=== PATIENT | female | born 1940 | race Caucasian/White ===

== ENCOUNTER 2019-12-07 15:39 | Outpatient (REF) | payer MEDICARE, SELFPAY ==
--- NOTE | 2019-12-07 15:52 | XR_ITS ---
EXAMINATION: XR SHOULDER, RIGHT CLINICAL INFORMATION: 79-year-old female patient complains of pain in the right shoulder. COMPARISON: X-rays of the right humerus and 09/09/2017. TECHNIQUE: Three views of the right shoulder. FINDINGS: The bones and soft tissues are normal. No fracture. Glenohumeral and acromioclavicular alignment is anatomic. No abnormal soft tissue calcifications. IMPRESSION: Normal right shoulder.
== END 2019-12-07 15:40 | disposition home or self-care (01) ==
LOC: HO.HMGCX 15:39
PROVIDERS: PCP Nurse Practitioner Family; Visit Provider Nurse Practitioner Family
DX: M25.511 Pain in right shoulder (principal)
CPT/HCPCS: 73030

== ENCOUNTER 2020-01-05 19:45 | Emergency (ER) | payer MEDICARE, SELFPAY ==
[2020-01-05 19:50] VITALS: BP 152/48; PULSE 60; RESP 16; TEMP 36.5; O2SAT 99; BMI 21.6
[2020-01-05 20:32] VITALS: PULSE 65
--- NOTE | 2020-01-05 20:39 | XR_ITS ---
EXAMINATION: XR CHEST CLINICAL INFORMATION: Chest pain COMPARISON: 12/24/2016 TECHNIQUE: Frontal view of the chest was obtained. FINDINGS: Lungs are well expanded and clear. No evidence of consolidation or pleural effusion. Cardiomediastinal silhouette has normal size and contour. The visualized bones, and upper abdomen, are unremarkable. XR/XR chest 1V IMPRESSION: No acute pulmonary disease.
--- NOTE | 2020-01-05 20:39 | ECG_ITS ---
Test Reason : CHEST PAIN Blood Pressure : / mmHG Vent. Rate : 058 BPM Atrial Rate : 058 BPM P-R Int : 120 ms QRS Dur : 072 ms QT Int : 420 ms P-R-T Axes : 068 046 249 degrees QTc Int : [address] & T wave abnormality, consider inferolateral ischemia Abnormal ECG When compared with ECG of 30-JUL-2004 15:43, ST now depressed in Lateral leads T wave inversion now evident in Inferior leads Inverted T waves have replaced nonspecific T wave abnormality in Lateral leads Referred By: Amparo Kearney Electronically Signed By:LILA ST MD
--- NOTE | 2020-01-05 20:41 | ED_ITS ---
HPI - Chest Pain General Chief Complaint: Chest Pain Stated Complaint: Chest Pain Time Seen by Provider: 01/05/20 20:38 Source: patient Mode of arrival: ambulatory Limitations: no limitations History of Present Illness HPI narrative: 79-year-old female with history of coronary artery disease and 3 stents more than 10 years ago, patient presented with intermittent chest pain that started 5 months ago, patient describes the pain as localized to the left chest area, with radiation down to the left upper abdominal area, pain usually aggravated by exertion, but relieved with rest, pain is associated with shortness of breath. Last time patient had pain was 03:30 am. No recent travel, no recent prolonged immobilization, no lower extremity swelling or pain. Related Data Previous Rx's Medication Instructions Recorded diclofenac sodium 50 mg 50 mg PO BID 30 Days #60 tab 12/07/19 tablet,delayed release lidocaine 5 % topical patch 1 patch TOPICAL DAILY #30 ea 12/07/19 metformin 500 mg tablet 500 mg PO DAILY #30 tab 12/07/19 Allergies Allergy/AdvReac Type Severity Reaction Status Date / Time statins AdvReac Unknown muscle Uncoded 10/12/19 00:00 cramps Review of Systems Review of Systems: All other systems are reviewed and are negative Constitutional: Reports as per HPI and Reports no additional constitutional complaints Eyes: Reports as per HPI and Reports no additional eye complaints Reports system reviewed and no additional complaints, except as documented Cardiovascular: Reports as per HPI and Reports no additional cardiovascular complaints Respiratory: Reports as per HPI and Reports no additional respiratory complaints Gastrointestinal: Reports as per HPI and Reports no additional gastrointestinal complaints Genitourinary: Reports no additional female genitourinary complaints Musculoskeletal: Reports no additional musculoskeletal complaints Skin/Breast: Reports system reviewed and no additional complaints, except as docu Psychiatric: Reports no additional psychiatric complaints Endocrine: Reports no additional endocrine complaints Hematologic/Lymphatic: Reports no additional hematologic/lymphatic complaints Allergic/Immunologic: Reports no additional allergic/immunologic complaints Reports system reviewed and no additional complaints, except as documented and Reports Abnormal speech present [facility] Past Medical History Surgical History H/O heart artery stent Social History Social History Alcohol intake: never Smoking Status: Never smoker Use of substances other than those prescribed or required for medical reasons: No Advance Directives: No Advance Directives Information Provided: Yes Physical Exam Vital Signs: Vital Signs: Last Vital Signs Temp 97.7 F 01/05/20 19:50 Pulse 56 01/05/20 22:01 Resp 12 01/05/20 21:46 BP 159/66 H 01/05/20 22:01 Pulse Ox 100 01/05/20 21:46 Body Mass Index 23.2 Vital signs have been reviewed as normal and appeared to be correct. Blood pressure is in the high range. Heart rate normal. Respiration rate normal. Temperature normal. Oxygen saturation normal. Appearance: Alert. Oriented X3. No acute distress. Anxious. Head: Normal external exam. Normocephalic. Atraumatic. No Saha signs noted. No raccoon eyes noted Eyes: PERRLA. EOMI. Conjunctiva and sclera normal. Eyelids normal. ENT: EAC normal. TM's Normal. Pharynx normal. Uvula midline. Moist mucous membranes. No trismus noted. No drooling noted. No muffled voice noted. Neck: Normal inspection. Neck supple. FROM. No adenopathy. Thyroid Normal. No meningeal signs. No neck mass noted. CVS: Normal heart rate and rhythm. Heart sound normal. No murmurs noted. Pulses normal throughout. Respiratory: No respiratory distress. Painless inspiration. Breath sounds normal. No wheezes/rales/rhonchi noted. Chest nontender. No accessory muscle usage noted or decreased air movement noted. Abdomen: Soft and nontender. Bowel sounds normal in all 4 quadrants. No distention noted. No organomegaly noted. No visible injury noted. Back: No CVA tenderness. Full range of motion noted. Skin: Skin warm and dry. Normal skin color. Normal skin turgor. No rash es/lesions/lacerations noted. Extremities: No lower extremity edema. Extremities exhibit normal range of motion. Extremities nontender. Neuro: Oriented X 3. No motor deficit. No sensory deficit. Reflexes normal. MDM - Chest Pain MDM Narrative Medical decision making narrative: Assessment and plan. 79 years old female came in for chest pain for the past few months, but she had severe chest pain at 03:30 in the morning,, patient had had involving chest pain since then, patient had elevated high sensitive troponin above 4000 with T-wave inversion on the EKG which is new, the case discussed with our promotions representative Dr. Palmer who recommended to transfer to [facility], patient was discussed with [facility] promotions representative attending Dr. mary dia who accepted the patient to be transferred to [facility]. Will start the patient on aspirin/heparin/nitro and arrange for transportation. Lab Data Attestation: I reviewed the patient's lab results. Result diagrams: 01/05/20 20:47 01/05/20 20:47 Labs: Lab Results 01/05/20 01/05/20 01/05/20 Range/Units 20:47 20:47 20:47 WBC 6.6 (4.8-10.8) X10*3/uL RBC 3.94 L (4.20-5.50) X10*6/uL Hgb 12.0 (12.0-16.0) g/dl Hct 36.0 L (37-47) % MCV 91.4 (80-98) fL MCH 30.5 (27.0-33.0) pg MCHC 33.3 (31.0-35.0) g/dl RDW 12.1 (11.0-16.0) % Plt Count 222 (160-400) X10*3/uL MPV 9.5 (9.4-12.3) fL Immature Gran % (Auto) 0.2 (0.0-0.4) % Neut % (Auto) 48.4 (45-73) % Lymph % (Auto) 40.6 H (20-40) % Candler % (Auto) 7.9 (2-11) % Eos % (Auto) 2.6 (0-4) % Baso % (Auto) 0.3 (0-2) % Lymph # (Auto) 2.7 (1.2-4.9) X10*3/uL Candler # (Auto) 0.5 (0.1-1.2) X10*3/uL Eos # (Auto) 0.2 (0.0-0.4) X10*3/uL Baso # (Auto) 0.0 (0.0-0.2) X10*3/uL Abs Immat Gran (auto) 0.01 (0.00-0.03) X10*3/uL Absolute Neuts (auto) 3.2 (2.0-8.3) X10*3/uL Absolute Nucleated RBC 0.000 (0.0-0.012) X10*3/uL Nucleated RBC % (auto) 0.0 (0.0-0.2) /100WBC D-Dimer NG/ML Sodium 139 (135-145) mmol/L Potassium 4.6 (3.3-5.1) mmol/l Chloride 104 (96-108) mmol/L Carbon Dioxide 24 (22-29) mmol/L Anion Gap 16 (12-20) BUN 27 H (9-16) mg/dL Creatinine 0.97 (0.5-1.4) mg/dL Estim Creat Clear Calc 42.2 Estimated GFR 55 Random Glucose 169 H (60-115) mg/dL Calcium 8.7 (8.4-10.2) mg/dL Troponin I High Sens 4507.6 H (<3.5-17.0) ng/L B-Natriuretic Peptide 478 H (<100) pg/mL Lipase 31 (8-78) U/L 01/05/20 Range/Units 20:47 WBC (4.8-10.8) X10*3/uL RBC (4.20-5.50) X10*6/uL Hgb (12.0-16.0) g/dl Hct (37-47) % MCV (80-98) fL MCH (27.0-33.0) pg MCHC (31.0-35.0) g/dl RDW (11.0-16.0) % Plt Count (160-400) X10*3/uL MPV (9.4-12.3) fL Immature Gran % (Auto) (0.0-0.4) % Neut % (Auto) (45-73) % Lymph % (Auto) (20-40) % Candler % (Auto) (2-11) % Eos % (Auto) (0-4) % Baso % (Auto) (0-2) % Lymph # (Auto) (1.2-4.9) X10*3/uL Candler # (Auto) (0.1-1.2) X10*3/uL Eos # (Auto) (0.0-0.4) X10*3/uL Baso # (Auto) (0.0-0.2) X10*3/uL Abs Immat Gran (auto) (0.00-0.03) X10*3/uL Absolute Neuts (auto) (2.0-8.3) X10*3/uL Absolute Nucleated RBC (0.0-0.012) X10*3/uL Nucleated RBC % (auto) (0.0-0.2) /100WBC D-Dimer < 200 NG/ML Sodium (135-145) mmol/L Potassium (3.3-5.1) mmol/l Chloride (96-108) mmol/L Carbon Dioxide (22-29) mmol/L Anion Gap (12-20) BUN (9-16) mg/dL Creatinine (0.5-1.4) mg/dL Estim Creat Clear Calc Estimated GFR Random Glucose (60-115) mg/dL Calcium (8.4-10.2) mg/dL Troponin I High Sens (<3.5-17.0) ng/L B-Natriuretic Peptide (<100) pg/mL Lipase (8-78) U/L Imaging Data Chest x-ray: Radiologist's impression: No acute pathology. ECG Data ECG #1: Interpretation: Sinus bradycardia at 58 beats per minute, normal axis deviation, normal intervals, diffuse T-wave inversion in lead III,aVF, V4, V5, V6. Critical Care Time Critical Care Time Critical Care Time: Yes Total Critical Care Time: 5 Attestation: I spent 45 minutes at bedside providing critical care level of care including reviewing EKG, labs, talking to consultants, arranging for transfer to another facility, answering patient's questions. Discharge Plan Discharge Clinical Impression: Chest pain Patient Disposition: Xfer [facility] Prescriptions: No Action metformin 500 mg tablet 500 mg PO DAILY Qty: 30 RF: 4 diclofenac sodium 50 mg tablet,delayed release (DR/EC) 50 mg PO BID 30 Days Qty: 60 RF: 1 lidocaine 5 % adhesive patch,medicated 1 patch topical DAILY Qty: 30 RF: 0
[2020-01-05 20:58] LABS: MANUAL DIFF FLAG NO
[2020-01-05 20:59] LABS: Basophils Percent Auto 0.3 % (0-2); Eosinophils Absolute Auto 0.2 X10*3/uL (0.0-0.4); Eosinophils Percent Auto 2.6 % (0-4); Imm Gran Abs Auto 0.01 X10*3/uL (0.00-0.03); Imm Gran Pct Auto 0.2 % (0.0-0.4); Lymphocytes Absolute Auto 2.7 X10*3/uL (1.2-4.9); Lymphocytes Percent Auto 40.6 % (20-40); Mean Corpuscular HGB Conc 33.3 g/dl (31.0-35.0); Mean Corpuscular Hemoglobin 30.5 pg (27.0-33.0); Mean Corpuscular Volume 91.4 fL (80-98); Mean Platelet Volume 9.5 fL (9.4-12.3); Monocytes Absolute Auto 0.5 X10*3/uL (0.1-1.2); Monocytes Percent Auto 7.9 % (2-11); Neutrophils Absolute Auto 3.2 X10*3/uL (2.0-8.3); Neutrophils Percent Auto 48.4 % (45-73); Platelet Count 222 X10*3/uL (160-400); Red Blood Count 3.94 X10*6/uL (4.20-5.50); Red Cell Distribution Width 12.1 % (11.0-16.0); White Blood Count 6.6 X10*3/uL (4.8-10.8)
--- NOTE | 2020-01-05 21:00 | PC.NURSE ---
Patient line and lab'd. sinus rhythm on monitor. MD evaluation completed
[2020-01-05 21:09] LABS: D Dimer < 200 NG/ML
[2020-01-05 21:21] LABS: Anion Gap 16 (12-20); Blood Urea Nitrogen 27 mg/dL (9-16); Calcium 8.7 mg/dL (8.4-10.2); Carbon Dioxide 24 mmol/L (22-29); Chloride 104 mmol/L (96-108); Creatinine Clr Calc Pharmacy 42.2; Estimated Glomerular Filt Rate 55; Glucose Random 169 mg/dL (60-115); Lipase 31 U/L (8-78); Potassium 4.6 mmol/l (3.3-5.1); Sodium 139 mmol/L (135-145)
[2020-01-05 21:30] LABS: B Type Natriuretic Peptide 478 pg/mL (<100)
[2020-01-05 21:46] VITALS: BP 154/60; PULSE 57; RESP 12; O2SAT 100
[2020-01-05 21:57] VITALS: BMI 23.2
[2020-01-05 22:00] VITALS: BP 149/56; PULSE 57; RESP 14; O2SAT 100
[2020-01-05 22:01] VITALS: BP 159/66; PULSE 56
[2020-01-05] MEDS: Aspirin Enteric Coated 81 MG TABLET.DR PO (22:01)
[2020-01-05] MEDS: Nitroglycerin 2 % Oint 1 GM Packet 0.5 INCH TRANSDERMA (22:01)
[2020-01-05] MEDS: Heparin Sodium,Porcine 5,000 UNIT/ML VIAL 2358.68 UNIT IVPUSH (22:08)
[2020-01-05 22:25] LABS: Prothrombin Time 11.3 SEC (10.8-13.0)
[2020-01-05] MEDS: Heparin Sodium,Porcine/1/2NS 25,000 UNIT/250 ML IV.SOLN 7.08 UNIT IVCONT (22:29)
[2020-01-05 22:59] LABS: COVID-19 Test Negative (Negative)
== END 2020-01-06 00:24 | disposition short-term general hospital (02) ==
PROVIDERS: Emergency Provider Emergency Medicine; PCP Nurse Practitioner Family
DX: R07.9 Chest pain, unspecified (principal); I25.10 Atherosclerotic heart disease of native coronary artery without angina pectoris; Z79.899 Other long term (current) drug therapy; Z20.828 Contact with and (suspected) exposure to other viral communicable diseases
CPT/HCPCS: 36415; 71045; 80048; 83690; 83880; 84484; 85025; 85379; 85610; 87635; 93005; 96365; 96366; 96375; 99285

== ENCOUNTER → 2020-03-13 13:02 | Outpatient (BNVA) | payer MEDICARE, SELFPAY | PROVIDERS: PCP Nurse Practitioner Family; Visit Provider Internal Medicine | DX: I25.10 Atherosclerotic heart disease of native coronary artery without angina pectoris (principal); I65.23 Occlusion and stenosis of bilateral carotid arteries; I10 Essential (primary) hypertension; E11.9 Type 2 diabetes mellitus without complications; E78.5 Hyperlipidemia, unspecified; Z95.1 Presence of aortocoronary bypass graft | CPT/HCPCS: 99202 ==

== ENCOUNTER → 2020-04-12 14:37 | Outpatient (REF) | payer MEDICARE, SELFPAY ==
--- NOTE | 2020-04-12 14:49 | CA_ITS ---
Transthoracic Echocardiogram Patient (Last, First, Middle): Ashley Kent Lou Gender: Female Date of : 1940 Age: 80 Procedure Date: 04/12/2020 Procedure Type: Transthoracic Echocardiogram Location: OP Height: 165.1 cm Weight: 57.15 kg BSA: 1.63 m2 Heart Rate: bpm BP: 120 / 80 mmHg Carpet Or Rug Layer Helper: ARAM Salas MD: Ramses Palmer MD Senior Software Developer: Manoj Jang MD Symptoms: Z95.1 - Presence of aortocoronary bypass graft Study Quality: Good ECG Rhythm: Sinus Conclusions: - 1. Normal LV systolic function with impaired relaxation filling pattern 2. Fibrocalcific aortic valve changes noted with may be early aortic stenosis 3. Moderate mitral annular calcification with mild mitral regurgitation 4. Normal RV systolic pressure 5. No gross pericardial effusion Findings Left Ventricle Normal left ventricular size, thickness, and systolic function. The visually estimated ejection fraction is between 60-65%. There is paradoxical septal motion consistent with post-operative status. Spectral Doppler is indicative of an impaired relaxation filling pattern. E/E prime ratio is between 8 and 15 consistent with indeterminate filling pressures. Wall Motion Rest Echo Findings The basal inferolateral segment is hypokinetic. The basal inferior segment is akinetic. All other scored wall segments showed normal motion. Right Ventricle Normal right ventricular cavity size and systolic function. Atria The left atrium is likely dilated. There is lipomatous hypertrophy of the interatrial septum. There is no evidence of interatrial shunt. The right atrium is normal in size. Aortic Valve There is mild calcification of the aortic valve. There is mild thickening of the aortic valve. There is no aortic valve stenosis. There is trace (trivial) aortic valve regurgitation. Mitral Valve There is mild anterior and posterior mitral leaflet thickening. There is moderate mitral annular calcification. There is mild mitral valve regurgitation. There is no mitral valve stenosis. Pulmonic Valve The pulmonic valve was not well visualized. Tricuspid Valve Likely normal tricuspid valve structure and function. There is mild tricuspid valve regurgitation. The right ventricular systolic pressure is normal. The right ventricular systolic pressure is 25 mmHg. Normal right atrial pressure. There is no evidence of pulmonary hypertension. Great Vessels All visible segments of the aorta are normal in size. The pulmonary artery was not well visualized. Venous The inferior vena cava is normal in size and collapses greater than 50% with inspiration. Pericardium/Pleural There is no evidence of pericardial effusion. Prior Study Comparison No significant change compared to prior study dated: 02/24/2019. Measurements 2D Linear Measurements IVSd: 1.02 0.6-0.9/0.6-1.0 cm LVIDd: 4.33 3.9-5.3/4.2-5.9 cm LVIDd Index: 2.66 2.4-3.2/2.2-3.1 cm/m2 LVIDs: 2.89 2.0-3.6 cm LVPWd: 1.02 0.7-1.1 cm Ao Root: 3.20 2.1-3.5 cm LA Diam: 3.70 2.7-3.8/3.0-4.0 cm LAIDs Index: 2.27 1.5-2.3 cm/m2 LV Mass: 184.38 67-162/88-224 g LV Mass Index: 113.12 43-95/49-115 g/m2 LVOT Diam: 2.00 3.0+(-)1.3 cm 2D Systolic Function EF 4C: 62.30 >55% EF 2C: 61.90 >55% EF BiP: 60.90 >55% Mitral Valve MV Pk E: 0.80 MV PK A: 0.94 MV Decel Time: 373.00 E/A: 0.90 E'Lateral: 8.70 E'Medial: 4.90 E/E' Med: 16.20 E/E' Lat: 9.10 PHT: 109.00 MVA PHT: 2.02 Decel Dupage: 2.14 Aortic Valve AoV Pk Jason: 1.39 AoV Mn Jason: 0.95 AoV VTI: 0.32 AoV Pk Grad: 8.00 Aov Mn Grad: 4.00 JAKE Cont.VTI: 1.90 LVOT LVOT Pk Jason: 0.83 LVOT Mn Jason: 0.53 LVOT VTI: 0.19 LVOT Pk Grad: 3.00 LVOT Mn Grad: 1.00 LVOT Diam: 2.00 LVOT Area: 3.14 Diastolic Function MV Pk E: 0.80 MV Pk A: 0.94 E/A: 0.90 E'Medial: 4.90 E/E' Med: 16.20 E' Laterial: 8.70 E/E' Lat: 9.10 Tricuspid Valve TR Pk Jason: 2.33 TR Pk Grad: 22.00 RA Press: 3.00 RVSP: 25.00 Great Vessels Aorta Ao Root-2D: 3.20 2.0-3.7 cm Ao Asc: 3.40 2.1-3.4 cm Ao Arch: 2.90 Updated in Other Vendor System with Status of Final Manoj Jang MD electronically signed on 04/14/2020 10:37:34 AM with status of Final
== END ==
LOC: HO.CARD 14:37
PROVIDERS: Visit Provider Internal Medicine
DX: Z95.1 Presence of aortocoronary bypass graft (principal)
CPT/HCPCS: 93306

== ENCOUNTER 2020-06-01 14:50 | Outpatient (REF) | payer MEDICARE, SELFPAY ==
--- NOTE | ~2020-06-01 | MM_ITS ---
EXAMINATION: BONE DENSITOMETRY CLINICAL INDICATION: Asymptomatic menopausal state. COMPARISON: Previous BD dated 07/02/2017 and baseline BD dated 03/01/2015. TECHNIQUE: Using a [employer] DXA System (software version: 13.1) manufactured by [employer], dual-energy x-ray absorptiometry was performed of the lumbar spine and left hip. The images are of good technical quality. Summary results are attached. FINDINGS: AP SPINE L1-L4: Current: BMD 1.118 g/cm2, Z-score 1.6, T-score -0.5, normal, 5.8% decrease from previous, 4.3% decrease from baseline (<5% change is not significant). Prior: BMD 1.187 g/cm2. Baseline: BMD 1.168 g/cm2. LEFT FEMUR, NECK: Current: BMD 0.785 g/cm2, Z-score 0.5, T-score -1.8, osteopenia. Prior: BMD 0.965 g/cm2. Baseline: BMD 0.798 g/cm2. LEFT FEMUR, TOTAL: Current: BMD 0.717 g/cm2, Z-score -0.1, T-score -2.3, osteopenia, 23.6% decrease from previous, 18.5% decrease from baseline (<5% change is not significant). Prior: BMD 0.939 g/cm2. Baseline: BMD 0.880 g/cm2. IDENTIFIED RISK FACTORS: Height loss, low calcium intake, anticonvulsant. Early menopause, secondary osteoporosis hysterectomy, bilateral oophorectomy,. HISTORY OF FRACTURE: None listed. MEDICATIONS: None listed. MM/XR DEXA axial skeleton IMPRESSION: 1. DIAGNOSIS: Osteopenia based on the lowest T-score value of -2.3 in the total femur applying World Health Organization criteria. 2. 10-YEAR FRACTURE RISK PREDICTION, FRAX: Major osteoporotic fracture (clinical spine, forearm, hip or shoulder) 13.7%. Hip fracture 3.9%. 3. Treatment Recommendations: NOF guidelines recommend consideration for treatment in postmenopausal women and men age 50 and older presenting with the following: -A hip or vertebral (clinical or morphometric) fracture. -T-score less than or equal to -2.5 at the femoral neck or spine after appropriate evaluation to exclude secondary causes. -Low bone mass at the hip or spine and a 10-year fracture probability by FRAX of greater than or equal to 3% for hip fracture or greater than or equal to 20% for major osteoporotic fracture based on the [place] adapted WHO algorithm. 4. Other Recommendations: All treatment decisions require clinical judgment and consideration of individual patient factors, including patient preferences, comorbidities, previous drug use, risk factors not captured in the FRAX model (e.g. frailty, falls, vitamin D deficiency, increased bone turnover, interval significant decline in bone density) and possible under or overestimation of fracture risk by FRAX. Additional medical evaluation for secondary cause of low bone mineral density may be appropriate. FUTURE SCAN RECOMMENDATION: People with diagnosed cases of osteoporosis or at high risk for fracture should have regular bone mineral density tests. For patients eligible for Medicare, routine testing is allowed once every 2 years. The testing frequency can be increased to one year for patients who have rapidly progressing disease, those who are receiving or discontinuing medical therapy to restore bone mass, or have additional risk factors.
== END 2020-06-01 14:51 | disposition home or self-care (01) ==
LOC: HO.MAMMO 14:50
PROVIDERS: Visit Provider Nurse Practitioner Family
DX: M81.8 Other osteoporosis without current pathological fracture (principal); E58 Dietary calcium deficiency; Z78.0 Asymptomatic menopausal state; Z79.899 Other long term (current) drug therapy; Z90.710 Acquired absence of both cervix and uterus; Z90.722 Acquired absence of ovaries, bilateral
CPT/HCPCS: 77080

== ENCOUNTER 2020-06-06 14:09 | Outpatient (REF) | payer MEDICARE, SELFPAY ==
--- NOTE | ~2020-06-06 | XR_ITS ---
EXAMINATION: XR HAND, RIGHT CLINICAL INFORMATION: Contusion with pain COMPARISON: None TECHNIQUE: Three-view right hand FINDINGS: There is osteopenia visualized bones. No acute fracture or dislocation is evident. Degenerative joint disease is seen with some joint space narrowing and marginal spurring involving the distal interphalangeal joints as well as sequela of previous trauma involving the fourth proximal interphalangeal joint. There is some degenerative change seen about the first metacarpal phalangeal joint. There is a small calcific density seen adjacent to the head of the second proximal phalanx which may be sequela of previous injury. No definite erosive arthritides identified. There is some soft tissue swelling seen overlying the dorsum of the second metacarpal phalangeal joint. XR/XR hand RT min 3V IMPRESSION: Degenerative change of the right hand without evidence of acute fracture or dislocation.
--- NOTE | ~2020-06-06 | US_ITS ---
EXAMINATION: US EXTREMITY NONVASCULAR CLINICAL INFORMATION: Localized swelling, mass and lump, right upper limb COMPARISON: Radiograph dated 06/06/2020 TECHNIQUE: Huntley-scale and color Doppler images were obtained through the dorsal aspect of the right hand in the area of palpable abnormality. FINDINGS: 2 small hypoechoic, rounded foci are present in the subcutaneous fat just dorsal to the index finger MCP joint. These measure 1 x 0.7 x 1.2 cm and 0.8 x 0.3 x 0.7 cm. No abnormal blood flow seen within these on color Doppler. Surrounding soft tissues are unremarkable on these images. US/US extremity nonvascular IMPRESSION: Two small hypoechoic foci in the subcutaneous fat at the dorsal aspect of the index finger MCP joint which may correspond to small hematomas. Other possibilities include a complicated ganglion cyst or tophus. No surrounding blood flow on color Doppler to indicate significant hyperemia.
== END 2020-06-06 14:10 | disposition home or self-care (01) ==
LOC: HO.HMGCX 14:09
PROVIDERS: PCP Nurse Practitioner Family; Visit Provider Nurse Practitioner Family
DX: S60.00XA Contusion of unspecified finger without damage to nail, initial encounter (principal)
CPT/HCPCS: 73130; 76882

== ENCOUNTER 2020-06-12 13:56 | Outpatient (REF) | payer MEDICARE, SELFPAY ==
[2020-06-12 15:21] LABS: MANUAL DIFF FLAG NO
[2020-06-12 15:28] LABS: Basophils Percent Auto 0.3 % (0-2); Eosinophils Absolute Auto 0.2 X10*3/uL (0.0-0.4); Eosinophils Percent Auto 2.4 % (0-4); Hematocrit 35.3 % (37-47); Hemoglobin 11.2 g/dl (12.0-16.0); Imm Gran Abs Auto 0.02 X10*3/uL (0.00-0.03); Imm Gran Pct Auto 0.3 % (0.0-0.4); Lymphocytes Absolute Auto 2.3 X10*3/uL (1.2-4.9); Lymphocytes Percent Auto 30.1 % (20-40); Mean Corpuscular HGB Conc 31.7 g/dl (31.0-35.0); Mean Corpuscular Hemoglobin 28.5 pg (27.0-33.0); Mean Corpuscular Volume 89.8 fL (80-98); Mean Platelet Volume 9.3 fL (9.4-12.3); Monocytes Absolute Auto 0.5 X10*3/uL (0.1-1.2); Monocytes Percent Auto 6.5 % (2-11); Neutrophils Absolute Auto 4.6 X10*3/uL (2.0-8.3); Neutrophils Percent Auto 60.4 % (45-73); Platelet Count 233 X10*3/uL (160-400); Red Blood Count 3.93 X10*6/uL (4.20-5.50); Red Cell Distribution Width 13.5 % (11.0-16.0); White Blood Count 7.5 X10*3/uL (4.8-10.8)
[2020-06-12 15:44] LABS: Estimated Average Glucose 151 mg/dL; Hemoglobin A1c % 6.9 %
[2020-06-12 16:16] LABS: Alanine Aminotransferase 18 U/L (0-31); Albumin Level 4.7 g/dL (3.5-5.0); Alkaline Phosphatase 65 U/L (39-117); Anion Gap 13 (12-20); Aspartate Amino Transferase 18 U/L (5-31); Bilirubin Total 0.6 mg/dL (0.0-1.0); Blood Urea Nitrogen 20 mg/dL (9-16); Calcium 9.9 mg/dL (8.4-10.2); Carbon Dioxide 30 mmol/L (22-29); Chloride 103 mmol/L (96-108); Cholesterol 163 mg/dL; Estimated Glomerular Filt Rate > 60; Glucose Fasting 122 mg/dL (60-99); HDL Cholesterol 45 mg/dL; Iron 82 mcg/dL (30-160); LDL Cholesterol Calculated 88 mg/dl; Percent Iron Saturation 23 % (15-50); Potassium 4.4 mmol/L (3.3-5.1); Sodium 142 mmol/L (135-145); Total Iron Binding Capacity 362 mcg/dL (228-428); Total Protein 7.2 g/dL (6.5-8.0); Triglycerides 151 mg/dL; Unsaturated Iron Binding 280 ug/dL
[2020-06-12 16:37] LABS: Ferritin 59 ng/mL (10-250); TSH reflex Free T4 0.54 uIU/mL (0.32-4.0)
[2020-06-12 16:55] LABS: Creatinine Urine 190.01 mg/dL; Microalbum/Creatinine Ratio Ur 10.5 ug/mg cr
== END 2020-06-12 13:57 | disposition home or self-care (01) ==
LOC: HO.LAB 13:56
PROVIDERS: PCP Nurse Practitioner Family; Visit Provider Internal Medicine
DX: D64.9 Anemia, unspecified (principal); I21.4 Non-ST elevation (NSTEMI) myocardial infarction; I25.10 Atherosclerotic heart disease of native coronary artery without angina pectoris; I65.23 Occlusion and stenosis of bilateral carotid arteries; I10 Essential (primary) hypertension; E78.5 Hyperlipidemia, unspecified; E11.9 Type 2 diabetes mellitus without complications; Z95.1 Presence of aortocoronary bypass graft; Z79.899 Other long term (current) drug therapy
CPT/HCPCS: 36415; 80053; 80061; 82043; 82728; 83036; 83540; 84443; 85025; 99212

== ENCOUNTER → 2020-12-11 14:38 | Outpatient (BNVA) | payer MEDICARE, SELFPAY | PROVIDERS: PCP Internal Medicine; Referring Provider Internal Medicine; Visit Provider Internal Medicine | DX: I25.10 Atherosclerotic heart disease of native coronary artery without angina pectoris (principal); I21.4 Non-ST elevation (NSTEMI) myocardial infarction; I65.23 Occlusion and stenosis of bilateral carotid arteries; E11.9 Type 2 diabetes mellitus without complications; I10 Essential (primary) hypertension; E78.5 Hyperlipidemia, unspecified; Z95.1 Presence of aortocoronary bypass graft; Z95.5 Presence of coronary angioplasty implant and graft; Z98.890 Other specified postprocedural states; Z88.8 Allergy status to other drugs, medicaments and biological substances; Z79.84 Long term (current) use of oral hypoglycemic drugs; Z79.899 Other long term (current) drug therapy | CPT/HCPCS: 99212 ==

== ENCOUNTER 2020-12-26 18:49 | Emergency (ER) | payer MEDICARE, SELFPAY ==
--- NOTE | ~2020-12-26 | XR_ITS ---
EXAMINATION: XR FOOT, LEFT CLINICAL INFORMATION: Pain to 3rd toe, small black fluctuant area r/o osteomyelitis COMPARISON: None TECHNIQUE: AP, lateral, and oblique views of the left foot. FINDINGS: There are degenerative changes present at the first metatarsophalangeal joint narrowing and sclerosis. No fractures are seen. No bony destructive abnormalities seen to suggest osteomyelitis. No other significant abnormality is present. XR/XR foot LT 2V IMPRESSION: No acute fracture. No evidence of osteomyelitis.
--- NOTE | ~2020-12-26 | XR_ITS ---
EXAMINATION: XR CHEST CLINICAL INFORMATION: Bilateral leg swelling. COMPARISON: Chest done on 01/05/2020. TECHNIQUE: Frontal view of the chest was obtained. FINDINGS: Postop changes of sternotomy is present, new since prior study. Cardiac mediastinal silhouette is within normal limits. Both lung cornejo are symmetrically expanded and are clear. No evidence of any pleural effusion or pneumothorax. XR/XR chest 1V IMPRESSION: No radiographic evidence of acute cardiopulmonary disease. Postop changes of sternotomy, new since 01/05/2020.
--- NOTE | ~2020-12-26 | US_ITS ---
EXAMINATION: NONINVASIVE ASSESSMENT OF THE ARTERIES OF LEFT LOWER EXTREMITY Gen Hagen MD CLINICAL INFORMATION: History of cardiac bypass now with left lower extremity pain and swelling TECHNIQUE: Left lower extremity duplex ultrasound was performed with velocity measurements and waveform analysis in the common femoral arteries, profunda femoris arteries, proximal mid and distal superficial femoral arteries, popliteal arteries and tibial vessels. This study was performed only at rest. COMPARISON: None FINDINGS: Velocities in cm/sec and phasicity as well as the presence of plaque are reported below. LEFT LEG: Common Femoral: 237 -triphasic flow with mild plaque Profunda Femoris: 121 -triphasic flow with mild plaque Proximal SFA: 93 -biphasic flow Mid SFA: 72 -mild plaque with monophasic flow. Distal SFA: 40 -mild plaque with monophasic flow Popliteal: 36 with monophasic flow and areas of no flow seen, possibly acute. Posterior tibial: 14 -monophasic flow Peroneal: 31 -monophasic flow Incidental note made of a 1.1 cm left groin lymph node. US/US arterial duplex LE IMPRESSION: There is evidence of significant peripheral vascular disease distal SFA and popliteal disease with popliteal occlusion possibly secondary to acute clot with reconstituted monophasic tibial flow below this level.
--- NOTE | ~2020-12-26 | US_ITS ---
EXAMINATION: US VENOUS ULTRASOUND WITH DOPPLER LOWER EXTREMITY, LEFT CLINICAL INFORMATION: Left lower extremity pain and swelling COMPARISON: None TECHNIQUE: Ultrasound of the deep veins is performed from the hip to the calf with compression sonography and color and pulse Doppler assessment. Spectral analysis with color-flow imaging is performed. FINDINGS: There is normal venous compression and respiratory variation and augmented flow. The visualized common femoral vein, superficial femoral vein, profunda femoral vein, popliteal vein, and the trifurcation region shows no evidence of deep venous thrombosis. There is no significant popliteal fossa cyst. The contralateral right common femoral vein appears normal. If the patient's symptoms persist, followup ultrasound in 5 days 7 days might be of value to exclude proximal propagation from a non-visualized calf vein. US/US venous duplex LE IMPRESSION: No DVT demonstrated in the left lower extremity.
[2020-12-26 19:49] VITALS: BP 156/64; PULSE 71; RESP 18; TEMP 36.8; O2SAT 98; BMI 21.6
--- NOTE | 2020-12-26 20:12 | ED_ITS ---
HPI - Extremity Problem General Chief complaint: Extremity Problem <VICENTE Paulino - Last Filed: 12/27/20 02:23> Stated complaint: foot pain <VICENTE Paulino - Last Filed: 12/27/20 02:23> Time Seen by Provider: 12/26/20 19:29 <VICENTE Paulino Last Filed: 12/27/20 02:23> Source: patient <VICENTE Paulino - Last Filed: 12/27/20 02:23> Mode of arrival: ambulatory <VICENTE Paulino Last Filed: 12/27/20 02:23> Limitations: no limitations <VICENTE Paulino Last Filed: 12/27/20 02:23> History of Present Illness HPI Narrative: 80-year-old female past medical history significant for hypertension, diabetes, bilateral carotid artery stenosis, CAD status post CABG x4, history of NSTEMI presents to the emergency department with complaints of left foot swelling and pain described as pins and needles X1 year progressively worsening over the past week. Patient states that her pain has been a 10/10 over the past year, but over the past week her pain has been intolerable. Patient states she takes gabapentin, which helps a little bit, but does not get rid of the pain. Patient was seen at Urgent Care today, where they diagnosed her with cellulitis, and advised her to come to the emergency department for further evaluation. Patient takes baby aspirin daily. Patient denies chest pain, shortness of breath, fevers, chills, nausea, vomiting, abdominal pain, weakness. Denies recent travel and immobilization. Patient is not a smoker. Patient states she has never had imaging on her lower extremities. <VICENTE Paulino - Last Filed: 12/27/20 02:23> MD Complaint: extremity pain and extremity swelling <VICENTE Paulino Last Filed: 12/27/20 02:23> Onset (ago): year(s) (1) <VICENTE Paulino Last Filed: 12/27/20 02:23> Pain Consistency: constant <VICENTE Paulino Last Filed: 12/27/20 02:23> Location: left, right and lower extremity <VICENTE Paulino - Last Filed: 12/27/20 02:23> Severity scale (1-10): >10 <VICENTE Paulino - Last Filed: 12/27/20 02:23> Quality: burning and stabbing <VICENTE Paulino - Last Filed: 12/27/20 02:23> Radiation: none <VICENTE Paulino - Last Filed: 12/27/20 02:23> Relieving factors: nothing <VICENTE Paulino - Last Filed: 12/27/20 02:23> Exacerbating factors: nothing <VICENTE Paulino - Last Filed: 12/27/20 02:23> Associated symptoms: denies other symptoms <VICENTE Paulino - Last Filed: 12/27/20 02:23> Related Data Home medications: Previous Rx's Medication Instructions Recorded acetaminophen 500 mg tablet 500 mg PO BID PRN 30 Days #60 tab 02/24/20 (Tylenol Extra Strength) lidocaine 5 % topical patch 1 patch TOPICAL DAILY 30 Days #30 02/24/20 ea walker #1 ea 07/11/20 miscellaneous medical supply #1 ea 08/01/20 metformin 500 mg tablet 500 mg PO DAILY 30 Days #30 tab 09/13/20 Motorized Scooter #1 ea 10/18/20 hydrocortisone valerate 0.2 % 1 appl TOPICAL BID PRN 30 Days #60 10/29/20 topical cream g sitagliptin 50 mg tablet (Januvia) 50 mg PO DAILY #30 tab 10/29/20 atorvastatin 80 mg tablet 80 mg PO BEDTIME #90 tab 11/18/20 aspirin 81 mg tablet,delayed 81 mg PO DAILY #90 tab 12/04/20 release metoprolol tartrate 25 mg tablet 25 mg PO BID #180 tab 12/04/20 gabapentin 300 mg capsule 600 mg PO BEDTIME 30 Days #60 cap 12/08/20 alcon.stocking,thigh,reg,med #2 ea 12/11/20 <VICENTE Paulino Last Filed: 12/27/20 02:23> Allergies/Adverse reactions: Allergies Allergy/AdvReac Type Severity Reaction Status Date / Time [id number] Reductase Allergy Unknown muscle Verified 12/26/20 16:08 Inhibitor cramps [Tzawxxb-Rrd-Coa Reductase Inhibitor] <VICENTE Paulino - Last Filed: 12/27/20 02:23> Review of Systems Review of Systems: Constitutional : No Weight loss, No Fever, No Chills, No Fatigue, No Malaise ENT/Mouth : No sore throat, No Rhinorrhea Eyes: No Eye Pain, No Swelling, No Redness Cardiovascular : No Chest Pain, No SOB, No Dyspnea on Exertion, No Orthopnea, No Edema, No Palpitations Respiratory : No Cough, No Sputum, No Wheezing Gastrointestinal : No Nausea, No Vomiting, No Diarrhea, No Constipation, No abdominal Pain, No Hematochezia, No Melena Genitourinary : No Dysuria, No Urinary Frequency, No Hematuria, Musculoskeletal : + joint pain, No Myalgias, + Joint Swelling Skin : No Skin Lesions, No rash, + Redness overlying left foot. Neuro : No Weakness, No Numbness, No Dizziness, No Headache All other systems reviewed and are negative <VICENTE Paulino - Last Filed: 12/27/20 02:23> [facility] Past Medical History Attestation statement: The following information was validated with the patient. <VICENTE Paulino - Last Filed: 12/27/20 02:23> Source: old records reviewed and nursing notes reviewed <VICENTE Paulino - Last Filed: 12/27/20 02:23> Medical History: Medical History Atherosclerotic cardiovascular disease Bilateral carotid artery stenosis Coronary artery disease COVID-19 vaccination refused Dyslipidemia Essential hypertension Non-ST elevation OR (NSTEMI) NSTEMI (non-ST elevated myocardial infarction) Other and unspecified hyperlipidemia Refused influenza vaccine Type 2 diabetes mellitus without complication, without long-term current use of insulin <VICENTE Paulino - Last Filed: 12/27/20 02:23> Surgical History: Surgical History H/O heart artery stent History of cardiac catheterization (~01/06/20) S/P CABG x 4 (~01/11/20) <VICENTE Paulino - Last Filed: 12/27/20 02:23> Family History Family History: Family History Father Cancer Mother No problems noted. Brother No problems noted. Brother No problems noted. Brother No problems noted. Sister No problems noted. Sister No problems noted. Sister No problems noted. Sister No problems noted. Sister No problems noted. Son No problems noted. Son No problems noted. Son No problems noted. Son No problems noted. Daughter No problems noted. Other Substance use disorder <VICENTE Paulino - Last Filed: 12/27/20 02:23> Social History Social History: Social History Housing: House Alcohol intake: never Patient Tobacco Use Status: Never used Tobacco Second Hand Smoke Exposure: Yes Advance Directives: No Advance Directives Information Provided: No Current occupational status: retired <VICENTE Paulino - Last Filed: 12/27/20 02:23> Physical Exam Vital Signs: Vital Signs: Last Vital Signs Temp 98.2 F 12/26/20 19:49 Pulse 71 12/26/20 19:49 Resp 18 12/27/20 02:09 BP 156/64 H 12/26/20 19:49 Pulse Ox 98 12/26/20 19:49 Body Mass Index 21.6 Vital signs are stable, patient is slightly hypertensive. <VICENTE Paulino - Last Filed: 12/27/20 02:23> Vital Signs: Last Vital Signs Temp 98.2 F 12/26/20 19:49 Pulse 71 12/26/20 19:49 Resp 18 12/27/20 02:09 BP 156/64 H 12/26/20 19:49 Pulse Ox 98 12/26/20 19:49 Body Mass Index 21.6 <VICENTE Lew - Last Filed: 12/26/20 22:18> Appearance: Alert.? Oriented X3.? No acute distress.? Eyes: Pupils equal, round and reactive to light.? ENT: Pharynx normal.? Neck: Normal inspection.? Neck supple.? CVS: Normal heart rate and rhythm.? Pulses normal.? Respiratory: No respiratory distress.? Breath sounds normal.? Abdomen: Soft and nontender.? Skin: Skin warm and dry.? Normal skin color.? Normal skin turgor.? Extremities: 3+ non-pitting edema noted to bilateral lower extremities .? No calf ttp. Negative anabella sign bilaterally. LLE with erythema and calor from toes to mid arrington. 1+ pulses to bilater lower extremities DP, PT. 2+ bilateral popliteal pulses noted. Small blister noted to left third toe, overlying ang kening of skin Neuro: Oriented X 3.? No motor deficit.? No sensory deficit. <VICENTE Paulino - Last Filed: 12/27/20 02:23> Course Course Course Narrative: I agree with Carlie Aden PA-C history/review of systems/physical exam/order/diagnostic/evaluation treatment plan <VICENTE Lew - Last Filed: 12/26/20 22:18> Reevaluation(s) Reevaluation #1: Discussed this case with Dr. Damon who thinks this is like PVD given patie nts history and physical exam. He doesn't think a bilateral LE venous and arterial scan is needed. 1+ DP,PT pulses to bilateral lower extremities 2+ to bilateral popliteal. - Anabella sign b/l. <VICENTE Paulino Last Filed: 12/27/20 02:23> Time: 21:06 <VICENTE Paulino - Last Filed: 12/27/20 02:23> Reevaluation #2: Labs show no leukocytosis, normocytic baseline anemia is noted, unchanged. Carbon dioxide is noted to be high at 30, however it appears as though patient usually has a high carbon dioxide. Lactic acid is elevated at 2.7, likely secondary to metformin use. BNP 259, unlikley CHF. CXR negative. Duplex scan of the artery of left lower extremity shows significant peripheral vascular disease and distal SFA and popliteal disease with popliteal occlusion possibly secondary to acute clot with reconstituted monophasic tibial flow below this level. Left venous duplex shows no DVT in the left lower extremity. Will reach out to Dr. Cordero <VICENTE Paulino Last Filed: 12/27/20 02:23> Time: 22:17 <VICENTE Paulino - Last Filed: 12/27/20 02:23> Reevaluation #3: Spoke to who thinks this is likely chronic in nature. He is advised for her to take aspirin 81 mg daily. She she should follow up with him outpatient. Will speak to patient about this conversation. Patient's D-dimer was negative. <VICENTE Paulino - Last Filed: 12/27/20 02:23> Time: 22:50 <VICENTE Paulino - Last Filed: 12/27/20 02:23> Additional Reevaluation(s): 2344 Patient in petersen bed crying stating she is in 10/10 pain, she states she now can barely move her left foot/toes, pain worse over left 3rd toe.. Patient is noted to have a small 1 cm in diameter flocculent are to distal third toe. some overlying darkening of the skin willl order an xray to r/o osteomyelitis,although unlikely 2400 No osteomyelitis or fracture noted on x-ray of foot [address] Cordero, reported patient is reporting pain out of proportion to exam, pain with movement of left foot and toes worsening when compared to previous which is concerning for a complete occlusion. Patient feels little relief with pain medicine. At this time [facility] Will be contacted for an admit. [address] Soares from [facility] who states that she cannot admit patient to her service, this sounds like a chronic issue. She states this is not something that would warrant revascularization immediately. She does not suspect this is an acute vascular event. However, this is something that should be further evaluated, and looked at by vascular. Therefore patient will be transferred to [facility] Emergency Department excepting physician Dr. Rodriguez. 0157 Patient still complaining of severe pain. Will be given Dilaudid for the pain and Ativan for anxiety. Patient stable for transfer to [facility] <VICENTE Paulino - Last Filed: 12/27/20 02:23> MDM - Extremity (Nontraumatic) MDM Narrative Medical decision making narrative: 2019 80-year-old female past medical history significant for hypertension, diabetes, bilateral carotid artery stenosis, CAD status post CABG x4, history of NSTEMI presents to the emergency department with complaints of left foot swelling and pain described as pins and needles X1 year progressively worsening over the past week. Patient on 81mg of asa daily. Not a smoker, never a smoker. Upon physical examination patient is lying on the stretcher, appears uncomfortable, but in no acute distress. Patient is able to ambulate with a steady gait, however she reports increased pain with ambulation. Lungs are clear to auscultation bilaterally. S1-S2 appreciated free murmurs. Abdomen is soft nontender nondistended. Bilateral lower extremities is 3+ nonpitting edema. Left lower extremity exhibits erythema, and calor from the left toes to the mid anterior arrington. Negative Homans sign bilaterally. 1+ pulses to bilateral lower extremities DP,PT. 2+ equal and bilateral posterior tibial puls es noted. This time is to obtain basic labs, BNP, chest x-ray, lactate, cultures, PTT, PT INR. An ultrasound of lower extremities bilateral will be done and venous, and arterial. To rule out DVT, and arterial occlusion. Low concern for pulmonary embolism, patient is not having shortness of breath, or tachycardia. Low concern for ACS, patient is not having any chest pain, nausea, vomiting. At this time infection is suspected , fluids and Zosyn will be ordered. <VICNETE Romero - Last Filed: 12/27/20 02:23> Lab Data Result diagrams: : 12/26/20 20:53 12/26/20 20:53 <VICENTE Paulino - Last Filed: 12/27/20 02:23> Labs: Lab Results 12/26/20 12/26/20 12/26/20 Range/Units 20:53 20:53 20:53 WBC 8.2 (4.8-10.8) X10*3/uL RBC 3.88 L (4.20-5.50) X10*6/uL Hgb 11.8 L (12.0-16.0) g/dl Hct 35.4 L (37.0-47.0) % MCV 91.2 (80.0-98.0) fL MCH 30.4 (27.0-33.0) pg MCHC 33.3 (31.0-35.0) g/dl RDW 12.6 (11.0-16.0) % Plt Count 212 (160-400) X10*3/uL MPV 9.6 (9.4-12.3) fL Immature Gran % (Auto) 0.2 (0.0-0.4) % Neut % (Auto) 66.3 (45-73) % Lymph % (Auto) 24.1 (20-40) % [place] % (Auto) 7.4 (2-11) % Eos % (Auto) 1.9 (0-4) % Baso % (Auto) 0.1 (0-2) % Lymph # (Auto) 2.0 (1.2-4.9) X10*3/uL [place] # (Auto) 0.6 (0.1-1.2) X10*3/uL Eos # (Auto) 0.2 (0.0-0.4) X10*3/uL Baso # (Auto) 0.0 (0.0-0.2) X10*3/uL Abs Immat Gran (auto) 0.02 (0.00-0.03) X10*3/uL Absolute Neuts (auto) 5.5 (2.0-8.3) x10*3/uL Absolute Nucleated RBC 0.000 (0.0-0.012) X10*3/uL Nucleated RBC % (auto) 0.0 (0.0-0.2) /100WBC PT (9.9-13.0) SEC INR (0.9-1.1) APTT (24.1-38.0) SEC D-Dimer NG/ML Sodium 143 (135-145) mmol/L Potassium 4.0 (3.3-5.1) mmol/L Chloride 102 (96-108) mmol/L Carbon Dioxide 30 H (22-29) mmol/L Anion Gap 15 (12-20) BUN 18 H (9-16) mg/dL Creatinine 1.00 (0.5-1.4) mg/dL Estim Creat Clear Calc 40.4 Estimated GFR 53 Random Glucose 131 H (60-115) mg/dL Lactic Acid 2.7 H* (0.5-2.0) mmol/L Lactic Acid Fup @ 2Hr (0.5-2.0) mmol/L Calcium 9.4 (8.4-10.2) mg/dL Magnesium 1.6 (1.6-2.6) mg/dL Total Bilirubin 0.3 (0.0-1.0) mg/dL AST 19 (5-31) U/L ALT 14 (0-31) U/L Alkaline Phosphatase 66 (39-117) U/L B-Natriuretic Peptide (<100) pg/mL Total Protein 7.0 (6.5-8.0) g/dL Albumin 4.4 (3.5-5.0) g/dL 12/26/20 12/26/20 12/26/20 Range/Units 20:53 20:53 23:52 WBC (4.8-10.8) X10*3/uL RBC (4.20-5.50) X10*6/uL Hgb (12.0-16.0) g/dl Hct (37.0-47.0) % MCV (80.0-98.0) fL MCH (27.0-33.0) pg MCHC (31.0-35.0) g/dl RDW (11.0-16.0) % Plt Count (160-400) X10*3/uL MPV (9.4-12.3) fL Immature Gran % (Auto) (0.0-0.4) % Neut % (Auto) (45-73) % Lymph % (Auto) (20-40) % [place] % (Auto) (2-11) % Eos % (Auto) (0-4) % Baso % (Auto) (0-2) % Lymph # (Auto) (1.2-4.9) X10*3/uL [place] # (Auto) (0.1-1.2) X10*3/uL Eos # (Auto) (0.0-0.4) X10*3/uL Baso # (Auto) (0.0-0.2) X10*3/uL Abs Immat Gran (auto) (0.00-0.03) X10*3/uL Absolute Neuts (auto) (2.0-8.3) x10*3/uL Absolute Nucleated RBC (0.0-0.012) X10*3/uL Nucleated RBC % (auto) (0.0-0.2) /100WBC PT 10.5 (9.9-13.0) SEC INR 0.9 (0.9-1.1) APTT 26.6 (24.1-38.0) SEC D-Dimer < 200 NG/ML Sodium (135-145) mmol/L Potassium (3.3-5.1) mmol/L Chloride (96-108) mmol/L Carbon Dioxide (22-29) mmol/L Anion Gap (12-20) BUN (9-16) mg/dL Creatinine (0.5-1.4) mg/dL Estim Creat Clear Calc Estimated GFR Random Glucose (60-115) mg/dL Lactic Acid (0.5-2.0) mmol/L Lactic Acid Fup @ 2Hr 1.6 (0.5-2.0) mmol/L Calcium (8.4-10.2) mg/dL Magnesium (1.6-2.6) mg/dL Total Bilirubin (0.0-1.0) mg/dL AST (5-31) U/L ALT (0-31) U/L Alkaline Phosphatase (39-117) U/L B-Natriuretic Peptide 259 H (<100) pg/mL Total Protein (6.5-8.0) g/dL Albumin (3.5-5.0) g/dL <VICENTE Paulino - Last Filed: 12/27/20 02:23> Lab Results 12/26/20 12/26/20 12/26/20 Range/Units 20:53 20:53 20:53 WBC 8.2 (4.8-10.8) X10*3/uL RBC 3.88 L (4.20-5.50) X10*6/uL Hgb 11.8 L (12.0-16.0) g/dl Hct 35.4 L (37.0-47.0) % MCV 91.2 (80.0-98.0) fL MCH 30.4 (27.0-33.0) pg MCHC 33.3 (31.0-35.0) g/dl RDW 12.6 (11.0-16.0) % Plt Count 212 (160-400) X10*3/uL MPV 9.6 (9.4-12.3) fL Immature Gran % (Auto) 0.2 (0.0-0.4) % Neut % (Auto) 66.3 (45-73) % Lymph % (Auto) 24.1 (20-40) % [place] % (Auto) 7.4 (2-11) % Eos % (Auto) 1.9 (0-4) % Baso % (Auto) 0.1 (0-2) % Lymph # (Auto) 2.0 (1.2-4.9) X10*3/uL [place] # (Auto) 0.6 (0.1-1.2) X10*3/uL Eos # (Auto) 0.2 (0.0-0.4) X10*3/uL Baso # (Auto) 0.0 (0.0-0.2) X10*3/uL Abs Immat Gran (auto) 0.02 (0.00-0.03) X10*3/uL Absolute Neuts (auto) 5.5 (2.0-8.3) x10*3/uL Absolute Nucleated RBC 0.000 (0.0-0.012) X10*3/uL Nucleated RBC % (auto) 0.0 (0.0-0.2) /100WBC PT (9.9-13.0) SEC INR (0.9-1.1) APTT (24.1-38.0) SEC D-Dimer NG/ML Sodium 143 (135-145) mmol/L Potassium 4.0 (3.3-5.1) mmol/L Chloride 102 (96-108) mmol/L Carbon Dioxide 30 H (22-29) mmol/L Anion Gap 15 (12-20) BUN 18 H (9-16) mg/dL Creatinine 1.00 (0.5-1.4) mg/dL Estim Creat Clear Calc 40.4 Estimated GFR 53 Random Glucose 131 H (60-115) mg/dL Lactic Acid 2.7 H* (0.5-2.0) mmol/L Lactic Acid Fup @ 2Hr (0.5-2.0) mmol/L Calcium 9.4 (8.4-10.2) mg/dL Magnesium 1.6 (1.6-2.6) mg/dL Total Bilirubin 0.3 (0.0-1.0) mg/dL AST 19 (5-31) U/L ALT 14 (0-31) U/L Alkaline Phosphatase 66 (39-117) U/L B-Natriuretic Peptide (<100) pg/mL Total Protein 7.0 (6.5-8.0) g/dL Albumin 4.4 (3.5-5.0) g/dL 12/26/20 12/26/20 12/26/20 Range/Units 20:53 20:53 23:52 WBC (4.8-10.8) X10*3/uL RBC (4.20-5.50) X10*6/uL Hgb (12.0-16.0) g/dl Hct (37.0-47.0) % MCV (80.0-98.0) fL MCH (27.0-33.0) pg MCHC (31.0-35.0) g/dl RDW (11.0-16.0) % Plt Count (160-400) X10*3/uL MPV (9.4-12.3) fL Immature Gran % (Auto) (0.0-0.4) % Neut % (Auto) (45-73) % Lymph % (Auto) (20-40) % [place] % (Auto) (2-11) % Eos % (Auto) (0-4) % Baso % (Auto) (0-2) % Lymph # (Auto) (1.2-4.9) X10*3/uL [place] # (Auto) (0.1-1.2) X10*3/uL Eos # (Auto) (0.0-0.4) X10*3/uL Baso # (Auto) (0.0-0.2) X10*3/uL Abs Immat Gran (auto) (0.00-0.03) X10*3/uL Absolute Neuts (auto) (2.0-8.3) x10*3/uL Absolute Nucleated RBC (0.0-0.012) X10*3/uL Nucleated RBC % (auto) (0.0-0.2) /100WBC PT 10.5 (9.9-13.0) SEC INR 0.9 (0.9-1.1) APTT 26.6 (24.1-38.0) SEC D-Dimer < 200 NG/ML Sodium (135-145) mmol/L Potassium (3.3-5.1) mmol/L Chloride (96-108) mmol/L Carbon Dioxide (22-29) mmol/L Anion Gap (12-20) BUN (9-16) mg/dL Creatinine (0.5-1.4) mg/dL Estim Creat Clear Calc Estimated GFR Random Glucose (60-115) mg/dL Lactic Acid (0.5-2.0) mmol/L Lactic Acid Fup @ 2Hr 1.6 (0.5-2.0) mmol/L Calcium (8.4-10.2) mg/dL Magnesium (1.6-2.6) mg/dL Total Bilirubin (0.0-1.0) mg/dL AST (5-31) U/L ALT (0-31) U/L Alkaline Phosphatase (39-117) U/L B-Natriuretic Peptide 259 H (<100) pg/mL Total Protein (6.5-8.0) g/dL Albumin (3.5-5.0) g/dL <VICENTE Lew - Last Filed: 12/26/20 22:18> Imaging Data Left foot Xray: Attestation: I personally reviewed and interpreted this imaging study as follows: <VICENTE Paulino Last Filed: 12/27/20 02:23> Radiologist's impression: XR/XR foot LT 2V IMPRESSION: No acute fracture. No evidence of osteomyelitis <VICENTE Paulino Last Filed: 12/27/20 02:23> Critical Care Time Critical Care Time Critical Care Time: Yes <VICENTE Paulino Last Filed: 12/27/20 02:23> Total Critical Care Time: 60 <VICENTE Paulino Last Filed: 12/27/20 02:23> Attestation: I attest to this time spent taking care of the patient <VICENTE Paulino Last Filed: 12/27/20 02:23> Discharge Plan Discharge Clinical Impression: Arterial occlusion, Intractable pain <VICENTE Paulino - Last Filed: 12/27/20 02:23> Patient Disposition: [facility] <VICENTE Paulino - Last Filed: 12/27/20 02:23> Transfer Details: Transfer to [facility] ED Accepting . <VICENTE Paulino - Last Filed: 12/27/20 02:23> Transfer to [facility] ED Accepting . <VICENTE Lew - Last Filed: 12/26/20 22:18> Prescriptions: No Action acetaminophen [Tylenol Extra Strength] 500 mg tablet 500 mg PO BID PRN (Reason: pain) 30 Days Qty: 60 RF: 0 lidocaine 5 % adhesive patch,medicated 1 patch topical DAILY 30 Days Qty: 30 RF: 5 (DME) walker Misc See Rx Instructions .ROUTE .MEDSUPPLY Qty: 1 RF: 0 (DME) miscellaneous medical supply Misc See Rx Instructions .ROUTE .MEDSUPPLY Qty: 1 RF: 0 metformin 500 mg tablet 500 mg PO DAILY 30 Days Qty: 30 RF: 4 (DME) Motorized Scooter See Rx Instructions .Route .MEDSUPPLY Qty: 1 RF: 0 Januvia 50 mg tablet 50 mg PO DAILY Qty: 30 RF: 2 hydrocortisone valerate 0.2 % cream 1 appl topical BID PRN (Reason: skin irritation) 30 Days Qty: 60 RF: 2 atorvastatin 80 mg tablet 80 mg PO BEDTIME Qty: 90 RF: 1 aspirin 81 mg tablet,delayed release (DR/EC) 81 mg PO DAILY Qty: 90 RF: 1 metoprolol tartrate 25 mg tablet 25 mg PO BID Qty: 180 RF: 1 gabapentin 300 mg capsule 600 mg PO BEDTIME 30 Days Qty: 60 RF: 1 (DME) alcon.stocking,thigh,reg,med Misc See Rx Instructions .Route Qty: 2 RF: 1 <VICENTE Paulino - Last Filed: 12/27/20 02:23>
[2020-12-26] MEDS: Piperacillin Sodium/Tazobactam 3.375 GM in 0.9 % Sodium Chloride 50 ML IV (21:11)
[2020-12-26] MEDS: 0.9 % Sodium Chloride 1,000 ML 999 ML IV (21:12)
[2020-12-26] MEDS: Gabapentin 600 MG TABLET PO (21:12)
--- NOTE | 2020-12-26 21:17 | PC.NURSE ---
AT BEDSIDE WITH PT. PT ANXIOUS ABOUT NEEDLES. PT C/O PAIN TO LEFT FOOT. IV PLACED TO RAC, LABS DRAWN TO LAB. BC OBTAINED X 2, NS UP AND RUNNING W/O SITE INTACT. PT MEDICATED WITH GABAPENTIN AND ZOSYN. PT NORMALLY TAKES GABAPENTIN AT NIGHT. PT REQUESTING TYLENOL PO. PT DOES NOT WANT TO BE ADMITTED AT THIS TIME. WILL CONTINUE TO MONITOR PT.
[2020-12-26 21:18] LABS: MANUAL DIFF FLAG NO
[2020-12-26 21:20] LABS: Basophils Percent Auto 0.1 % (0-2); Eosinophils Absolute Auto 0.2 X10*3/uL (0.0-0.4); Eosinophils Percent Auto 1.9 % (0-4); Hematocrit 35.4 % (37.0-47.0); Hemoglobin 11.8 g/dl (12.0-16.0); Imm Gran Abs Auto 0.02 X10*3/uL (0.00-0.03); Imm Gran Pct Auto 0.2 % (0.0-0.4); Lymphocytes Percent Auto 24.1 % (20-40); Mean Corpuscular HGB Conc 33.3 g/dl (31.0-35.0); Mean Corpuscular Hemoglobin 30.4 pg (27.0-33.0); Mean Corpuscular Volume 91.2 fL (80.0-98.0); Mean Platelet Volume 9.6 fL (9.4-12.3); Monocytes Absolute Auto 0.6 X10*3/uL (0.1-1.2); Monocytes Percent Auto 7.4 % (2-11); Neutrophils Absolute Auto 5.5 x10*3/uL (2.0-8.3); Neutrophils Percent Auto 66.3 % (45-73); Platelet Count 212 X10*3/uL (160-400); Red Blood Count 3.88 X10*6/uL (4.20-5.50); Red Cell Distribution Width 12.6 % (11.0-16.0); White Blood Count 8.2 X10*3/uL (4.8-10.8)
[2020-12-26 21:25] LABS: INTERNATIONAL NORM RATIO 0.9 (0.9-1.1); Prothrombin Time 10.5 SEC (9.9-13.0)
[2020-12-26 21:27] LABS: Partial Thromboplastin Time 26.6 SEC (24.1-38.0)
[2020-12-26 21:35] LABS: Alanine Aminotransferase 14 U/L (0-31); Albumin Level 4.4 g/dL (3.5-5.0); Alkaline Phosphatase 66 U/L (39-117); Anion Gap 15 (12-20); Aspartate Amino Transferase 19 U/L (5-31); Bilirubin Total 0.3 mg/dL (0.0-1.0); Blood Urea Nitrogen 18 mg/dL (9-16); Calcium 9.4 mg/dL (8.4-10.2); Carbon Dioxide 30 mmol/L (22-29); Chloride 102 mmol/L (96-108); Creatinine Clr Calc Pharmacy 40.4; Estimated Glomerular Filt Rate 53; Glucose Random 131 mg/dL (60-115); Lactic Acid 2.7 mmol/L (0.5-2.0); Magnesium 1.6 mg/dL (1.6-2.6); Sodium 143 mmol/L (135-145)
[2020-12-26 21:38] LABS: B Type Natriuretic Peptide 259 pg/mL (<100)
--- NOTE | 2020-12-26 21:56 | PC.NURSE ---
PT MEDICATED PER EMAR. NS UP AND RUNNING W/O, SITE INTACT. ZOSYN INFUSED W/O DIFFICULTY. AWAITING FURTHER ORDERS.
--- NOTE | 2020-12-26 22:19 | PC.NURSE ---
PT C/O LEFT FOOT PAIN. PA AWARE.
[2020-12-26 22:36] LABS: D Dimer < 200 NG/ML
[2020-12-26 23:16] LABS: Reflex Lactate? Lactic Acid Added
[2020-12-26] MEDS: traMADoL HCL 50 MG TABLET PO (23:21)
--- NOTE | 2020-12-26 23:25 | PC.NURSE ---
PT C/O LEFT LEG PAIN AND MEDICATED PER EMAR FOR PAIN.
[2020-12-27] VITALS: BP 138/62; PULSE 74; RESP 18; O2SAT 97
[2020-12-27 00:16] LABS: ~Lactic Acid-LAB USE ONLY 1.6 mmol/L (0.5-2.0)
--- NOTE | 2020-12-27 00:53 | PC.NURSE ---
PT RESTING IN STRETCHER AND DENIES COMPLAINTS AT THIS TIME. PT STATES MY PAIN IS BETTER . PT AWAITING FOR ROOM ASSIGNMENT. WILL CONTINUE TO MONITOR PT.
[2020-12-27 02:00] VITALS: BP 141/64; PULSE 81; RESP 18
[2020-12-27 02:09] VITALS: RESP 18
[2020-12-27] MEDS: LORazepam 2 MG/ML VIAL 0.5 MG IVPUSH (02:09)
[2020-12-27] MEDS: HYDROmorphone HCl 0.5 MG/0.5 ML SYRINGE 0.25 MG IVPUSH (02:09)
[2020-12-27] MEDS: Heparin Sodium,Porcine 5,000 UNIT/ML VIAL 4700 UNIT IVPUSH (02:46)
[2020-12-27] MEDS: Heparin Sodium,Porcine/1/2NS 25,000 UNIT/250 ML IV.SOLN 8.26 UNIT IVCONT (02:47)
--- NOTE | 2020-12-27 02:52 | PC.NURSE ---
heparin up and running on pump. pt wts 62.4 kg. bed scale was zero'd. bolus of heparin given ivp. EMS here for transport to [facility].
[2020-12-27 03:04] VITALS: BP 136/66; PULSE 80; RESP 16
--- NOTE | 2020-12-27 03:24 | PC.NURSE ---
REPORT GIVEN TO [facility] HERE FOR TRANSFER TO [facility]. PT LEFT ED IN NAD.
== END 2020-12-27 03:25 | disposition short-term general hospital (02) ==
PROVIDERS: Physician Assistant; Emergency Provider Internal Medicine; PCP Internal Medicine
DX: I77.9 Disorder of arteries and arterioles, unspecified (principal); I70.202 Unspecified atherosclerosis of native arteries of extremities, left leg; I65.23 Occlusion and stenosis of bilateral carotid arteries; I10 Essential (primary) hypertension; I25.10 Atherosclerotic heart disease of native coronary artery without angina pectoris; E11.9 Type 2 diabetes mellitus without complications; D64.9 Anemia, unspecified; I25.2 Old myocardial infarction; Z95.1 Presence of aortocoronary bypass graft
CPT/HCPCS: 36415; 71045; 73620; 80053; 83605; 83735; 83880; 85025; 85379; 85610; 85730; 87040; 93926; 93971; 96361; 96365; 96367; 96375; 99285; 99291; J1170; J2060; J2543

== ENCOUNTER 2021-02-05 10:44 | Outpatient (REF) | payer MEDICARE, SELFPAY ==
[2021-02-05 14:00] LABS: MANUAL DIFF FLAG NO
[2021-02-05 14:11] LABS: Basophils Percent Auto 0.2 % (0-2); Eosinophils Absolute Auto 0.1 X10*3/uL (0.0-0.4); Eosinophils Percent Auto 1.3 % (0-4); Hematocrit 33.7 % (37.0-47.0); Hemoglobin 10.6 g/dl (12.0-16.0); Imm Gran Abs Auto 0.01 X10*3/uL (0.00-0.03); Imm Gran Pct Auto 0.2 % (0.0-0.4); Lymphocytes Absolute Auto 1.2 X10*3/uL (1.2-4.9); Lymphocytes Percent Auto 21.8 % (20-40); Mean Corpuscular HGB Conc 31.5 g/dl (31.0-35.0); Mean Corpuscular Hemoglobin 29.6 pg (27.0-33.0); Mean Corpuscular Volume 94.1 fL (80.0-98.0); Mean Platelet Volume 10.4 fL (9.4-12.3); Monocytes Absolute Auto 0.4 X10*3/uL (0.1-1.2); Monocytes Percent Auto 6.8 % (2-11); Neutrophils Absolute Auto 3.7 x10*3/uL (2.0-8.3); Neutrophils Percent Auto 69.7 % (45-73); Platelet Count 183 X10*3/uL (160-400); Red Blood Count 3.58 X10*6/uL (4.20-5.50); Red Cell Distribution Width 13.1 % (11.0-16.0); White Blood Count 5.3 X10*3/uL (4.8-10.8)
[2021-02-05 14:23] LABS: Alanine Aminotransferase 12 U/L (0-31); Albumin Level 4.1 g/dL (3.5-5.0); Alkaline Phosphatase 59 U/L (39-117); Anion Gap 13 (12-20); Aspartate Amino Transferase 15 U/L (5-31); Bilirubin Total 0.6 mg/dL (0.0-1.0); Blood Urea Nitrogen 20 mg/dL (9-16); Calcium 9.5 mg/dL (8.4-10.2); Carbon Dioxide 27 mmol/L (22-29); Chloride 106 mmol/L (96-108); Estimated Glomerular Filt Rate > 60; Glucose Fasting 151 mg/dL (60-99); Potassium 4.3 mmol/L (3.3-5.1); Sodium 142 mmol/L (135-145); Total Protein 6.9 g/dL (6.5-8.0)
[2021-02-05 14:45] LABS: Vitamin D 25-OH Total 15.5 ng/mL (>30)
[2021-02-05 14:54] LABS: Microalbum/Creatinine Ratio Ur 10.7 ug/mg cr
== END 2021-02-05 10:45 | disposition home or self-care (01) ==
LOC: HO.HMGCLDS 10:44
PROVIDERS: PCP Internal Medicine; Visit Provider Internal Medicine
DX: E11.51 Type 2 diabetes mellitus with diabetic peripheral angiopathy without gangrene (principal); E78.5 Hyperlipidemia, unspecified; I10 Essential (primary) hypertension; I25.10 Atherosclerotic heart disease of native coronary artery without angina pectoris; M85.80 Other specified disorders of bone density and structure, unspecified site; Z78.0 Asymptomatic menopausal state; Z95.1 Presence of aortocoronary bypass graft
CPT/HCPCS: 36415; 80053; 82043; 82306; 85025

== ENCOUNTER 2021-06-25 14:29 | Outpatient (REF) | payer MEDICARE, SELFPAY ==
--- NOTE | ~2021-06-25 | XR_ITS ---
EXAMINATION: XR CHEST CLINICAL INFORMATION: Cough COMPARISON: Previous chest x-ray most recent December 2020 TECHNIQUE: 2 views of the chest FINDINGS: The heart does not appear enlarged. There are median sternotomy wires and mediastinal clips probably previous CABG procedure. The ascending thoracic aorta appears prominent on the lateral view. Hilar and spinal contours are otherwise unremarkable. There is subsegmental atelectasis or small infiltrate at the left lung base probably in the left lower lobe. The lungs are otherwise clear. There is no pleural effusion or pneumothorax. There are degenerative changes of the spine. XR/XR chest 2V IMPRESSION: Atelectasis or small infiltrate in the left lower lobe. Prominent ascending thoracic aorta lateral view. Follow-up echocardiogram or cross-sectional imaging to rule out ascending thoracic aortic aneurysm should be considered. Findings will be communicated by the [place] work flow lever operator.
== END 2021-06-25 14:30 | disposition home or self-care (01) ==
LOC: HO.HMGCX 14:29
PROVIDERS: PCP Internal Medicine; Visit Provider Internal Medicine
DX: Z13.89 Encounter for screening for other disorder (principal)
CPT/HCPCS: 71046

== ENCOUNTER 2021-06-26 12:59 | Outpatient (REF) | payer MEDICARE, SELFPAY ==
[2021-06-26 13:49] LABS: Binax Now Covid-19 Ag Negative (Negative); Binax Performed by: HO.BONILM
[2021-06-26 13:50] LABS: Binax Internal Control QC Valid
== END 2021-06-26 13:00 | disposition home or self-care (01) ==
LOC: HO.HMGCLDS 12:59
PROVIDERS: PCP Internal Medicine; Visit Provider Internal Medicine
DX: Z13.89 Encounter for screening for other disorder (principal)

== ENCOUNTER 2021-06-27 17:28 | Inpatient (IN) | payer MEDICARE, SELFPAY ==
--- NOTE | ~2021-06-27 | XR_ITS ---
EXAMINATION: XR CHEST CLINICAL INFORMATION: Cough COMPARISON: 06/25/2021 TECHNIQUE: Frontal view of the chest was obtained. FINDINGS: No acute finding. No evidence for infiltrate. Cardiac silhouette is within normal limits. There has been a median sternotomy. There is no failure. No effusion is seen. The hilar regions do not appear pathologically enlarged. XR/XR chest 1V IMPRESSION: No acute finding
--- NOTE | ~2021-06-27 | CT_ITS ---
EXAMINATION: CT CHEST WITHOUT CONTRAST CLINICAL INFORMATION: Persistent cough. Fever. COMPARISON: 06/25/2021 TECHNIQUE: Multidetector volumetric CT imaging of the chest was done. Axial MIP volume rendering provided. Sagittal and coronal reformatted images were obtained. This CT examination was performed using dose optimization techniques as appropriate, variously including the following: *Automated exposure control *Adjustment of mA and/or kV according to patient size (this includes techniques or standardized protocols for targeted exams where dose is matched to indication/reason for exam; i.e. extremities or head) *Use of iterative reconstruction technique DLP: 213 mGy-cm FINDINGS: CHIEF NUCLEAR MEDICINE TECHNOLOGIST: Status post median sternotomy. LUNGS: The central airways are patent. Minimal groundglass nodular opacification in the left lower lobe. No dense consolidation. Scattered bronchial filling defects are noted. No pneumothorax. Right lower lobe 0.3 cm nodule on series 5 image 334. MEDIASTINUM: Normal heart size. Coronary artery calcifications are present. No mediastinal lymphadenopathy. No pericardial effusion. PLEURA: There is no pleural effusion. No pleural mass or thickening. AXILLA: No lymphadenopathy. UPPER ABDOMEN: Unremarkable. OSSEOUS STRUCTURES: No acute or suspicious osseous abnormality. Mild degenerative changes of the spine. CT/CT chest wo con IMPRESSION: Groundglass nodular opacities in the left lower lobe could be infectious or inflammatory. No dense consolidation. 0.3 cm right lower lobe pulmonary nodule. According to the UPDATED 2017 Fleischner Society recommendations, the advised follow-up imaging for solid nodules < 6 mm is: LOW RISK PATIENT: No routine follow-up. HIGH RISK PATIENT: Optional CT at 12 months. Fleischner guidelines were followed.
[2021-06-27 19:00] VITALS: BP 135/57; PULSE 94; RESP 19; TEMP 37.8; O2SAT 96; BMI 20.5
[2021-06-27 19:18] LABS: COVID-19 Test Negative (Negative); IDNOW Serial# 55D5AD1C; Influenza A Negative (Negative); Influenza B2 Negative (Negative)
--- NOTE | 2021-06-27 22:22 | ED_ITS ---
HPI - General Adult General Chief complaint: General Medical Stated complaint: Sob Time Seen by Provider: 06/27/21 22:20 Source: patient Mode of arrival: ambulatory History of Present Illness HPI narrative: 81-year-old female with history of diabetes and remote history asthma as well as having had a left lower extremity vascular/bypass surgery presents with persistent productive cough with fevers and chills despite being on azithromycin and patient now states that over the past couple of days she has had increasing difficulty with swallowing but has been able to continue taking her azithromycin which she states are ?very small pills?. Otherwise, patient denies any GI or symptoms. Related Data Previous Rx's Medication Instructions Recorded acetaminophen 500 mg tablet 500 mg PO BID PRN 30 Days #60 tab 02/24/20 (Tylenol Extra Strength) walker #1 ea 07/11/20 miscellaneous medical supply #1 ea 08/01/20 Motorized Scooter #1 ea 10/18/20 atorvastatin 80 mg tablet 80 mg PO BEDTIME #90 tab 11/18/20 aspirin 81 mg tablet,delayed 81 mg PO DAILY #90 tab 12/04/20 release alcon.stocking,thigh,reg,med #2 ea 12/11/20 clopidogrel 75 mg tablet 75 mg PO DAILY #30 tab 02/02/21 blood sugar diagnostic (FreeStyle #100 ea 02/14/21 Lite Strips) blood-glucose meter (FreeStyle #1 ea 02/14/21 Lite Meter) lancets 28 gauge (FreeStyle #100 ea 02/14/21 Lancets) cholecalciferol (vitamin D3) 1,250 1,250 mcg PO QWEEK 90 Days #13 cap 05/01/21 mcg (50,000 unit) capsule metoprolol tartrate 50 mg tablet 50 mg PO Q12H #180 tab 06/11/21 gabapentin 300 mg capsule 600 mg PO BEDTIME 30 Days #60 cap 06/24/21 metformin 500 mg tablet 500 mg PO DAILY #90 tab 06/24/21 sitagliptin 50 mg tablet (Januvia) 50 mg PO DAILY #90 tab 06/24/21 azithromycin 250 mg tablet See Rx Instructions PO .COMPLEX #6 06/25/21 tab Allergies Allergy/AdvReac Type Severity Reaction Status Date / Time Dtlfprj-QLP-UeP Reductase Allergy Unknown muscle Verified 06/25/21 14:54 Inhibitor cramps [Ijscwjt-Utp-Zsj Reductase Inhibitor] Review of Systems Review of Systems: Pertinent positives and negatives as stated in HPI 10 point review of systems is otherwise negative. [facility] Past Medical History Source: nursing notes reviewed Medical History Anemia Atherosclerotic cardiovascular disease Bilateral carotid artery stenosis Coronary artery disease COVID-19 vaccination refused Diabetes mellitus with peripheral angiopathy Dyslipidemia Essential hypertension History of amputation of toe Non-ST elevation NM (NSTEMI) NSTEMI (non-ST elevated myocardial infarction) Other and unspecified hyperlipidemia Popliteal vein thrombosis Productive cough Refused influenza vaccine Type 2 diabetes mellitus without complication, without long-term current use of insulin Vitamin D deficiency Surgical History H/O heart artery stent History of amputation of lesser toe History of cardiac catheterization (~01/06/20) S/P CABG x 4 (~01/11/20) Family History Family History Father Cancer Mother No problems noted. Brother No problems noted. Brother No problems noted. Brother No problems noted. Sister No problems noted. Sister No problems noted. Sister No problems noted. Sister No problems noted. Sister No problems noted. Son No problems noted. Son No problems noted. Son No problems noted. Son No problems noted. Daughter No problems noted. Other Substance use disorder Social History Social History Housing: House Alcohol intake: unknown Patient Tobacco Use Status: Never used Tobacco Second Hand Smoke Exposure: Yes Use of substances other than those prescribed or required for medical reasons: Unknown Advance Directives: No Current occupational status: retired Cognitive needs: No Hearing needs: No Vision needs: No Physical Exam ED Vital Signs: Vital Signs - 24 hr 06/27/21 19:00 06/27/21 23:25 Temperature 100.1 F 100.1 F Pulse Rate 94 94 Respiratory Rate 19 19 Blood Pressure 135/57 L 135/57 L Pulse Oximetry 96 96 BMI result Body Mass Index 20.5 VITAL SIGNS: Reviewed. GENERAL: Well developed, well nourished, in no acute distress. HEAD: Normocephalic/atraumatic EYES: PERRLA, EOMI EARS: Ext canals without abnormality, TMs non-bulging and non-erythematous NOSE: Nares patent bilateral OROPHARYNX: no oral lesions noted, posterior pharynx clear and non-erythematous without noted tonsillar enlargement/erythema/exudates NECK: Supple, no adenopathy LUNGS: Decreased breath sounds bibasilar, with coarse rhonchi throughout, productive cough noted on examination, no tachypnea. SpO2<96> CARDIOVASCULAR: Regular rate and rhythm without noted murmurs, no JVD or lower extremity edema. ABDOMEN: Soft, non-tender, non-distended with bowel sounds. MUSCULOSKELETAL: No tenderness, deformities, or effusions noted on gross inspection. EXTREMITIES: No cyanosis, clubbing or edema. SKIN: Inspection of the skin reveals no rashes NEUROLOGIC: Alert and oriented x 4. Strength and sensation to light touch were grossly intact x 4. Course Course Course Narrative: 81-year-old female with history and clinical presentation suggestive of pneumonia which is not improving on current oral regimen and, however the dysphagia that she is experiencing does not appear to be associated unless related to underlying ascending aortic aneurysm. 0030: I suspect infection. Review of all investigations consistent with left lower lobe pneumonia with elevated CRP, cough, febrile. Given patient's age and already being on antibiotics she will be admitted to the hospitalist service and they accept admission. Medical Decision Making Lab Data Result diagrams: 06/27/21 23:14 06/28/21 00:48 Labs: Lab Results 06/27/21 06/27/21 06/27/21 Range/Units 18:57 18:57 23:14 WBC 5.9 (4.8-10.8) X10*3/uL RBC 3.75 L (4.20-5.50) X10*6/uL Hgb 11.1 L (12.0-16.0) g/dl Hct 34.0 L (37.0-47.0) % MCV 90.7 (80.0-98.0) fL MCH 29.6 (27.0-33.0) pg MCHC 32.6 (31.0-35.0) g/dl RDW 12.7 (11.0-16.0) % Plt Count 159 L (160-400) X10*3/uL MPV 9.7 (9.4-12.3) fL Immature Gran % (Auto) 0.3 (0.0-0.4) % Neut % (Auto) 68.0 (45-73) % Lymph % (Auto) 17.9 L (20-40) % [place] % (Auto) 10.6 (2-11) % Eos % (Auto) 3.0 (0-4) % Baso % (Auto) 0.2 (0-2) % Lymph # (Auto) 1.1 L (1.2-4.9) X10*3/uL [place] # (Auto) 0.6 (0.1-1.2) X10*3/uL Eos # (Auto) 0.2 (0.0-0.4) X10*3/uL Baso # (Auto) 0.0 (0.0-0.2) X10*3/uL Abs Immat Gran (auto) 0.02 (0.00-0.03) X10*3/uL Absolute Neuts (auto) 4.0 (2.0-8.3) x10*3/uL Absolute Nucleated RBC 0.000 (0.0-0.012) X10*3/uL Nucleated RBC % (auto) 0.0 (0.0-0.2) /100WBC PT (9.9-13.0) SEC INR (0.9-1.1) Sodium (135-145) mmol/L Potassium (3.3-5.1) mmol/L Chloride (96-108) mmol/L Carbon Dioxide (22-29) mmol/L Anion Gap (12-20) BUN (9-16) mg/dL Creatinine (0.5-1.4) mg/dL Estim Creat Clear Calc Estimated GFR Random Glucose (60-115) mg/dL Lactic Acid (0.5-2.0) mmol/L Calcium (8.4-10.2) mg/dL Total Bilirubin (0.0-1.0) mg/dL AST (5-31) U/L ALT (0-31) U/L Alkaline Phosphatase (39-117) U/L C-Reactive Protein (< or = 0.50) mg/dL B-Natriuretic Peptide (<100) pg/mL Total Protein (6.5-8.0) g/dL Albumin (3.5-5.0) g/dL COVID-19 ([facility]) Negative (Negative) COVID-19 Clin Com See Note Influenza Type A (THI) Negative (Negative) Influenza Type B (THI) Negative (Negative) Influenza A & B Note See Note 06/27/21 06/27/21 06/27/21 Range/Units 23:14 23:14 23:14 WBC (4.8-10.8) X10*3/uL RBC (4.20-5.50) X10*6/uL Hgb (12.0-16.0) g/dl Hct (37.0-47.0) % MCV (80.0-98.0) fL MCH (27.0-33.0) pg MCHC (31.0-35.0) g/dl RDW (11.0-16.0) % Plt Count (160-400) X10*3/uL MPV (9.4-12.3) fL Immature Gran % (Auto) (0.0-0.4) % Neut % (Auto) (45-73) % Lymph % (Auto) (20-40) % [place] % (Auto) (2-11) % Eos % (Auto) (0-4) % Baso % (Auto) (0-2) % Lymph # (Auto) (1.2-4.9) X10*3/uL [place] # (Auto) (0.1-1.2) X10*3/uL Eos # (Auto) (0.0-0.4) X10*3/uL Baso # (Auto) (0.0-0.2) X10*3/uL Abs Immat Gran (auto) (0.00-0.03) X10*3/uL Absolute Neuts (auto) (2.0-8.3) x10*3/uL Absolute Nucleated RBC (0.0-0.012) X10*3/uL Nucleated RBC % (auto) (0.0-0.2) /100WBC PT 12.3 (9.9-13.0) SEC INR 1.1 (0.9-1.1) Sodium (135-145) mmol/L Potassium (3.3-5.1) mmol/L Chloride (96-108) mmol/L Carbon Dioxide (22-29) mmol/L Anion Gap (12-20) BUN (9-16) mg/dL Creatinine (0.5-1.4) mg/dL Estim Creat Clear Calc Estimated GFR Random Glucose (60-115) mg/dL Lactic Acid 2.1 H* (0.5-2.0) mmol/L Calcium (8.4-10.2) mg/dL Total Bilirubin (0.0-1.0) mg/dL AST (5-31) U/L ALT (0-31) U/L Alkaline Phosphatase (39-117) U/L C-Reactive Protein (< or = 0.50) mg/dL B-Natriuretic Peptide 80 (<100) pg/mL Total Protein (6.5-8.0) g/dL Albumin (3.5-5.0) g/dL COVID-19 ([facility]) (Negative) COVID-19 Clin Com Influenza Type A (THI) (Negative) Influenza Type B (THI) (Negative) Influenza A & B Note 06/28/21 Range/Units 00:48 WBC (4.8-10.8) X10*3/uL RBC (4.20-5.50) X10*6/uL Hgb (12.0-16.0) g/dl Hct (37.0-47.0) % MCV (80.0-98.0) fL MCH (27.0-33.0) pg MCHC (31.0-35.0) g/dl RDW (11.0-16.0) % Plt Count (160-400) X10*3/uL MPV (9.4-12.3) fL Immature Gran % (Auto) (0.0-0.4) % Neut % (Auto) (45-73) % Lymph % (Auto) (20-40) % [place] % (Auto) (2-11) % Eos % (Auto) (0-4) % Baso % (Auto) (0-2) % Lymph # (Auto) (1.2-4.9) X10*3/uL [place] # (Auto) (0.1-1.2) X10*3/uL Eos # (Auto) (0.0-0.4) X10*3/uL Baso # (Auto) (0.0-0.2) X10*3/uL Abs Immat Gran (auto) (0.00-0.03) X10*3/uL Absolute Neuts (auto) (2.0-8.3) x10*3/uL Absolute Nucleated RBC (0.0-0.012) X10*3/uL Nucleated RBC % (auto) (0.0-0.2) /100WBC PT (9.9-13.0) SEC INR (0.9-1.1) Sodium 139 (135-145) mmol/L Potassium 4.2 (3.3-5.1) mmol/L Chloride 101 (96-108) mmol/L Carbon Dioxide 25 (22-29) mmol/L Anion Gap 17 (12-20) BUN 17 H (9-16) mg/dL Creatinine 0.85 (0.5-1.4) mg/dL Estim Creat Clear Calc 44.5 Estimated GFR > 60 Random Glucose 163 H (60-115) mg/dL Lactic Acid (0.5-2.0) mmol/L Calcium 9.3 (8.4-10.2) mg/dL Total Bilirubin 0.5 (0.0-1.0) mg/dL AST 15 (5-31) U/L ALT 9 (0-31) U/L Alkaline Phosphatase 54 (39-117) U/L C-Reactive Protein 8.82 H (< or = 0.50) mg/dL B-Natriuretic Peptide (<100) pg/mL Total Protein 7.2 (6.5-8.0) g/dL Albumin 4.3 (3.5-5.0) g/dL COVID-19 ([place]) (Negative) COVID-19 Clin Com Influenza Type A (THI) (Negative) Influenza Type B (THI) (Negative) Influenza A & B Note Discharge Plan Discharge Clinical Impression: Pneumonia, Diabetes mellitus with peripheral angiopathy Patient Disposition: Admitted As Inpatient Prescriptions: No Action acetaminophen [Tylenol Extra Strength] 500 mg tablet 500 mg PO BID PRN (Reason: pain) 30 Days Qty: 60 0RF (DME) walker Misc See Rx Instructions .ROUTE .MEDSUPPLY Qty: 1 0RF Rx Instructions: walker with seat and breaks (DME) miscellaneous medical supply Misc See Rx Instructions .ROUTE .MEDSUPPLY Qty: 1 0RF Rx Instructions: Compression stocking for L leg (DME) Motorized Scooter See Rx Instructions .Route .MEDSUPPLY Qty: 1 0RF Rx Instructions: For mobility atorvastatin 80 mg tablet 80 mg PO BEDTIME Qty: 90 1RF aspirin 81 mg tablet,delayed release (DR/EC) 81 mg PO DAILY Qty: 90 1RF (DME) alcon.stocking,thigh,reg,med Misc See Rx Instructions .Route Qty: 2 1RF Rx Instructions: As directed clopidogrel 75 mg tablet 75 mg PO DAILY Qty: 30 2RF (DME) blood-glucose meter [FreeStyle Lite Meter] Kit See Rx Instructions .Route Qty: 1 0RF Rx Instructions: As directed for testing blood sugar (DME) FreeStyle Lite Strips Strip See Rx Instructions .Route Qty: 100 3RF Rx Instructions: Test blood sugar once daily (DME) lancets [FreeStyle Lancets] 28 gauge misc See Rx Instructions .Route Qty: 100 3RF Rx Instructions: Test blood sugar once a day cholecalciferol (vitamin D3) 1,250 mcg (50,000 unit) capsule 1,250 mcg PO QWEEK 90 Days Qty: 13 0RF metoprolol tartrate 50 mg tablet 50 mg PO Q12H Qty: 180 3RF Januvia 50 mg tablet 50 mg PO DAILY Qty: 90 3RF metformin 500 mg tablet 500 mg PO DAILY Qty: 90 3RF gabapentin 300 mg capsule 600 mg PO BEDTIME 30 Days Qty: 60 1RF azithromycin 250 mg tablet See Rx Instructions PO .COMPLEX Qty: 6 0RF Rx Instructions: For 250 mg dose pack: take 500 mg today (day 1), then 250 mg for 4 days (days 2-5) PO
--- NOTE | 2021-06-27 22:24 | ECG_ITS ---
Test Reason : SHORTNESS OF BREATH Blood Pressure : / mmHG Vent. Rate : 098 BPM Atrial Rate : 098 BPM P-R Int : 118 ms QRS Dur : 084 ms QT Int : 328 ms P-R-T Axes : 044 046 171 degrees QTc Int : 418 ms Normal sinus rhythm ST & T wave abnormality, consider anterolateral ischemia Abnormal ECG When compared with ECG of 05-JAN-2020 19:59, Vent. rate has increased BY 40 BPM T wave inversion no longer evident in Inferior leads T wave inversion more evident in Anterior leads Referred By: Deanna Darden Electronically Signed By:JANI KHALIL MD
--- NOTE | 2021-06-27 23:19 | PC.NURSE ---
Patient refused acetaminophen 650 mg because she does tolerate.
[2021-06-27 23:22] LABS: MANUAL DIFF FLAG NO
[2021-06-27 23:23] LABS: Basophils Percent Auto 0.2 % (0-2); Eosinophils Absolute Auto 0.2 X10*3/uL (0.0-0.4); Hemoglobin 11.1 g/dl (12.0-16.0); Imm Gran Abs Auto 0.02 X10*3/uL (0.00-0.03); Imm Gran Pct Auto 0.3 % (0.0-0.4); Lymphocytes Absolute Auto 1.1 X10*3/uL (1.2-4.9); Lymphocytes Percent Auto 17.9 % (20-40); Mean Corpuscular HGB Conc 32.6 g/dl (31.0-35.0); Mean Corpuscular Hemoglobin 29.6 pg (27.0-33.0); Mean Corpuscular Volume 90.7 fL (80.0-98.0); Mean Platelet Volume 9.7 fL (9.4-12.3); Monocytes Absolute Auto 0.6 X10*3/uL (0.1-1.2); Monocytes Percent Auto 10.6 % (2-11); Platelet Count 159 X10*3/uL (160-400); Red Blood Count 3.75 X10*6/uL (4.20-5.50); Red Cell Distribution Width 12.7 % (11.0-16.0); White Blood Count 5.9 X10*3/uL (4.8-10.8)
[2021-06-27 23:25] VITALS: BP 135/57; PULSE 94; RESP 19; TEMP 37.8; O2SAT 96
[2021-06-27 23:33] LABS: INTERNATIONAL NORM RATIO 1.1 (0.9-1.1); Prothrombin Time 12.3 SEC (9.9-13.0)
[2021-06-27 23:46] LABS: B Type Natriuretic Peptide 80 pg/mL (<100); Lactic Acid 2.1 mmol/L (0.5-2.0)
--- NOTE | 2021-06-27 23:56 | PC.NURSE ---
Covid and FLu negative.
[2021-06-28] VITALS (8 sets, daily range): BP systolic 102–143; BP diastolic 37–73; PULSE 82–105; RESP 14–19; TEMP 37–37.9; O2SAT 93–97
[2021-06-28 01:12] LABS: Alanine Aminotransferase 9 U/L (0-31); Albumin Level 4.3 g/dL (3.5-5.0); Alkaline Phosphatase 54 U/L (39-117); Anion Gap 17 (12-20); Aspartate Amino Transferase 15 U/L (5-31); Bilirubin Total 0.5 mg/dL (0.0-1.0); Blood Urea Nitrogen 17 mg/dL (9-16); C Reactive Protein 8.82 mg/dL (< or = 0.50); Calcium 9.3 mg/dL (8.4-10.2); Carbon Dioxide 25 mmol/L (22-29); Chloride 101 mmol/L (96-108); Creatinine Clr Calc Pharmacy 44.5; Estimated Glomerular Filt Rate > 60; Glucose Random 163 mg/dL (60-115); Potassium 4.2 mmol/L (3.3-5.1); Sodium 139 mmol/L (135-145); Total Protein 7.2 g/dL (6.5-8.0)
[2021-06-28 01:18] LABS: Reflex Lactate? Lactic Acid Added
[2021-06-28] MEDS: Piperacillin Sodium/Tazobactam 3.375 GM in 0.9 % Sodium Chloride 50 ML IV ×2 (02:01→08:31)
[2021-06-28] MEDS: 0.9 % Sodium Chloride 1,000 ML 999 ML IV (02:02)
[2021-06-28 04:24] LABS: Appearance Urine HAZY; Color Urine YELLOW; Glucose Urine UA NEG (NEG); Leukocyte Esterase Urine NEG (NEG); Nitrite Urine NEG (NEG); UACC Culture Trigger NO; Urine Blood TRACE (NEG); Urine Ketones NEG (NEG); Urine Protein TRACE MG/DL (NEG-TRACE)
[2021-06-28 04:29] LABS: Mucus Urine TRACE /LPF; RBC Urine 0 /HPF (0); Squamous Epithelial Cell Urine TRACE /LPF; WBC Urine 0-2 /HPF (0-4)
[2021-06-28 04:30] LABS: Calcium Oxalate Crystals Urine 2+ /LPF
[2021-06-28 05:33] LABS: ~Lactic Acid-LAB USE ONLY 0.8 mmol/L (0.5-2.0)
--- NOTE | 2021-06-28 06:36 | PM.IMHP ---
History of Present Illness Date of Service: 06/28/21 Chief Complaint: sob 81-year-old female with a past medical history of hypertension, hyperlipidemia, CAD status post quadruple bypass, peripheral vascular disease status post stent placement; diabetes, diabetic neuropathy; presented to the hospital today with a chief complaint of cough and shortness of breath. Patient reports that over the past 1 week she has been having cough and shortness of breath associated with productive sputum-green in color; complains of subjective fevers. Mentioned that he spoke to her PCP and has tried outpatient azithromycin with no significant improvement; over the past few days he has been having worsening cough with greenish sputum production. Hence decided to come to the ER for further evaluation. Patient also reports she has posttussive chest discomfort. Denies any recent travel or sick contacts. Denies any numbness tingling or focal weakness. Denies any nausea vomiting or diarrhea. Denies any urinary symptoms. Review of all other systems is negative except mentioned above ER course: Per ER team patient noted to have bilateral ground-glass opacities on the CT scan; given IV Zosyn; admitted to the hospital for further management. [facility] Medical History Anemia Atherosclerotic cardiovascular disease Bilateral carotid artery stenosis Coronary artery disease COVID-19 vaccination refused Diabetes mellitus with peripheral angiopathy Dyslipidemia Essential hypertension History of amputation of toe Non-ST elevation SC (NSTEMI) NSTEMI (non-ST elevated myocardial infarction) Other and unspecified hyperlipidemia Popliteal vein thrombosis Productive cough Refused influenza vaccine Type 2 diabetes mellitus without complication, without long-term current use of insulin Vitamin D deficiency Family History Father Cancer Mother No problems noted. Brother No problems noted. Brother No problems noted. Brother No problems noted. Sister No problems noted. Sister No problems noted. Sister No problems noted. Sister No problems noted. Sister No problems noted. Son No problems noted. Son No problems noted. Son No problems noted. Son No problems noted. Daughter No problems noted. Other Substance use disorder Surgical History H/O heart artery stent History of amputation of lesser toe History of cardiac catheterization (~01/06/20) S/P CABG x 4 (~01/11/20) Social History Housing: House Alcohol intake: unknown Patient Tobacco Use Status: Never used Tobacco Second Hand Smoke Exposure: Yes Use of substances other than those prescribed or required for medical reasons: Unknown Advance Directives: No Current occupational status: retired Cognitive needs: No Hearing needs: No Vision needs: No Meds Allergies Allergy/AdvReac Type Severity Reaction Status Date / Time Tmderrv-RKC-MpV Reductase Allergy Unknown muscle Verified 06/25/21 14:54 Inhibitor cramps [Uyvsgsz-Cuj-Mcs Reductase Inhibitor] Active Medications: Current Medications Acetaminophen (Acetaminophen 325 Mg Tablet) 650 mg PO Q6H PRN PRN Reason: Pain, Mild (Pain Scale 1-3) Albuterol/Ipratropium (Albuterol/Iprat 2.5/0.5mg 3 Ml Ampul.Neb) 3 ml INHALE RQ4H PRN PRN Reason: Shortness of Breath/Wheezing Benzonatate (Benzonatate 100 Mg Capsule) 100 mg PO TID PRN PRN Reason: Cough Dextrose (Dextrose 50 % 25 Gm/50 Ml Syringe) 25 gm IVPUSH Q15M PRN; Protocol PRN Reason: per Hypoglycemia Standing Ord. Enoxaparin Sodium (Enoxaparin Sodium 40 Mg/0.4 Ml Syringe) 40 mg SUBCUT Q24H PINA Glucose (Glucose Gel 15 Gm Gel..Gram.) 15 gm PO Q15M PRN; Protocol PRN Reason: per Hypoglycemia Standing Ord. Hydromorphone HCl (Hydromorphone Hcl 1 Mg/Ml Syringe) 0.5 mg IVPUSH Q4H PRN; Protocol PRN Reason: Pain, Severe (Pain Scale 7-10) Sodium Chloride (Ns) 1,000 mls @ 50 mls/hr IVCONT .Q20H PINA Vancomycin HCl 1,000 mg/ (Sodium Chloride) 270 mls @ 270 mls/hr IV Q12H PINA Piperacillin Sod/Tazobactam (Sod 3.375 gm/ Sodium Chloride) 50 mls @ 100 mls/hr IV Q6H PINA Insulin Human Lispro (Insulin Lispro 100 Unit/Ml 3 Ml Vial) 0 unit SUBCUT QIDACHS PINA; Protocol Melatonin (Melatonin 3 Mg Tablet) 6 mg PO BEDTIME PRN PRN Reason: Insomnia Pharmacy Consult (Consult Rx Vancomycin Dosing) 1 each MISCELLANE DAILY PRN PRN Reason: Consult order Senna (Sennosides 8.6 Mg Tablet) 17.2 mg PO BEDTIME PRN PRN Reason: Constipation Sodium Chloride (0.9 % Sodium Chloride Flush 3 Ml Syringe) 3 ml IVFLUSH QSHIFT [facility] Home Medications Medication Instructions Recorded Confirmed Last Taken Type meloxicam 15 mg tablet 1 tab PO DAILY 06/28/21 06/28/21 Unknown History sitagliptin 50 mg tablet (Januvia) 1 tab PO DAILY 06/28/21 06/28/21 Unknown History Physical Exam Vital Signs and Narrative: Vital Signs: Last Vital Signs Temp 98.6 F 06/28/21 06:00 Pulse 90 06/28/21 06:00 Resp 16 06/28/21 06:00 BP 126/37 L 06/28/21 06:00 Pulse Ox 95 06/28/21 06:00 BMI result Body Mass Index 20.5 Gen: Appears be in no acute distress; patient has congested cough; breathing comfortably. Speaks in full sentences. HEENT: NCAT, Moist mucosa. Pulmonary: Coarse breath sounds; rhonchi present. CVS: Normal S1-S2 Abdomen: BS+, Soft, Nontender Extremities: Warm well perfused Neuro: Alert and awake. Grossly nonfocal Results Labs CBC and Chem 7: 06/27/21 23:14 06/28/21 00:48 Labs: Laboratory Results - last 24 hr 06/27/21 06/27/21 06/27/21 18:57 18:57 23:14 MCV 90.7 MCH 29.6 MCHC 32.6 RDW 12.7 Plt Count 159 L MPV 9.7 Immature Gran % (Auto) 0.3 Neut % (Auto) 68.0 Lymph % (Auto) 17.9 L [place] % (Auto) 10.6 Eos % (Auto) 3.0 Baso % (Auto) 0.2 Lymph # (Auto) 1.1 L [place] # (Auto) 0.6 Eos # (Auto) 0.2 Baso # (Auto) 0.0 Abs Immat Gran (auto) 0.02 Absolute Neuts (auto) 4.0 Absolute Nucleated RBC 0.000 Nucleated RBC % (auto) 0.0 PT INR Anion Gap Estim Creat Clear Calc Estimated GFR Random Glucose Lactic Acid Lactic Acid F/U @ 2Hr Calcium Total Bilirubin AST ALT Alkaline Phosphatase C-Reactive Protein B-Natriuretic Peptide Total Protein Albumin Urine Color Urine Appearance Urine pH Ur Specific [place] Urine Protein Urine Glucose (UA) Urine Ketones Urine Blood Urine Nitrite Ur Leukocyte Esterase Urine RBC Urine WBC Ur Squamous Epith Cells Calcium Oxalate Crystal Urine Bacteria Urine Mucus COVID-19 (GATITO) Negative COVID-19 Clin Com See Note Influenza Type A (THI) Negative Influenza Type B (THI) Negative Influenza A & B Note See Note 06/27/21 06/27/21 06/27/21 23:14 23:14 23:14 MCV MCH MCHC RDW Plt Count MPV Immature Gran % (Auto) Neut % (Auto) Lymph % (Auto) [place] % (Auto) Eos % (Auto) Baso % (Auto) Lymph # (Auto) [place] # (Auto) Eos # (Auto) Baso # (Auto) Abs Immat Gran (auto) Absolute Neuts (auto) Absolute Nucleated RBC Nucleated RBC % (auto) PT 12.3 INR 1.1 Anion Gap Estim Creat Clear Calc Estimated GFR Random Glucose Lactic Acid 2.1 H* Lactic Acid F/U @ 2Hr Calcium Total Bilirubin AST ALT Alkaline Phosphatase C-Reactive Protein B-Natriuretic Peptide 80 Total Protein Albumin Urine Color Urine Appearance Urine pH Ur Specific [place] Urine Protein Urine Glucose (UA) Urine Ketones Urine Blood Urine Nitrite Ur Leukocyte Esterase Urine RBC Urine WBC Ur Squamous Epith Cells Calcium Oxalate Crystal Urine Bacteria Urine Mucus COVID-19 (GATITO) COVID-19 Clin Com Influenza Type A (THI) Influenza Type B (THI) Influenza A & B Note 06/28/21 06/28/21 06/28/21 00:48 04:15 05:16 MCV MCH MCHC RDW Plt Count MPV Immature Gran % (Auto) Neut % (Auto) Lymph % (Auto) [place] % (Auto) Eos % (Auto) Baso % (Auto) Lymph # (Auto) [place] # (Auto) Eos # (Auto) Baso # (Auto) Abs Immat Gran (auto) Absolute Neuts (auto) Absolute Nucleated RBC Nucleated RBC % (auto) PT INR Anion Gap 17 Estim Creat Clear Calc 44.5 Estimated GFR > 60 Random Glucose 163 H Lactic Acid Lactic Acid F/U @ 2Hr 0.8 Calcium 9.3 Total Bilirubin 0.5 AST 15 ALT 9 Alkaline Phosphatase 54 C-Reactive Protein 8.82 H B-Natriuretic Peptide Total Protein 7.2 Albumin 4.3 Urine Color YELLOW Urine Appearance HAZY Urine pH 6.0 Ur Specific [place] 1.020 Urine Protein TRACE Urine Glucose (UA) NEG Urine Ketones NEG Urine Blood TRACE Urine Nitrite NEG Ur Leukocyte Esterase NEG Urine RBC 0 Urine WBC 0-2 Ur Squamous Epith Cells TRACE Calcium Oxalate Crystal 2+ Urine Bacteria NONE Urine Mucus TRACE COVID-19 (GATITO) COVID-19 Clin Com Influenza Type A (THI) Influenza Type B (THI) Influenza A & B Note Imaging Radiologist's Impressions: Impressions Chest CT 06/27/21 22:55 IMPRESSION: Groundglass nodular opacities in the left lower lobe could be infectious or inflammatory. No dense consolidation. 0.3 cm right lower lobe pulmonary nodule. According to the UPDATED 2017 Fleischner Society recommendations, the advised follow-up imaging for solid nodules < 6 mm is: LOW RISK PATIENT: No routine follow-up. HIGH RISK PATIENT: Optional CT at 12 months. Fleischner guidelines were followed. Assessment and Plan (1) Pneumonia: Status: Acute Plan 81-year-old female with a past medical history of hypertension, hyperlipidemia, CAD status post quadruple bypass, peripheral vascular disease status post stent placement; diabetes, diabetic neuropathy; presented to the hospital today with a chief complaint of cough and shortness of breath. Pneumonia: Continue IV vancomycin and Zosyn Cough suppressants Acapella Follow sputum cultures, urine Legionella, strep pneumo, blood cultures DuoNebs p.r.n. Rapid COVID and influenza negative History of diabetes: Insulin sliding scale. Hold metformin. History of hypertension/hyperlipidemia: Continue home metoprolol/statin History of CAD status post CABG: Patient reports he had CABG in 2020. c/w home plavix. DVT prophylaxis: Lovenox Code status: Full code Quality Stroke Does the patient have a stroke diagnosis?: No VTE Prior VTE?: No VTE Risk Level:: Medical - moderate - high VTE Device Contraindication: Treatment Not Indicated VTE Drug Contraindication: N/A - Med Ordered
[2021-06-28 07:43] LABS: Glucose, Whole Blood 138 mg/dL (60-115)
--- NOTE | 2021-06-28 08:03 | PC.NURSE ---
Pharmacy called to verify meds due at 0983
--- NOTE | 2021-06-28 08:04 | PC.NURSE ---
Spoke to daughter Shy and updated
--- NOTE | 2021-06-28 08:26 | PHA.PROG ---
Admission Date/Time: June 28, 2021 06:33 Indication: Other Respiratory? Weight in k.431 kg Adjusted body weight in K.592 kg [place] body weight in K.7 kg Obesity Dosing Indication % IBW: Serum Creatinine - Last 168 Hours 06/28/21 00:48 Creatinine 0.85 Estimated CrCl and GFR - Last 168 Hours 06/28/21 00:48 Estim Creat Clear Calc 44.5 Estimated GFR > 60 Vancomycin Loading Dose: 1250 mg (22 mg/kg) Current Vancomycin Dosing Regimen: 750mg q24h Vancomycin Monitoring using AUC goal of 400 - 600 range with trough as surrogate marker: auc 414, trough 12.7 Date and Time for next Vancomycin Level to be drawn: 06/30@0700 Pharmacist Comments on Vancomycin Plan: Vancomycin dosing will take advantage of [employer] as a clinical decision support tool that uses Bayesian modeling to calculate individual patient's pharmacokinetic parameters and forecast the patient's drug concentration time course with the target goal AUC 24 range of 400 - 600 mg/L/hr.
[2021-06-28] MEDS: Benzonatate 100 MG CAPSULE PO (08:28)
[2021-06-28] MEDS: Enoxaparin Sodium 40 MG/0.4 ML SYRINGE SUBCUT (08:32)
[2021-06-28] MEDS: HYDROmorphone HCl 1 MG/ML SYRINGE 0.5 MG IVPUSH (08:32)
[2021-06-28] MEDS: 0.9 % Sodium Chloride 1,000 ML 50 ML IVCONT (08:33)
[2021-06-28] MEDS: 0.9 % Sodium Chloride Flush 3 ML SYRINGE IVFLUSH ×3 (08:33→22:47)
--- NOTE | 2021-06-28 09:00 | PHA.MEDREC ---
Pharmacy Consult ? Medication Reconciliation Pharmacy has completed the medication reconciliation. Spoke with patient in the ED. Patient has not taken any medications since last thursday.
[2021-06-28] MEDS: Clopidogrel Bisulfate 75 MG TABLET PO (10:09)
[2021-06-28] MEDS: vancomycin HCL 1,250 MG in 0.9 % Sodium Chloride 250 ML 166.67 MG IV (10:11)
--- NOTE | 2021-06-28 11:39 | MHC.CM.PN ---
Met with patient in regards to discharge planning. Patient lives alone, ambulates with a cane and started working with [facility] to arrange some housekeeping help. PCP verified. HCP completed, signed and witnessed. Original given to patient. Copy placed in the chart. IMM explained and signed. Patient has not received any Covid vaccines. Patient's may need a Lyft at d/c if her family is unable to assist with transport. Continue to monitor for d/c needs.
[2021-06-28 13:04] LABS: Glucose, Whole Blood 121 mg/dL (60-115)
--- NOTE | 2021-06-28 15:25 | P.PNIM_ITS ---
Subjective Subjective Date of Service: 06/28/21 Interval History: seen and examined this morning follow up for pneumonia patient reports coming to the hospital for cough, dyspnea, fever, chills and rib pain reports improvement in breathing and rib pain but still with cough Review of Systems Pertinent positives and negatives as stated in HPI 10 point review of systems is otherwise negative. Review of Systems: Yes all other systems are reviewed and are negative Constitutional Constitutional: Reports chills and Reports fever(s) Cardiovascular Cardiovascular: Denies chest pain, Denies palpitations and Reports dyspnea Respiratory Respiratory: Reports cough and Reports dyspnea Gastrointestinal Gastrointestinal: Denies abdominal pain Endocrine Endocrine: Denies palpitations Physical Exam Vital Signs: Vital Signs: Last Vital Signs Temp 100.3 F 06/28/21 14:29 Pulse 101 H 06/28/21 14:29 Resp 17 06/28/21 14:29 BP 117/42 L 06/28/21 14:29 Pulse Ox 96 06/28/21 14:29 BMI result Body Mass Index 20.5 Const: General: cooperative, no acute distress, alert and awake Nutritional Appearance: thin Orientation/consciousness: patient oriented x3 Eyes: Pupils: Equal, round and reactive pupils present EOM: EOMs intact bilaterally Resp: Effort & Inspection: normal respiratory effort and able to speak in complete sentences Auscultation: rhonchi Cardio: Rate: regular rate Heart sounds: S1 normal heart sound present and S2 normal heart sound present GI: Inspection: No distended Palpation (GI): Soft to palpation and nontender Neuro: General: patient oriented x3 Cranial nerves: Yes Equal, round and reactive pupils present Extrem: General: Yes no pedal edema Objective Data Active Medications Acetaminophen (Acetaminophen 325 Mg Tablet) 650 mg PO Q6H PRN PRN Reason: Pain, Mild (Pain Scale 1-3) Albuterol/Ipratropium (Albuterol/Iprat 2.5/0.5mg 3 Ml Ampul.Neb) 3 ml INHALE RQ4H PRN PRN Reason: Shortness of Breath/Wheezing Aspirin (Aspirin Enteric Coated 81 Mg Tablet.) 81 mg PO DAILY PINA Atorvastatin Calcium (Atorvastatin Calcium 80 Mg Tablet) 80 mg PO BEDTIME PINA Benzonatate (Benzonatate 100 Mg Capsule) 100 mg PO TID PRN PRN Reason: Cough Last Admin: 06/28/21 08:28 Dose: 100 mg Documented by: CHRISTINA Clopidogrel Bisulfate (Clopidogrel Bisulfate 75 Mg Tablet) 75 mg PO DAILY [facility] Last Admin: 06/28/21 10:09 Dose: 75 mg Documented by: CHRISTINA Dextrose (Dextrose 50 % 25 Gm/50 Ml Syringe) 25 gm IVPUSH Q15M PRN; Protocol PRN Reason: per Hypoglycemia Standing Ord. Enoxaparin Sodium (Enoxaparin Sodium 40 Mg/0.4 Ml Syringe) 40 mg SUBCUT Q24H [facility] Last Admin: 06/28/21 08:32 Dose: 40 mg Documented by: CHRISTINA Gabapentin (Gabapentin 300 Mg Capsule) 600 mg PO BEDTIME [facility] Glucose (Glucose Gel 15 Gm Gel..Gram.) 15 gm PO Q15M PRN; Protocol PRN Reason: per Hypoglycemia Standing Ord. Hydromorphone HCl (Hydromorphone Hcl 1 Mg/Ml Syringe) 0.5 mg IVPUSH Q4H PRN; Protocol PRN Reason: Pain, Severe (Pain Scale 7-10) Last Admin: 06/28/21 08:32 Dose: 0.5 mg Documented by: CHRISTINA Sodium Chloride (Ns) 1,000 mls @ 50 mls/hr IVCONT .Q20H [facility] Last Admin: 06/28/21 08:33 Dose: 50 mls/hr Documented by: CHRISTINA Vancomycin HCl 750 mg/ Sodium (Chloride) 265 mls @ 265 mls/hr IV Q24H [facility] Piperacillin Sod/Tazobactam (Sod 3.375 gm/ Sodium Chloride) 50 mls @ 100 mls/hr IV Q6H [facility] Insulin Human Lispro (Insulin Lispro 100 Unit/Ml 3 Ml Vial) 0 unit SUBCUT QIDACHS [facility]; Protocol Last Admin: 06/28/21 13:36 Dose: Not Given Documented by: CHRISTINA Non-Admin Reason: No Insulin Coverage Melatonin (Melatonin 3 Mg Tablet) 6 mg PO BEDTIME PRN PRN Reason: Insomnia Metoprolol Tartrate (Metoprolol Tartrate 50 Mg Tablet) 50 mg PO BID [facility]; Protocol Last Admin: 06/28/21 10:10 Dose: Not Given Documented by: CHRISTINA Non-Admin Reason: Decreased Blood Pressure Pharmacy Consult (Consult Rx Vancomycin Dosing) 1 each MISCELLANE DAILY PRN PRN Reason: Consult order Senna (Sennosides 8.6 Mg Tablet) 17.2 mg PO BEDTIME PRN PRN Reason: Constipation Sodium Chloride (0.9 % Sodium Chloride Flush 3 Ml Syringe) 3 ml IVFLUSH QSHIFT [facility] Last Admin: 06/28/21 08:33 Dose: 3 ml Documented by: CHRISTINA Labs CBC & Chem 7: 06/27/21 23:14 06/28/21 00:48 Labs: Laboratory Results - last 24 hr 06/27/21 06/27/21 06/27/21 18:57 18:57 23:14 MCV 90.7 MCH 29.6 MCHC 32.6 RDW 12.7 Plt Count 159 L MPV 9.7 Immature Gran % (Auto) 0.3 Neut % (Auto) 68.0 Lymph % (Auto) 17.9 L [place] % (Auto) 10.6 Eos % (Auto) 3.0 Baso % (Auto) 0.2 Lymph # (Auto) 1.1 L [place] # (Auto) 0.6 Eos # (Auto) 0.2 Baso # (Auto) 0.0 Abs Immat Gran (auto) 0.02 Absolute Neuts (auto) 4.0 Absolute Nucleated RBC 0.000 Nucleated RBC % (auto) 0.0 PT INR Anion Gap Estim Creat Clear Calc Estimated GFR POC Glucose Random Glucose Lactic Acid Lactic Acid F/U @ 2Hr Calcium Total Bilirubin AST ALT Alkaline Phosphatase C-Reactive Protein B-Natriuretic Peptide Total Protein Albumin Urine Color Urine Appearance Urine pH Ur Specific [place] Urine Protein Urine Glucose (UA) Urine Ketones Urine Blood Urine Nitrite Ur Leukocyte Esterase Urine RBC Urine WBC Ur Squamous Epith Cells Calcium Oxalate Crystal Urine Bacteria Urine Mucus COVID-19 ([facility]O) Negative COVID-19 Clin Com See Note Influenza Type A (THI) Negative Influenza Type B (THI) Negative Influenza A & B Note See Note 06/27/21 06/27/21 06/27/21 23:14 23:14 23:14 MCV MCH MCHC RDW Plt Count MPV Immature Gran % (Auto) Neut % (Auto) Lymph % (Auto) [place] % (Auto) Eos % (Auto) Baso % (Auto) Lymph # (Auto) [place] # (Auto) Eos # (Auto) Baso # (Auto) Abs Immat Gran (auto) Absolute Neuts (auto) Absolute Nucleated RBC Nucleated RBC % (auto) PT 12.3 INR 1.1 Anion Gap Estim Creat Clear Calc Estimated GFR POC Glucose Random Glucose Lactic Acid 2.1 H* Lactic Acid F/U @ 2Hr Calcium Total Bilirubin AST ALT Alkaline Phosphatase C-Reactive Protein B-Natriuretic Peptide 80 Total Protein Albumin Urine Color Urine Appearance Urine pH Ur Specific [place] Urine Protein Urine Glucose (UA) Urine Ketones Urine Blood Urine Nitrite Ur Leukocyte Esterase Urine RBC Urine WBC Ur Squamous Epith Cells Calcium Oxalate Crystal Urine Bacteria Urine Mucus COVID-19 ([facility]O) COVID-19 Clin Com Influenza Type A (THI) Influenza Type B (THI) Influenza A & B Note 06/28/21 06/28/21 06/28/21 00:48 04:15 05:16 MCV MCH MCHC RDW Plt Count MPV Immature Gran % (Auto) Neut % (Auto) Lymph % (Auto) [place] % (Auto) Eos % (Auto) Baso % (Auto) Lymph # (Auto) [place] # (Auto) Eos # (Auto) Baso # (Auto) Abs Immat Gran (auto) Absolute Neuts (auto) Absolute Nucleated RBC Nucleated RBC % (auto) PT INR Anion Gap 17 Estim Creat Clear Calc 44.5 Estimated GFR > 60 POC Glucose Random Glucose 163 H Lactic Acid Lactic Acid F/U @ 2Hr 0.8 Calcium 9.3 Total Bilirubin 0.5 AST 15 ALT 9 Alkaline Phosphatase 54 C-Reactive Protein 8.82 H B-Natriuretic Peptide Total Protein 7.2 Albumin 4.3 Urine Color YELLOW Urine Appearance HAZY Urine pH 6.0 Ur Specific [place] 1.020 Urine Protein TRACE Urine Glucose (UA) NEG Urine Ketones NEG Urine Blood TRACE Urine Nitrite NEG Ur Leukocyte Esterase NEG Urine RBC 0 Urine WBC 0-2 Ur Squamous Epith Cells TRACE Calcium Oxalate Crystal 2+ Urine Bacteria NONE Urine Mucus TRACE COVID-19 ([facility]O) COVID-19 Clin Com Influenza Type A (THI) Influenza Type B (THI) Influenza A & B Note 06/28/21 06/28/21 07:40 12:52 MCV MCH MCHC RDW Plt Count MPV Immature Gran % (Auto) Neut % (Auto) Lymph % (Auto) [place] % (Auto) Eos % (Auto) Baso % (Auto) Lymph # (Auto) [place] # (Auto) Eos # (Auto) Baso # (Auto) Abs Immat Gran (auto) Absolute Neuts (auto) Absolute Nucleated RBC Nucleated RBC % (auto) PT INR Anion Gap Estim Creat Clear Calc Estimated GFR POC Glucose 138 H 121 H Random Glucose Lactic Acid Lactic Acid F/U @ 2Hr Calcium Total Bilirubin AST ALT Alkaline Phosphatase C-Reactive Protein B-Natriuretic Peptide Total Protein Albumin Urine Color Urine Appearance Urine pH Ur Specific [place] Urine Protein Urine Glucose (UA) Urine Ketones Urine Blood Urine Nitrite Ur Leukocyte Esterase Urine RBC Urine WBC Ur Squamous Epith Cells Calcium Oxalate Crystal Urine Bacteria Urine Mucus COVID-19 ([facility]O) COVID-19 Clin Com Influenza Type A (THI) Influenza Type B (THI) Influenza A & B Note Assessment and Plan (1) Pneumonia: Status: Acute Plan 81-year-old female with a past medical history of hypertension, hyperlipidemia, CAD status post quadruple bypass, peripheral vascular disease status post stent placement; diabetes, diabetic neuropathy; presented to the hospital today with a chief complaint of cough and shortness of breath. CAP no sepsis treated with azithromycin outpatient, but only took 2 days worth before coming t o hospital Initially treated with IV vancomycin and Zosyn, will de-escalate to ceftriaxone, doxycycline Cough suppressants Follow sputum cultures, urine Legionella, strep pneumo, blood cultures DuoNebs p.r.n. Rapid COVID and influenza negative, RPP pending Pulmonary nodules recommend outpatient follow up elevated lactic likely from metformin not sepsis History of diabetes: Hold metformin. SSI, POCs HTN Continue metoprolol HLD continue statin CAD status post CABG: CABG in 2020 continue DAPT, metoprolol, statin h/o PVD continue DAPT DVT prophylaxis: Lovenox Code status: Full code Attending: dr. renee patient requires ongoing hospitalization for treatment for pneumonia given history of diabetes and age and risk for progression to sepsis Quality Stroke Does the patient have a stroke diagnosis?: No VTE Prior VTE?: No VTE Risk Level:: Medical - moderate - high VTE Device Contraindication: Treatment Not Indicated VTE Drug Contraindication: N/A - Med Ordered
[2021-06-28] MEDS: cefTRIAXone sodium 1 GM in 0.9 % Sodium Chloride 50 ML IV (16:06)
[2021-06-28] MEDS: Albuterol/Iprat 2.5/0.5MG 3 ML AMPUL.NEB INHALE (17:19)
[2021-06-28] MEDS: Insulin Lispro 100 UNIT/ML 3 ML VIAL SUBCUT ×2 (18:12→20:32)
[2021-06-28] MEDS: Doxycycline Hyclate 100 MG in 0.9 % Sodium Chloride 250 ML 166.67 MG IV (18:13)
[2021-06-28 18:23] LABS: Glucose, Whole Blood 175 mg/dL (60-115)
[2021-06-28 19:58] LABS: Glucose, Whole Blood 176 mg/dL (60-115)
[2021-06-28] MEDS: Metoprolol Tartrate 50 MG TABLET PO (20:33)
[2021-06-28] MEDS: Atorvastatin Calcium 80 MG TABLET PO (20:33)
[2021-06-28] MEDS: Gabapentin 300 MG CAPSULE 600 MG PO (20:33)
[2021-06-29] VITALS (8 sets, daily range): BP systolic 90–150; BP diastolic 36–59; PULSE 63–88; RESP 12–16; TEMP 36.4–36.6; O2SAT 92–99
[2021-06-29] MEDS: Doxycycline Hyclate 100 MG in 0.9 % Sodium Chloride 250 ML 166.67 MG IV ×2 (03:48→16:08)
[2021-06-29] MEDS: Enoxaparin Sodium 40 MG/0.4 ML SYRINGE SUBCUT (06:14)
[2021-06-29 06:56] LABS: MANUAL DIFF FLAG NO
[2021-06-29 07:06] LABS: Basophils Percent Auto 0.3 % (0-2); Eosinophils Absolute Auto 0.2 X10*3/uL (0.0-0.4); Eosinophils Percent Auto 4.6 % (0-4); Hematocrit 30.6 % (37.0-47.0); Imm Gran Abs Auto 0.01 X10*3/uL (0.00-0.03); Imm Gran Pct Auto 0.3 % (0.0-0.4); Lymphocytes Absolute Auto 1.3 X10*3/uL (1.2-4.9); Lymphocytes Percent Auto 39.9 % (20-40); Mean Corpuscular HGB Conc 32.7 g/dl (31.0-35.0); Mean Corpuscular Hemoglobin 29.5 pg (27.0-33.0); Mean Corpuscular Volume 90.3 fL (80.0-98.0); Mean Platelet Volume 9.7 fL (9.4-12.3); Monocytes Absolute Auto 0.4 X10*3/uL (0.1-1.2); Monocytes Percent Auto 10.7 % (2-11); Neutrophils Absolute Auto 1.4 x10*3/uL (2.0-8.3); Neutrophils Percent Auto 44.2 % (45-73); Platelet Count 145 X10*3/uL (160-400); Red Blood Count 3.39 X10*6/uL (4.20-5.50); Red Cell Distribution Width 12.5 % (11.0-16.0); White Blood Count 3.3 X10*3/uL (4.8-10.8)
[2021-06-29 07:36] LABS: Glucose, Whole Blood 146 mg/dL (60-115)
[2021-06-29 07:41] LABS: Anion Gap 13 (12-20); Blood Urea Nitrogen 10 mg/dL (9-16); Calcium 8.4 mg/dL (8.4-10.2); Carbon Dioxide 25 mmol/L (22-29); Chloride 108 mmol/L (96-108); Creatinine Clr Calc Pharmacy 55.7; Estimated Glomerular Filt Rate > 60; Glucose Random 129 mg/dL (60-115); Potassium 3.7 mmol/L (3.3-5.1); Sodium 142 mmol/L (135-145)
[2021-06-29] MEDS: Aspirin Enteric Coated 81 MG TABLET.DR PO (08:55)
[2021-06-29] MEDS: Metoprolol Tartrate 50 MG TABLET PO ×2 (08:55→23:01)
[2021-06-29] MEDS: Clopidogrel Bisulfate 75 MG TABLET PO (08:55)
[2021-06-29] MEDS: 0.9 % Sodium Chloride Flush 3 ML SYRINGE IVFLUSH ×2 (08:56→15:30)
--- NOTE | 2021-06-29 09:11 | HO.PM.IMPN ---
Subjective Subjective Date of Service: 06/29/21 <Svetlana Kaur NP - Last Filed: 06/29/21 09:26> 08/25/21 <Herberth Lord MD - Last Filed: 08/25/21 13:50> Review of Systems Follow up CAP Still with cough and yellow sputum sitting up in bed denied chest pain, nausea, vomiting <Svetlana Kaur NP - Last Filed: 06/29/21 09:26> Physical Exam Vital Signs: Vital Signs: Last Vital Signs Temp 97.8 F 06/29/21 07:32 Pulse 78 06/29/21 07:32 Resp 12 06/29/21 07:32 BP 123/39 L 06/29/21 07:32 Pulse Ox 94 06/29/21 07:32 BMI result Body Mass Index 20.5 <Svetlana Kaur NP - Last Filed: 06/29/21 09:26> Appearing in no acute distress lung sounds rhonchi heart regular rate rhythm, clear S1, S2 positive bowel sounds, abdomen is soft, nontender neuro patient is alert x3, no focal deficits <Svetlana Kaur NP - Last Filed: 06/29/21 09:26> Objective Data Active Medications Acetaminophen (Acetaminophen 325 Mg Tablet) 650 mg PO Q6H PRN PRN Reason: Pain, Mild (Pain Scale 1-3) Albuterol/Ipratropium (Albuterol/Iprat 2.5/0.5mg 3 Ml Ampul.Neb) 3 ml INHALE RQ4H PRN PRN Reason: Shortness of Breath/Wheezing Last Admin: 06/28/21 17:19 Dose: 3 ml Documented by: BAMBI Aspirin (Aspirin Enteric Coated 81 Mg Tablet.) 81 mg PO DAILY [facility] Last Admin: 06/29/21 08:55 Dose: 81 mg Documented by: [place] Atorvastatin Calcium (Atorvastatin Calcium 80 Mg Tablet) 80 mg PO BEDTIME [facility] Last Admin: 06/28/21 20:33 Dose: 80 mg Documented by: DAVID Benzonatate (Benzonatate 100 Mg Capsule) 100 mg PO TID PRN PRN Reason: Cough Last Admin: 06/28/21 08:28 Dose: 100 mg Documented by: CHRISTINA Clopidogrel Bisulfate (Clopidogrel Bisulfate 75 Mg Tablet) 75 mg PO DAILY [facility] Last Admin: 06/29/21 08:55 Dose: 75 mg Documented by: OH Dextrose (Dextrose 50 % 25 Gm/50 Ml Syringe) 25 gm IVPUSH Q15M PRN; Protocol PRN Reason: per Hypoglycemia Standing Ord. Enoxaparin Sodium (Enoxaparin Sodium 40 Mg/0.4 Ml Syringe) 40 mg SUBCUT Q24H [facility] Last Admin: 06/29/21 06:14 Dose: 40 mg Documented by: DAVID Gabapentin (Gabapentin 300 Mg Capsule) 600 mg PO BEDTIME [facility] Last Admin: 06/28/21 20:33 Dose: 600 mg Documented by: DAVID Glucose (Glucose Gel 15 Gm Gel..Gram.) 15 gm PO Q15M PRN; Protocol PRN Reason: per Hypoglycemia Standing Ord. Ceftriaxone Sodium 1 gm/ (Sodium Chloride) 50 mls @ 100 mls/hr IV Q24H [facility] Last Infusion: 06/28/21 17:34 Dose: 0 mls/hr Documented by: DANIELLE Doxycycline Hyclate 100 mg/ (Sodium Chloride) 250 mls @ 166.67 mls/hr IV Q12H [facility] Last Infusion: 06/29/21 05:32 Dose: 0 mls/hr Documented by: DAVID Insulin Human Lispro (Insulin Lispro 100 Unit/Ml 3 Ml Vial) 0 unit SUBCUT QIDACHS [facility]; Protocol Last Admin: 06/29/21 07:35 Dose: Not Given Documented by: OH Non-Admin Reason: No Insulin Coverage Melatonin (Melatonin 3 Mg Tablet) 6 mg PO BEDTIME PRN PRN Reason: Insomnia Metoprolol Tartrate (Metoprolol Tartrate 50 Mg Tablet) 50 mg PO BID [facility]; Protocol Last Admin: 06/29/21 08:55 Dose: 50 mg Documented by: OH Pharmacy Consult (Consult Rx Vancomycin Dosing) 1 each MISCELLANE DAILY PRN PRN Reason: Consult order Senna (Sennosides 8.6 Mg Tablet) 17.2 mg PO BEDTIME PRN PRN Reason: Constipation Sodium Chloride (0.9 % Sodium Chloride Flush 3 Ml Syringe) 3 ml IVFLUSH QSHIFT [facility] Last Admin: 06/29/21 08:56 Dose: 3 ml Documented by: OH <Svetlana Kaur NP - Last Filed: 06/29/21 09:26> Labs CBC & Chem 7: : 06/29/21 05:35 06/29/21 05:35 <Svetlana Kaur NP - Last Filed: 06/29/21 09:26> Labs: Laboratory Results - last 24 hr 06/28/21 06/28/21 06/28/21 12:52 18:01 19:55 MCV MCH MCHC RDW Plt Count MPV Immature Gran % (Auto) Neut % (Auto) Lymph % (Auto) [place] % (Auto) Eos % (Auto) Baso % (Auto) Lymph # (Auto) [place] # (Auto) Eos # (Auto) Baso # (Auto) Abs Immat Gran (auto) Absolute Neuts (auto) Absolute Nucleated RBC Nucleated RBC % (auto) Anion Gap Estim Creat Clear Calc Estimated GFR POC Glucose 121 H 175 H 176 H Random Glucose Calcium 06/29/21 06/29/21 06/29/21 05:35 05:35 07:31 MCV 90.3 MCH 29.5 MCHC 32.7 RDW 12.5 Plt Count 145 L MPV 9.7 Immature Gran % (Auto) 0.3 Neut % (Auto) 44.2 L Lymph % (Auto) 39.9 [place] % (Auto) 10.7 Eos % (Auto) 4.6 H Baso % (Auto) 0.3 Lymph # (Auto) 1.3 [place] # (Auto) 0.4 Eos # (Auto) 0.2 Baso # (Auto) 0.0 Abs Immat Gran (auto) 0.01 Absolute Neuts (auto) 1.4 L Absolute Nucleated RBC 0.000 Nucleated RBC % (auto) 0.0 Anion Gap 13 Estim Creat Clear Calc 55.7 Estimated GFR > 60 POC Glucose 146 H Random Glucose 129 H Calcium 8.4 D <Svetlana Kaur NP - Last Filed: 06/29/21 09:26> Microbiology Microbiology Results: Microbiology 06/27/21 23:42 Blood Culture - Preliminary Blood - Venous No growth after 24 hours. 06/27/21 23:42 Blood Culture - Preliminary Blood - Venous No growth after 24 hours. <Svetlana Kaur NP - Last Filed: 06/29/21 09:26> Assessment and Plan (1) Pneumonia: Status: Resolved <Svetlana Kaur NP - Last Filed: 06/29/21 09:26> Assessment and Plan: 81-year-old female with a past medical history of hypertension, hyperlipidemia, CAD status post quadruple bypass, peripheral vascular disease status post stent placement; diabetes, diabetic neuropathy; presented to the hospital today with a chief complaint of cough and shortness of breath. CAP no sepsis treated with azithromycin outpatient, but only took 2 days worth before coming to hospital Initially treated with IV vancomycin and Zosyn, will de-escalate to ceftriaxone, doxycycline Cough suppressants Follow sputum cultures, urine Legionella, strep pneumo, blood cultures DuoNebs p.r.n. Rapid COVID and influenza negative, RPP pending Pulmonary nodules recommend outpatient follow up elevated lactic likely from metformin not sepsis History of diabetes: Hold metformin. SSI, POCs HTN Continue metoprolol HLD continue statin CAD status post CABG: CABG in 2020 continue DAPT, metoprolol, statin h/o PVD continue DAPT DVT prophylaxis: Lovenox Code status: Full code Attending: Dr. Lord patient requires ongoing hospitalization for treatment for pneumonia given history of diabetes and age and risk for progression to sepsis <Svetlana Kaur NP - Last Filed: 06/29/21 09:26> Quality Stroke Does the patient have a stroke diagnosis?: No <Svetlana Kaur NP - Last Filed: 06/29/21 09:26> VTE Prior VTE?: No <Svetlana Kaur NP - Last Filed: 06/29/21 09:26> VTE Risk Level:: Medical - moderate - high <Svetlana Kaur NP - Last Filed: 06/29/21:26> VTE Device Contraindication: Treatment Not Indicated <Svetlana Kaur NP - Last Filed: 06/29/21:26> VTE Drug Contraindication: N/A - Med Ordered <Svetlana Kaur NP - Last Filed: 06/29/21 09:26>
[2021-06-29 12:54] LABS: Glucose, Whole Blood 159 mg/dL (60-115)
[2021-06-29] MEDS: cefTRIAXone sodium 1 GM in 0.9 % Sodium Chloride 50 ML IV (15:29)
[2021-06-29 17:55] LABS: Glucose, Whole Blood 113 mg/dL (60-115)
--- NOTE | 2021-06-29 19:28 | PC.NURSE ---
Took report from [place] to assume care of Pt, Pt talking on phone, call light in reach.
[2021-06-29] MEDS: Albuterol/Iprat 2.5/0.5MG 3 ML AMPUL.NEB INHALE (19:40)
[2021-06-29 22:46] LABS: Glucose, Whole Blood 183 mg/dL (60-115)
[2021-06-29] MEDS: Gabapentin 300 MG CAPSULE 600 MG PO (23:01)
[2021-06-29] MEDS: Atorvastatin Calcium 80 MG TABLET PO (23:01)
[2021-06-29] MEDS: Insulin Lispro 100 UNIT/ML 3 ML VIAL SUBCUT (23:01)
[2021-06-30 01:10] VITALS: BP 141/43; PULSE 57; RESP 14; O2SAT 97
[2021-06-30] MEDS: Doxycycline Hyclate 100 MG in 0.9 % Sodium Chloride 250 ML 166.67 MG IV ×2 (04:09→16:48)
[2021-06-30] MEDS: Enoxaparin Sodium 40 MG/0.4 ML SYRINGE SUBCUT ×2 (06:16→06:17)
[2021-06-30 07:43] LABS: Glucose, Whole Blood 158 mg/dL (60-115)
[2021-06-30 08:05] LABS: Vancomycin Trough < 3.0 mcg/mL (10.0-20.0)
[2021-06-30 08:34] VITALS: BP 138/33; PULSE 64; RESP 20; TEMP 35.4
[2021-06-30] MEDS: Aspirin Enteric Coated 81 MG TABLET.DR PO (08:34)
[2021-06-30] MEDS: Metoprolol Tartrate 50 MG TABLET PO ×2 (08:34→22:09)
[2021-06-30] MEDS: Clopidogrel Bisulfate 75 MG TABLET PO (08:35)
[2021-06-30] MEDS: Insulin Lispro 100 UNIT/ML 3 ML VIAL SUBCUT ×3 (08:35→22:07)
[2021-06-30] MEDS: 0.9 % Sodium Chloride Flush 3 ML SYRINGE IVFLUSH ×2 (08:40→23:54)
--- NOTE | 2021-06-30 10:23 | HO.PM.IMPN ---
Subjective Subjective Date of Service: 06/30/21 Review of Systems Follow up CAP Still with cough and yellow sputum sitting up in bed denied chest pain, nausea, vomiting Physical Exam Vital Signs: Vital Signs: Last Vital Signs Temp 95.8 F L 06/30/21 08:34 Pulse 64 06/30/21 08:34 Resp 20 06/30/21 08:34 BP 138/33 L 06/30/21 08:34 Pulse Ox 97 06/30/21 01:10 BMI result Body Mass Index 20.5 Appearing in no acute distress lung sounds are clear to auscultation heart regular rate rhythm, clear S1, S2 positive bowel sounds, abdomen is soft, nontender neuro patient is alert x3, no focal deficits Objective Data Active Medications Acetaminophen (Acetaminophen 325 Mg Tablet) 650 mg PO Q6H PRN PRN Reason: Pain, Mild (Pain Scale 1-3) Albuterol/Ipratropium (Albuterol/Iprat 2.5/0.5mg 3 Ml Ampul.Neb) 3 ml INHALE RQ4H PRN PRN Reason: Shortness of Breath/Wheezing Last Admin: 06/29/21 19:40 Dose: 3 ml Documented by: ZBIGNIEW Aspirin (Aspirin Enteric Coated 81 Mg Tablet.) 81 mg PO DAILY [facility] Last Admin: 06/30/21 08:34 Dose: 81 mg Documented by: VINCENT Atorvastatin Calcium (Atorvastatin Calcium 80 Mg Tablet) 80 mg PO BEDTIME [facility] Last Admin: 06/29/21 23:01 Dose: 80 mg Documented by: DOMINGO Benzonatate (Benzonatate 100 Mg Capsule) 100 mg PO TID PRN PRN Reason: Cough Last Admin: 06/28/21 08:28 Dose: 100 mg Documented by: CHRISTINA Clopidogrel Bisulfate (Clopidogrel Bisulfate 75 Mg Tablet) 75 mg PO DAILY [facility] Last Admin: 06/30/21 08:35 Dose: 75 mg Documented by: VINCENT Dextrose (Dextrose 50 % 25 Gm/50 Ml Syringe) 25 gm IVPUSH Q15M PRN; Protocol PRN Reason: per Hypoglycemia Standing Ord. Enoxaparin Sodium (Enoxaparin Sodium 40 Mg/0.4 Ml Syringe) 40 mg SUBCUT Q24H [facility] Last Admin: 06/30/21 06:17 Dose: 40 mg Documented by: DOMINGO Gabapentin (Gabapentin 300 Mg Capsule) 600 mg PO BEDTIME [facility] Last Admin: 06/29/21 23:01 Dose: 600 mg Documented by: DOMINGO Glucose (Glucose Gel 15 Gm Gel..Gram.) 15 gm PO Q15M PRN; Protocol PRN Reason: per Hypoglycemia Standing Ord. Ceftriaxone Sodium 1 gm/ (Sodium Chloride) 50 mls @ 100 mls/hr IV Q24H [facility] Last Infusion: 06/29/21 16:01 Dose: 0 mls/hr Documented by: OH Doxycycline Hyclate 100 mg/ (Sodium Chloride) 250 mls @ 166.67 mls/hr IV Q12H [facility] Last Infusion: 06/30/21 06:23 Dose: 166.67 mls/hr Documented by: DOMINGO Insulin Human Lispro (Insulin Lispro 100 Unit/Ml 3 Ml Vial) 0 unit SUBCUT QIDACHS [facility]; Protocol Last Admin: 06/30/21 08:35 Dose: 2 unit Documented by: VINCENT Melatonin (Melatonin 3 Mg Tablet) 6 mg PO BEDTIME PRN PRN Reason: Insomnia Metoprolol Tartrate (Metoprolol Tartrate 50 Mg Tablet) 50 mg PO BID [facility]; Protocol Last Admin: 06/30/21 08:34 Dose: 50 mg Documented by: VINCENT Pharmacy Consult (Consult Rx Vancomycin Dosing) 1 each MISCELLANE DAILY PRN PRN Reason: Consult order Senna (Sennosides 8.6 Mg Tablet) 17.2 mg PO BEDTIME PRN PRN Reason: Constipation Sodium Chloride (0.9 % Sodium Chloride Flush 3 Ml Syringe) 3 ml IVFLUSH QSHIFT [facility] Last Admin: 06/30/21 08:40 Dose: 3 ml Documented by: VINCENT Labs CBC & Chem 7: 06/29/21 05:35 06/29/21 05:35 Labs: Laboratory Results - last 24 hr 06/29/21 06/29/21 06/29/21 12:48 17:51 22:42 POC Glucose 159 H 113 183 H Vancomycin Trough 06/30/21 06/30/21 07:33 07:34 POC Glucose 158 H Vancomycin Trough < 3.0 L Microbiology Microbiology Results: Microbiology 06/27/21 23:42 Blood Culture - Preliminary Blood - Venous No growth after 48 hours. 06/27/21 23:42 Blood Culture - Preliminary Blood - Venous No growth after 48 hours. Assessment and Plan (1) Pneumonia: Status: Acute Plan 81-year-old female with a past medical history of hypertension, hyperlipidemia, CAD status post quadruple bypass, peripheral vascular disease status post stent placement; diabetes, diabetic neuropathy; presented to the hospital today with a chief complaint of cough and shortness of breath. CAP Initially treated with IV vancomycin and Zosyn, now on ceftriaxone, doxycycline Cough suppressants Follow sputum cultures, urine Legionella, strep pneumo, blood cultures DuoNebs p.r.n. Rapid COVID and influenza negative, RPP pending will add prednisone, mild wheezing Pulmonary nodules recommend outpatient follow up elevated lactic likely from metformin not sepsis History of diabetes: Hold metformin. SSI, POCs HTN Continue metoprolol HLD continue statin CAD status post CABG: CABG in 2020 continue DAPT, metoprolol, statin h/o PVD continue DAPT DVT prophylaxis: Lovenox Code status: Full code Attending: Dr. Lord patient requires ongoing hospitalization for treatment for pneumonia given history of diabetes and age and risk for progression to sepsis Quality Stroke Does the patient have a stroke diagnosis?: No VTE Prior VTE?: No VTE Risk Level:: Medical - moderate - high VTE Device Contraindication: Treatment Not Indicated VTE Drug Contraindication: N/A - Med Ordered
[2021-06-30] MEDS: predniSONE 20 MG TABLET 40 MG PO (11:11)
[2021-06-30 11:39] LABS: Glucose, Whole Blood 146 mg/dL (60-115)
[2021-06-30 12:24] VITALS: BP 124/31; PULSE 63; RESP 18; TEMP 36.6; O2SAT 97
[2021-06-30] MEDS: Acetaminophen 325 MG TABLET 650 MG PO (15:49)
[2021-06-30] MEDS: cefTRIAXone sodium 1 GM in 0.9 % Sodium Chloride 50 ML IV (15:57)
[2021-06-30 17:26] VITALS: BP 119/54; PULSE 81; RESP 16; TEMP 36.4; O2SAT 97
[2021-06-30 18:15] LABS: Glucose, Whole Blood 324 mg/dL (60-115)
[2021-06-30 21:00] LABS: Glucose, Whole Blood 264 mg/dL (60-115)
[2021-06-30 22:04] VITALS: BP 114/51; PULSE 64; RESP 15; O2SAT 95
[2021-06-30] MEDS: Atorvastatin Calcium 80 MG TABLET PO (22:09)
[2021-06-30] MEDS: Gabapentin 300 MG CAPSULE 600 MG PO (22:10)
[2021-06-30 23:50] VITALS: BP 125/58; PULSE 69; RESP 12; O2SAT 97
[2021-06-30] MEDS: Benzonatate 100 MG CAPSULE PO (23:55)
[2021-07-01] VITALS (8 sets, daily range): BP systolic 108–147; BP diastolic 38–64; PULSE 54–90; RESP 12–18; TEMP 36.2–36.8; O2SAT 95–100; BMI 22.5
[2021-07-01] MEDS: Doxycycline Hyclate 100 MG in 0.9 % Sodium Chloride 250 ML 166.67 MG IV ×2 (04:34→16:45)
[2021-07-01] MEDS: Enoxaparin Sodium 40 MG/0.4 ML SYRINGE SUBCUT (06:19)
[2021-07-01] MEDS: Acetaminophen 325 MG TABLET 650 MG PO (06:19)
[2021-07-01] MEDS: Albuterol/Iprat 2.5/0.5MG 3 ML AMPUL.NEB INHALE (06:21)
[2021-07-01 08:09] LABS: Glucose, Whole Blood 130 mg/dL (60-115)
--- NOTE | 2021-07-01 09:35 | P.PNIM_ITS ---
Subjective Subjective Date of Service: 07/01/21 Review of Systems Follow up CAP Still with mostly dry cough no pain Physical Exam Vital Signs: Vital Signs: Last Vital Signs Temp 97.2 F 07/01/21 07:16 Pulse 66 07/01/21 07:16 Resp 18 07/01/21 07:16 BP 143/64 H 07/01/21 07:16 Pulse Ox 99 07/01/21 08:52 BMI result Body Mass Index 22.5 Appearing in no acute distress lung sounds, some rhonchi heart regular rate rhythm, clear S1, S2 positive bowel sounds, abdomen is soft, nontender neuro patient is alert x3, no focal deficits Objective Data Active Medications Acetaminophen (Acetaminophen 325 Mg Tablet) 650 mg PO Q6H PRN PRN Reason: Pain, Mild (Pain Scale 1-3) Last Admin: 07/01/21 06:19 Dose: 650 mg Documented by: ZAC Albuterol/Ipratropium (Albuterol/Iprat 2.5/0.5mg 3 Ml Ampul.Neb) 3 ml INHALE RQ4H PRN PRN Reason: Shortness of Breath/Wheezing Last Admin: 07/01/21 06:21 Dose: 3 ml Documented by: MIREYA Aspirin (Aspirin Enteric Coated 81 Mg Tablet.) 81 mg PO DAILY [facility] Last Admin: 06/30/21 08:34 Dose: 81 mg Documented by: VINCENT Atorvastatin Calcium (Atorvastatin Calcium 80 Mg Tablet) 80 mg PO BEDTIME [facility] Last Admin: 06/30/21 22:09 Dose: 80 mg Documented by: GARETH Benzonatate (Benzonatate 100 Mg Capsule) 100 mg PO TID PRN PRN Reason: Cough Last Admin: 06/30/21 23:55 Dose: 100 mg Documented by: GARETH Clopidogrel Bisulfate (Clopidogrel Bisulfate 75 Mg Tablet) 75 mg PO DAILY [facility] Last Admin: 06/30/21 08:35 Dose: 75 mg Documented by: VINCENT Dextrose (Dextrose 50 % 25 Gm/50 Ml Syringe) 25 gm IVPUSH Q15M PRN; Protocol PRN Reason: per Hypoglycemia Standing Ord. Enoxaparin Sodium (Enoxaparin Sodium 40 Mg/0.4 Ml Syringe) 40 mg SUBCUT Q24H [facility] Last Admin: 07/01/21 06:19 Dose: 40 mg Documented by: ZAC Gabapentin (Gabapentin 300 Mg Capsule) 600 mg PO BEDTIME [facility] Last Admin: 06/30/21 22:10 Dose: 600 mg Documented by: GARETH Glucose (Glucose Gel 15 Gm Gel..Gram.) 15 gm PO Q15M PRN; Protocol PRN Reason: per Hypoglycemia Standing Ord. Ceftriaxone Sodium 1 gm/ (Sodium Chloride) 50 mls @ 100 mls/hr IV Q24H [facility] Last Infusion: 06/30/21 16:33 Dose: 0 mls/hr Documented by: VINCENT Doxycycline Hyclate 100 mg/ (Sodium Chloride) 250 mls @ 166.67 mls/hr IV Q12H [facility] Last Infusion: 07/01/21 07:24 Dose: 0 mls/hr Documented by: ZAC Insulin Human Lispro (Insulin Lispro 100 Unit/Ml 3 Ml Vial) 0 unit SUBCUT QIDACHS [facility]; Protocol Last Admin: 06/30/21 22:07 Dose: 6 unit Documented by: GARETH Melatonin (Melatonin 3 Mg Tablet) 6 mg PO BEDTIME PRN PRN Reason: Insomnia Metoprolol Tartrate (Metoprolol Tartrate 50 Mg Tablet) 50 mg PO BID [facility]; Protocol Last Admin: 06/30/21 22:09 Dose: 50 mg Documented by: GARETH Pharmacy Consult (Consult Rx Vancomycin Dosing) 1 each MISCELLANE DAILY PRN PRN Reason: Consult order Prednisone (Prednisone 20 Mg Tablet) 40 mg PO DAILY [facility] Last Admin: 06/30/21 11:11 Dose: 40 mg Documented by: VINCENT Senna (Sennosides 8.6 Mg Tablet) 17.2 mg PO BEDTIME PRN PRN Reason: Constipation Sodium Chloride (0.9 % Sodium Chloride Flush 3 Ml Syringe) 3 ml IVFLUSH QSHIFT [facility] Last Admin: 06/30/21 23:54 Dose: 3 ml Documented by: GARETH Labs CBC & Chem 7: 06/29/21 05:35 06/29/21 05:35 Labs: Laboratory Results - last 24 hr 06/30/21 06/30/21 06/30/21 11:36 17:55 20:50 POC Glucose 146 H 324 H 264 H 07/01/21 08:04 POC Glucose 130 H Assessment and Plan (1) Pneumonia: Status: Acute Plan 81-year-old female with a past medical history of hypertension, hyperlipidemia, CAD status post quadruple bypass, peripheral vascular disease status post stent placement; diabetes, diabetic neuropathy; presented to the hospital today with a chief complaint of cough and shortness of breath.? CAP ceftriaxone, doxycycline? Cough suppressants Follow sputum cultures, urine Legionella, strep pneumo, blood cultures DuoNebs p.r.n. Rapid COVID and influenza negative, RPP pending will add prednisone, mild wheezing add mucinex Pulmonary nodules recommend outpatient follow up elevated lactic likely from metformin not sepsis History of diabetes Hold metformin.? SSI, POCs HTN Continue metoprolol HLD continue statin CAD status post CABG CABG in 2020 continue DAPT, metoprolol, statin h/o PVD continue DAPT DVT prophylaxis:? Lovenox Code status:? Full code Attending: Dr. Samson Patient requires ongoing hospitalization for treatment for pneumonia given history of diabetes and age and risk for progression to sepsis, still with aggressive dry cough assess sedating regular oxygen checks Quality Stroke Does the patient have a stroke diagnosis?: No VTE Prior VTE?: No VTE Risk Level:: Medical - moderate - high VTE Device Contraindication: Treatment Not Indicated VTE Drug Contraindication: N/A - Med Ordered
[2021-07-01] MEDS: 0.9 % Sodium Chloride Flush 3 ML SYRINGE IVFLUSH ×3 (09:59→20:54)
[2021-07-01] MEDS: predniSONE 20 MG TABLET 40 MG PO (10:00)
[2021-07-01] MEDS: Clopidogrel Bisulfate 75 MG TABLET PO (10:00)
[2021-07-01] MEDS: Metoprolol Tartrate 50 MG TABLET PO ×2 (10:00→20:38)
[2021-07-01] MEDS: guaiFENesin LA 600 MG TAB.ER.12H PO ×2 (10:00→20:38)
[2021-07-01] MEDS: Aspirin Enteric Coated 81 MG TABLET.DR PO (10:01)
[2021-07-01 11:46] LABS: Glucose, Whole Blood 198 mg/dL (60-115)
[2021-07-01] MEDS: Insulin Lispro 100 UNIT/ML 3 ML VIAL SUBCUT ×3 (12:06→20:51)
--- NOTE | 2021-07-01 14:06 | MHC.CM.PN ---
NURSE [employer] CONSULTANT NOTE ELECTRONIC MEDICAL RECORD REVIEWED PING WITH CASE DISCSSUED WITH STAFF NURSE AND HOSPITLAIST. PER DOCUMENTATION PATIENT WITH PNA STILL WITH AGRESSIVE [place] COUGH O2 SAT MONITORING CONTINUE IV ABX X2, DUONEBS PRN COUGH SUPPRESANTS ADDED MUCINEX AND STEROIDS , MONITOR LABS , CX. DISCHARGE PLAN HOME NO SERVICES AT THIS TIME TRANSP[ORTATION FAMILY OR MAY NEED CASE MANGEMENT ASSISTANCE PCP DR JIMY MONTENEGRO FOLLOW UP PER DISCHARGE INSTRUCTIONS MEDICARE IMMM 06/28/21
[2021-07-01] MEDS: cefTRIAXone sodium 1 GM in 0.9 % Sodium Chloride 50 ML IV (16:20)
[2021-07-01 16:32] LABS: Glucose, Whole Blood 276 mg/dL (60-115)
[2021-07-01 20:30] LABS: Glucose, Whole Blood 293 mg/dL (60-115)
[2021-07-01] MEDS: Gabapentin 300 MG CAPSULE 600 MG PO (20:37)
[2021-07-01] MEDS: Melatonin 3 MG TABLET 6 MG PO (20:38)
[2021-07-01] MEDS: Atorvastatin Calcium 80 MG TABLET PO (20:38)
[2021-07-02] VITALS (8 sets, daily range): BP systolic 114–147; BP diastolic 54–68; PULSE 53–71; RESP 18–20; TEMP 36.2–36.6; O2SAT 94–100
[2021-07-02] MEDS: Enoxaparin Sodium 40 MG/0.4 ML SYRINGE SUBCUT (05:10)
[2021-07-02] MEDS: Doxycycline Hyclate 100 MG in 0.9 % Sodium Chloride 250 ML 166.67 MG IV ×2 (05:10→18:39)
[2021-07-02 07:39] LABS: Glucose, Whole Blood 123 mg/dL (60-115)
--- NOTE | 2021-07-02 08:46 | PM.DS ---
DS: Providers Provider Date of Service: 07/02/21 Date of admission: 06/28/21 06:33 Primary care physician: Yu Alcantar MD Attending physician on discharge: David Samson Discharging clinician: Svetlana Kaur DS: Diagnosis Discharge Diagnosis (1) Pneumonia: Status: Acute DS: Summary Hospital Course Hospital Course: HP as per admitting provider 81-year-old female with a past medical history of hypertension, hyperlipidemia, CAD status post quadruple bypass, peripheral vascular disease status post stent placement; diabetes, diabetic neuropathy; presented to the hospital today with a chief complaint of cough and shortness of breath.? Patient reports that over the past 1 week she has been having cough and shortness of breath associated with productive sputum-green in color; complains of subjective fevers.? Mentioned that he spoke to her PCP and has tried outpatient azithromycin with no significant improvement; over the past few days he has been having worsening cough with greenish sputum production.? Hence decided to come to the ER for further evaluation.?Patient also reports she has posttussive chest discomfort.?Denies any recent travel or sick contacts.?Denies any numbness tingling or focal weakness.?Denies any nausea vomiting or diarrhea.?Denies any urinary symptoms.?Review of all other systems is negative except mentioned above ER course:Per ER team patient noted to have bilateral ground-glass opacities on the CT scan; given IV Zosyn; admitted to the hospital for further management . CAP. treated with ceftriaxone, doxycycline?, Cough suppressants, prednisone and DuoNebs. Negative blood cultures, COVID and influenza. No hypoxia noted. Will send home with doxycycline and Ceftin to complete antibiotic course and 3 more days of prednisone. She needs to follow-up with her primary care provider within a week. Pulmonary nodules. recommend outpatient follow up elevated lactic likely from metformin not sepsis History of diabetes Metformin held, treated with sliding scale, ADA diet Continue home medications HTN Continue metoprolol HLD continue statin CAD status post CABG CABG in 2020 continue DAPT, metoprolol, statin h/o PVD continue DAPT Time Spent with Patient Time attestation: Total time spent providing and/or coordinating discharge services: Discharge coordination time: Greater than 30 minutes Quality: Safe Use of Opioids Does Pt have an Active Cancer Diagnosis on the Problem List?: No Quality: Stroke Does the patient have a stroke diagnosis?: No Physical Exam Vital Signs: Vital Signs: Last Vital Signs Temp 97.8 F 07/02/21 06:58 Pulse 56 07/02/21 06:58 Resp 18 07/02/21 06:58 BP 121/68 07/02/21 06:58 Pulse Ox 95 07/02/21 06:58 BMI result Body Mass Index 22.5 Appearing in no acute distress head is normocephalic atraumatic eyes pupils are PERRLA sclera is anicteric mouth throat mucous membranes are intact and moist neck is supple no lymphadenopathy, no JVD noted lung sounds some rhonchi heart regular rate rhythm, clear S1, S2 positive bowel sounds, abdomen is soft, nontender neuro patient is alert x3, no focal deficits DS: Data Data Completed and Pending Labs on day of discharge: Laboratory Results - last 24 hr 07/01/21 07/01/21 07/01/21 11:06 15:24 19:56 POC Glucose 198 H 276 H 293 H 07/02/21 07:01 POC Glucose 123 H Preliminary micro results at discharge 06/27/21 23:42 Blood Culture - Preliminary Blood - Venous No growth after 48 hours. 06/27/21 23:42 Blood Culture - Preliminary Blood - Venous No growth after 48 hours. Discharge Plan Discharge Anticipated Discharge Date/Time: 07/02/21 08:38 Patient Disposition: Home, Self-Care Discharge Diagnosis: Community-acquired pneumonia Referrals: Yu Alcantar MD [Primary Care Provider] - 1 Week Discharge Medications: New prednisone 20 mg Tablet 40 mg PO DAILY Qty: 6 0RF benzonatate 100 mg Capsule 100 mg PO TID PRN (Reason: Cough) Qty: 12 0RF doxycycline hyclate 100 mg tablet 100 mg PO BID Qty: 4 0RF cefuroxime axetil 500 mg tablet 500 mg PO BID Qty: 4 0RF Continued (DME) walker Misc See Rx Instructions .ROUTE .MEDSUPPLY Qty: 1 0RF Rx Instructions: walker with seat and breaks (DME) miscellaneous medical supply Misc See Rx Instructions .ROUTE .MEDSUPPLY Qty: 1 0RF Rx Instructions: Compression stocking for L leg (DME) Motorized Scooter See Rx Instructions .Route .MEDSUPPLY Qty: 1 0RF Rx Instructions: For mobility atorvastatin 80 mg tablet 80 mg PO BEDTIME Qty: 90 1RF (DME) alcon.stocking,thigh,reg,med Misc See Rx Instructions .Route Qty: 2 1RF Rx Instructions: As directed (DME) blood-glucose meter [FreeStyle Lite Meter] Kit See Rx Instructions .Route Qty: 1 0RF Rx Instructions: As directed for testing blood sugar (DME) FreeStyle Lite Strips Strip See Rx Instructions .Route Qty: 100 3RF Rx Instructions: Test blood sugar once daily (DME) lancets [FreeStyle Lancets] 28 gauge misc See Rx Instructions .Route Qty: 100 3RF Rx Instructions: Test blood sugar once a day metformin 500 mg tablet 500 mg PO DAILY Qty: 90 3RF gabapentin 300 mg capsule 600 mg PO BEDTIME 30 Days Qty: 60 1RF Januvia 50 mg tablet 1 tab PO DAILY 0RF aspirin 81 mg Tablet,Delayed Release (Dr/Ec) 81 mg PO DAILY 0RF acetaminophen 650 mg Tablet Extended Release 650 mg PO BID 0RF metoprolol tartrate 50 mg tablet 1 tab PO BID 0RF triamcinolone acetonide 0.025 % ointment 1 appl topical BID PRN (Reason: Itching) 0RF betamethasone dipropionate 0.05 % lotion 1 appl topical BID PRN (Reason: Itching) 0RF cholecalciferol (vitamin D3) [Vitamin D3] 25 mcg (1,000 unit) Tablet 25 mcg PO DAILY 0RF clopidogrel 75 mg tablet 1 tab PO DAILY 0RF Discharge Orders: Discharge Order (Routine); Ordered 07/02/21 Ordered By: Svetlana Kaur Diet: advance to usual diet Activity on Discharge: As tolerated Stand Alone Forms: Patient Portal Discharge page Care Plan Goals: complete resolution of symptoms Health Concerns: Community-acquired pneumonia Plan of Treatment: Follow-up with primary care provider as needed Take all medications as prescribed Assessment: see discharge summary
[2021-07-02] MEDS: 0.9 % Sodium Chloride Flush 3 ML SYRINGE IVFLUSH ×3 (09:22→20:42)
[2021-07-02] MEDS: traMADoL HCL 50 MG TABLET 25 MG PO (09:22)
[2021-07-02] MEDS: Clopidogrel Bisulfate 75 MG TABLET PO (09:23)
[2021-07-02] MEDS: LORazepam 0.5 MG TABLET 0.25 MG PO (09:23)
[2021-07-02] MEDS: guaiFENesin LA 600 MG TAB.ER.12H PO ×2 (09:23→20:41)
[2021-07-02] MEDS: Aspirin Enteric Coated 81 MG TABLET.DR PO (09:23)
[2021-07-02] MEDS: Metoprolol Tartrate 50 MG TABLET PO ×2 (09:23→20:41)
[2021-07-02] MEDS: predniSONE 20 MG TABLET 40 MG PO (09:24)
[2021-07-02 11:30] LABS: Glucose, Whole Blood 191 mg/dL (60-115)
--- NOTE | 2021-07-02 11:54 | MHC.CM.PN ---
Addendum entered by Ellie Burkett 07/02/21 12:57: detailed notice of dischagre gggggiven to patient and to be sent to [facility] along with chart copied by case management secretary of police as of .58 patient is now on a little bit of oxygeb she appears very anxious Original Note: NURSE AUTHOR NOTE ELECTRONIC MEDICAL R3CORD REVIEWED, CASE DISCUSSED WITH HOSPITALIST AND STAFF NURSE , MET WITH PATIENT , SHE CALLED THE NUrSING ORDNANCE KEEPER ASKING FOR ONE MORE DAY , SHE HAS ALREADY BEEN DISCHARGED BY THE HOSPITLAIST , REVIEWED IN DETAIL THE MEDICARE RIGHTS AND APPEALS PROCESS , I HELP HER THROUGH [facility] POUNCING MACHINE OPERATOR REACH THE OUTSID LINE NUMBER AND SHE IS CALLING TO APPEAL THE DISCHARGE . MEDICARE IMM GIVEN . (SHE FEELS LIKE SHE IS NOT READY FOR DISCHARGE AND REQUESTING 1-2 MORE DAYS . INFORMED THE HOSPITALIST , STAFF NURSE AND NURSING ORDNANCE KEEPER , SHE CONFIRMED SHE CALL TO APPLEAling DISCHARGE , NOTIFIED THE CASE MANAGEMENT B AND B GANG WORKER T0 INforM HER OF THE ANTICIPted call . secretary of police confirmed she recived call from [facility] regarding the appeals completed the detailed notice of discharge
[2021-07-02] MEDS: Insulin Lispro 100 UNIT/ML 3 ML VIAL SUBCUT ×3 (12:09→20:42)
--- NOTE | 2021-07-02 15:15 | P.PNIM_ITS ---
Subjective Subjective Date of Service: 07/02/21 Review of Systems Follow up CAP Still with mostly dry cough but getting sputum up having some anxiety no pain Physical Exam Vital Signs: Vital Signs: Last Vital Signs Temp 97.9 F 07/02/21 11:06 Pulse 63 07/02/21 11:06 Resp 20 07/02/21 11:06 BP 146/67 H 07/02/21 11:06 Pulse Ox 95 07/02/21 11:06 BMI result Body Mass Index 22.5 Appearing in no acute distress lung sounds mild rhonchi heart regular rate rhythm, clear S1, S2 positive bowel sounds, abdomen is soft, nontender neuro patient is alert x3, no focal deficits Objective Data Active Medications Acetaminophen (Acetaminophen 325 Mg Tablet) 650 mg PO Q6H PRN PRN Reason: Pain, Mild (Pain Scale 1-3) Last Admin: 07/01/21 06:19 Dose: 650 mg Documented by: ZAC Albuterol/Ipratropium (Albuterol/Iprat 2.5/0.5mg 3 Ml Ampul.Neb) 3 ml INHALE RQ4H PRN PRN Reason: Shortness of Breath/Wheezing Last Admin: 07/01/21 06:21 Dose: 3 ml Documented by: MIREYA Aspirin (Aspirin Enteric Coated 81 Mg Tablet.) 81 mg PO DAILY [facility] Last Admin: 07/02/21 09:23 Dose: 81 mg Documented by: QUANG Atorvastatin Calcium (Atorvastatin Calcium 80 Mg Tablet) 80 mg PO BEDTIME [facility] Last Admin: 07/01/21 20:38 Dose: 80 mg Documented by: MIGEL Benzonatate (Benzonatate 100 Mg Capsule) 100 mg PO TID PRN PRN Reason: Cough Last Admin: 06/30/21 23:55 Dose: 100 mg Documented by: GARETH Clopidogrel Bisulfate (Clopidogrel Bisulfate 75 Mg Tablet) 75 mg PO DAILY [facility] Last Admin: 07/02/21 09:23 Dose: 75 mg Documented by: QUANG Dextrose (Dextrose 50 % 25 Gm/50 Ml Syringe) 25 gm IVPUSH Q15M PRN; Protocol PRN Reason: per Hypoglycemia Standing Ord. Enoxaparin Sodium (Enoxaparin Sodium 40 Mg/0.4 Ml Syringe) 40 mg SUBCUT Q24H [facility] Last Admin: 07/01/21 06:19 Dose: 40 mg Documented by: ZAC Gabapentin (Gabapentin 300 Mg Capsule) 600 mg PO BEDTIME [facility] Last Admin: 07/01/21 20:37 Dose: 600 mg Documented by: MIGEL Glucose (Glucose Gel 15 Gm Gel..Gram.) 15 gm PO Q15M PRN; Protocol PRN Reason: per Hypoglycemia Standing Ord. Guaifenesin (Guaifenesin La 600 Mg Tab.Er.12h) 600 mg PO BID [facility] Last Admin: 07/02/21 09:23 Dose: 600 mg Documented by: QUANG Ceftriaxone Sodium 1 gm/ (Sodium Chloride) 50 mls @ 100 mls/hr IV Q24H [facility] Last Infusion: 07/01/21 16:50 Dose: 0 mls/hr Documented by: PRAVEEN Doxycycline Hyclate 100 mg/ (Sodium Chloride) 250 mls @ 166.67 mls/hr IV Q12H [facility] Last Infusion: 07/02/21 06:43 Dose: 0 mls/hr Documented by: MIGEL Insulin Human Lispro (Insulin Lispro 100 Unit/Ml 3 Ml Vial) 0 unit SUBCUT QIDACHS [facility]; Protocol Last Admin: 07/02/21 12:09 Dose: 2 unit Documented by: QUANG Melatonin (Melatonin 3 Mg Tablet) 6 mg PO BEDTIME PRN PRN Reason: Insomnia Last Admin: 07/01/21 20:38 Dose: 6 mg Documented by: MIGEL Metoprolol Tartrate (Metoprolol Tartrate 50 Mg Tablet) 50 mg PO BID [facility]; Protocol Last Admin: 07/02/21 09:23 Dose: 50 mg Documented by: QUANG Pharmacy Consult (Consult Rx Vancomycin Dosing) 1 each MISCELLANE DAILY PRN PRN Reason: Consult order Prednisone (Prednisone 20 Mg Tablet) 40 mg PO DAILY [facility] Last Admin: 07/02/21 09:24 Dose: 40 mg Documented by: QUANG Senna (Sennosides 8.6 Mg Tablet) 17.2 mg PO BEDTIME PRN PRN Reason: Constipation Sodium Chloride (0.9 % Sodium Chloride Flush 3 Ml Syringe) 3 ml IVFLUSH QSHIFT [facility] Last Admin: 07/02/21 09:22 Dose: 3 ml Documented by: HO.CECELIA Labs CBC & Chem 7: 06/29/21 05:35 06/29/21 05:35 Labs: Laboratory Results - last 24 hr 07/01/21 07/01/21 07/02/21 15:24 19:56 07:01 POC Glucose 276 H 293 H 123 H 07/02/21 11:12 POC Glucose 191 H Assessment and Plan (1) Pneumonia: Status: Acute Plan 81-year-old female with a past medical history of hypertension, hyperlipidemia, CAD status post quadruple bypass, peripheral vascular disease status post stent placement; diabetes, diabetic neuropathy; presented to the hospital today with a chief complaint of cough and shortness of breath.? CAP ceftriaxone, doxycycline initially will change to oral abx as patient is medically ready for discharge Cough suppressants as needed Follow sputum cultures, urine Legionella, strep pneumo, blood cultures neg DuoNebs p.r.n. Rapid COVID and influenza negative will add prednisone, mild wheezing can go home with 2 more days add mucinex for dry cough, now getting some sputum up anxiety offered a dose of lorazepam Pulmonary nodules recommend outpatient follow up elevated lactic. likely from metformin not sepsis History of diabetes Hold metformin.? SSI, POCs HTN Continue metoprolol HLD continue statin CAD status post CABG CABG in 2020 continue DAPT, metoprolol, statin h/o PVD continue DAPT DVT prophylaxis:? Lovenox Code status:? Full code Attending: Dr. Chapin FIELDS plan was for dc but patient appealed the discharge Patient requires ongoing hospitalization as she has appealed her discharge Quality Stroke Does the patient have a stroke diagnosis?: No VTE Prior VTE?: No VTE Risk Level:: Medical - moderate - high VTE Device Contraindication: Treatment Not Indicated VTE Drug Contraindication: N/A - Med Ordered
[2021-07-02] MEDS: cefTRIAXone sodium 1 GM in 0.9 % Sodium Chloride 50 ML IV (15:48)
[2021-07-02 15:54] LABS: Glucose, Whole Blood 241 mg/dL (60-115)
[2021-07-02] MEDS: Albuterol/Iprat 2.5/0.5MG 3 ML AMPUL.NEB INHALE (16:13)
[2021-07-02 20:30] LABS: Glucose, Whole Blood 249 mg/dL (60-115)
[2021-07-02] MEDS: Atorvastatin Calcium 80 MG TABLET PO (20:41)
[2021-07-02] MEDS: Gabapentin 300 MG CAPSULE 600 MG PO (20:41)
[2021-07-03] VITALS (7 sets, daily range): BP systolic 129–173; BP diastolic 59–68; PULSE 51–69; RESP 18–20; TEMP 36.3–36.7; O2SAT 94–98
[2021-07-03] MEDS: Benzonatate 100 MG CAPSULE PO (03:52)
[2021-07-03] MEDS: Doxycycline Hyclate 100 MG in 0.9 % Sodium Chloride 250 ML 166.67 MG IV (03:56)
[2021-07-03] MEDS: Enoxaparin Sodium 40 MG/0.4 ML SYRINGE SUBCUT (05:28)
[2021-07-03 07:20] LABS: Glucose, Whole Blood 115 mg/dL (60-115)
[2021-07-03] MEDS: guaiFENesin LA 600 MG TAB.ER.12H PO ×2 (08:05→19:43)
[2021-07-03] MEDS: Metoprolol Tartrate 50 MG TABLET PO ×2 (08:06→19:43)
[2021-07-03] MEDS: Aspirin Enteric Coated 81 MG TABLET.DR PO (08:06)
[2021-07-03] MEDS: predniSONE 20 MG TABLET 40 MG PO (08:06)
[2021-07-03] MEDS: Clopidogrel Bisulfate 75 MG TABLET PO (08:07)
[2021-07-03] MEDS: 0.9 % Sodium Chloride Flush 3 ML SYRINGE IVFLUSH ×2 (08:07→20:01)
--- NOTE | 2021-07-03 08:48 | HO.PM.IMPN ---
Subjective Subjective Date of Service: 07/03/21 Review of Systems Follow up CAP Still with mostly dry cough but getting sputum up having some anxiety no pain Physical Exam Vital Signs: Vital Signs: Last Vital Signs Temp 97.9 F 07/03/21 06:56 Pulse 56 07/03/21 06:56 Resp 18 07/03/21 06:56 BP 134/61 07/03/21 06:56 Pulse Ox 94 07/03/21 06:56 BMI result Body Mass Index 22.5 Appearing in no acute distress lung sounds are clear to auscultation heart regular rate rhythm, clear S1, S2 positive bowel sounds, abdomen is soft, nontender neuro patient is alert x3, no focal deficits Objective Data Active Medications Acetaminophen (Acetaminophen 325 Mg Tablet) 650 mg PO Q6H PRN PRN Reason: Pain, Mild (Pain Scale 1-3) Last Admin: 07/01/21 06:19 Dose: 650 mg Documented by: ZAC Albuterol/Ipratropium (Albuterol/Iprat 2.5/0.5mg 3 Ml Ampul.Neb) 3 ml INHALE RQ4H PRN PRN Reason: Shortness of Breath/Wheezing Last Admin: 07/02/21 16:13 Dose: 3 ml Documented by: OWEN Aspirin (Aspirin Enteric Coated 81 Mg Tablet.) 81 mg PO DAILY [facility] Last Admin: 07/03/21 08:06 Dose: 81 mg Documented by: QUANG Atorvastatin Calcium (Atorvastatin Calcium 80 Mg Tablet) 80 mg PO BEDTIME [facility] Last Admin: 07/02/21 20:41 Dose: 80 mg Documented by: MIGEL Benzonatate (Benzonatate 100 Mg Capsule) 100 mg PO TID PRN PRN Reason: Cough Last Admin: 07/03/21 03:52 Dose: 100 mg Documented by: MIGEL Cefuroxime Axetil (Cefuroxime Axetil 500 Mg Tablet) 500 mg PO Q12H [facility] Last Admin: 07/03/21 08:05 Dose: 500 mg Documented by: QUANG Clopidogrel Bisulfate (Clopidogrel Bisulfate 75 Mg Tablet) 75 mg PO DAILY [facility] Last Admin: 07/03/21 08:07 Dose: 75 mg Documented by: QUANG Dextrose (Dextrose 50 % 25 Gm/50 Ml Syringe) 25 gm IVPUSH Q15M PRN; Protocol PRN Reason: per Hypoglycemia Standing Ord. Doxycycline Hyclate (Doxycycline Hyclate 100 Mg Tablet) 100 mg PO Q12H [facility] Last Admin: 07/03/21 08:06 Dose: 100 mg Documented by: QUANG Enoxaparin Sodium (Enoxaparin Sodium 40 Mg/0.4 Ml Syringe) 40 mg SUBCUT Q24H [facility] Last Admin: 07/03/21 05:28 Dose: 40 mg Documented by: MIGEL Gabapentin (Gabapentin 300 Mg Capsule) 600 mg PO BEDTIME [facility] Last Admin: 07/02/21 20:41 Dose: 600 mg Documented by: MIGEL Glucose (Glucose Gel 15 Gm Gel..Gram.) 15 gm PO Q15M PRN; Protocol PRN Reason: per Hypoglycemia Standing Ord. Guaifenesin (Guaifenesin La 600 Mg Tab.Er.12h) 600 mg PO BID [facility] Last Admin: 07/03/21 08:05 Dose: 600 mg Documented by: QUANG Insulin Human Lispro (Insulin Lispro 100 Unit/Ml 3 Ml Vial) 0 unit SUBCUT QIDACHS [facility]; Protocol Last Admin: 07/03/21 07:27 Dose: Not Given Documented by: QUANG Non-Admin Reason: No Insulin Coverage Melatonin (Melatonin 3 Mg Tablet) 6 mg PO BEDTIME PRN PRN Reason: Insomnia Last Admin: 07/01/21 20:38 Dose: 6 mg Documented by: MIGEL Metoprolol Tartrate (Metoprolol Tartrate 50 Mg Tablet) 50 mg PO BID [facility]; Protocol Last Admin: 07/03/21 08:06 Dose: 50 mg Documented by: QUANG Pharmacy Consult (Consult Rx Vancomycin Dosing) 1 each MISCELLANE DAILY PRN PRN Reason: Consult order Prednisone (Prednisone 20 Mg Tablet) 40 mg PO DAILY [facility] Last Admin: 07/03/21 08:06 Dose: 40 mg Documented by: QUANG Senna (Sennosides 8.6 Mg Tablet) 17.2 mg PO BEDTIME PRN PRN Reason: Constipation Sodium Chloride (0.9 % Sodium Chloride Flush 3 Ml Syringe) 3 ml IVFLUSH QSHIFT [facility] Last Admin: 07/03/21 08:07 Dose: 3 ml Documented by: QUANG Labs CBC & Chem 7: 06/29/21 05:35 05/14/22 05:35 Labs: Laboratory Results - last 24 hr 07/02/21 07/02/21 07/02/21 11:12 15:33 20:27 POC Glucose 191 H 241 H 249 H 07/03/21 07:03 POC Glucose 115 Microbiology Microbiology Results: Microbiology 06/27/21 23:42 Blood Culture - Final Blood - Venous No growth after 5 days. 06/27/21 23:42 Blood Culture - Final Blood - Venous No growth after 5 days. Assessment and Plan (1) Pneumonia: Status: Resolved Plan 81-year-old female with a past medical history of hypertension, hyperlipidemia, CAD status post quadruple bypass, peripheral vascular disease status post stent placement; diabetes, diabetic neuropathy; presented to the hospital today with a chief complaint of cough and shortness of breath.? CAP ceftriaxone, doxycycline initially will change to oral abx as patient is medically ready for discharge Cough suppressants as needed Follow sputum cultures, urine Legionella, strep pneumo, blood cultures neg DuoNebs p.r.n. Rapid COVID and influenza negative will add prednisone, mild wheezing can go home with 2 more days add mucinex for dry cough, now getting some sputum up anxiety offered a dose of lorazepam Pulmonary nodules recommend outpatient follow up elevated lactic. likely from metformin not sepsis History of diabetes Hold metformin.? SSI, POCs HTN Continue metoprolol HLD continue statin CAD status post CABG CABG in 2020 continue DAPT, metoprolol, statin h/o PVD continue DAPT DVT prophylaxis:? Lovenox Code status:? Full code Attending: Dr. Samson Patient requires ongoing hospitalization as she has appealed her discharge Quality Stroke Does the patient have a stroke diagnosis?: No VTE Prior VTE?: No VTE Risk Level:: Medical - moderate - high VTE Device Contraindication: Treatment Not Indicated VTE Drug Contraindication: N/A - Med Ordered
--- NOTE | 2021-07-03 09:10 | MHC.CDI.CONC ---
CDI Concurrent Query Documentation Clarification: PHYSICIAN'S DOCUMENTATION REQUEST Date of Query: 07/03/21 0911 Patient Name: Ashley Kent Admit Date: 06/28/21 Dear Doctor, A review of the medical record indicates additional documentation may be needed. Please review below and update the documentation accordingly. Clinical Indicators: Risk Factors/Clinical Indicators/Treatments PMH Diabetes mellitus Type 2 poc glucose 06/30 - 324 H 293 H 123 H Humalog Please clarify the following regarding Diabetes Mellitus (DM): Complications of DM: Uncontrolled Poorly controlled Hyperglycemia No complications of DM Other complication ? please specify Unable to determine Use of terms such as suspected, likely, concern for, or probable (associated with a specific diagnosis that is being evaluated, monitored, or treated as if it exists) are acceptable and can be coded in the inpatient setting, when documented at the time of discharge. Thank you, Anita Paniagua [facility], CDIS Extension: [phone] Please use your independent medical judgment in providing your response. THIS QUERY IS PART OF THE PERMANENT MEDICAL RECORD Other Diagnosis: no complications
[2021-07-03 11:24] LABS: Glucose, Whole Blood 203 mg/dL (60-115)
[2021-07-03] MEDS: Insulin Lispro 100 UNIT/ML 3 ML VIAL SUBCUT ×3 (11:48→19:59)
--- NOTE | 2021-07-03 12:25 | P.CONPL_ITS ---
History of Present Illness History of Present Illness Consult date: 07/03/21 Chief complaint: PNA Narrative: This is an inpatient pulmonary consultation. The patient is an 81-year-old fema le with a past medical history of hypertension, hyperlipidemia, CAD status post quadruple bypass, peripheral vascular disease status post stent placement; diabetes, diabetic neuropathy; presented to the hospital today with a chief complaint of cough and shortness of breath.? The Patient reports that over the past 1 week she has been having cough and shortness of breath associated with productive sputum-green in color; complains of subjective fevers.?Mentioned that he spoke to her PCP and has tried outpatient azithromycin with no significant improvement; over the past few days he has been having worsening cough with greenish sputum production.? Hence decided to come to the ER for further eval uation.? Patient also reports she has posttussive chest discomfort.? The patient did undergo a CT scan of the chest that was personally by me demonstrating evidence of bronchiectasis in addition to some hazy opacities and ground-glass opacities in the left lower lobe area. Appears to be some degree of mucus plugging. The patient was placed on antibiotics in addition to respiratory therapy. Her cough is significantly better but is still present. Her cough is harsh and persistent. It is not as productive but she still bringing up some mucus. On further questioning she states that she has had problems with the lungs for many years. She states that is been a close to 40-50 years. After her bypass surgery she did have lung collapse. She still has some discomfort on the right side. She does have a hard time expectorating. Will work on chest physical therapy to try to help her with her mucus clearance in view of the bronchiectasis. She would also need to have a workup for the bronchiectatic changes. Most of the workup will be done as an outpatient. In the meantime the patient does have some expiratory wheezing and rhonchi. She will benefit from steroids in addition to that she does benefit from nebulized therapy. We briefly spoke about a bronchoscopy in the future. However the patient is reluctant because of all the medical issues that she is having right now. Review of Systems Review of Systems: Constitutional : No Weight loss, No Fever, No Chills, No Fatigue, No Malaise ENT/Mouth : No sore throat, No Rhinorrhea Eyes: No Eye Pain, No Swelling, No Redness Cardiovascular : No Chest Pain, No SOB, + Dyspnea on Exertion, No Orthopnea, No Edema, No Palpitations Respiratory : + Cough, + Sputum, + Wheezing Gastrointestinal : No Nausea, No Vomiting, No Diarrhea, No Constipation, No abdominal Pain, No Hematochezia, No Melena Genitourinary : No Dysuria, No Urinary Frequency, No Hematuria, Musculoskeletal : + joint pain, No Myalgias, + Joint Swelling Skin : No Skin Lesions, No rash, + Redness overlying left foot. Neuro : No Weakness, No Numbness, No Dizziness, No Headache All other systems reviewed and are negative [facility] Past Medical History Medical History (Updated 07/03/21 @ 12:29 by Raul Kaur MD) Anemia Atherosclerotic cardiovascular disease Bilateral carotid artery stenosis Coronary artery disease COVID-19 vaccination refused Diabetes mellitus with peripheral angiopathy Dyslipidemia Essential hypertension History of amputation of toe Non-ST elevation CO (NSTEMI) NSTEMI (non-ST elevated myocardial infarction) Other and unspecified hyperlipidemia Popliteal vein thrombosis Productive cough Pulmonary nodules Refused influenza vaccine Type 2 diabetes mellitus without complication, without long-term current use of insulin Vitamin D deficiency Family History Family History Father Cancer Mother No problems noted. Brother No problems noted. Brother No problems noted. Brother No problems noted. Sister No problems noted. Sister No problems noted. Sister No problems noted. Sister No problems noted. Sister No problems noted. Son No problems noted. Son No problems noted. Son No problems noted. Son No problems noted. Daughter No problems noted. Other Substance use disorder Surgical History Surgical History H/O heart artery stent History of amputation of lesser toe History of cardiac catheterization (~01/06/20) S/P CABG x 4 (~01/11/20) Social History Social History Household Members: None Housing: Apartment Alcohol intake: unknown Patient Tobacco Use Status: Never used Tobacco Second Hand Smoke Exposure: Yes service: No Current occupational status: retired Cognitive needs: No Hearing needs: No Vision needs: No Meds Allergies Allergy/AdvReac Type Severity Reaction Status Date / Time Iveorcq-HYP-JqA Reductase Allergy Unknown muscle Verified 06/25/21 14:54 Inhibitor cramps [Jhagxeo-Yen-Xqq Reductase Inhibitor] Active Medications: Current Medications Acetaminophen (Acetaminophen 325 Mg Tablet) 650 mg PO Q6H PRN PRN Reason: Pain, Mild (Pain Scale 1-3) Last Admin: 07/01/21 06:19 Dose: 650 mg Documented by: Albuterol/Ipratropium (Albuterol/Iprat 2.5/0.5mg 3 Ml Ampul.Neb) 3 ml INHALE RQ4H PRN PRN Reason: Shortness of Breath/Wheezing Last Admin: 07/02/21 16:13 Dose: 3 ml Documented by: Aspirin (Aspirin Enteric Coated 81 Mg Tablet.) 81 mg PO DAILY [facility] Last Admin: 07/03/21 08:06 Dose: 81 mg Documented by: Atorvastatin Calcium (Atorvastatin Calcium 80 Mg Tablet) 80 mg PO BEDTIME [facility] Last Admin: 07/02/21 20:41 Dose: 80 mg Documented by: Benzonatate (Benzonatate 100 Mg Capsule) 100 mg PO TID PRN PRN Reason: Cough Last Admin: 07/03/21 03:52 Dose: 100 mg Documented by: Cefuroxime Axetil (Cefuroxime Axetil 500 Mg Tablet) 500 mg PO Q12H [facility] Last Admin: 07/03/21 08:05 Dose: 500 mg Documented by: Clopidogrel Bisulfate (Clopidogrel Bisulfate 75 Mg Tablet) 75 mg PO DAILY [facility] Last Admin: 07/03/21 08:07 Dose: 75 mg Documented by: Dextrose (Dextrose 50 % 25 Gm/50 Ml Syringe) 25 gm IVPUSH Q15M PRN; Protocol PRN Reason: per Hypoglycemia Standing Ord. Doxycycline Hyclate (Doxycycline Hyclate 100 Mg Tablet) 100 mg PO Q12H [facility] Last Admin: 07/03/21 08:06 Dose: 100 mg Documented by: Enoxaparin Sodium (Enoxaparin Sodium 40 Mg/0.4 Ml Syringe) 40 mg SUBCUT Q24H [facility] Last Admin: 07/03/21 05:28 Dose: 40 mg Documented by: Gabapentin (Gabapentin 300 Mg Capsule) 600 mg PO BEDTIME [facility] Last Admin: 07/02/21 20:41 Dose: 600 mg Documented by: Glucose (Glucose Gel 15 Gm Gel..Gram.) 15 gm PO Q15M PRN; Protocol PRN Reason: per Hypoglycemia Standing Ord. Guaifenesin (Guaifenesin La 600 Mg Tab.Er.12h) 600 mg PO BID [facility] Last Admin: 07/03/21 08:05 Dose: 600 mg Documented by: Insulin Human Lispro (Insulin Lispro 100 Unit/Ml 3 Ml Vial) 0 unit SUBCUT QIDACHS [facility]; Protocol Last Admin: 07/03/21 11:48 Dose: 2 unit Documented by: Melatonin (Melatonin 3 Mg Tablet) 6 mg PO BEDTIME PRN PRN Reason: Insomnia Last Admin: 07/01/21 20:38 Dose: 6 mg Documented by: Metoprolol Tartrate (Metoprolol Tartrate 50 Mg Tablet) 50 mg PO BID [facility]; Protocol Last Admin: 07/03/21 08:06 Dose: 50 mg Documented by: Pharmacy Consult (Consult Rx Vancomycin Dosing) 1 each MISCELLANE DAILY PRN PRN Reason: Consult order Prednisone (Prednisone 20 Mg Tablet) 40 mg PO DAILY [facility] Last Admin: 07/03/21 08:06 Dose: 40 mg Documented by: Senna (Sennosides 8.6 Mg Tablet) 17.2 mg PO BEDTIME PRN PRN Reason: Constipation Sodium Chloride (0.9 % Sodium Chloride Flush 3 Ml Syringe) 3 ml IVFLUSH QSHIFT [facility] Last Admin: 07/03/21 08:07 Dose: 3 ml Documented by: Home Medications Medication Instructions Recorded Confirmed Last Taken Type acetaminophen 650 mg 650 mg PO BID 06/28/21 06/28/21 Unknown History tablet,extended release aspirin 81 mg tablet,delayed 81 mg PO DAILY 06/28/21 06/28/21 Unknown History release betamethasone dipropionate 0.05 % 1 appl TOPICAL BID PRN 06/28/21 06/28/21 Unknown History lotion cholecalciferol (vitamin D3) 25 25 mcg PO DAILY 06/28/21 06/28/21 Unknown History mcg (1,000 unit) tablet (Vitamin D3) clopidogrel 75 mg tablet 1 tab PO DAILY 06/28/21 06/28/21 Unknown History metoprolol tartrate 50 mg tablet 1 tab PO BID 06/28/21 06/28/21 Unknown History sitagliptin 50 mg tablet (Januvia) 1 tab PO DAILY 06/28/21 06/28/21 Unknown History triamcinolone acetonide 0.025 % 1 appl TOPICAL BID PRN 06/28/21 06/28/21 Unknown History topical ointment Physical Exam Vital Signs: Vital Signs: Last Vital Signs Temp 98.0 F 07/03/21 11:07 Pulse 63 07/03/21 11:07 Resp 20 07/03/21 11:07 BP 173/60 H 07/03/21 11:07 Pulse Ox 98 07/03/21 11:07 BMI result Body Mass Index 22.5 Const: General: alert Neck: Neck: Yes normal visual inspection, Yes full ROM and Yes no lymphadenopathy Chest: Chest palpation & inspection: normal inspection of the chest Resp: Effort & Inspection: Actively coughing Auscultation: rhonchi, wheezes and diminished lung sounds Cardio: Rate: regular rate Rhythm: regular rhythm Heart sounds: S1 normal heart sound present and S2 normal heart sound present GI: Palpation (GI): Soft to palpation and nontender Auscultation: normal bowel sounds Skin: General skin exam: rashes and/or lesions noted Results Laboratory Findings CBC and BMP: 06/29/21 05:35 06/29/21 05:35 ABG, PT/INR, D-dimer: PT/INR, D-dimer PT 12.3 SEC (9.9-13.0) 06/27/21 23:14 INR 1.1 (0.9-1.1) 06/27/21 23:14 Abnormal lab findings: Abnormal Labs 06/27/21 06/27/21 06/28/21 23:14 23:14 00:48 WBC RBC 3.75 L Hgb 11.1 L Hct 34.0 L Plt Count 159 L Neut % (Auto) Lymph % (Auto) 17.9 L Eos % (Auto) Lymph # (Auto) 1.1 L Absolute Neuts (auto) BUN 17 H POC Glucose Random Glucose 163 H Lactic Acid 2.1 H* C-Reactive Protein 8.82 H Vancomycin Trough 06/28/21 06/28/21 06/28/21 07:40 12:52 18:01 WBC RBC Hgb Hct Plt Count Neut % (Auto) Lymph % (Auto) Eos % (Auto) Lymph # (Auto) Absolute Neuts (auto) BUN POC Glucose 138 H 121 H 175 H Random Glucose Lactic Acid C-Reactive Protein Vancomycin Trough 06/28/21 06/29/21 06/29/21 19:55 05:35 05:35 WBC 3.3 L RBC 3.39 L Hgb 10.0 L Hct 30.6 L Plt Count 145 L Neut % (Auto) 44.2 L Lymph % (Auto) Eos % (Auto) 4.6 H Lymph # (Auto) Absolute Neuts (auto) 1.4 L BUN POC Glucose 176 H Random Glucose 129 H Lactic Acid C-Reactive Protein Vancomycin Trough 06/29/21 06/29/21 06/29/21 07:31 12:48 22:42 WBC RBC Hgb Hct Plt Count Neut % (Auto) Lymph % (Auto) Eos % (Auto) Lymph # (Auto) Absolute Neuts (auto) BUN POC Glucose 146 H 159 H 183 H Random Glucose Lactic Acid C-Reactive Protein Vancomycin Trough 06/30/21 06/30/21 06/30/21 07:33 07:34 11:36 WBC RBC Hgb Hct Plt Count Neut % (Auto) Lymph % (Auto) Eos % (Auto) Lymph # (Auto) Absolute Neuts (auto) BUN POC Glucose 158 H 146 H Random Glucose Lactic Acid C-Reactive Protein Vancomycin Trough < 3.0 L 06/30/21 06/30/21 07/01/21 17:55 20:50 08:04 WBC RBC Hgb Hct Plt Count Neut % (Auto) Lymph % (Auto) Eos % (Auto) Lymph # (Auto) Absolute Neuts (auto) BUN POC Glucose 324 H 264 H 130 H Random Glucose Lactic Acid C-Reactive Protein Vancomycin Trough 07/01/21 07/01/21 07/01/21 11:06 15:24 19:56 WBC RBC Hgb Hct Plt Count Neut % (Auto) Lymph % (Auto) Eos % (Auto) Lymph # (Auto) Absolute Neuts (auto) BUN POC Glucose 198 H 276 H 293 H Random Glucose Lactic Acid C-Reactive Protein Vancomycin Trough 07/02/21 07/02/21 07/02/21 07:01 11:12 15:33 WBC RBC Hgb Hct Plt Count Neut % (Auto) Lymph % (Auto) Eos % (Auto) Lymph # (Auto) Absolute Neuts (auto) BUN POC Glucose 123 H 191 H 241 H Random Glucose Lactic Acid C-Reactive Protein Vancomycin Trough 07/02/21 07/03/21 20:27 11:08 WBC RBC Hgb Hct Plt Count Neut % (Auto) Lymph % (Auto) Eos % (Auto) Lymph # (Auto) Absolute Neuts (auto) BUN POC Glucose 249 H 203 H Random Glucose Lactic Acid C-Reactive Protein Vancomycin Trough Microbiology: Microbiology 06/27/21 23:42 Blood - Venous Blood Culture - Final No growth after 5 days. 06/27/21 23:42 Blood - Venous Blood Culture - Final No growth after 5 days. Assessment and Plan (1) Bronchiectasis with (acute) exacerbation: Status: Acute (2) Pneumonia: Status: Acute (3) Productive cough: Status: Acute (4) Pulmonary nodules: Status: Acute Plan Continue prednisone. Then decrease to 20 mg daily for 7 days and then 10 mg daily for another 7 days. Continue nebulized therapy twice a day Please provide the patient with an Acapella valve that she can use after the nebulized therapy for chest physical therapy The patient will benefit from hypertonic salineb nebs but will set that up as an outpatient Will request blood work at this time Start Breo 200 continue Mucinex for now Will arrange follow-up with the pulmonary office within 1-2 weeks upon discharge . She should be able to be discharged tomorrow if stable Procedures Date of Service Date of Service: 07/03/21
[2021-07-03 15:30] LABS: Glucose, Whole Blood 269 mg/dL (60-115)
[2021-07-03 17:31] LABS: Strep Pneumo Ag urine Not Detected (Not Detected)
[2021-07-03 18:20] LABS: Legionella Ag Urine Not Detected (Not Detected)
[2021-07-03] MEDS: Gabapentin 300 MG CAPSULE 600 MG PO (19:43)
[2021-07-03] MEDS: Atorvastatin Calcium 80 MG TABLET PO (19:43)
[2021-07-03 19:46] LABS: Glucose, Whole Blood 274 mg/dL (60-115)
[2021-07-03] MEDS: Albuterol/Iprat 2.5/0.5MG 3 ML AMPUL.NEB INHALE (23:27)
[2021-07-04] MEDS: Benzonatate 100 MG CAPSULE PO (00:33)
[2021-07-04 03:44] VITALS: BP 127/59; PULSE 52; RESP 18; TEMP 36.1; O2SAT 97
[2021-07-04] MEDS: Enoxaparin Sodium 40 MG/0.4 ML SYRINGE SUBCUT (06:45)
[2021-07-04 07:47] VITALS: BP 134/58; PULSE 53; RESP 17; TEMP 36.3; O2SAT 95
[2021-07-04 07:55] LABS: Glucose, Whole Blood 102 mg/dL (60-115)
[2021-07-04 08:00] VITALS: PULSE 59; RESP 18; O2SAT 98
[2021-07-04] MEDS: Fluticasone/Vilanterol 200/25 BLST.W.DEV 1 PUFF INHALE (08:00)
[2021-07-04] MEDS: Clopidogrel Bisulfate 75 MG TABLET PO (09:28)
[2021-07-04] MEDS: Aspirin Enteric Coated 81 MG TABLET.DR PO (09:28)
[2021-07-04] MEDS: predniSONE 20 MG TABLET PO (09:28)
[2021-07-04] MEDS: 0.9 % Sodium Chloride Flush 3 ML SYRINGE IVFLUSH (09:30)
[2021-07-04] MEDS: guaiFENesin LA 600 MG TAB.ER.12H PO (09:50)
--- NOTE | 2021-07-04 10:01 | PM.PNPUL ---
Subjective Subjective Date of Service: 07/04/21 Interval history: The patient was seen on exam. Still having a cough. Has yellow mucus. Did have a chest x-ray repeat x-ray demonstrating no acute disease. She does have bronchiectatic changes on the CT scan. She has been treated multiple courses of antibiotics. Currently on room air. Will switch over to prednisone and will start a course of Levaquin. The patient will follow-up with me next week. In the meantime she needs to continue her nebulized therapy in CPT with Acapella valve. Will provide her with respiratory inhalers in addition to using cough suppressants. We did talk about potential bronchoscopy. However the patient is reluctant at this time. Objective Data Labs CBC & Chem 7: 06/29/21 05:35 06/29/21 05:35 Labs: Laboratory Results - last 24 hr 06/28/21 07/03/21 07/03/21 04:15 11:08 15:27 POC Glucose 203 H 269 H Ur L.pneumophila Ag Not Detected Ur Strep pneumoniae Ag Not Detected 07/03/21 07/04/21 19:27 07:51 POC Glucose 274 H 102 Ur L.pneumophila Ag Ur Strep pneumoniae Ag Microbiology Microbiology Results: Microbiology 06/27/21 23:42 Blood - Venous Blood Culture - Final No growth after 5 days. 06/27/21 23:42 Blood - Venous Blood Culture - Final No growth after 5 days. Review of Systems Review of Systems Constitutional : No Weight loss, No Fever, No Chills, No Fatigue, No Malaise ENT/Mouth : No sore throat, No Rhinorrhea Eyes: No Eye Pain, No Swelling, No Redness Cardiovascular : No Chest Pain, No SOB, + Dyspnea on Exertion, No Orthopnea, No Edema, No Palpitations Respiratory : + Cough, + Sputum, + Wheezing Gastrointestinal : No Nausea, No Vomiting, No Diarrhea, No Constipation, No abdominal Pain, No Hematochezia, No Melena Genitourinary : No Dysuria, No Urinary Frequency, No Hematuria, Musculoskeletal : + joint pain, No Myalgias, + Joint Swelling Skin : No Skin Lesions, No rash, + Redness overlying left foot. Neuro : No Weakness, No Numbness, No Dizziness, No Headache All other systems reviewed and are negative Physical Exam Vital Signs: Vital Signs: Last Vital Signs Temp 97.3 F 07/04/21 07:47 Pulse 59 07/04/21 08:00 Resp 18 07/04/21 08:00 BP 134/58 L 07/04/21 07:47 Pulse Ox 95 07/04/21 07:47 BMI result Body Mass Index 22.5 Const: General: alert Neck: Neck: Yes normal visual inspection, Yes full ROM and Yes no lymphadenopathy Chest: Chest palpation & inspection: normal inspection of the chest Resp: Auscultation: rhonchi and diminished lung sounds Cardio: Rate: regular rate Rhythm: regular rhythm Heart sounds: S1 normal heart sound present and S2 normal heart sound present GI: Palpation (GI): Soft to palpation and nontender Auscultation: normal bowel sounds Skin: General skin exam: rashes and/or lesions noted Procedures Date of Service Date of Service: 07/04/21 Assessment and Plan Assessment and plan (1) Bronchiectasis: Status: Acute (2) Productive cough: Status: Acute (3) Asthma: Status: Acute Plan Bloodwork pending Prednisone with taper Start Levaquin x 7 days Nebulizer twice a day CPT with acapella valve Breo 200 daily Albuterol as needed Ok to discharge based on taking oral medications, and not on any oxygen, her CXR also is stable. F/U with outpt pulmonary Saturday 07/08 at 830am Time Spent With Patient Time: Total time spent is greater than 50% in coordination of care (as documented) at patient's floor/unit and/or counseling patient: Progress Note: Quality Stroke Does the patient have a stroke diagnosis?: No
[2021-07-04 11:18] VITALS: BP 140/64; PULSE 62; RESP 17; TEMP 36; O2SAT 95
[2021-07-04 11:48] LABS: Glucose, Whole Blood 210 mg/dL (60-115)
--- NOTE | 2021-07-04 11:53 | MHC.CM.PN ---
nurse bilingual patient support caseworker note electronic medical record reviewed along with case discussed with staff nurse and the hospitalist . met with erica reviewed the keppro decision [place] [facility] [place] be [place] safely. spoke with patient ay length and received phone call from her daughter. update discharge scripts reviewed woith her with follow up with patients primary doctor and pulmono[place] [facility] [place] . patient has agreed to be discharged home today no services (no vna ordered ) and her daughter is also in agreement as she understands that she will not be totally better as it will take some time but that she is medically cleared to go with new medicatiosn and [place] [facility] [place] and patients pcp transportation her daughter will be coming to the hospitlai after work qat 5pm and review discharge insteuctions with the nurse and make sure she gets patients scripts and goes for her follow up appointments. medicare imm 07/02/21
[2021-07-04] MEDS: Insulin Lispro 100 UNIT/ML 3 ML VIAL SUBCUT ×2 (11:56→16:47)
--- NOTE | 2021-07-04 15:11 | PC.NURSE ---
Patient refused diflucan PO states she doesnt want a pill and will oyster picker a cream on her way home.
[2021-07-04 16:42] LABS: Glucose, Whole Blood 223 mg/dL (60-115)
[2021-07-05 05:00] LABS: Immunoglobulin E 100 kU/L (<OR=114)
[2021-07-05 11:45] LABS: Anti Nuclear Antibody Screen NEGATIVE (NEGATIVE)
[2021-07-05 13:10] LABS: Immunoglobulin G Subclass 1 371 mg/dL (382-929); Immunoglobulin G Subclass 2 275 mg/dL (241-700); Immunoglobulin G Subclass 3 122 mg/dL (22-178); Immunoglobulin G Subclass 4 92.1 mg/dL (4-86); Immunoglobulin G Total 809 mg/dL (600-1540)
[2021-07-05 17:36] LABS: Cyclic Citrullinated Peptide <16 UNITS
== END 2021-07-04 17:45 | disposition home or self-care (01) | DRG 191 ==
LOC: HO.ED 06-28 01:28 → HO.EDOVER 06-28 06:39 → HO.S3 07-01 04:33
PROVIDERS: Hospitalist; Nurse Practitioner Acute Care; Admitting Provider Hospitalist; Emergency Provider Student in an Organized Health Care Education/Training Program; PCP Internal Medicine; Visit Provider Physician Assistant Medical
DX: J47.0 Bronchiectasis with acute lower respiratory infection (principal); E87.2 Acidosis; J18.9 Pneumonia, unspecified organism; I25.10 Atherosclerotic heart disease of native coronary artery without angina pectoris; E11.51 Type 2 diabetes mellitus with diabetic peripheral angiopathy without gangrene; E11.42 Type 2 diabetes mellitus with diabetic polyneuropathy; I25.2 Old myocardial infarction; R91.8 Other nonspecific abnormal finding of lung field; J47.1 Bronchiectasis with (acute) exacerbation; E78.5 Hyperlipidemia, unspecified; F41.9 Anxiety disorder, unspecified; Z20.822 Contact with and (suspected) exposure to COVID-19; Z95.1 Presence of aortocoronary bypass graft; Z79.51 Long term (current) use of inhaled steroids; Z79.52 Long term (current) use of systemic steroids; Z79.82 Long term (current) use of aspirin; Z79.84 Long term (current) use of oral hypoglycemic drugs; Z79.02 Long term (current) use of antithrombotics/antiplatelets; Z79.899 Other long term (current) drug therapy
CPT/HCPCS: 36415; 71045; 71046; 71250; 80048; 80053; 80202; 81001; 82784; 82785; 82947; 83605; 83880; 85025; 85610; 86038; 86039; 86140; 86200; 87040; 87449; 87502; 87635; 87899; 93005; 94640; 94664; 96365; 97162; 99285; J0696; J1170; J1650; J2543; J3370

== ENCOUNTER → 2021-07-08 10:03 | Outpatient (BNVA) | payer MEDICARE, SELFPAY | PROVIDERS: PCP Internal Medicine; Visit Provider Hospitalist | DX: J47.9 Bronchiectasis, uncomplicated (principal); J45.909 Unspecified asthma, uncomplicated; R05.8 Other specified cough; R91.8 Other nonspecific abnormal finding of lung field; D61.818 Other pancytopenia | CPT/HCPCS: 99212 ==

== ENCOUNTER → 2021-07-19 12:50 | Outpatient (REF) | payer MEDICARE, SELFPAY ==
--- NOTE | 2021-07-19 12:54 | CA_ITS ---
Transthoracic Echocardiogram Patient (Last, First, Middle): Ashley Kent Lou Gender: Female Date of : 1940 Age: 81 Procedure Date: 07/19/2021 Procedure Type: Transthoracic Echocardiogram Location: OP Height: 162.56 cm Weight: 57.15 kg BSA: 1.61 m2 Heart Rate: bpm BP: 125 / 80 mmHg Asbestos Cloth Inspector: VH/TO Referring MD: Yu Alcantar MD Bunch Maker: Manoj Jang MD Symptoms: I77.89 - Other specified disorders of arteries and arteri... Study Quality: Fair ECG Rhythm: Sinus Conclusions: - 1. Normal LV systolic function with impaired relaxation filling pattern 2. Fibrocalcific aortic valve changes noted with mild aortic regurgitation and mild mitral regurgitation noted 3. Normal RV systolic pressure 4. No gross pericardial effusion Findings Left Ventricle Normal left ventricular size, thickness, and systolic function. The visually estimated ejection fraction is between 55-60%. Spectral Doppler is indicative of an impaired relaxation filling pattern. E/E prime ratio is between 8 and 15 consistent with indeterminate filling pressures. Wall Motion Rest Echo Findings The basal inferior and basal inferoseptal segments are hypokinetic. All other scored wall segments showed normal motion. Right Ventricle Normal right ventricular cavity size and systolic function. Atria Both atria are normal in size. There is lipomatous hypertrophy of the interatrial septum. There is no evidence of interatrial shunt. Aortic Valve There is mild calcification of the aortic valve. There is moderate thickening of the aortic valve. There is no aortic valve stenosis. There is mild aortic valve regurgitation. Mitral Valve There is mild anterior and posterior mitral leaflet thickening. There is mild mitral annular calcification. There is mild mitral valve regurgitation. There is no mitral valve stenosis. Pulmonic Valve The pulmonic valve was not well visualized. Tricuspid Valve Likely normal tricuspid valve structure and function. There is mild tricuspid valve regurgitation. The right ventricular systolic pressure is normal. The right ventricular systolic pressure is 26 mmHg. Normal right atrial pressure. There is no evidence of pulmonary hypertension. Great Vessels All visible segments of the aorta are normal in size. The pulmonary artery was not well visualized. Venous The inferior vena cava is normal in size and collapses greater than 50% with inspiration. Pericardium/Pleural There is no evidence of pericardial effusion. Prior Study Comparison Changes noted compared to prior study dated: 04/12/2020. mild aortic regurgitation is noted Measurements 2D Linear Measurements IVSd: 1.14 0.6-0.9/0.6-1.0 cm LVIDd: 4.08 3.9-5.3/4.2-5.9 cm LVIDd Index: 2.53 2.4-3.2/2.2-3.1 cm/m2 LVIDs: 2.56 2.0-3.6 cm LVPWd: 0.92 0.7-1.1 cm LA Diam: 3.60 2.7-3.8/3.0-4.0 cm LAIDs Index: 2.24 1.5-2.3 cm/m2 LV Mass: 169.63 67-162/88-224 g LV Mass Index: 105.36 43-95/49-115 g/m2 LVOT Diam: 2.00 3.0+(-)1.3 cm 2D Systolic Function EF 4C: 66.10 >55% EF 2C: 58.50 >55% Mitral Valve MV Pk E: 0.64 MV PK A: 0.80 MV Decel Time: 211.00 E/A: 0.80 E'Lateral: 6.20 E'Medial: 5.22 E/E' Med: 12.20 E/E' Lat: 10.30 PHT: 62.00 MVA PHT: 3.55 Decel [place]: 3.02 Aortic Valve AoV Pk Jason: 1.46 AoV Mn Jason: 0.89 AoV VTI: 0.29 AoV Pk Grad: 9.00 Aov Mn Grad: 4.00 JAKE Cont.VTI: 1.93 LVOT LVOT Pk Jason: 0.91 LVOT Mn Jason: 0.58 LVOT VTI: 0.18 LVOT Pk Grad: 3.00 LVOT Mn Grad: 2.00 LVOT Diam: 2.00 LVOT Area: 3.14 Diastolic Function MV Pk E: 0.64 MV Pk A: 0.80 E/A: 0.80 E'Medial: 5.22 E/E' Med: 12.20 E' Laterial: 6.20 E/E' Lat: 10.30 Right Ventricle TAPSE (mm): 22.00 TVS' Jason: 8.00 Tricuspid Valve TR Pk Jason: 2.42 TR Pk Grad: 23.00 RA Press: 3.00 RVSP: 26.00 Great Vessels Aorta Ao Asc: 3.30 2.1-3.4 cm Updated in Other Vendor System with Status of Final Manoj Jang MD electronically signed on 07/20/2021 12:32:04 PM with status of Final
== END ==
LOC: HO.CARD 12:50
PROVIDERS: PCP Internal Medicine; Visit Provider Internal Medicine
DX: I77.89 Other specified disorders of arteries and arterioles (principal)
CPT/HCPCS: 93306

== ENCOUNTER → 2021-10-17 14:13 | Outpatient (BNVA) | payer MEDICARE, SELFPAY | PROVIDERS: PCP Internal Medicine; Visit Provider Hospitalist | DX: J47.9 Bronchiectasis, uncomplicated (principal); R05.8 Other specified cough; J45.909 Unspecified asthma, uncomplicated; R91.8 Other nonspecific abnormal finding of lung field | CPT/HCPCS: 99212 ==

== ENCOUNTER 2022-01-28 17:59 | Outpatient (REF) | payer MEDICARE, SELFPAY ==
[2022-01-28 19:08] LABS: Influenza A PCR NEGATIVE (Negative); Influenza B PCR NEGATIVE (Negative); Resp Syncy Virus RNA Qual PCR NEGATIVE (Negative); SARS COV2 PCR INHOUSE POSITIVE (Negative)
== END 2022-01-28 18:00 | disposition home or self-care (01) ==
LOC: HO.LNP 17:59
PROVIDERS: Visit Provider Physician Assistant
DX: Z20.822 Contact with and (suspected) exposure to COVID-19 (principal); N39.0 Urinary tract infection, site not specified; R50.9 Fever, unspecified
CPT/HCPCS: 0241U

== ENCOUNTER 2022-03-11 12:03 | Outpatient (AMB) | payer MEDICARE, SELFPAY ==
--- NOTE | 2022-03-11 12:36 | AM.OFFVISMDC ---
Intake Vital Signs 03/11/22 12:49 Height 5 ft 2 in Weight 131 lb BMI 23.9 BP 110/70 Blood Pressure Location Lt brachial Pulse 77 Pulse Source Pulse Oximeter Pulse Oximetry (%) 97 Oxygen Delivery Method Room Air Intake Visit Reasons: AWV G0438 02/16/2010 Discuss/Bill ACP Intake Note: Pt is here today for her AWV Allergies Qlyyine-SCE-HpH Reductase Inhibitor [Osccozh-Tak-Muo Reductase Inhibitor] Allergy (Unknown, Verified 04/14/23 13:54) muscle cramps Medication List - Last Reconciled 03/11/22 by Yu Alcantar MD acetaminophen ER (Arthritis Pain Reliever) 650 mg PO BID aspirin 81 mg PO DAILY 90 days atorvastatin 80 mg PO BEDTIME benzonatate 100 mg PO BID PRN betamethasone dipropionate 0.05% 1 appl topical BID PRN blood sugar diagnostic (FreeStyle Lite Strips) Test blood sugar once daily blood-glucose meter (FreeStyle Lite Meter kit) As directed for testing blood sugar cholecalciferol (vitamin D3) (Vitamin D3) 25 mcg PO DAILY cyanocobalamin (vitamin B-12) (Vitamin B-12) 500 mcg PO DAILY gabapentin 300 mg PO Q12H lancets (FreeStyle Lancets) Test blood sugar once a day metformin 500 mg PO DAILY metoprolol tartrate 12.5 mg PO BID miscellaneous medical supply Compression stocking for L leg [Motorized Scooter For mobility] nebulizer and compressor As directed nystatin 1 appl topical BID 10 days sitagliptin phosphate (Januvia) 50 mg PO DAILY tobramycin-dexamethasone 0.3-0.1 % (TobraDex) 0.5 inches ophthalmic (eye) ONCE walker walker with seat and breaks HPI AWV G0438 02/16/2010 Discuss/Bill ACP HPI Details AWV ?81-year-old lady, presents today for her ? Annual Wellness Visit, initial visit.? She has type 2 diabetes mellitus, stable controlled on present treatment with latest hemoglobin A1c at 6.2% done February 05, 2021. She has coronary artery diseases/p CABG x4, has hypertension, dyslipidemia. Latest fasting lipids done May of 2020 showed results within normal limits. She has osteoarthritis, osteopenia , peripheral arterial disease s/p left proximal SFA to plantar artery bypass in December 2020 and History of amputation of lesser toe in 2021, currently being followed by Dr. Dillon Helton in [place]. She does not want to get mammograms or colon cancer screenings, and has refused getting any vaccines including the COVID vaccine.. Her last bone density scan was done 06/01/2020 which showed presence of normal bone density in lumbar spine but osteopenia in left femoral neck and left femur ? Medical / Social History Reviewed? Past Medical History ?Yes . ? [place] of Care / Care Team list updated ?Yes . ? Surgical/Hospitalization History ?Yes . ? Current Medications (including OTC and supplements) ?Yes . ? Family History ?Yes . ? Tobacco Control form ?Yes . ? AUDIT-C (Alcohol use) form ?Yes . ? Illicit drug use in Social History ?Yes . ? Current diagnosis of depression? ?No ? Appropriate PHQ2/PHQ9 completed ?Yes . ? Data entered by ?Process Manager and reviewed by provider ? Fall Risk ? Fall History? Have you had any falls with injury in the past year? ?No . ? Have you had two or more falls in the past year? ?No . ? Fall Risk Assessment: ?No falls in the past year . ? HRA filled out by the patient, reviewed by Provider and scanned. ? AWV ? Balance? [place]berg ?Yes . ? Tandem walk ?unable . ? Walk and Turn ?Yes . ? Rise from sit to stand ?Yes . ?Vision? Corrective lens ?none ? Vision screen ? Up-to-date,Dr Arriola ?Hearing? Whisper test ?pass . ?Written Plan?Completed. See Patient Documents.? [facility]LY [facility] Medical History (Updated 04/14/23 @ 14:10 by Yu Alcantar MD) Osteoporosis PAD (peripheral artery disease) Hematuria Candidal intertrigo Pancytopenia Pulmonary nodules Asthma Pulmonary nodules Bronchiectasis with (acute) exacerbation Productive cough Popliteal vein thrombosis Vitamin D deficiency Diabetes mellitus with peripheral angiopathy Refused influenza vaccine COVID-19 vaccination refused Other and unspecified hyperlipidemia Atherosclerotic cardiovascular disease Coronary artery disease Dyslipidemia Essential hypertension Type 2 diabetes mellitus without complication, without long-term current use of insulin Non-ST elevation [place] (NSTEMI) Bilateral carotid artery stenosis NSTEMI (non-ST elevated myocardial infarction) Surgical History (Updated 04/14/23 @ 14:17 by Yu Alcantar MD) History of amputation of lesser toe History of cardiac catheterization (~01/06/20) S/P CABG x 4 (~01/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 Brother No problems noted. Brother No problems noted. Brother No problems noted. Sister No problems noted. Sister No problems noted. Sister No problems noted. Sister No problems noted. Sister No problems noted. Son No problems noted. Son No problems noted. Son No problems noted. Son No problems noted. Daughter Cancer Other Breast cancer Substance use disorder Social History Household Members: None Housing: Assisted Living Facility Are you a primary pet caretaker to a significant other at home: No Alcohol intake: unknown Patient Tobacco Use Status: Never used Tobacco e-Cigarette/Vaping Use: Never Used Second Hand Smoke Exposure: Yes service: No Current occupational status: retired Cognitive needs: No Hearing needs: No Vision needs: Yes Questionnaire Medicare Wellness Checkup What is your age?: 80 or older What gender do you identify with?: female During the past 4 weeks, how much have you been bothered by emotional problems such as feeling anxious, depressed, irritable, sad or downhearted, and blue?: slightly During the past 4 weeks, has your physical & emotional health limited your social activities with family, friends, neighbors, or groups?: not at all During the past 4 weeks, how much bodily pain have you generally had?: moderate pain During the past 4 weeks, was someone available to help you if you needed & wanted help?: yes, quite a bit During the past 4 weeks, what was the hardest physical activity you could do for at least 2 minutes?: heavy Can you get to places out of walking distance without help? (For eg., can you travel alone on buses, taxis or drive your car?): Yes Can you go shopping for groceries or clothes without someone's help?: Yes Can you prepare your own meals?: Yes Can you do your housework without help?: Yes Because of any health problems, do you need the help of another person with your personal care needs such as eating, bathing, dressing or getting around the house?: No Can you handle your own money without help?: Yes During the past 4 weeks, how would you rate your health in general?: very good During the past 4 weeks how have things been going for you?: pretty well Are you having difficulties driving your car?: no Do you always fasten your seat belt when you are in a car?: yes, usually During past 4 weeks, have you been bothered by the following: never: Falling or dizzy when standing up, Sexual problems? and Problems using the telephone? and seldom: Trouble eating well?, Teeth or denture problems? and Tiredness or fatigue? Have you fallen 2 or more times in the past year?: No Are you afraid of falling?: No Are you a smoker?: no During the past 4 weeks, how many drinks of wine, beer, or other alcoholic beverages did you have?: no alcohol at all Do you exercise for about 20 minutes 3 or more times a week?: yes, some of the time Have you been given information to help with the following?: yes: Hazards in your house that might hurt you? and yes: Keeping track of your medications? How often do you have trouble taking medicines the way you have been told to take them?: I always take medicine as prescribed How confident are you that you can control & manage most of your health problems?: very confident What is your race?: White Mini Mental State Exam (MMSE) Orientation What is the (year) (season) (date) (day) (month)?: year (2022), season (winter), date (03/11/22), day and month (february) Score Score: 5 PHQ-9 Over the last 2 weeks, how often have you been bothered by any of the following problems? 1. Little interest or pleasure in doing things: not at all 2. Feeling down, depressed, or hopeless: not at all 3. Trouble falling or staying asleep, or sleeping too much: not at all 4. Feeling tired or having little energy: not at all 5. Poor appetite or overeating: not at all 6. Feeling bad about yourself - or that you are a failure or have let yourself or your family down: not at all 7. Trouble concentrating on things, such as reading the newspaper or watching television: not at all 8. Moving or speaking so slowly that other people could have noticed. Or the opposite - being so fidgety or restless that you have been moving around a lot more than usual: not at all 9. Thoughts that you would be better off or of hurting yourself in some way: not at all Total score: 0 Source: Developed by Drs. Tera Uribe, Merlyn Romero, Damian Hanna and colleagues, with an educational kalpesh from [employer]. Physical Exam Vital Signs: Last Vital Signs Pulse 77 03/11/22 12:49 BP 110/70 03/11/22 12:49 Pulse Ox 97 03/11/22 12:49 Oxygen Delivery Method Room Air 03/11/22 12:49 BMI result Body Mass Index 23.9 Assessment & Plan Assessment & Plan (1) Type 2 diabetes mellitus without complication, without long-term current use of insulin: Code(s): E11.9 - Type 2 diabetes mellitus without complications (2) Bronchiectasis: Code(s): J47.9 - Bronchiectasis, uncomplicated (3) COVID-19 vaccination refused: Code(s): Z28.21 - Immunization not carried out because of patient refusal (4) Osteoarthritis: Code(s): M19.90 - Unspecified osteoarthritis, unspecified site (5) Osteopenia: Code(s): M85.80 - Other specified disorders of bone density and structure, unspecified site (6) Coronary artery disease: Code(s): I25.10 - Atherosclerotic heart disease of [place] coronary artery without angina pectoris (7) Dyslipidemia: Code(s): E78.5 - Hyperlipidemia, unspecified (8) Essential hypertension: Code(s): I10 - Essential (primary) hypertension (9) Encounter for subsequent annual wellness visit (AWV) in Medicare patient: Code(s): Z00.00 - Encounter for general adult medical examination without abnormal findings (10) Advanced directives, counseling/discussion: Code(s): Z71.89 - Other specified counseling Quality Reporting (2019) Depression/Bipolar (159/160/161/177) PHQ-9: Total score: 0 Coding Level of Care Code Medicare First (G0438) Diagnoses Type 2 diabetes mellitus without complication, without long-term current use of insulin E11.9 Bronchiectasis J47.9 COVID-19 vaccination refused Z. Osteoarthritis M19.90 Osteopenia M85.80 Coronary artery disease I25.10 Dyslipidemia E78.5 Essential hypertension I10 Encounter for subsequent annual wellness visit (AWV) in Medicare patient Z00.00 Advanced directives, counseling/discussion Z71.89 CPT Codes Advance Care Planning - Time spent: 16-45 minutes ([id number]) Advance Care Planning Advance Care Planning discussion: Completed/Scanned Date of discussion: 03/11/22 Who was present: Patient Forms completed: MOLST Time spent: 16-45 minutes Actual minutes spent: 16
[2022-03-11 12:49] VITALS: BP 110/70; PULSE 77; O2SAT 97; BMI 23.9
== END 2022-03-11 13:47 | disposition home or self-care (01) ==
LOC: HO.HMGC 12:03
PROVIDERS: PCP Internal Medicine; Visit Provider Internal Medicine
DX: E11.9 Type 2 diabetes mellitus without complications (principal); J47.9 Bronchiectasis, uncomplicated; Z28.21 Immunization not carried out because of patient refusal; M19.90 Unspecified osteoarthritis, unspecified site; M85.80 Other specified disorders of bone density and structure, unspecified site; I25.10 Atherosclerotic heart disease of native coronary artery without angina pectoris; E78.5 Hyperlipidemia, unspecified; I10 Essential (primary) hypertension; Z00.00 Encounter for general adult medical examination without abnormal findings; Z71.89 Other specified counseling
CPT/HCPCS: 99499

== ENCOUNTER → 2022-03-18 13:04 | Outpatient (BNVA) | payer MEDICARE, SELFPAY | PROVIDERS: PCP Internal Medicine; Visit Provider Internal Medicine | DX: I25.10 Atherosclerotic heart disease of native coronary artery without angina pectoris (principal); I65.23 Occlusion and stenosis of bilateral carotid arteries; I10 Essential (primary) hypertension; E78.5 Hyperlipidemia, unspecified; E11.9 Type 2 diabetes mellitus without complications; Z95.1 Presence of aortocoronary bypass graft | CPT/HCPCS: 93005; 99212 ==

== ENCOUNTER 2022-04-03 13:30 | Outpatient (REF) | payer MEDICARE, SELFPAY ==
--- NOTE | ~2022-04-03 | US_ITS ---
EXAMINATION: US EXTRACRANIAL CAROTID DUPLEX, BILATERAL CLINICAL INFORMATION: Carotid stenosis. Hyperlipidemia. COMPARISON: Carotid ultrasound 01/17/2026. TECHNIQUE: Real-time ultrasound and Doppler techniques (integrating B-mode 2-D vascular images, Doppler spectral analysis and color-flow Doppler imaging) were utilized to interrogate the extracranial carotid arteries, the vertebral arteries and proximal subclavian arteries bilaterally. The degree of stenosis is determined by criteria similar to NASCET. FINDINGS: Right Side: 1. There is mild atherosclerotic plaque seen in the bifurcation/proximal ICA region. 2. The common carotid artery PSV proximally is 150 cm/s and distally 82 cm/s. 3. The proximal internal carotid artery velocities are 137 cm/s systolic and 36 cm/s diastolic. 4. The proximal external carotid artery PSV is 158 cm/s. 5. The vertebral artery shows antegrade flow. 6. The subclavian artery velocity is elevated measuring 240 cm/s. Left Side: 1. There is mild atherosclerotic plaque seen in the bifurcation/proximal ICA region. 2. The common carotid artery PSV proximally is 117 cm/s and distally 141 cm/s. 3. The proximal internal carotid artery velocities are 97 cm/s systolic and 22 cm/s diastolic. 4. The proximal external carotid artery PSV is 129 cm/s. 5. The vertebral artery shows antegrade flow. 6. The subclavian artery velocity is not elevated. US/US carotid duplex BI IMPRESSION: 1. RIGHT: Moderate, hemodynamically significant stenosis of the proximal right internal carotid artery corresponding to a 50-79% stenosis by velocity criteria. Disease category has worsened from mild 0-49% since the prior study. 2. LEFT: Minimal, non-hemodynamically significant stenosis of the proximal left internal carotid artery corresponding to a 0-49% stenosis by velocity criteria. Disease category has improved from moderate 50-79% since the prior study. 3. There are elevated velocities in the left mid and distal cervical internal carotid artery which may indicate the presence of underlying fibromuscular dysplasia. Consider further evaluation with CTA of the neck.
== END 2022-04-03 13:31 | disposition home or self-care (01) ==
LOC: HO.US 13:30
PROVIDERS: PCP Internal Medicine; Visit Provider Internal Medicine
DX: I65.23 Occlusion and stenosis of bilateral carotid arteries (principal)
CPT/HCPCS: 93880

== ENCOUNTER 2022-05-07 10:38 | Outpatient (REF) | payer MEDICARE, SELFPAY ==
[2022-05-07 12:48] LABS: Estimated Average Glucose 154 mg/dL
[2022-05-07 14:41] LABS: Alanine Aminotransferase 12 U/L (0-31); Anion Gap 14 (12-20); Aspartate Amino Transferase 16 U/L (5-31); Blood Urea Nitrogen 26 mg/dL (9-16); Calcium 9.4 mg/dL (8.4-10.2); Carbon Dioxide 26 mmol/L (22-29); Chloride 106 mmol/L (96-108); Cholesterol 179 mg/dL; Estimated Glomerular Filt Rate 51; Glucose Fasting 148 mg/dL (60-99); HDL Cholesterol 43 mg/dL; LDL Cholesterol Calculated 105 mg/dl; Magnesium 1.5 mg/dL (1.6-2.6); Potassium 4.5 mmol/L (3.3-5.1); Sodium 141 mmol/L (135-145); Triglycerides 158 mg/dL
[2022-05-07 15:21] LABS: Folate 7.9 ng/mL (> or = 4.0); Vitamin D 25-OH Total 34.4 ng/mL (>30)
[2022-05-08 06:46] LABS: Vitamin B12 470 pg/mL (200-900)
== END 2022-05-07 10:39 | disposition home or self-care (01) ==
LOC: HO.HMGCLDS 10:38
PROVIDERS: PCP Internal Medicine; Visit Provider Internal Medicine
DX: E11.9 Type 2 diabetes mellitus without complications (principal); E55.9 Vitamin D deficiency, unspecified; E78.5 Hyperlipidemia, unspecified; I10 Essential (primary) hypertension; I25.10 Atherosclerotic heart disease of native coronary artery without angina pectoris; I65.23 Occlusion and stenosis of bilateral carotid arteries; Z95.1 Presence of aortocoronary bypass graft
CPT/HCPCS: 36415; 80048; 80061; 82043; 82306; 82607; 82746; 83036; 83735; 84450; 84460

== ENCOUNTER 2022-07-03 08:48 | Outpatient (REF) | payer MEDICARE, SELFPAY ==
--- NOTE | ~2022-07-03 | CT_ITS ---
EXAMINATION: CT CHEST WITHOUT CONTRAST CLINICAL INFORMATION: Abnormal lung findings COMPARISON: None available. TECHNIQUE: Multidetector volumetric CT imaging of the chest was done. Axial MIP volume rendering provided. Sagittal and coronal reformatted images were obtained. This CT examination was performed using dose optimization techniques as appropriate, variously including the following: *Automated exposure control *Adjustment of mA and/or kV according to patient size (this includes techniques or standardized protocols for targeted exams where dose is matched to indication/reason for exam; i.e. extremities or head) *Use of iterative reconstruction technique DLP: 145 mGy-cm FINDINGS: TRAWL NET MAKER: Well-expanded lungs a single LUNGS: The lungs are well-expanded with platelike atelectasis in superior segments of both lower lobes. There is bilateral apical parenchymal scarring with pleural thickening. There is a 3 mm nodule left upper lobe axial image 194/5, 2 new nodule right upper lobe axial image 162/5, intrabronchial or debris or nodule right middle lobe axial image 261/5, 2 new nodule left lower lobe axial image 476/5. A groundglass attenuation seen previously in left lower lobe has improved. No acute consolidation. No new nodules seen. MEDIASTINUM: Thyroid lobes are symmetric and normal. The central trachea and the bronchi widely patent. Heart size and the great vessels are normal caliber. There is no pericardial effusion. Solitary precarinal 9 mm lymph node seen in transverse axis there are surgical vania from previous CABG CORONARY ARTERY CALCIFICATION: Moderate to significant coronary artery calcifications are seen. PLEURA: There is no pleural effusion. No pleural mass or thickening. AXILLA: No lymphadenopathy. UPPER ABDOMEN: Visualized liver, spleen, pancreas and bilateral adrenal glands are unremarkable. OSSEOUS STRUCTURES: No aggressive lytic or sclerotic process seen. There is mild ventral spondylosis. There are median sternotomy sutures from previous intervention. CT/CT chest wo IV con IMPRESSION: 1. Multiple small pulmonary nodules, nodules are visualized previously. The groundglass attenuation seen previously in left lower lobe has improved. 2. No abnormal mediastinal or axillary lymphadenopathy seen. 3. There is a single precarinal 9 mm lymph node. Fleischner guidelines were followed.
== END 2022-07-03 08:49 | disposition home or self-care (01) ==
LOC: HO.CT 08:48
PROVIDERS: PCP Internal Medicine; Visit Provider Hospitalist
DX: R91.8 Other nonspecific abnormal finding of lung field (principal)
CPT/HCPCS: 71250

== ENCOUNTER 2022-07-07 09:46 | Outpatient (REF) | payer MEDICARE, SELFPAY ==
[2022-07-07 11:56] LABS: Estimated Average Glucose 143 mg/dL; Hemoglobin A1c % 6.6 %
[2022-07-07 12:20] LABS: Alanine Aminotransferase 15 U/L (0-31); Anion Gap 14 (12-20); Aspartate Amino Transferase 18 U/L (5-31); Blood Urea Nitrogen 14 mg/dL (9-16); Calcium 9.2 mg/dL (8.4-10.2); Carbon Dioxide 26 mmol/L (22-29); Chloride 106 mmol/L (96-108); Cholesterol 160 mg/dL; Estimated Glomerular Filt Rate > 60; Glucose Fasting 128 mg/dL (60-99); HDL Cholesterol 46 mg/dL; LDL Cholesterol Calculated 83 mg/dl; Potassium 4.2 mmol/L (3.3-5.1); Sodium 142 mmol/L (135-145); Triglycerides 159 mg/dL
[2022-07-07 12:23] LABS: Vitamin D 25-OH Total 34.8 ng/mL (>30)
== END 2022-07-07 09:47 | disposition home or self-care (01) ==
LOC: HO.HMGCLDS 09:46
PROVIDERS: PCP Internal Medicine; Visit Provider Internal Medicine
DX: E11.9 Type 2 diabetes mellitus without complications (principal); E55.9 Vitamin D deficiency, unspecified; E78.5 Hyperlipidemia, unspecified; I10 Essential (primary) hypertension; I25.10 Atherosclerotic heart disease of native coronary artery without angina pectoris; I65.23 Occlusion and stenosis of bilateral carotid arteries; M85.80 Other specified disorders of bone density and structure, unspecified site; Z78.0 Asymptomatic menopausal state; Z95.1 Presence of aortocoronary bypass graft
CPT/HCPCS: 36415; 80048; 80061; 82043; 82306; 83036; 84450; 84460

== ENCOUNTER 2022-07-10 11:21 | Outpatient (REF) | payer MEDICARE, SELFPAY ==
--- NOTE | ~2022-07-10 | XR_ITS ---
EXAMINATION: XR SACRUM AND COCCYX CLINICAL INFORMATION: Pain. COMPARISON: None available. TECHNIQUE: 2 views of the sacrum and 2 views of the coccyx were obtained. FINDINGS: Mild bilateral sacroiliac degenerative joint changes are seen. There is normal sacrococcygeal curvature. No acute fracture is seen. Mild right hip and severe left hip degenerative joint changes are seen. The bony pelvis appears intact. XR/XR sacrum coccyx min 2V IMPRESSION: 1. Mild bilateral sacroiliac degenerative joint changes. No acute fracture. 2. Mild right hip and severe left hip degenerative joint changes.
== END 2022-07-10 11:22 | disposition home or self-care (01) ==
LOC: HO.HMGCX 11:21
PROVIDERS: PCP Internal Medicine; Visit Provider Internal Medicine
DX: M53.3 Sacrococcygeal disorders, not elsewhere classified (principal)
CPT/HCPCS: 72220

== ENCOUNTER 2022-07-29 14:05 | Outpatient (REF) | payer MEDICARE, SELFPAY ==
[2022-07-29 14:52] LABS: MANUAL DIFF FLAG NO
[2022-07-29 15:33] LABS: Basophils Percent Auto 0.5 % (0-2); Eosinophils Absolute Auto 0.2 X10*3/uL (0.0-0.4); Eosinophils Percent Auto 2.6 % (0-4); Hemoglobin 12.4 g/dl (12.0-16.0); Imm Gran Abs Auto 0.02 X10*3/uL (0.00-0.03); Imm Gran Pct Auto 0.3 % (0.0-0.4); Lymphocytes Absolute Auto 1.7 X10*3/uL (1.2-4.9); Mean Corpuscular HGB Conc 33.5 g/dl (31.0-35.0); Mean Corpuscular Hemoglobin 30.9 pg (27.0-33.0); Mean Corpuscular Volume 92.3 fL (80.0-98.0); Mean Platelet Volume 9.6 fL (9.4-12.3); Monocytes Absolute Auto 0.5 X10*3/uL (0.1-1.2); Monocytes Percent Auto 7.6 % (2-11); Neutrophils Absolute Auto 4.1 x10*3/uL (2.0-8.3); Platelet Count 207 X10*3/uL (160-400); Red Blood Count 4.01 X10*6/uL (4.20-5.50); Red Cell Distribution Width 12.2 % (11.0-16.0); White Blood Count 6.6 X10*3/uL (4.8-10.8)
[2022-07-29 16:09] LABS: Anion Gap 15 (12-20); Blood Urea Nitrogen 16 mg/dL (9-16); Carbon Dioxide 28 mmol/L (22-29); Chloride 103 mmol/L (96-108); Estimated Glomerular Filt Rate 60; Glucose Random 111 mg/dL (60-115); Potassium 4.3 mmol/L (3.3-5.1); Sodium 142 mmol/L (135-145)
[2022-07-29 16:21] LABS: Erythrocyte Sedimentation Rate 11 MM/HR (0-20)
[2022-07-29 18:30] LABS: Urine Blood Large (3+) (Negative)
[2022-07-29 18:31] LABS: Appearance Urine Clear; Color Urine Red; Glucose Urine UA Negative (Negative); Leukocyte Esterase Urine Trace (Negative); Urine Ketones Negative (Negative); Urine Protein 100 (2+) mg/dL (Neg-Trace)
[2022-07-29 18:32] LABS: Nitrite Urine Negative (Negative); UMIC TRIGGER UACC YES
[2022-07-29 18:49] LABS: Bacteria Urine 2+ (None Seen); Hyaline Casts Urine 0-2 /LPF (0-2); RBC Urine >20 /HPF (0-2); Squamous Epithelial Cell Urine 0-2 /HPF (0-2); UACC Culture Trigger YES
== END 2022-07-29 14:06 | disposition home or self-care (01) ==
LOC: HO.LAB 14:05
PROVIDERS: PCP Internal Medicine; Visit Provider Hospitalist
DX: R31.9 Hematuria, unspecified (principal); J47.9 Bronchiectasis, uncomplicated; R05.8 Other specified cough; J45.909 Unspecified asthma, uncomplicated; R91.8 Other nonspecific abnormal finding of lung field
CPT/HCPCS: 36415; 80048; 81001; 85025; 85652; 87086; 99212

== ENCOUNTER 2022-10-06 15:17 | Outpatient (AMB) | payer MEDICARE, SELFPAY ==
--- NOTE | 2022-10-06 15:51 | AM.OFFWIN_ITS ---
Intake Vital Signs 10/06/22 16:05 Height 5 ft 2 in Weight 130 lb BMI 23.8 BP 120/80 Blood Pressure Location Lt brachial Position Sitting Pulse 94 Pulse Source Pulse Oximeter Temp 97.7 F Temp Source Temporal Artery Scan Pulse Oximetry (%) 98 Oxygen Delivery Method Room Air Intake Visit Reasons: EP ?UTI Intake Note: patient here for possible UTI, frequent urination, burning when urinating, lower back pain. Patient Tobacco Use Status: Never used Tobacco Allergies Noboscn-ZQT-BvS Reductase Inhibitor [Yrlipcx-Vcd-Ttg Reductase Inhibitor] Allergy (Unknown, Verified 10/06/22 16:05) muscle cramps Do you need a note to return to daycare/school/sports/work: No HPI EP ?UTI HPI Details Patient presents for a sick visit. Reports symptoms of increased frequency of urination, burning on urination and discomfort in the suprapubic area. Symptoms started in the past few days. No fevers or chills. No nausea or vomiting. FOR[facility]LY [facility] Medical History (Updated 10/06/22 @ 16:19 by Reynaldo Figueroa MD) Asthma Atherosclerotic cardiovascular disease Bilateral carotid artery stenosis Bronchiectasis with (acute) exacerbation Candidal intertrigo Coronary artery disease COVID-19 vaccination refused Diabetes mellitus with peripheral angiopathy Dyslipidemia Essential hypertension Hematuria History of amputation of toe Non-ST elevation [place] (NSTEMI) NSTEMI (non-ST elevated myocardial infarction) Other and unspecified hyperlipidemia Pancytopenia Popliteal vein thrombosis Productive cough Pulmonary nodules Pulmonary nodules Refused influenza vaccine Type 2 diabetes mellitus without complication, without long-term current use of insulin Vitamin D deficiency Surgical History H/O heart artery stent History of amputation of lesser toe History of cardiac catheterization (~01/06/20) S/P CABG x 4 (~01/11/20) Family History Father Cancer Mother No problems noted. Brother No problems noted. Brother No problems noted. Brother No problems noted. Sister No problems noted. Sister No problems noted. Sister No problems noted. Sister No problems noted. Sister No problems noted. Son No problems noted. Son No problems noted. Son No problems noted. Son No problems noted. Daughter Cancer Other Breast cancer Substance use disorder Social History Household Members: None Housing: Assisted Living Facility Are you a primary acute care nurse practitioner to a significant other at home: No Alcohol intake: unknown Patient Tobacco Use Status: Never used Tobacco e-Cigarette/Vaping Use: Never Used Second Hand Smoke Exposure: Yes service: No Current occupational status: retired Cognitive needs: No Hearing needs: No Vision needs: Yes Physical Exam Vital Signs: Last Vital Signs Temp 97.7 F 10/06/22 16:05 Pulse 94 10/06/22 16:05 BP 120/80 10/06/22 16:05 Pulse Ox 98 10/06/22 16:05 Oxygen Delivery Method Room Air 10/06/22 16:05 BMI result Body Mass Index 23.8 General: Yes no CVA tenderness Back/Spine/Pelvis Other: No suprapubic tenderness Back: no CVA tenderness Assessment & Plan Assessment & Plan (1) Urinary tract infection: Code(s): N39.0 - Urinary tract infection, site not specified Plan: Take antibiotics and Pyridium as directed. Increase fluid intake. If symptoms of burning persist, new onset of fever or lower back pain, to follow-up at the clinic. Coding Level of Care Code Est Pt Level 3 (51071) Diagnoses Urinary tract infection N39.0
[2022-10-06 16:05] VITALS: BP 120/80; PULSE 94; TEMP 36.5; O2SAT 98; BMI 23.8
== END 2022-10-06 16:34 | disposition home or self-care (01) ==
PROVIDERS: PCP Internal Medicine; Visit Provider Internal Medicine
DX: N39.0 Urinary tract infection, site not specified (principal)
CPT/HCPCS: 81003; 99213

== ENCOUNTER 2022-12-11 13:04 | Outpatient (REF) | payer MEDICARE, SELFPAY ==
[2022-12-11 16:18] LABS: Estimated Average Glucose 146 mg/dL; Hemoglobin A1c % 6.7 % (<6.0)
[2022-12-11 16:29] LABS: Alanine Aminotransferase 12 U/L (0-31); Anion Gap 15 (12-20); Aspartate Amino Transferase 19 U/L (5-31); Blood Urea Nitrogen 19 mg/dL (9-16); Calcium 9.7 mg/dL (8.4-10.2); Carbon Dioxide 25 mmol/L (22-29); Chloride 105 mmol/L (96-108); Cholesterol 217 mg/dL (<200); Estimated Glomerular Filt Rate > 60; Glucose Fasting 125 mg/dL (60-99); HDL Cholesterol 41 mg/dL (>40); LDL Cholesterol Calculated 133 mg/dL (<100); Potassium 4.1 mmol/L (3.3-5.1); Sodium 141 mmol/L (135-145); Triglycerides 219 mg/dL (<150)
[2022-12-11 16:43] LABS: Creatinine Urine 127.43 mg/dL; Microalbum/Creatinine Ratio Ur 11.7 ug/mg cr (<30)
[2022-12-11 16:46] LABS: Vitamin D 25-OH Total 44.5 ng/mL (>30)
== END 2022-12-11 13:05 | disposition home or self-care (01) ==
LOC: HO.HMGCLDS 13:04
PROVIDERS: PCP Internal Medicine; Visit Provider Internal Medicine
DX: E11.9 Type 2 diabetes mellitus without complications (principal); E55.9 Vitamin D deficiency, unspecified; I10 Essential (primary) hypertension; E78.5 Hyperlipidemia, unspecified; Z78.0 Asymptomatic menopausal state; Z95.1 Presence of aortocoronary bypass graft
CPT/HCPCS: 36415; 80048; 80061; 82043; 82306; 82570; 83036; 84450; 84460

== ENCOUNTER 2022-12-16 09:31 | Outpatient (AMB) | payer MEDICARE, SELFPAY ==
[2022-12-16 09:55] VITALS: BP 118/72; PULSE 71; O2SAT 98; BMI 24.8
--- NOTE | 2022-12-16 09:55 | A.OFFPC_ITS ---
Vital Signs 12/16/22 09:55 Height 5 ft 2 in Weight 135 lb 8 oz BMI 24.8 BP 118/72 Blood Pressure Location Lt brachial Position Sitting Pulse 71 Pulse Source Pulse Oximeter Pulse Oximetry (%) 98 Oxygen Delivery Method Room Air Intake Visit Reasons: 4 mo. f/u Intake Note: pt is here to follow for her lab results Allergies Cxzeqas-SAO-RgF Reductase Inhibitor [Wmfcluo-Dfr-Orf Reductase Inhibitor] Allergy (Unknown, Verified 04/14/23 13:54) muscle cramps Medication List - Last Reconciled 12/16/22 by Yu Alcantar MD acetaminophen ER (Arthritis Pain Reliever) 650 mg PO BID aspirin 81 mg PO DAILY 90 days atorvastatin 80 mg PO BEDTIME betamethasone dipropionate 0.05% 1 appl topical BID PRN blood sugar diagnostic (FreeStyle Lite Strips) Test blood sugar once daily blood-glucose meter (FreeStyle Lite Meter kit) As directed for testing blood sugar cholecalciferol (vitamin D3) (Vitamin D3) 25 mcg PO DAILY cyanocobalamin (vitamin B-12) (Vitamin B-12) 500 mcg PO DAILY gabapentin 600 mg (2 x 300 mg) PO BEDTIME lancets (FreeStyle Lancets) Test blood sugar once a day metformin 500 mg PO BIDWMEAL 3 months metoprolol tartrate 12.5 mg (1/4 x 50 mg) PO BID nebulizer and compressor As directed rivaroxaban (Xarelto) mg PO sitagliptin phosphate (Januvia) 50 mg PO DAILY tobramycin-dexamethasone 0.3-0.1 % (TobraDex) 0.5 inches ophthalmic (eye) ONCE Tobacco use date assessed: 12/16/22 Fall risk assessment: No Falls in past year Last assessed Fall Risk: 12/16/22 Dental Screening Dental Screen Date: 12/16/22 Did you have a dental visit in the last 12 months?: Yes Did you have a dental problem in the last 6 months where you did not have access to dental care?: No Was dental information given to patient?: Patient has dentist HPI 4 mo. f/u HPI Details 83-year-old lady here today for follow-u p on her diabetes mellitus and hyperlipidemia. Currently taking metformin 500 mg 1 tablet twice a day with meals and Januvia 50 mg daily in addition to atorvastatin 80 mg daily. Has been compliant with taking her medications, no new complaints at present time. [facility] Medical History (Updated 05/20/23 @ 23:00 by Yu Alcantar MD) Recurrent urinary tract infection Osteoporosis PAD (peripheral artery disease) Hematuria Candidal intertrigo Pancytopenia Pulmonary nodules Asthma Pulmonary nodules Bronchiectasis with (acute) exacerbation Productive cough Popliteal vein thrombosis Vitamin D deficiency Diabetes mellitus with peripheral angiopathy Refused influenza vaccine COVID-19 vaccination refused Other and unspecified hyperlipidemia Atherosclerotic cardiovascular disease Coronary artery disease Dyslipidemia Essential hypertension Type 2 diabetes mellitus without complication, without long-term current use of insulin Non-ST elevation NV (NSTEMI) Bilateral carotid artery stenosis NSTEMI (non-ST elevated myocardial infarction) Surgical History (Updated 04/14/23 @ 14:17 by Yu Alcantar MD) History of amputation of lesser toe History of cardiac catheterization (~01/06/20) S/P CABG x 4 (~01/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 Brother No problems noted. Brother No problems noted. Brother No problems noted. Sister No problems noted. Sister No problems noted. Sister No problems noted. Sister No problems noted. Sister No problems noted. Son No problems noted. Son No problems noted. Son No problems noted. Son No problems noted. Daughter Cancer Other Breast cancer Substance use disorder Social History Household Members: None Housing: Assisted Living Facility Are you a primary care asst to a significant other at home: No Alcohol intake: unknown Patient Tobacco Use Status: Never used Tobacco e-Cigarette/Vaping Use: Never Used Second Hand Smoke Exposure: Yes service: No Current occupational status: retired Cognitive needs: No Hearing needs: No Vision needs: Yes Questionnaire Thrive Questionnaire Date Thrive assessed: 05/30/21 MARY JO-7 AMB Questionnaire MARY JO-7 Date MARY JO - 7 assessed: 05/30/21 Source: Developed by Drs. Tera Uribe, Merlyn Romero, Damian Hanna and colleagues, with an educational kalpesh from [employer]. Review of Systems Const Reports no additional complaints Eyes Denies no additional complaints ENT Denies no additional complaints Card Denies chest pain, Denies leg edema, Denies lightheadedness and Denies dyspnea Resp Denies dyspnea Musc Reports no additional complaints Endo Reports no additional complaints Physical exam (Primary Care) Vital Signs: Last Vital Signs Pulse 71 12/16/22 09:55 BP 118/72 12/16/22 09:55 Pulse Ox 98 12/16/22 09:55 Oxygen Delivery Method Room Air 12/16/22 09:55 BMI result Body Mass Index 24.8 Tobacco/Smoking Status: Tobacco use Status Tobacco use date assessed 12/16/22 12/16/22 10:03 Patient Tobacco Use Status Never used Tobacco 12/16/22 09:55 e-Cigarette/Vaping Use Never Used 12/16/22 09:55 Thrive Assessment: Date of Thrive Assessment Date Thrive assessed 05/30/21 12/16/22 09:55 Const General: comfortable, no acute distress, alert and other (Walks with a cane) Orientation/consciousness: patient oriented x3 HENMT Face and sinus: Yes face symmetric Mouth: Normal oral and palatal mucosa present Eyes General: appearance normal, both eyes and all related structures Neck Neck: Yes full ROM, Yes no lymphadenopathy and Yes supple Resp Auscultation: clear to auscultation bilaterally Cardio Other: S1-S2 present regular rate and rhythm GI Palpation (GI): Soft to palpation, nontender, no guarding and no masses Auscultation: normal bowel sounds Neuro General: patient oriented x3 Extrem General: Yes full ROM, Yes no joint enlargement, Yes no pedal edema and Yes no calf tenderness Results Reviewed Results Reviewed: RUN: 12/16/22 1018 PAGE 1 [facility] [address] [place] [id number] Cleaner And Polisher: Maksim Ma M.D. Specimen Inquiry Name: Ashley Kent Age/Sex: 82/F : 1940 Unit#: [id number] Attend Dr: Yu Alcantar MD Re12/11/22 Status: DEP REF Location: [facility] Disch: SPEC : [id number] ELOY: 12/11/22 STATUS: COMP REQ : [id number] RECD: 12/11/[address]: Yu Alcantar MD COMP: 12/11/22 ENTERED: 12/11/[address] [facility] [address]: ORDERED: Met Prof Fast, AST, ALT, Lipid Panel, Vitamin D 25-OH Test Result Flag Reference Site Sodium 141 135-145 mmol/L Potassium 4.1 3.3-5.1 mmol/L CL 105 96-108 mmol/L CO2 25 22-29 mmol/L Gap 15 12-20 BUN 19 H 9-16 mg/dL Creat 0.81 0.5-1.4 mg/dL EGFR > 60 NOTE: For -[place] individuals, multiply the result by 1.210. Chronic Kidney Disease: Estimated GFR < 60 mL/min/1.73m2 Severe Kidney Disease: Estimated GFR < 15 mL/min/1.73m2 FBS 125 H 60-99 mg/dL A fasting glucose from 100-125 mg/dl is considered impaired (pre-diabetes). CA 9.7 8.4-10.2 mg/dL AST (GOT) 19 5-31 U/L ALT (GPT) 12 0-31 U/L Triglyceride 219 H <150 mg/dL Desirable Triglyceride: less than 150 mg/dL Borderline High Triglyceride 150-199 mg/dL High Triglyceride: 200-499 mg/dL Very High Triglyceride: greater than or equal to 5OO mg/dL Cholesterol 217 H <200 mg/dL Desirable Cholesterol: less than 200 mg/dL Borderline High Cholesterol: 200-239 mg/dL High Cholesterol: greater than 239 mg/dL LDL Calculated 133 H <100 mg/dL Desirable LDL: less than 100 mg/dL Near Optimal/Above Optimal LDL: 110-129 mg/dL Borderline High LDL: 130-159 mg/dL High LDL: 160-189 mg/dL Very High LDL: greater than or equal to 190 mg/dL HDL 41 >40 mg/dL Desirable HDL: greater than 40 mg/dL Note: This HDL assay may give artificially low results in patients with liver disease. Vit D 25-OH Tot 44.5 >30 ng/mL Health Based Reference Values* < 20 ng/mL Deficient 20-30 ng/mL Insufficient > 30 ng/mL Sufficient *Daniel STEINBERG. N Engl J Med. 2007;[id number]:266-280 Care must be taken in interpreting Vitamin D results from different laboratories and methodologies. Published data demonstrated that results from patients undergoing hemodialysis may show a negative bias when tested with various automated 25-OH vitamin D assays when compared to LC-MS/MS. When testing samples from patients whose predominant form of Vitamin D is Vitamin D2, such as patients receiving Vitamin D2 supplementation, results that are subtherapeutic should be confirmed with another method such as LC-MS/MS. RUN: 12/16/22 1020 PAGE 1 [facility] [address] [place] [id number] Cleaner And Polisher: Maksim Ma M.D. Specimen Inquiry Name: Ashley Kent Age/Sex: 82/F : 1940 Unit#: [id number] Attend Dr: Yu Alcantar MD Re12/11/22 Status: DEP REF Location: [facility] Disch: SPEC : [id number] ELOY: 12/11/22 STATUS: COMP REQ : [id number] RECD: 12/11/[address] [facility] [address]: Yu Alcantar MD COMP: 12/11/22 ENTERED: 12/11/[address] [facility] [address]: ORDERED: Hgb A1c Test Result Flag Reference Site A1c % 6.7 H <6.0 % Hemoglobin A1C Reference Range Adults: 4.8 - 6.0 % Non diabetic: < 6.0 % Goal: < 7.0 % Additional Action Suggested: > 8.0 % Note: Hemoglobin A1c results are invalid for patients with abnormal amounts of HbF. Blood transfusions may impact the HbA1c concentration in the patient sample. Est. Avg. Gluc 146 mg/dL eAG = Estimated average glucose which is %A1C expressed as average glucose, using the formula of the F1Z-Tpblwns Average Glucose study (ADAG), Diabetes Care, Vol.31,#8, 2007 Laboratory Tests 12/11/22 13:29 Urine Creatinine 127.43 Urine Microalbumin 15.0 Microalb/Creat Ratio 11.7 Assessment and Plan Assessment & Plan (1) Type 2 diabetes mellitus without complication, without long-term current use of insulin: Code(s): E11.9 - Type 2 diabetes mellitus without complications Plan: Recent lab results reviewed with patient, with sugar and hemoglobin A1c stable and at goal. Continue with metformin and Januvia at the same dose . . Reinforced diabetic diet and regular exercise with patient. Counseled regarding importance of yearly diabetes retinopathy screening. Patient advised to inspect feet daily, for any signs of injury, callus or infection. Compliance with diet and regular exercise again stressed. Blood pressure goal is less than 130/80, goal LDL is less than 100 and goal hemoglobin A1c is less than 7% follow-up appointment made in--4-months, after fasting labs done. (2) Essential hypertension: Code(s): I10 - Essential (primary) hypertension Plan: Blood pressure at goal of less than 130/80. Continue with current medication. Reinforced importance of following a low sodium diet, getting regular exercise, and lowering stress levels. (3) Dyslipidemia: Code(s): E78.5 - Hyperlipidemia, unspecified Plan: LDL cholesterol not at goal of less than 100 mg/dL. Stressed importance following a low-cholesterol diet, in addition to taking atorvastatin 80 mg daily. Repeat another fasting lipid panel in 4 months (4) Refused influenza vaccine: Code(s): Z28.21 - Immunization not carried out because of patient refusal Orders: Orders Alanine Aminotransferase 03/16/23 I73.9 - Peripheral vascular disease, unspecified, E11.9 - Type 2 diabetes mellitus without complications, E55.9 - Vitamin D deficiency, unspecified, Z78.0 - Asymptomatic menopausal state, I10 - Essential (primary) hypertension, E78.5 - Hyperlipidemia, unspecified, I25.10 - Atherosclerotic heart disease of marsh[place] coronary artery without angina pectoris, Z95.1 - Presence of aortocoronary bypass graft, M85.80 - Other specified disorders of bone density and structure, unspecified site, Z28.21 - Immunization not carried out because of patient refusal Aspartate Amino Transferase 03/16/23 I73.9 - Peripheral vascular disease, unspecified, E11.9 - Type 2 diabetes mellitus without complications, E55.9 - Vitamin D deficiency, unspecified, Z78.0 - Asymptomatic menopausal state, I10 - Essential (primary) hypertension, E78.5 - Hyperlipidemia, unspecified, I25.10 - Atherosclerotic heart disease of [place] coronary artery without angina pectoris, Z95.1 - Presence of aortocoronary bypass graft, M85.80 - Other specified disorders of bone density and structure, unspecified site, Z28.21 - Immunization not carried out because of patient refusal Lipid Panel 03/16/23 I73.9 - Peripheral vascular disease, unspecified, E11.9 - Type 2 diabetes mellitus without complications, E55.9 - Vitamin D deficiency, unspecified, Z78.0 - Asymptomatic menopausal state, I10 - Essential (primary) hypertension, E78.5 - Hyperlipidemia, unspecified, I25.10 - Atherosclerotic heart disease of [place] coronary artery without angina pectoris, Z95.1 - Presence of aortocoronary bypass graft, M85.80 - Other specified disorders of bone density and structure, unspecified site, Z28.21 - Immunization not carried out because of patient refusal Basic Metabolic Panel Fasting 03/16/23 I73.9 - Peripheral vascular disease, unspecified, E11.9 - Type 2 diabetes mellitus without complications, E55.9 - Vitamin D deficiency, unspecified, Z78.0 - Asymptomatic menopausal state, I10 - Essential (primary) hypertension, E78.5 - Hyperlipidemia, unspecified, I25.10 - Atherosclerotic heart disease of [place] coronary artery without angina pectoris, Z95.1 - Presence of aortocoronary bypass graft, M85.80 - Other specified disorders of bone density and structure, unspecified site, Z28.21 - Immunization not carried out because of patient refusal Hemoglobin A1c 03/16/23 I73.9 - Peripheral vascular disease, unspecified, E11.9 - Type 2 diabetes mellitus without complications, E55.9 - Vitamin D deficiency, unspecified, Z78.0 - Asymptomatic menopausal state, I10 - Essential (primary) hypertension, E78.5 - Hyperlipidemia, unspecified, I25.10 - Atherosclerotic heart disease of [place] coronary artery without angina pectoris, Z95.1 - Presence of aortocoronary bypass graft, M85.80 - Other specified disorders of bone density and structure, unspecified site, Z28.21 - Immunization not carried out because of patient refusal Microalbumin, Random (w Creat) 03/16/23 I73.9 - Peripheral vascular disease, unspecified, E11.9 - Type 2 diabetes mellitus without complications, E55.9 - Vitamin D deficiency, unspecified, Z78.0 - Asymptomatic menopausal state, I10 - Essential (primary) hypertension, E78.5 - Hyperlipidemia, unspecified, I25.10 - Atherosclerotic heart disease of [place] coronary artery without angina pectoris, Z95.1 - Presence of aortocoronary bypass graft, M85.80 - Other specified disorders of bone density and structure, unspecified site, Z28.21 - Immunization not carried out because of patient refusal Vitamin D 25-OH Total 03/16/23 I73.9 - Peripheral vascular disease, unspecified, E11.9 - Type 2 diabetes mellitus without complications, E55.9 - Vitamin D deficiency, unspecified, Z78.0 - Asymptomatic menopausal state, I10 - Essential (primary) hypertension, E78.5 - Hyperlipidemia, unspecified, I25.10 - Atherosclerotic heart disease of [place] coronary artery without angina pectoris, Z95.1 - Presence of aortocoronary bypass graft, M85.80 - Other specified disorders of bone density and structure, unspecified site, Z28.21 - Immunization not carried out because of patient refusal Vitamin B12 and Folate 03/16/23 I73.9 - Peripheral vascular disease, unspecified, E11.9 - Type 2 diabetes mellitus without complications, E55.9 - Vitamin D deficiency, unspecified, Z78.0 - Asymptomatic menopausal state, I10 - Essential (primary) hypertension, E78.5 - Hyperlipidemia, unspecified, I25.10 - Atherosclerotic heart disease of [place] coronary artery without angina pectoris, Z95.1 - Presence of aortocoronary bypass graft, M85.80 - Other specified disorders of bone density and structure, unspecified site, Z28.21 - Immunization not carried out because of patient refusal Complete Blood Count Auto Diff 03/16/23 I73.9 - Peripheral vascular disease, unspecified, E11.9 - Type 2 diabetes mellitus without complications, E55.9 - Vitamin D deficiency, unspecified, Z78.0 - Asymptomatic menopausal state, I10 - Essential (primary) hypertension, E78.5 - Hyperlipidemia, unspecified, I25.10 - Atherosclerotic heart disease of [place] coronary artery without angina pectoris, Z95.1 - Presence of aortocoronary bypass graft, M85.80 - Other specified disorders of bone density and structure, unspecified site, Z28.21 - Immunization not carried out because of patient refusal Medications: Changed From metoprolol tartrate 12.5 mg (1/4 x 50 mg) PO BID 60 tabs 4RF To metoprolol tartrate 12.5 mg (1/2 x 25 mg) PO BID 90 tabs 4RF 90 days Refilled cyanocobalamin (vitamin B-12) (Vitamin B-12) 500 mcg PO DAILY 90 tabs 3RF Coding Level of Care Code Est Pt Level 4 (58357) Diagnoses Type 2 diabetes mellitus without complication, without long-term current use of insulin E11.9 Essential hypertension I10 Dyslipidemia E78.5 Refused influenza vaccine Z28.21
== END 2022-12-16 15:31 | disposition home or self-care (01) ==
PROVIDERS: PCP Internal Medicine; Visit Provider Internal Medicine
DX: E11.69 Type 2 diabetes mellitus with other specified complication (principal); I10 Essential (primary) hypertension; E78.5 Hyperlipidemia, unspecified; Z28.21 Immunization not carried out because of patient refusal
CPT/HCPCS: 99214

== ENCOUNTER 2023-01-13 09:29 | Outpatient (REF) | payer MEDICARE, SELFPAY ==
--- NOTE | ~2023-01-13 | MM_ITS ---
EXAMINATION: BONE DENSITOMETRY CLINICAL INDICATION: Asymptomatic menopausal state. COMPARISON: Previous BD dated 06/01/2020 and baseline BD dated 03/01/2015 (lumbar spine) and 03/01/2015 (right hip). TECHNIQUE: Using a [employer] DXA System (software version: 13.1) manufactured by [employer], dual-energy x-ray absorptiometry was performed of the lumbar spine and right hip. The left hip was not imaged due to arthritic changes. The images are of good technical quality. Summary results are attached. FINDINGS: AP SPINE L1-L4: Current: BMD 1.116 g/cm2, Z-score 1.6, T-score -0.5, normal, 0.2% decrease from previous, 4.5% decrease from baseline (<5% change is not significant). Prior: BMD 1.118 g/cm2. Baseline: BMD 1.168 g/cm2. RIGHT FEMUR, NECK: Current: BMD 0.659 g/cm2, Z-score -0.3, T-score -2.7, osteoporosis. Baseline: BMD 0.695 g/cm2. RIGHT FEMUR, TOTAL: Current: BMD 0.753 g/cm2, Z-score 0.3, T-score -2.0, osteopenia, 4.4% decrease from baseline (<5% change is not significant). Baseline: BMD 0.788 g/cm2. IDENTIFIED RISK FACTORS: Osteoporosis. Height loss. Low calcium intake. Secondary osteoporosis (early menopause). Hysterectomy. Bilateral oophorectomy. Anticonvulsants. Chronic glucocorticoids. HISTORY OF FRACTURE: None listed. MEDICATIONS: Vitamin D. MM/XR DEXA axial skeleton IMPRESSION: 1. DIAGNOSIS: Osteoporosis based on the lowest T-score value of -2.7 in the femoral neck applying World Health Organization criteria. 2. 10-YEAR FRACTURE RISK PREDICTION, FRAX: According to the guidelines, FRAX calculation should only be performed on patients in the osteopenia bone density category.?Therefore, FRAX was not performed on this patient.? 3. Treatment Recommendations: NOF guidelines recommend consideration for treatment in postmenopausal women and men age 50 and older presenting with the following: -A hip or vertebral (clinical or morphometric) fracture. -T-score less than or equal to -2.5 at the femoral neck or spine after appropriate evaluation to exclude secondary causes. -Low bone mass at the hip or spine and a 10-year fracture probability by FRAX of greater than or equal to 3% for hip fracture or greater than or equal to 20% for major osteoporotic fracture based on the [place] adapted WHO algorithm. 4. Other Recommendations: All treatment decisions require clinical judgment and consideration of individual patient factors, including patient preferences, comorbidities, previous drug use, risk factors not captured in the FRAX model (e.g. frailty, falls, vitamin D deficiency, increased bone turnover, interval significant decline in bone density) and possible under or overestimation of fracture risk by FRAX. Additional medical evaluation for secondary cause of low bone mineral density may be appropriate. FUTURE SCAN RECOMMENDATION: People with diagnosed cases of osteoporosis or at high risk for fracture should have regular bone mineral density tests. For patients eligible for Medicare, routine testing is allowed once every 2 years. The testing frequency can be increased to one year for patients who have rapidly progressing disease, those who are receiving or discontinuing medical therapy to restore bone mass, or have additional risk factors.
== END 2023-01-13 09:30 | disposition home or self-care (01) ==
LOC: HO.MAMMO 09:29
PROVIDERS: PCP Internal Medicine; Visit Provider Nurse Practitioner Family
DX: Z13.820 Encounter for screening for osteoporosis (principal); Z78.0 Asymptomatic menopausal state; M85.80 Other specified disorders of bone density and structure, unspecified site
CPT/HCPCS: 77080

== ENCOUNTER 2023-03-25 13:38 | Outpatient (AMB) | payer MEDICARE, SELFPAY ==
[2023-03-25 13:41] VITALS: BP 120/60; PULSE 77; BMI 22.4
--- NOTE | 2023-03-25 13:41 | MHC.OFFVIS ---
Intake Vital Signs 03/25/23 13:41 Height 5 ft 5 in Weight 134 lb 7.712 oz BMI 22.4 BP 120/60 Blood Pressure Location Lt brachial Position Sitting Pulse 77 Intake Visit Reasons: 1 year fu Intake Note: 1 year follow up w/ EKG Soakers Supervisor Required: No Accompanied by: Self / Same As Patient Allergies Vfxthqo-HGM-PrW Reductase Inhibitor [Frgrbiz-Sge-Ndt Reductase Inhibitor] Allergy (Unknown, Verified 03/25/23 13:42) muscle cramps Medication List - Last Reconciled 03/25/23 by Ramses Palmer MD acetaminophen ER (Arthritis Pain Reliever) 650 mg PO BID aspirin (Adult Aspirin Regimen) 81 mg PO DAILY atorvastatin 80 mg PO BEDTIME betamethasone dipropionate 0.05% 1 appl topical BID PRN blood sugar diagnostic (FreeStyle Lite Strips) Test blood sugar once daily blood-glucose meter (FreeStyle Lite Meter kit) As directed for testing blood sugar cholecalciferol (vitamin D3) (Vitamin D3) 25 mcg PO DAILY cyanocobalamin (vitamin B-12) (Vitamin B-12) 500 mcg PO DAILY gabapentin 600 mg (2 x 300 mg) PO BEDTIME lancets (FreeStyle Lancets) Test blood sugar once a day metformin 500 mg PO BIDWMEAL 3 months metoprolol tartrate 12.5 mg (1/2 x 25 mg) PO BID 90 days nebulizer and compressor As directed rivaroxaban (Xarelto) 2.5 mg PO sitagliptin phosphate (Januvia) 50 mg PO DAILY tobramycin-dexamethasone 0.3-0.1 % (TobraDex) 0.5 inches ophthalmic (eye) ONCE HPI HPI Comments History of Present Illness Details Ashley returns for follow-up regarding coronary artery disease. Has a history of coronary disease and also has had coronary artery bypass surgery. Remote coronary stenting to circumflex and 90s. Few years ago, she was not taking any medications at all due to depression. That led to non ST-elevation myocardial infarction and then bypass surgery. After that, she states she is back on meds, but does not still seem to be very regular. No specific complaints like angina or shortness of breath. Seems to be getting along. She states she is even working. She also has lower extremity vascular disease and goes to [facility] for the same. Otherwise, no new issues since last seen. [facility] Medical History (Updated 12/16/22 @ 10:52 by Yu Alcantar MD) PAD (peripheral artery disease) Hematuria Candidal intertrigo Pancytopenia Pulmonary nodules Asthma Pulmonary nodules Bronchiectasis with (acute) exacerbation Productive cough Popliteal vein thrombosis Vitamin D deficiency Diabetes mellitus with peripheral angiopathy Refused influenza vaccine COVID-19 vaccination refused Other and unspecified hyperlipidemia Atherosclerotic cardiovascular disease Coronary artery disease Dyslipidemia Essential hypertension Type 2 diabetes mellitus without complication, without long-term current use of insulin Non-ST elevation [place] (NSTEMI) Bilateral carotid artery stenosis NSTEMI (non-ST elevated myocardial infarction) Surgical History History of amputation of toe History of amputation of lesser toe History of cardiac catheterization (~01/06/20) S/P CABG x 4 (~01/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 Brother No problems noted. Brother No problems noted. Brother No problems noted. Sister No problems noted. Sister No problems noted. Sister No problems noted. Sister No problems noted. Sister No problems noted. Son No problems noted. Son No problems noted. Son No problems noted. Son No problems noted. Daughter Cancer Other Breast cancer Substance use disorder Social History Household Members: None Housing: Assisted Living Facility Are you a primary ostomy care nurse to a significant other at home: No Alcohol intake: unknown Patient Tobacco Use Status: Never used Tobacco e-Cigarette/Vaping Use: Never Used Second Hand Smoke Exposure: Yes service: No Current occupational status: retired Cognitive needs: No Hearing needs: No Vision needs: Yes Review of Systems Const All systems reviewed & are unremarkable except as noted in HPI and below Reports as per HPI and Reports no additional complaints Eyes Reports as per HPI and Denies no additional complaints ENT Denies no additional complaints and Reports as per HPI Card Reports as per HPI, Reports no additional complaints, Denies acrocyanosis, Denies chest pain, Denies leg edema, Denies lightheadedness, Denies palpitations and Denies dyspnea Resp Reports as per HPI, Denies no additional complaints and Denies dyspnea GI Reports as per HPI and Denies no additional complaints Reports as per HPI Musc Reports no additional complaints and Reports as per HPI Skin/Breast Reports system reviewed and no additional complaints, except as documented Neuro Reports no additional complaints and Reports as per HPI Psych Reports no additional complaints and Reports as per HPI Endo Reports no additional complaints, Reports as per HPI and Denies palpitations Roberto/Lymph Reports no additional complaints and Reports as per HPI Aller/Immun Reports no additional complaints and Reports as per HPI Physical Exam Vital Signs: Last Vital Signs Pulse 77 03/25/23 13:41 BP 120/60 03/25/23 13:41 BMI result Body Mass Index 22.4 Const General: comfortable and no acute distress Orientation/consciousness: patient oriented x3 HEENT Other: Unremarkable Head: Yes normal to inspection Neck Neck: Yes normal visual inspection Chest Chest palpation & inspection: normal inspection of the chest Resp Auscultation: clear to auscultation bilaterally Cardio Palpation: normal PMI Heart sounds: S1 normal heart sound present, S2 normal heart sound present, no gallops, no murmurs and no rubs GI Palpation (GI): Soft to palpation Back/Spine/Pelvis Other: unremarkable Skin General skin exam: no rashes or lesions noted Neuro General: patient oriented x3 Extrem General: Yes normal to inspection Psych Mental Status: mental status grossly normal Office Procedures EKG Details: EKG with sinus rhythm at 77/Min; nonspecific ST-T changes; [place]. [id number], Complete Assessment & Plan Assessment & Plan (1) Atherosclerotic cardiovascular disease: Code(s): I25.10 - Atherosclerotic heart disease of [place] coronary artery without angina pectoris Plan: Overall, doing well. No angina. Continue aspirin. Continue beta-blockers/statins. Lipids not well controlled but she also has very poor dietary compliance as well as medication compliance. Reinforced both today. (2) Status post aorto-coronary artery bypass graft: Code(s): Z95.1 - Presence of aortocoronary bypass graft Plan: No recent issues. (3) Bilateral carotid artery stenosis: Code(s): I65.23 - Occlusion and stenosis of bilateral carotid arteries Plan: We will repeat carotid ultrasound. (4) Type 2 diabetes mellitus without complication, without long-term current use of insulin: Code(s): E11.9 - Type 2 diabetes mellitus without complications Plan: She is on metformin and Januvia. Last available hemoglobin A1c is 6.7%. (5) Essential hypertension: Code(s): I10 - Essential (primary) hypertension Plan: Stable. No changes. Orders: Orders US carotid duplex BI Today I65.23 - Occlusion and stenosis of bilateral carotid arteries Coding Level of Care Code Est Pt Level 4 (39029) Diagnoses Atherosclerotic cardiovascular disease I25.10 Status post aorto-coronary artery bypass graft Z95.1 Bilateral carotid artery stenosis I65.23 Type 2 diabetes mellitus without complication, without long-term current use of insulin E11.9 Essential hypertension I10 CPT Codes EKG - CPT: 09179-[id number], Complete ([id number])
== END 2023-03-25 14:07 | disposition home or self-care (01) ==
PROVIDERS: PCP Internal Medicine; Visit Provider Internal Medicine
DX: I25.10 Atherosclerotic heart disease of native coronary artery without angina pectoris (principal); Z95.1 Presence of aortocoronary bypass graft; I65.23 Occlusion and stenosis of bilateral carotid arteries; E11.9 Type 2 diabetes mellitus without complications; I10 Essential (primary) hypertension
CPT/HCPCS: 93010; 99214

== ENCOUNTER → 2023-03-25 13:38 | Outpatient (BNVA) | payer MEDICARE, SELFPAY | PROVIDERS: PCP Internal Medicine; Visit Provider Internal Medicine | DX: I25.10 Atherosclerotic heart disease of native coronary artery without angina pectoris (principal); I65.23 Occlusion and stenosis of bilateral carotid arteries; I10 Essential (primary) hypertension; E11.9 Type 2 diabetes mellitus without complications; Z95.1 Presence of aortocoronary bypass graft | CPT/HCPCS: 93005; 99212 ==

== ENCOUNTER 2023-03-27 10:02 | Outpatient (REF) | payer MEDICARE, SELFPAY ==
[2023-03-27 13:22] LABS: MANUAL DIFF FLAG NO
[2023-03-27 13:29] LABS: Basophils Percent Auto 0.4 % (0-2); Eosinophils Absolute Auto 0.2 X10*3/uL (0.0-0.4); Eosinophils Percent Auto 2.9 % (0-4); Hematocrit 36.3 % (37.0-47.0); Hemoglobin 12.2 g/dl (12.0-16.0); Imm Gran Abs Auto 0.01 X10*3/uL (0.00-0.03); Imm Gran Pct Auto 0.2 % (0.0-0.4); Lymphocytes Absolute Auto 1.8 X10*3/uL (1.2-4.9); Lymphocytes Percent Auto 34.2 % (20-40); Mean Corpuscular HGB Conc 33.6 g/dl (31.0-35.0); Mean Corpuscular Hemoglobin 30.9 pg (27.0-33.0); Mean Corpuscular Volume 91.9 fL (80.0-98.0); Monocytes Absolute Auto 0.4 X10*3/uL (0.1-1.2); Monocytes Percent Auto 7.7 % (2-11); Neutrophils Absolute Auto 2.9 x10*3/uL (2.0-8.3); Neutrophils Percent Auto 54.6 % (45-73); Platelet Count 190 X10*3/uL (160-400); Red Blood Count 3.95 X10*6/uL (4.20-5.50); White Blood Count 5.2 X10*3/uL (4.8-10.8)
[2023-03-27 14:14] LABS: Alanine Aminotransferase 14 U/L (0-31); Anion Gap 15 (12-20); Aspartate Amino Transferase 18 U/L (5-31); Blood Urea Nitrogen 23 mg/dL (9-16); Calcium 9.4 mg/dL (8.4-10.2); Carbon Dioxide 27 mmol/L (22-29); Chloride 101 mmol/L (96-108); Cholesterol 180 mg/dL (<200); Estimated Glomerular Filt Rate > 60; Glucose Fasting 157 mg/dL (60-99); HDL Cholesterol 43 mg/dL (>40); LDL Cholesterol Calculated 88 mg/dL (<100); Potassium 4.3 mmol/L (3.3-5.1); Sodium 139 mmol/L (135-145); Triglycerides 246 mg/dL (<150)
[2023-03-27 14:16] LABS: Vitamin D 25-OH Total 39.7 ng/mL (>30)
[2023-03-27 14:38] LABS: Creatinine Urine 193.94 mg/dL
[2023-03-27 15:03] LABS: Estimated Average Glucose 148 mg/dL; Hemoglobin A1c % 6.8 % (<6.0)
[2023-03-27 15:32] LABS: Folate 10.9 ng/mL (> or = 4.0); Vitamin B12 499 pg/mL (200-900)
== END 2023-03-27 10:03 | disposition home or self-care (01) ==
LOC: HO.HMGCLDS 10:02
PROVIDERS: PCP Internal Medicine; Visit Provider Internal Medicine
DX: E11.51 Type 2 diabetes mellitus with diabetic peripheral angiopathy without gangrene (principal); E55.9 Vitamin D deficiency, unspecified; I10 Essential (primary) hypertension; E78.5 Hyperlipidemia, unspecified; I25.10 Atherosclerotic heart disease of native coronary artery without angina pectoris; M85.80 Other specified disorders of bone density and structure, unspecified site; Z95.1 Presence of aortocoronary bypass graft; Z78.0 Asymptomatic menopausal state
CPT/HCPCS: 36415; 80048; 80061; 82043; 82306; 82570; 82607; 82746; 83036; 84450; 84460; 85025

== ENCOUNTER 2023-04-13 14:57 | Outpatient (REF) | payer MEDICARE, SELFPAY ==
--- NOTE | ~2023-04-13 | US_ITS ---
EXAMINATION: US EXTRACRANIAL CAROTID DUPLEX, BILATERAL CLINICAL INFORMATION: Occlusion and stenosis of the carotid arteries COMPARISON: Carotid duplex on 04/03/2022 TECHNIQUE: Real-time ultrasound and Doppler techniques (integrating B-mode 2-D vascular images, Doppler spectral analysis and color-flow Doppler imaging) were utilized to interrogate the extracranial carotid arteries, the vertebral arteries and proximal subclavian arteries bilaterally. The degree of stenosis is determined by criteria similar to NASCET. FINDINGS: Right Side: 1. There is moderate atherosclerotic plaque seen in the bifurcation/proximal ICA region. 2. The common carotid artery PSV proximally is 165 cm/s and distally 27 cm/s. 3. The proximal internal carotid artery velocities are 161 cm/s systolic and 47 cm/s diastolic. 4. The proximal external carotid artery PSV is 166 cm/s. 5. The vertebral artery shows antegrade flow. 6. The subclavian artery waveforms are normal. Left Side: 1. There is moderate atherosclerotic plaque seen in the bifurcation/proximal ICA region. 2. The common carotid artery PSV proximally is 176 cm/s and distally 129 cm/s. 3. The proximal internal carotid artery velocities are 147 cm/s systolic and 37 cm/s diastolic. 4. The proximal external carotid artery PSV is 133 cm/s. 5. The vertebral artery shows antegrade flow. 6. The subclavian artery waveforms are normal. US/US carotid duplex BI IMPRESSION: 1. RIGHT: Moderate, hemodynamically significant stenosis of the proximal right internal carotid artery corresponding to a 50-79% stenosis by velocity criteria. 2. LEFT: Moderate, hemodynamically significant stenosis of the proximal left internal carotid artery corresponding to a 50-79% stenosis by velocity criteria. 3. Progression in category of disease on the left compared to 04/03/2022.
== END 2023-04-13 14:58 | disposition home or self-care (01) ==
LOC: HO.US 14:57
PROVIDERS: PCP Internal Medicine; Visit Provider Internal Medicine
DX: I65.23 Occlusion and stenosis of bilateral carotid arteries (principal)
CPT/HCPCS: 93880

== ENCOUNTER 2023-04-14 13:41 | Outpatient (AMB) | payer MEDICARE, SELFPAY ==
[2023-04-14 13:42] VITALS: BP 116/60; PULSE 82; O2SAT 98; BMI 22.6
--- NOTE | 2023-04-14 13:42 | A.OFFPC_ITS ---
Vital Signs 04/14/23 13:42 Height 5 ft 5 in Weight 136 lb BMI 22.6 BP 116/60 Blood Pressure Location Rt brachial Position Sitting Pulse 82 Pulse Source Pulse Oximeter Pulse Oximetry (%) 98 Intake Visit Reasons: 3 months f/u labs Allergies Eyfotnv-DWJ-PzZ Reductase Inhibitor [Vuesusp-Mtr-Dke Reductase Inhibitor] Allergy (Unknown, Verified 04/14/23 13:54) muscle cramps Medication List - Last Reconciled 04/14/23 by Yu Alcantar MD acetaminophen ER (Arthritis Pain Reliever) 650 mg PO BID aspirin (Adult Aspirin Regimen) 81 mg PO DAILY atorvastatin 80 mg PO BEDTIME betamethasone dipropionate 0.05% 1 appl topical BID PRN blood sugar diagnostic (FreeStyle Lite Strips) Test blood sugar once daily blood-glucose meter (FreeStyle Lite Meter kit) As directed for testing blood sugar cholecalciferol (vitamin D3) (Vitamin D3) 25 mcg PO DAILY cyanocobalamin (vitamin B-12) (Vitamin B-12) 500 mcg PO DAILY gabapentin 600 mg (2 x 300 mg) PO BEDTIME lancets (FreeStyle Lancets) Test blood sugar once a day metformin 500 mg PO BIDWMEAL 3 months metoprolol tartrate 12.5 mg (1/2 x 25 mg) PO BID 90 days nebulizer and compressor As directed rivaroxaban (Xarelto) 2.5 mg PO sitagliptin phosphate (Januvia) 50 mg PO DAILY tobramycin-dexamethasone 0.3-0.1 % (TobraDex) 0.5 inches ophthalmic (eye) ONCE Tobacco use date assessed: 04/14/23 Fall risk assessment: No Falls in past year Last assessed Fall Risk: 04/14/23 Dental Screening Dental Screen Date: 04/14/23 Did you have a dental visit in the last 12 months?: No Was dental information given to patient?: Patient has dentist HPI 3 months f/u labs HPI Details 83-year-old lady with history of CAD with remote coronary stenting to circumflex in the 90, hx non ST-elevation myocardial infarction s/p bypass surgery, has type 2 diabetes mellitus without currently use of insulin, peripheral arterial disease with history of amputation of lesser toe, history of bronchiectasis, hyperlipidemia, hypertension, here today for follow-up. 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 She would recent fasting labs done which showed no anemia, electrolytes, renal function are within normal limits, hemoglobin A1c is at 6.8%, normal liver enzymes, vitamin-D level and lipids except for elevated triglycerides. complains of intermittent episodes of urinary frequency and urgency, but no abdominal pain or back pain [facility] Medical History (Updated 05/08/23 @ 07:57 by Yu Alcantar MD) Osteoporosis PAD (peripheral artery disease) Hematuria Candidal intertrigo Pancytopenia Pulmonary nodules Asthma Pulmonary nodules Bronchiectasis with (acute) exacerbation Productive cough Popliteal vein thrombosis Vitamin D deficiency Diabetes mellitus with peripheral angiopathy Refused influenza vaccine COVID-19 vaccination refused Other and unspecified hyperlipidemia Atherosclerotic cardiovascular disease Coronary artery disease Dyslipidemia Essential hypertension Type 2 diabetes mellitus without complication, without long-term current use of insulin Non-ST elevation [place] (NSTEMI) Bilateral carotid artery stenosis NSTEMI (non-ST elevated myocardial infarction) Surgical History (Updated 04/14/23 @ 14:17 by Yu Alcantar MD) History of amputation of lesser toe History of cardiac catheterization (~01/06/20) S/P CABG x 4 (~01/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 Brother No problems noted. Brother No problems noted. Brother No problems noted. Sister No problems noted. Sister No problems noted. Sister No problems noted. Sister No problems noted. Sister No problems noted. Son No problems noted. Son No problems noted. Son No problems noted. Son No problems noted. Daughter Cancer Other Breast cancer Substance use disorder Social History Household Members: None Housing: Assisted Living Facility Are you a primary managed care liaison to a significant other at home: No Alcohol intake: unknown Patient Tobacco Use Status: Never used Tobacco e-Cigarette/Vaping Use: Never Used Second Hand Smoke Exposure: Yes service: No Current occupational status: retired Cognitive needs: No Hearing needs: No Vision needs: Yes Questionnaire Thrive Questionnaire Date Thrive assessed: 05/30/21 MARY JO-7 AMB Questionnaire MARY JO-7 Date MARY JO - 7 assessed: 05/30/21 Source: Developed by Drs. Tera Uribe, Merlyn Romero, Damian Hanna and colleagues, with an educational kalpesh from [employer]. Review of Systems Const Reports no additional complaints Eyes Denies no additional complaints ENT Denies no additional complaints Card Denies chest pain, Denies leg edema, Denies lightheadedness and Denies dyspnea Resp Denies dyspnea GI Denies no additional complaints Reports as per HPI Musc Reports no additional complaints Neuro Reports no additional complaints Psych Reports no additional complaints Endo Reports no additional complaints Roberto/Lymph Reports no additional complaints Aller/Immun Reports no additional complaints Physical exam (Primary Care) Vital Signs: Last Vital Signs Pulse 82 04/14/23 13:42 BP 116/60 04/14/23 13:42 Pulse Ox 98 04/14/23 13:42 BMI result Body Mass Index 22.6 Tobacco/Smoking Status: Tobacco use Status Tobacco use date assessed 04/14/23 04/14/23 13:45 Patient Tobacco Use Status Never used Tobacco 04/14/23 13:45 e-Cigarette/Vaping Use Never Used 04/14/23 13:45 Thrive Assessment: Date of Thrive Assessment Date Thrive assessed 05/30/21 04/14/23 13:45 Const General: comfortable, no acute distress, alert and other (Walks with a cane) Orientation/consciousness: patient oriented x3 HENMT Ears: hearing grossly normal bilaterally, TM's normal bilaterally and EAC's normal General nose exam: Normal external nose present and No nasal discharge present Face and sinus: Yes face symmetric Mouth: Normal oral and palatal mucosa present Eyes General: appearance normal, both eyes and all related structures Neck Neck: Yes full ROM, Yes no lymphadenopathy and Yes supple Resp Auscultation: clear to auscultation bilaterally Cardio Other: S1-S2 present regular rate and rhythm GI Palpation (GI): Soft to palpation, nontender, no guarding and no masses Auscultation: normal bowel sounds General: Yes no CVA tenderness Back/Spine/Pelvis Back: no CVA tenderness Neuro General: patient oriented x3 Extrem General: Yes full ROM, Yes no joint enlargement, Yes no pedal edema and Yes no calf tenderness Results AMB Urinalysis, Automated UA Leukoctes 125 Yovani/uL Last Edit by Janeen Castillo CMA on 04/14/23 14:28 UA Nitrite Positive Last Edit by Janeen Castillo, SHAKIR on 04/14/23 14:28 UA Urobilinogen 0.2 mg/dL Last Edit by Janeen Castillo, SHAKIR on 04/14/23 14:28 UA Protein 15 mg/dL Last Edit by Janeen Castillo, SHAKIR on 04/14/23 14:28 UA pH 5.5 Last Edit by Janeen Castillo, PARTS PRODUCT ANALYST on 04/14/23 14:28 UA Blood 80 Olegario/uL Last Edit by Janeen Castillo, PARTS PRODUCT ANALYST on 04/14/23 14:28 UA Specific [place] 1.025 Last Edit by Janeen Castillo, PARTS PRODUCT ANALYST on 04/14/23 14:28 UA Ketone Positive Last Edit by Janeen Castillo, SHAKIR on 04/14/23 14:28 UA Bilirubin 1 mg/dL Last Edit by Janeen Castillo, SHAKIR on 04/14/23 14:28 UA Glucose 0 mg/dL Last Edit by Janeen Castillo, SHAKIR on 04/14/23 14:28 Results Reviewed Results Reviewed: Laboratory Last Values Urine pH (Auto) 5.5 04/14/23 14: Specific [place] (Auto) 1.025 04/14/23 14:26 Urine Protein (Auto) 15 mg/dL 04/14/23 14:26 Glucose (UA)(Auto) 0 mg/dL 04/14/23 14:26 Urine Ketones (Auto) Positive 04/14/23 14:26 Urine Blood (Auto) 80 Olegario/uL 04/14/23 14:26 Urine Nitrite (Auto) Positive 04/14/23 14:26 Urine Bilirubin (Auto) 1 mg/dL 04/14/23 14:26 Urine Urobilinogen (Auto) 0.2 mg/dL 04/14/23 14:26 Leukocyte Esterase (Auto) 125 Yovani/uL 04/14/23 14:26 ENTERED: 03/27/23-1007 KILEY KAPOOR: ORDERED: CBC Auto Diff Test Result Flag Reference WBC 5.2 4.8-10.8 X10*3/uL RBC 3.95 L 4.20-5.50 X10*6/uL HGB 12.2 12.0-16.0 g/dl HCT 36.3 L 37.0-47.0 % MCV 91.9 80.0-98.0 fL MCH 30.9 27.0-33.0 pg MCHC 33.6 31.0-35.0 g/dl RDW 12.0 11.0-16.0 % PLT 190 160-400 X10*3/uL Laboratory Tests 03/27/23 10:08 Estimat Average Glucose 148 Hemoglobin A1c % 6.8 H ENTERED: 03/27/23-[facility] [place] KILEY KAPOOR: ORDERED: Met Prof Fast, AST, ALT, Lipid Panel, Vitamin D 25-OH Test Result Flag Reference Sodium 139 135-145 mmol/L Potassium 4.3 3.3-5.1 mmol/L CL 101 96-108 mmol/L CO2 27 22-29 mmol/L Gap 15 12-20 BUN 23 H 9-16 mg/dL Creat 0.86 0.5-1.4 mg/dL EGFR > 60 NOTE: For -[place] individuals, multiply the result by 1.210. Chronic Kidney Disease: Estimated GFR < 60 mL/min/1.73m2 Severe Kidney Disease: Estimated GFR < 15 mL/min/1.73m2 FBS 157 H 60-99 mg/dL A fasting glucose of 126 mg/dl or greater on more than one occasion is considered diagnostic of diabetes. CA 9.4 8.4-10.2 mg/dL AST (GOT) 18 5-31 U/L ALT (GPT) 14 0-31 U/L Triglyceride 246 H <150 mg/dL Desirable Triglyceride: less than 150 mg/dL Borderline High Triglyceride 150-199 mg/dL High Triglyceride: 200-499 mg/dL Very High Triglyceride: greater than or equal to 5OO mg/dL Cholesterol 180 <200 mg/dL Desirable Cholesterol: less than 200 mg/dL Borderline High Cholesterol: 200-239 mg/dL High Cholesterol: greater than 239 mg/dL LDL Calculated 88 <100 mg/dL Desirable LDL: less than 100 mg/dL Near Optimal/Above Optimal LDL: 110-129 mg/dL Borderline High LDL: 130-159 mg/dL High LDL: 160-189 mg/dL Very High LDL: greater than or equal to 190 mg/dL HDL 43 >40 mg/dL Desirable HDL: greater than 40 mg/dL Note: This HDL assay may give artificially low results in patients with liver disease. Vit D 25-OH Tot 39.7 >30 ng/mL Health Based Reference Values* < 20 ng/mL Deficient 20-30 ng/mL Insufficient > 30 ng/mL Sufficient Assessment and Plan Assessment & Plan (1) Type 2 diabetes mellitus without complication, without long-term current use of insulin: Code(s): E11.9 - Type 2 diabetes mellitus without complications Plan: Hemoglobin A1c acceptable at 6.8% continue metformin 500 mg 1 tablet twice a day with meals and Januvia 50 mg once a day (2) Osteoporosis: Comment: Right femoral neck Code(s): M81.0 - Age-related osteoporosis without current pathological fracture Qualifiers: Osteoporosis type: age-related Presence of current pathological fracture: without current pathological fracture Qualified Code(s): M81.0 - Age- related osteoporosis without current pathological fracture Plan: Discuss treatment options with patient, including starting alendronate, Prolia infusion, patient however would like to think about whether to start treatment or not, advised to stay active, and continue taking vitamin-D 3 supplements and take adequate calcium from dietary sources (3) Dyslipidemia: Code(s): E78.5 - Hyperlipidemia, unspecified Plan: Reviewed recent fasting lipid profile with patient with high triglycerides with normal LDL cholesterol, HDL do cholesterol. Continue with atorvastatin 80 mg daily , in addition to adherence to low-cholesterol diet and regular exercise, at least 30 minutes 3 to 4 times a week. Advised patient to make healthy food choices, eat more fruits, vegetables, whole grains, wild caught fish and low-fat dairy. Limit amount of meat and fried or fatty food products, as well as processed foods and fast foods. Follow-up scheduled with repeat fasting lipid panel in 4 months. (4) Essential hypertension: Code(s): I10 - Essential (primary) hypertension Plan: Blood pressure at goal of less than 130/80. Continue with current medication. Reinforced importance of following a low sodium diet, getting regular exercise, and lowering stress levels. (5) Urinary frequency: Code(s): R35.0 - Frequency of micturition Plan: Urine showed presence of leukocytes and nitrites, urine sent for culture and sensitivity, empirically started on nitrofurantoin 100 mg per capsule to take 1 every 12 hours for 10 days (6) PAD (peripheral artery disease): Comment: Followed by Dr. Wolfgang Helton at [place] [facility] and started on Xarelto 2.5 mg 1 tablet BID for prevention of progression of disease and to maintain patency in left leg arterial system = August 2022 Code(s): I73.9 - Peripheral vascular disease, unspecified Plan: Currently on Xarelto 2.5 mg 1 tablet twice a day started by the vascular Clinic in [place] Orders: Orders Lipid Panel 08/17/23 I73.9 - Peripheral vascular disease, unspecified, M81.0 - Age-related osteoporosis without current pathological fracture, E11.9 - Type 2 diabetes mellitus without complications, Z78.0 - Asymptomatic menopausal state, E78.5 - Hyperlipidemia, unspecified, I10 - Essential (primary) hypertension Alanine Aminotransferase 08/17/23 I73.9 - Peripheral vascular disease, unspecified, M81.0 - Age-related osteoporosis without current pathological fracture, E11.9 - Type 2 diabetes mellitus without complications, Z78.0 - Asymptomatic menopausal state, E78.5 - Hyperlipidemia, unspecified, I10 - Essential (primary) hypertension Aspartate Amino Transferase 08/17/23 I73.9 - Peripheral vascular disease, unspecified, M81.0 - Age-related osteoporosis without current pathological fracture, E11.9 - Type 2 diabetes mellitus without complications, Z78.0 - Asymptomatic menopausal state, E78.5 - Hyperlipidemia, unspecified, I10 - Essential (primary) hypertension Vitamin D 25-OH Total 08/17/23 I73.9 - Peripheral vascular disease, unspecified, M81.0 - Age-related osteoporosis without current pathological fracture, E11.9 - Type 2 diabetes mellitus without complications, Z78.0 - Asymptomatic menopausal state, E78.5 - Hyperlipidemia, unspecified, I10 - Essential (primary) hypertension Hemoglobin A1c 08/17/23 I73.9 - Peripheral vascular disease, unspecified, M81.0 - Age-related osteoporosis without current pathological fracture, E11.9 - Type 2 diabetes mellitus without complications, Z78.0 - Asymptomatic menopausal state, E78.5 - Hyperlipidemia, unspecified, I10 - Essential (primary) hypertension UA CC w/rflx Micro + Cult 04/15/23 R35.0 - Frequency of micturition AMB Urinalysis Automated 04/14/23 Z13.9 - Encounter for screening, unspecified Microalbumin, Random (w Creat) 08/17/23 I73.9 - Peripheral vascular disease, unspecified, M81.0 - Age-related osteoporosis without current pathological fracture, E11.9 - Type 2 diabetes mellitus without complications, Z78.0 - Asymptomatic menopausal state, E78.5 - Hyperlipidemia, unspecified, I10 - Essential (primary) hypertension Basic Metabolic Panel Fasting 08/17/23 I73.9 - Peripheral vascular disease, unspecified, M81.0 - Age-related osteoporosis without current pathological fracture, E11.9 - Type 2 diabetes mellitus without complications, Z78.0 - Asymptomatic menopausal state, E78.5 - Hyperlipidemia, unspecified, I10 - Essential (primary) hypertension Medications: New nitrofurantoin monohyd/m-cryst 100 mg must administer with a meal/food 100 mg PO Q12H 20 caps 0RF 10 days Coding Level of Care Code Est Pt Level 4 (69439) Diagnoses Type 2 diabetes mellitus without complication, without long-term current use of insulin E11.9 Age-related osteoporosis without current pathological fracture M81.0 Osteoporosis type: age-related Presence of current pathological fracture: without current pathological fracture Dyslipidemia E78.5 Essential hypertension I10 Urinary frequency R35.0 PAD (peripheral artery disease) I73.9
== END 2023-04-14 16:09 | disposition home or self-care (01) ==
LOC: HO.HMGC 13:42
PROVIDERS: PCP Internal Medicine; Visit Provider Internal Medicine
DX: R35.0 Frequency of micturition (principal)
CPT/HCPCS: 81003; 99214

== ENCOUNTER 2023-04-14 16:04 | Outpatient (REF) | payer MEDICARE, SELFPAY ==
[2023-04-15 11:46] LABS: Appearance Urine Turbid; Color Urine Dark Yellow; Glucose Urine UA Negative (Negative); Leukocyte Esterase Urine Large (3+) (Negative); Nitrite Urine Positive (Negative); Specific Gravity - Urine 1.025 (1.005-1.025); UMIC TRIGGER UACC YES; Urine Blood Moderate (2+) (Negative); Urine Ketones Trace mg/dL (Negative); Urine Protein 30 (1+) mg/dL (Neg-Trace)
[2023-04-15 11:57] LABS: Bacteria Urine 4+ (None Seen); Calcium Oxalate Crystals Urine Present; Hyaline Casts Urine 0-2 /LPF (0-2); RBC Urine >20 /HPF (0-2); Squamous Epithelial Cell Urine 0-2 /HPF (0-2); UACC Culture Trigger YES; WBC Urine >50 /HPF (0-5)
== END 2023-04-14 16:05 | disposition home or self-care (01) ==
LOC: HO.LAB 16:04
PROVIDERS: Visit Provider Internal Medicine
DX: R35.0 Frequency of micturition (principal)
CPT/HCPCS: 81001; 87086; 87088; 87186

== ENCOUNTER 2023-05-04 14:26 | Outpatient (REF) | payer MEDICARE, SELFPAY ==
[2023-05-04 16:16] LABS: Appearance Urine Cloudy; Color Urine Dark Yellow; Glucose Urine UA Negative (Negative); Leukocyte Esterase Urine Small (1+) (Negative); Nitrite Urine Negative (Negative); Specific Gravity - Urine >= 1.030 (1.005-1.025); UMIC TRIGGER UACC YES; Urine Blood Negative (Negative); Urine Ketones Trace mg/dL (Negative); Urine Protein 30 (1+) mg/dL (Neg-Trace)
[2023-05-04 16:37] LABS: Bacteria Urine None Seen (None Seen); RBC Urine 0-2 /HPF (0-2); UACC Culture Trigger YES
== END 2023-05-04 14:27 | disposition home or self-care (01) ==
LOC: HO.HMGCLDS 14:26
PROVIDERS: PCP Internal Medicine; Visit Provider Internal Medicine
DX: R30.0 Dysuria (principal)
CPT/HCPCS: 81001; 81003; 87086

== ENCOUNTER 2023-05-11 14:58 | Outpatient (REF) | payer MEDICARE, SELFPAY ==
[2023-05-11 16:03] LABS: Appearance Urine Cloudy; Color Urine Dark Yellow; Glucose Urine UA Negative (Negative); Leukocyte Esterase Urine Small (1+) (Negative); Nitrite Urine Negative (Negative); PH 6.5 (5.0-9.0); Specific Gravity - Urine >= 1.030 (1.005-1.025); UMIC TRIGGER UACC YES; Urine Blood Negative (Negative); Urine Ketones Trace mg/dL (Negative); Urine Protein Trace mg/dL (Neg-Trace)
[2023-05-11 16:27] LABS: Bacteria Urine None Seen (None Seen); Hyaline Casts Urine 0-2 /LPF (0-2); RBC Urine 0-2 /HPF (0-2); UACC Culture Trigger YES
== END 2023-05-11 14:59 | disposition home or self-care (01) ==
LOC: HO.HMGCLDS 14:58
PROVIDERS: PCP Internal Medicine; Visit Provider Internal Medicine
DX: R30.0 Dysuria (principal)
CPT/HCPCS: 81001; 81003; 87086

== ENCOUNTER 2023-06-22 13:31 | Outpatient (REF) | payer MEDICARE, SELFPAY ==
[2023-06-22 16:18] LABS: Appearance Urine Cloudy; Color Urine Yellow; Glucose Urine UA Negative (Negative); Leukocyte Esterase Urine Large (3+) (Negative); Nitrite Urine Negative (Negative); PH 5.5 (5.0-9.0); UMIC TRIGGER UACC YES; Urine Blood Large (3+) (Negative); Urine Ketones Negative (Negative); Urine Protein 100 (2+) mg/dL (Neg-Trace)
[2023-06-22 16:38] LABS: Bacteria Urine 2+ (None Seen); Hyaline Casts Urine 0-2 /LPF (0-2); RBC Urine >20 /HPF (0-2); Squamous Epithelial Cell Urine 0-2 /HPF (0-2); UACC Culture Trigger YES; WBC Urine >50 /HPF (0-5)
== END 2023-06-22 13:32 | disposition home or self-care (01) ==
LOC: HO.HMGCLDS 13:31
PROVIDERS: PCP Internal Medicine; Visit Provider Internal Medicine
DX: Z13.89 Encounter for screening for other disorder (principal)
CPT/HCPCS: 81001

== ENCOUNTER 2023-06-22 14:33 | Outpatient (REF) | payer MEDICARE, SELFPAY ==
--- NOTE | ~2023-06-22 | CT_ITS ---
EXAMINATION: CT CHEST WITHOUT CONTRAST CLINICAL INFORMATION: Pulmonary nodules COMPARISON: 07/03/2022, 06/27/2021 TECHNIQUE: Multidetector volumetric CT imaging of the chest was done. Axial MIP volume rendering provided. Sagittal and coronal reformatted images were obtained. This CT examination was performed using dose optimization techniques as appropriate, variously including the following: *Automated exposure control *Adjustment of mA and/or kV according to patient size (this includes techniques or standardized protocols for targeted exams where dose is matched to indication/reason for exam; i.e. extremities or head) *Use of iterative reconstruction technique DLP: 135 mGy-cm FINDINGS: LUNGS: Left upper lobe 3 mm nodule (8:167), unchanged. Left lower lobe 2 mm nodule (8:533), unchanged. 2 mm right lower lobe nodule (8:214), unchanged. Multiple sub-3 mm centrilobular nodules in the right middle lobe, some of which are endobronchial, unchanged. There is right middle lobe and left upper lobe mild bronchial wall thickening and bronchiectasis, similar to prior study. Right upper lobe 2 mm nodule (8:166), unchanged there is near complete resolution of previously seen left lower lobe groundglass opacity. No new or enlarging pulmonary nodule. PLEURA: No pleural effusion. MEDIASTINUM: No cardiomegaly. Aorta and pulmonary artery are normal in caliber. No mediastinal adenopathy. Lack of IV contrast limits evaluation for hilar adenopathy. CORONARY ARTERY CALCIFICATION: Multivessel coronary artery calcification is present. CHEST WALL/AXILLA: No axillary or internal mammary lymphadenopathy. UPPER ABDOMEN: Unremarkable. OSSEOUS STRUCTURES: Degenerative changes of the thoracolumbar spine. Median sternotomy wires are noted. CT/CT chest wo IV con IMPRESSION: * Bilateral pulmonary nodules measuring up to 3 mm are unchanged. No new or enlarging pulmonary nodule. Given 2 years of stability, these nodules are favored to be benign according to Fleischner Society guidelines. * Right middle lobe and left upper lobe mild bronchial wall thickening and bronchiectasis, similar to prior study. * Near complete resolution of previously seen left lower lobe groundglass opacity.
== END 2023-06-22 14:34 | disposition home or self-care (01) ==
LOC: HO.CT 14:33
PROVIDERS: PCP Internal Medicine; Visit Provider Hospitalist
DX: R91.8 Other nonspecific abnormal finding of lung field (principal)
CPT/HCPCS: 71250; 81001

== ENCOUNTER 2023-06-25 11:29 | Outpatient (AMB) | payer MEDICARE, SELFPAY ==
[2023-06-25 11:33] VITALS: BP 140/70; PULSE 74; TEMP 36.4; O2SAT 97; BMI 22.6
--- NOTE | 2023-06-25 11:33 | AM.OFFWIN_ITS ---
Intake Vital Signs 06/25/23 11:33 Height 5 ft 5 in Weight 136 lb BMI 22.6 BP 140/70 H Blood Pressure Location Lt brachial Position Sitting Pulse 74 Pulse Source Pulse Oximeter Temp 97.5 F Temp Source Temporal Artery Scan Pulse Oximetry (%) 97 Oxygen Delivery Method Room Air Intake Visit Reasons: EP uti? Intake Note: pt is here today for UTI started 1 week ago Patient Tobacco Use Status: Never used Tobacco Allergies Hmvlqzy-BTU-IlY Reductase Inhibitor [Iqqvvfi-Yiz-Soa Reductase Inhibitor] Allergy (Unknown, Verified 06/25/23 11:39) muscle cramps Do you need a note to return to daycare/school/sports/work: Yes HPI HPI Comments History of Present Illness Details 83 y/o female patient presents to walk i n clinic with c/o Urinary symptoms for 1 week. H/o recurrent UTIs. Pt has an upcoming Appointment with Urologist. [facility] Medical History (Updated 05/20/23 @ 23:00 by Yu Alcantar MD) Recurrent urinary tract infection Osteoporosis PAD (peripheral artery disease) Hematuria Candidal intertrigo Pancytopenia Pulmonary nodules Asthma Pulmonary nodules Bronchiectasis with (acute) exacerbation Productive cough Popliteal vein thrombosis Vitamin D deficiency Diabetes mellitus with peripheral angiopathy Refused influenza vaccine COVID-19 vaccination refused Other and unspecified hyperlipidemia Atherosclerotic cardiovascular disease Coronary artery disease Dyslipidemia Essential hypertension Type 2 diabetes mellitus without complication, without long-term current use of insulin Non-ST elevation [place] (NSTEMI) Bilateral carotid artery stenosis NSTEMI (non-ST elevated myocardial infarction) Surgical History (Updated 04/14/23 @ 14:17 by Yu Alcantar MD) History of amputation of lesser toe History of cardiac catheterization (~01/06/20) S/P CABG x 4 (~01/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 Brother No problems noted. Brother No problems noted. Brother No problems noted. Sister No problems noted. Sister No problems noted. Sister No problems noted. Sister No problems noted. Sister No problems noted. Son No problems noted. Son No problems noted. Son No problems noted. Son No problems noted. Daughter Cancer Other Breast cancer Substance use disorder Social History Household Members: None Housing: Assisted Living Facility Are you a primary healthcare financial analyst to a significant other at home: No Alcohol intake: unknown Patient Tobacco Use Status: Never used Tobacco e-Cigarette/Vaping Use: Never Used Second Hand Smoke Exposure: Yes service: No Current occupational status: retired Cognitive needs: No Hearing needs: No Vision needs: Yes Review of Systems Const All systems reviewed & are unremarkable except as noted in HPI and below Physical Exam Vital Signs: Last Vital Signs Temp 97.5 F 06/25/23 11:33 Pulse 74 06/25/23 11:33 BP 140/70 H 06/25/23 11:33 Pulse Ox 97 06/25/23 11:33 Oxygen Delivery Method Room Air 06/25/23 11:33 BMI result Body Mass Index 22.6 Const General: comfortable and no acute distress Nutritional Appearance: well nourished Orientation/consciousness: patient oriented x3 GI Palpation (GI): Soft to palpation, not firm, Tenderness to palpation present (GI) suprapubicly and No hepatosplenomegaly present Auscultation: normal bowel sounds General: Yes no CVA tenderness Back/Spine/Pelvis Back: no CVA tenderness Neuro General: patient oriented x3, gait normal and moves all extremities Psych Speech and movement: Normal speech and movement present Results AMB Urinalysis, Automated UA Leukoctes 125 Yovani/uL Last Edit by CHERELLE Rodriguez on 06/25/23 11: 56 UA Nitrite Negative Last Edit by CHERELLE Rodriguez on 06/25/23 11:56 UA Urobilinogen 0.2 mg/dL Last Edit by CHERELLE Rodriguez on 06/25/23 11:56 UA Protein 30 mg/dL Last Edit by CHERELLE Rodriguze on 06/25/23 11:56 UA pH 5.5 Last Edit by CHERELLE Rodriguez on 06/25/23 11:56 UA Blood 200 Olegario/uL Last Edit by CHERELLE Rodriguez on 06/25/23 11:56 UA Specific [place] 1.025 Last Edit by CHERELLE Rodriguez on 05/09/24 11:56 UA Ketone Negative Last Edit by CHERELLE Rodriguez on 06/25/23 11:56 UA Bilirubin 0 mg/dL Last Edit by CHERELLE Rodriguez on 06/25/23 11:56 UA Glucose 0 mg/dL Last Edit by CHERELLE Rodriguez on 06/25/23 11:56 Assessment & Plan Assessment & Plan (1) Recurrent urinary tract infection: Code(s): N39.0 - Urinary tract infection, site not specified Plan: - Take medication as directed - Hydrate well with water - Keep Urology appointment as scheduled. Orders: Orders AMB Urinalysis Automated Today Z13.9 - Encounter for screening, unspecified Medications: New levofloxacin 750 mg PO DAILY 10 days 10 tabs 0RF N39.0 - Urinary tract infection, site not specified Coding Level of Care Code Est Pt Level 3 (37661) Diagnoses Recurrent urinary tract infection N39.0 Time Spent (min) 15
== END 2023-06-25 12:44 | disposition home or self-care (01) ==
PROVIDERS: PCP Internal Medicine; Visit Provider Nurse Practitioner Family
DX: N39.0 Urinary tract infection, site not specified (principal)
CPT/HCPCS: 81003; 99213

== ENCOUNTER 2023-07-07 13:04 | Outpatient (AMB) | payer MEDICARE, SELFPAY ==
--- NOTE | 2023-07-07 13:10 | MHC.OFFVIS ---
Intake Visit Reasons: recurrent UTI Intake Note: New Patient presents for initial visit for recurrent uti Urology Medications: None Blood Thinner: Aspirin PVR: 13ml's [employer] Required: No Accompanied by: Self / Same As Patient Allergies Tuzitir-QCF-PbO Reductase Inhibitor [Jzwfyed-Onj-Wql Reductase Inhibitor] Allergy (Unknown, Verified 07/07/23 21:38) muscle cramps Medication List - Last Reconciled 07/07/23 by TAYLOR León acetaminophen ER (Arthritis Pain Reliever) 650 mg PO BID aspirin 81 mg PO DAILY atorvastatin 80 mg PO BEDTIME betamethasone dipropionate 0.05% 1 appl topical BID PRN blood sugar diagnostic (FreeStyle Lite Strips) Test blood sugar once daily blood-glucose meter (FreeStyle Lite Meter kit) As directed for testing blood sugar cholecalciferol (vitamin D3) (Vitamin D3) 25 mcg PO DAILY cyanocobalamin (vitamin B-12) (Vitamin B-12) 500 mcg PO DAILY gabapentin 600 mg (2 x 300 mg) PO BEDTIME lancets (FreeStyle Lancets) Test blood sugar once a day metformin 500 mg PO BIDWMEAL 3 months metoprolol tartrate 12.5 mg (1/2 x 25 mg) PO BID 90 days nebulizer and compressor As directed nitrofurantoin monohyd/m-cryst 100 mg 100 mg PO Q12H 10 days rivaroxaban (Xarelto) 2.5 mg PO sitagliptin phosphate (Januvia) 50 mg PO DAILY tobramycin-dexamethasone 0.3-0.1 % (TobraDex) 0.5 inches ophthalmic (eye) ONCE HPI Comments Details: Ashley Hussein is a pleasant 83-year-old female patient of Dr. Alcantar. She has a past medical history of osteoporosis, peripheral artery disease, pancytopenia, pulmonary nodules, asthma, vitamin-D deficiency, type 2 diabetes, coronary artery disease, dyslipidemia, hypertension, NSTEMI, and bilateral carotid artery stenosis. She presents to the office today as a new patient for recurrent urinary tract infections and possible bladder prolapse. In discussion with the patient today she reports noting over the last 6 months she has been experiencing frequent UTIs and following up with her PCP as well as urgent care at which time referral was made to Urology for further assessment evaluation. In review of patient's chart it appears multiple urine cultures were obtained however only one positive urine culture on 04/11 noted Ecoli. She currently denies any bothersome urinary issues or concerns however is on antibiotic therapy that was given by urgent care physician.(Ochoa). She reports a previous history of a hysterectomy in the past and has noted bulging at her vagina and believes her bladder is prolapsed. She declines assessment today and discusses her call here to the office earlier today to reschedule appointment as she does not wish to undergo physical assessment today however recommendations were made to continue with appointment today without physical assessment to discuss further treatment options. Discussed further treatment options for potential prolapse bladder. Patient reports previously having pessary however reports it fell out many years ago and never continued to follow-up. In office urinalysis results reviewed with the patient today. PVR 13 mL. She discusses at length her recent loss of her son Morgan is October. She discusses working for [employer] 2 days a week. She otherwise offers no other issues or concerns at this time. ON LICENSE OF [facility] Medical History Recurrent urinary tract infection Osteoporosis PAD (peripheral artery disease) Hematuria Candidal intertrigo Pancytopenia Pulmonary nodules Asthma Pulmonary nodules Bronchiectasis with (acute) exacerbation Productive cough Popliteal vein thrombosis Vitamin D deficiency Diabetes mellitus with peripheral angiopathy Refused influenza vaccine COVID-19 vaccination refused Other and unspecified hyperlipidemia Atherosclerotic cardiovascular disease Coronary artery disease Dyslipidemia Essential hypertension Type 2 diabetes mellitus without complication, without long-term current use of insulin Non-ST elevation [place] (NSTEMI) Bilateral carotid artery stenosis NSTEMI (non-ST elevated myocardial infarction) Surgical History History of amputation of lesser toe History of cardiac catheterization (~01/06/20) S/P CABG x 4 (~01/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 Brother No problems noted. Brother No problems noted. Brother No problems noted. Sister No problems noted. Sister No problems noted. Sister No problems noted. Sister No problems noted. Sister No problems noted. Son No problems noted. Son No problems noted. Son No problems noted. Son No problems noted. Daughter Cancer Other Breast cancer Substance use disorder Social History Household Members: None Housing: Assisted Living Facility Are you a primary child care counselor to a significant other at home: No Alcohol intake: unknown Patient Tobacco Use Status: Never used Tobacco e-Cigarette/Vaping Use: Never Used Second Hand Smoke Exposure: Yes service: No Current occupational status: retired Cognitive needs: No Hearing needs: No Vision needs: Yes Review of Systems Const Reports as per [facility] Eyes Reports no additional complaints ENT Reports no additional complaints Card Reports as per [facility] Resp Reports as per [facility] GI Reports no additional complaints Reports as per [facility] Musc Reports as per [facility] Neuro Reports as per [facility] Psych Reports no additional complaints Endo Reports as per [facility] Roberto/Lymph Reports as per HPI Aller/Immun Reports as per [facility] Physical Exam Const General: cooperative, healthy appearing, comfortable, no acute distress, well developed, alert and awake Orientation/consciousness: patient oriented x3 Limitations: ambulation with cane HEENT Head: Yes normal to inspection, Yes normocephalic and Yes atraumatic Ears: hearing grossly normal bilaterally Eyes General: appearance normal, both eyes and all related structures Neck Neck: Yes normal visual inspection and Yes trachea midline Chest Chest palpation & inspection: normal inspection of the chest Resp Effort & Inspection: normal respiratory effort and able to speak in complete sentences Cardio Rate: regular rate GI Inspection: Yes normal to inspection General: Yes no CVA tenderness Back/Spine/Pelvis Back: no CVA tenderness Skin General skin exam: no rashes or lesions noted Neuro General: patient oriented x3 Extrem General: Yes normal to inspection Psych Appearance: grossly normal and well kempt Mental Status: mental status grossly normal Speech and movement: Normal speech and movement present and Clear speech present Affect: normal affect Attitude: cooperative Thought process: Normal thought process present Thought content: Normal thought content present Insight: Fair insight present (Psych) Judgement: Fair judgement present (Psych) Office Procedures Post Void Residual Post Residual Void Post Void Residual (PVR): 13 31549-Slge Void Residual by ultrasound Results AMB Urinalysis, Automated UA Leukoctes 15 Yovani/uL Last Edit by Wilfredo Garsia on 07/07/23 13:32 UA Nitrite Negative Last Edit by Wilfredo Garsia on 07/07/23 13:32 UA Urobilinogen 0.2 mg/dL Last Edit by Wilfredo Garsia on 07/07/23 13:32 UA Protein 30 mg/dL Last Edit by Wilfredo Garsia on 07/07/23 13:32 UA pH 5.5 Last Edit by Wilfredo Garsia on 07/07/23 13:32 UA Blood 0 Olegario/uL Last Edit by Wilfredo Garsia on 07/07/23 13:32 UA Specific [place] 1.025 Last Edit by Wilfredo Garsia on 07/07/23 13:32 UA Ketone Positive Last Edit by Wilfredo Garsia on 07/07/23 13:32 UA Bilirubin 0 mg/dL Last Edit by Wilfredo Garsia on 07/07/23 13:32 UA Glucose 0 mg/dL Last Edit by Wilfredo Garsia on 07/07/23 13:32 Results Reviewed Results Reviewed: Laboratory Last Values Urine pH (Auto) 5.5 07/07/23 13:13 Specific [place] (Auto) 1.025 07/07/23 13:13 Urine Protein (Auto) 30 mg/dL 07/07/23 13:13 Glucose (UA)(Auto) 0 mg/dL 07/07/23 13:13 Urine Ketones (Auto) Positive 07/07/23 13:13 Urine Blood (Auto) 0 Olegario/uL 07/07/23 13:13 Urine Nitrite (Auto) Negative 07/07/23 13:13 Urine Bilirubin (Auto) 0 mg/dL 07/07/23 13:13 Urine Urobilinogen (Auto) 0.2 mg/dL 07/07/23 13:13 Leukocyte Esterase (Auto) 15 Yovani/uL 07/07/23 13:13 Assessment & Plan Assessment & Plan (1) Female bladder prolapse: Code(s): N81.10 - Cystocele, unspecified Category: Medical (2) Recurrent UTI: Code(s): N39.0 - Urinary tract infection, site not specified Category: Medical Plan In office urinalysis results reviewed with the patient today; as noted above. PVR 13 mL. Continue antibiotic therapy as prescribed; discussed importance of taking medications as prescribed Will obtain retroperitoneal ultrasound for further assessment evaluation. Discussed at length further treatment options of potential prolapse bladder. Start Estrace cream as discussed and prescribed. Discussed UTI prevention with D mannose supplement, vitamin-C, increasing fluid intake, behavioral therapy with timed voiding, perineal hygiene and postcoital voiding, and management of constipation with stool softeners and increased fiber intake. Discussed possible near future microgen for further assessment and evaluation. Discussed potential for post UTI like syndrome versus UTI. Follow-up in 1-3 months with imaging to be completed prior; or sooner with any issues, concerns, and or questions. Orders: Orders AMB Post Void Residual by ultrasound Today N39.0 - Urinary tract infection, site not specified AMB Urinalysis Automated Today Z13.9 - Encounter for screening, unspecified US retroperitoneal comp Today N39.0 - Urinary tract infection, site not specified, N81.10 - Cystocele, unspecified Medications: New estradiol 0.01%(0.1mg/gram) pea sized amount to urethra 3 times a week 30 days 42.5 grams 1RF Discontinued levofloxacin Discontinued Reason: Patient Completed Course 750 mg PO DAILY 10 days 10 tabs 0RF N39.0 - Urinary tract infection, site not specified Patient Instructions: The patient had an opportunity to ask questions regarding the treatment plan. All questions were answered. Physical exam, labs, and imaging were discussed and reviewed in detail. As well as risks, benefits, and discussion of treatment choices. No major barriers to understanding were identified. The patient expressed understanding and agreement with the above treatment plan. The patient was made aware they should contact our office by phone for worsening of their current condition, the appearance of new symptoms, or with any questions or concerns. Compliance is encouraged with any medications and follow up testing that is ordered. It is a privilege to be allowed the opportunity to participate in? your urological care.? Again, if you have any questions or concerns If you have any questions or concerns please do not hesitate to contact me. The office is [phone]. This note is constructed using voice recognition software. While every effort has been made to ensure accuracy trim installer errors may have been included. Yours sincerely, TAYLOR León Coding Level of Care Code New Pt Level 4 (10256) Diagnoses Female bladder prolapse N81.10 Recurrent UTI N39.0 CPT Codes Post Residual Void - PVR CPT Code: 46471-Agvp Void Residual by ultrasound ([id number])
== END 2023-07-07 13:57 | disposition home or self-care (01) ==
PROVIDERS: PCP Internal Medicine; Visit Provider Nurse Practitioner Family
DX: N81.10 Cystocele, unspecified (principal); N39.0 Urinary tract infection, site not specified; Z13.9 Encounter for screening, unspecified
CPT/HCPCS: 99204

== ENCOUNTER → 2023-07-07 13:04 | Outpatient (BNVA) | payer MEDICARE, SELFPAY | PROVIDERS: PCP Internal Medicine; Visit Provider Nurse Practitioner Family | DX: N39.0 Urinary tract infection, site not specified (principal); N81.10 Cystocele, unspecified | CPT/HCPCS: 51798; 81003; 99202 ==

== ENCOUNTER 2023-07-09 14:00 | Outpatient (AMB) | payer MEDICARE, SELFPAY ==
[2023-07-09 14:06] VITALS: BP 160/80; PULSE 87; TEMP 36.5; O2SAT 96; BMI 23.0
--- NOTE | 2023-07-09 14:06 | AM.OFFWIN_ITS ---
Intake Vital Signs 07/09/23 14:06 Height 5 ft 5 in Weight 138 lb BMI 23.0 BP 160/80 H Blood Pressure Location Lt brachial Position Sitting Pulse 87 Pulse Source Pulse Oximeter Temp 97.7 F Temp Source Temporal Artery Scan Pulse Oximetry (%) 96 Oxygen Delivery Method Room Air Intake Visit Reasons: EP neck pain/stiff Intake Note: pt is here today for neck pain stiff started 2 days ago Patient Tobacco Use Status: Never used Tobacco Allergies Liwpyyp-QEU-RdD Reductase Inhibitor [Mirfzsm-Ktw-Lqj Reductase Inhibitor] Allergy (Unknown, Verified 07/09/23 14:12) muscle cramps Do you need a note to return to daycare/school/sports/work: Yes HPI HPI Comments History of Present Illness Details 83 y/o female patient who presents to shaw[facility] f[facility] in clinic with c/o cervical pain. She is unable to turn her neck and feels stiffness. [facility] Medical History Recurrent urinary tract infection Osteoporosis PAD (peripheral artery disease) Hematuria Candidal intertrigo Pancytopenia Pulmonary nodules Asthma Pulmonary nodules Bronchiectasis with (acute) exacerbation Productive cough Popliteal vein thrombosis Vitamin D deficiency Diabetes mellitus with peripheral angiopathy Refused influenza vaccine COVID-19 vaccination refused Other and unspecified hyperlipidemia Atherosclerotic cardiovascular disease Coronary artery disease Dyslipidemia Essential hypertension Type 2 diabetes mellitus without complication, without long-term current use of insulin Non-ST elevation [place] (NSTEMI) Bilateral carotid artery stenosis NSTEMI (non-ST elevated myocardial infarction) Surgical History History of amputation of lesser toe History of cardiac catheterization (~01/06/20) S/P CABG x 4 (~01/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 Brother No problems noted. Brother No problems noted. Brother No problems noted. Sister No problems noted. Sister No problems noted. Sister No problems noted. Sister No problems noted. Sister No problems noted. Son No problems noted. Son No problems noted. Son No problems noted. Son No problems noted. Daughter Cancer Other Breast cancer Substance use disorder Social History Household Members: None Housing: Assisted Living Facility Are you a primary resident care manager to a significant other at home: No Alcohol intake: unknown Patient Tobacco Use Status: Never used Tobacco e-Cigarette/Vaping Use: Never Used Second Hand Smoke Exposure: Yes service: No Current occupational status: retired Cognitive needs: No Hearing needs: No Vision needs: Yes Physical Exam Vital Signs: Last Vital Signs Temp 97.7 F 07/09/23 14:06 Pulse 87 07/09/23 14:06 BP 160/80 H 07/09/23 14:06 Pulse Ox 96 07/09/23 14:06 Oxygen Delivery Method Room Air 07/09/23 14:06 BMI result Body Mass Index 23.0 Const General: comfortable and no acute distress Orientation/consciousness: patient oriented x3 Neck Other: Limited ROM due to pain. Neck: Yes normal visual inspection, Yes no lymphadenopathy, Yes no meningeal signs, Yes trachea midline and Yes no JVD Neuro General: patient oriented x3, gait normal, moves all extremities and no meningeal signs Psych Speech and movement: Normal speech and movement present Assessment & Plan Assessment & Plan (1) Cervical spine arthritis with nerve pain: Code(s): M47.812 - Spondylosis without myelopathy or radiculopathy, cervical region; M79.2 - Neuralgia and neuritis, unspecified Plan: - Acetaminophen for pain relief - Rest -IceHot Medications: New metaxalone 800 mg PO TID 10 tabs 0RF M47.812 - Spondylosis without myelopathy or radiculopathy, cervical region, M79.2 - Neuralgia and neuritis, unspecified acetaminophen ER (Arthritis Pain Reliever) 650 mg PO BID 20 tabs 0RF PAIN M47.812 - Spondylosis without myelopathy or radiculopathy, cervical region, M79.2 - Neuralgia and neuritis, unspecified lidocaine 4% (Aspercreme (lidocaine)) 1 patch topical DAILY PRN 15 ea 0RF pain M47.812 - Spondylosis without myelopathy or radiculopathy, cervical region, M79.2 - Neuralgia and neuritis, unspecified Coding Level of Care Code Est Pt Level 4 (35304) Diagnoses Cervical spine arthritis with nerve pain M47.812; M79.2 Time Spent (min) 20
== END 2023-07-09 14:52 | disposition home or self-care (01) ==
PROVIDERS: PCP Internal Medicine; Visit Provider Nurse Practitioner Family
DX: M47.812 Spondylosis without myelopathy or radiculopathy, cervical region (principal); M79.2 Neuralgia and neuritis, unspecified
CPT/HCPCS: 99214

== ENCOUNTER 2023-07-09 14:30 | Outpatient (REF) | payer MEDICARE, SELFPAY ==
--- NOTE | ~2023-07-09 | XR_ITS ---
EXAMINATION: XR CERVICAL SPINE CLINICAL INFORMATION: Neck pain COMPARISON: MRI cervical spine from 12/21/2014, cervical spine radiograph from 12/14/2014 TECHNIQUE: 2 views of the cervical spine were obtained. FINDINGS: No acute visible fracture or dislocation. Straightening the normal cervical curvature. Very slight grade 1 retrolisthesis of C4 on C5. Multilevel moderate multilevel degenerative changes disc space narrowing, endplate sclerosis, osteophyte from it, and facet arthropathy. Vertebral body heights and disc spaces are maintained. Prevertebral soft tissues unremarkable. Posterior elements are intact. Paraspinal soft tissues are unremarkable. Visualized portions of the upper chest demonstrate partially visualized sternotomy wires. Atherosclerotic calcifications are noted. XR/XR cervical spine 2V IMPRESSION: 1. No acute visible fracture or dislocation. 2. Straightening the normal cervical curvature. 3. Very slight grade 1 retrolisthesis of C4 on C5. 4. Multilevel moderate multilevel degenerative changes.
== END 2023-07-09 14:31 | disposition home or self-care (01) ==
LOC: HO.HMGCX 14:30
PROVIDERS: PCP Internal Medicine; Visit Provider Nurse Practitioner Family
DX: M47.812 Spondylosis without myelopathy or radiculopathy, cervical region (principal)
CPT/HCPCS: 72040

== ENCOUNTER 2023-07-27 11:12 | Outpatient (AMB) | payer MEDICARE, SELFPAY ==
[2023-07-27 11:32] VITALS: BP 110/74; PULSE 103; O2SAT 98; BMI 22.8
--- NOTE | 2023-07-27 11:32 | MHC.PC.OV ---
Vital Signs 07/27/23 11:32 07/27/23 12:42 Height 5 ft 5 in Weight 137 lb BMI 22.8 BP 110/74 Blood Pressure Location Lt brachial Position Sitting Pulse 103 H 90 Pulse Source Pulse Oximeter Palpation Pulse Oximetry (%) 98 Oxygen Delivery Method Room Air Intake Visit Reasons: F/u Neck pain/requesting MRI order Intake Note: pt here for f/u neck pain Allergies Vjaekvz-TQP-JhW Reductase Inhibitor [Lyhnfty-Pda-Dii Reductase Inhibitor] Allergy (Unknown, Verified 07/27/23 12:26) muscle cramps Medication List - Last Reconciled 07/27/23 by MAGGY Ortiz acetaminophen ER (Arthritis Pain Reliever) 650 mg PO BID aspirin 81 mg PO DAILY atorvastatin 80 mg PO BEDTIME betamethasone dipropionate 0.05% 1 appl topical BID PRN blood sugar diagnostic (FreeStyle Lite Strips) Test blood sugar once daily blood-glucose meter (FreeStyle Lite Meter kit) As directed for testing blood sugar cholecalciferol (vitamin D3) (Vitamin D3) 25 mcg PO DAILY cyanocobalamin (vitamin B-12) (Vitamin B-12) 500 mcg PO DAILY cyclobenzaprine 10 mg PO BEDTIME estradiol 0.01%(0.1mg/gram) pea sized amount to urethra 3 times a week 30 days gabapentin 600 mg (2 x 300 mg) PO BEDTIME lancets (FreeStyle Lancets) Test blood sugar once a day lidocaine 4% (Aspercreme (lidocaine)) 1 patch topical DAILY PRN metformin 500 mg PO BIDWMEAL 3 months metoprolol tartrate 12.5 mg (1/2 x 25 mg) PO BID 90 days nebulizer and compressor As directed nitrofurantoin monohyd/m-cryst 100 mg 100 mg PO Q12H 10 days rivaroxaban (Xarelto) 2.5 mg PO sitagliptin phosphate (Januvia) 50 mg PO DAILY tobramycin-dexamethasone 0.3-0.1 % (TobraDex) 0.5 inches ophthalmic (eye) ONCE Tobacco use date assessed: 04/14/23 Dental Screening Dental Screen Date: 04/14/23 HPI HPI Comments History of Present Illness Details Patient is an 83-year-old female in today for follow-up from walk-in clinic 2 weeks prior for upper back pain and discomfort. Patient was given cervical spine x-ray which revealed slight retrolisthesis C4-C5 and multilevel degenerative changes. She was given cyclobenzaprine 10 mg p.r.n. at night and Salonpas. Patient presents today with similar symptoms. States that she has upper back discomfort is getting little relief with the cyclobenzaprine in the Salonpas. Denies any tingling or numbness. Denies decrease in range of motion. Patient does not have any change in vision or headache. She reports that she is always on the go and has not been able to rest the affected area as she was instructed by the walk-in provider. On physical exam patient has full range of motion to flexion and rotation of the neck. No but C-spine point tenderness, has bilateral C-spine paraspinal muscle tenderness. No obvious deformities. Patient will be given referral to Physical therapy, with potential for MRI if she gets no improvement. [facility] Medical History Recurrent urinary tract infection Osteoporosis PAD (peripheral artery disease) Hematuria Candidal intertrigo Pancytopenia Pulmonary nodules Asthma Pulmonary nodules Bronchiectasis with (acute) exacerbation Productive cough Popliteal vein thrombosis Vitamin D deficiency Diabetes mellitus with peripheral angiopathy Refused influenza vaccine COVID-19 vaccination refused Other and unspecified hyperlipidemia Atherosclerotic cardiovascular disease Coronary artery disease Dyslipidemia Essential hypertension Type 2 diabetes mellitus without complication, without long-term current use of insulin Non-ST elevation [place] (NSTEMI) Bilateral carotid artery stenosis NSTEMI (non-ST elevated myocardial infarction) Surgical History History of amputation of lesser toe History of cardiac catheterization (~01/06/20) S/P CABG x 4 (~01/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 Brother No problems noted. Brother No problems noted. Brother No problems noted. Sister No problems noted. Sister No problems noted. Sister No problems noted. Sister No problems noted. Sister No problems noted. Son No problems noted. Son No problems noted. Son No problems noted. Son No problems noted. Daughter Cancer Other Breast cancer Substance use disorder Social History Household Members: None Housing: Assisted Living Facility Are you a primary critical care paramedic to a significant other at home: No Alcohol intake: unknown Patient Tobacco Use Status: Never used Tobacco e-Cigarette/Vaping Use: Never Used Second Hand Smoke Exposure: Yes service: No Current occupational status: retired Cognitive needs: No Hearing needs: No Vision needs: Yes Questionnaire PHQ-9 Over the last 2 weeks, how often have you been bothered by any of the following problems? 1. Little interest or pleasure in doing things: not at all 2. Feeling down, depressed, or hopeless: not at all 3. Trouble falling or staying asleep, or sleeping too much: not at all 4. Feeling tired or having little energy: not at all 5. Poor appetite or overeating: not at all 6. Feeling bad about yourself - or that you are a failure or have let yourself or your family down: not at all 7. Trouble concentrating on things, such as reading the newspaper or watching television: not at all 8. Moving or speaking so slowly that other people could have noticed. Or the opposite - being so fidgety or restless that you have been moving around a lot more than usual: not at all 9. Thoughts that you would be better off or of hurting yourself in some way: not at all Total score: 0 Depression Screening Interpretation: Negative Depression Screening Done: Yes 99702 - PHQ-9 Billing: Yes Source: Developed by Drs. Tera Uribe, Merlyn Romero, Damian Hanna and colleagues, with an educational kalpesh from [employer]. Thrive Questionnaire Date Thrive assessed: 05/30/21 MARY JO-7 AMB Questionnaire MARY JO-7 Date MARY JO - 7 assessed: 07/27/23 Feeling nervous, anxious, or on edge: 0 = Not at all Not being able to stop or control worryin = Not at all Worrying too much about different things: 0 = Not at all Trouble relaxin = Not at all Being so restless that it is hard to sit still: 0 = Not at all Becoming easily annoyed or irritable: 0 = Not at all Feeling afraid as if something awful might happen: 0 = Not at all Total MARY JO-7 score (0-4 normal; 5-9 mild; 10-14 moderate; 15-21 severe): 0 Source: Developed by Drs. Tera Uribe, Merlyn Romero, Damian Hanna and colleagues, with an educational kalpesh from [employer]. MARY JO-7 Assessment Billing MARY JO-7 Assessment Tool: MARY JO-7 Assessment 38148 Review of Systems Const All systems reviewed & are unremarkable except as noted in HPI and below Physical exam (Primary Care) Vital Signs: Last Vital Signs Pulse 103 H 07/27/23 11:32 BP 110/74 07/27/23 11:32 Pulse Ox 98 07/27/23 11:32 Oxygen Delivery Method Room Air 07/27/23 11:32 Care Plan Goal for BP management: BP is controlled. BMI result Body Mass Index 22.8 Tobacco/Smoking Status: Tobacco use Status Tobacco use date assessed 04/14/23 07/27/23 11:36 Patient Tobacco Use Status Never used Tobacco 07/27/23 11:36 e-Cigarette/Vaping Use Never Used 07/27/23 11:36 PHQ-9: PHQ-9 Score PHQ-9: Total score 0 07/27/23 11:36 Depression Screening Interpretation: Negative Thrive Assessment: Date of Thrive Assessment Date Thrive assessed 05/30/21 07/27/23 11:36 Const Other: Appearance: Alert.? Oriented X3.? No acute distress.? Head: Normocephalic CVS: Normal heart rate and rhythm.? Pulses normal.? Respiratory: No respiratory distress.? ? Skin: Skin warm and dry.? Back: No midline tenderness, no C-spine tenderness, full range of motion, + Cervical Paraspinal muscle tenderness. no CVA tenderness bilaterally Neuro: Oriented X 3.? No motor deficit.? No sensory deficit. CN 2-12 intact Results Reviewed Results Reviewed: XR/XR cervical spine 2V IMPRESSION: 1. No acute visible fracture or dislocation. 2. Straightening the normal cervical curvature. 3. Very slight grade 1 retrolisthesis of C4 on C5. 4. Multilevel moderate multilevel degenerative changes Assessment and Plan Assessment & Plan (1) Upper back pain: Comment: Will give patient referral to physical therapy. Potential MRI if no improvement from therapy. Patient has been instructed she can continue to utilize Tylenol, alternate between warm and hot compress. She has been educated on signs of worsening symptoms and when to report back to the office or when to present to the ED. Code(s): M54.9 - Dorsalgia, unspecified Plan PT Coding Level of Care Code Est Pt Level 3 (50427) Diagnoses Upper back pain M54.9 Additional Codes MARY JO-7 Assessment Billing - MARY JO-7 Assessment Tool: MARY JO-7 Assessment [id number] ([id number]) Time Spent (min) 27
[2023-07-27 12:42] VITALS: PULSE 90
== END 2023-07-27 13:38 | disposition home or self-care (01) ==
LOC: HO.HMGC 11:12
PROVIDERS: PCP Internal Medicine; Visit Provider Nurse Practitioner Primary Care
DX: M54.9 Dorsalgia, unspecified (principal)
CPT/HCPCS: 99213

== ENCOUNTER 2023-08-24 11:42 | Outpatient (AMB) | payer MEDICARE, SELFPAY ==
[2023-08-24 11:46] VITALS: BP 120/66; PULSE 82; O2SAT 96; BMI 26.9
--- NOTE | 2023-08-24 11:46 | MHC.PC.OV ---
Vital Signs 08/24/23 11:46 Height 5 ft Weight 138 lb BMI 26.9 BP 120/66 Blood Pressure Location Rt brachial Pulse 82 Pulse Source Pulse Oximeter Pulse Oximetry (%) 96 Oxygen Delivery Method Room Air Intake Visit Reasons: 3 months f/u labs DM, HTN Intake Note: Pt is here today for her 3 mo. f/u HTN and DM Allergies Zccsqeo-RJS-IbF Reductase Inhibitor [Hrfeqcd-Bwt-Hsf Reductase Inhibitor] Allergy (Unknown, Verified 08/24/23 11:49) muscle cramps Medication List - Last Reconciled 08/24/23 by Yu Alcantar MD acetaminophen ER (Arthritis Pain Reliever) 650 mg PO BID aspirin 81 mg PO DAILY atorvastatin 80 mg PO BEDTIME betamethasone dipropionate 0.05% 1 appl topical BID PRN blood sugar diagnostic (FreeStyle Lite Strips) Test blood sugar once daily blood-glucose meter (FreeStyle Lite Meter kit) As directed for testing blood sugar cholecalciferol (vitamin D3) (Vitamin D3) 25 mcg PO DAILY cyanocobalamin (vitamin B-12) (Vitamin B-12) 500 mcg PO DAILY cyclobenzaprine 10 mg PO BEDTIME estradiol 0.01%(0.1mg/gram) pea sized amount to urethra 3 times a week 30 days gabapentin 600 mg (2 x 300 mg) PO BEDTIME lancets (FreeStyle Lancets) Test blood sugar once a day lidocaine 4% (Aspercreme (lidocaine)) 1 patch topical DAILY PRN metformin 500 mg PO BIDWMEAL 3 months metoprolol tartrate 12.5 mg (1/2 x 25 mg) PO BID 90 days nebulizer and compressor As directed nitrofurantoin monohyd/m-cryst 100 mg 100 mg PO Q12H 10 days rivaroxaban (Xarelto) 2.5 mg PO sitagliptin phosphate (Januvia) 50 mg PO DAILY tobramycin-dexamethasone 0.3-0.1 % (TobraDex) 0.5 inches ophthalmic (eye) ONCE Tobacco use date assessed: 08/24/23 Fall risk assessment: No Falls in past year Last assessed Fall Risk: 08/24/23 Dental Screening Dental Screen Date: 08/24/23 Did you have a dental visit in the last 12 months?: Yes Was dental information given to patient?: Patient has dentist HPI 3 months f/u labs DM, HTN HPI Details 83-year-old lady with history of CAD with remote coronary stenting to circumflex in the , hx non ST-elevation myocardial infarction s/p bypass surgery, has type 2 diabetes mellitus without current use of insulin, peripheral arterial disease with history of amputation of lesser toe, history of bronchiectasis, hyperlipidemia, hypertension, here today for follow-up. 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 Has been feeling well, but complains of having intermittent episodes of muscle cramping in her thighs, and arms. Denies any accompanying weakness, no numbness or tingling in extremities. [facility] Medical History (Updated 08/31/23 @ 03:32 by Yu Alcantar MD) Osteoporosis PAD (peripheral artery disease) Candidal intertrigo Asthma Pulmonary nodules Bronchiectasis with (acute) exacerbation Popliteal vein thrombosis Vitamin D deficiency Diabetes mellitus with peripheral angiopathy Refused influenza vaccine COVID-19 vaccination refused Other and unspecified hyperlipidemia Atherosclerotic cardiovascular disease Coronary artery disease Dyslipidemia Essential hypertension Type 2 diabetes mellitus without complication, without long-term current use of insulin Non-ST elevation [place] (NSTEMI) Bilateral carotid artery stenosis NSTEMI (non-ST elevated myocardial infarction) Surgical History History of amputation of lesser toe History of cardiac catheterization (~01/06/20) S/P CABG x 4 (~01/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 Brother No problems noted. Brother No problems noted. Brother No problems noted. Sister No problems noted. Sister No problems noted. Sister No problems noted. Sister No problems noted. Sister No problems noted. Son No problems noted. Son No problems noted. Son No problems noted. Son No problems noted. Daughter Cancer Other Breast cancer Substance use disorder Social History Household Members: None Housing: Assisted Living Facility Are you a primary rn home care to a significant other at home: No Alcohol intake: unknown Patient Tobacco Use Status: Never used Tobacco e-Cigarette/Vaping Use: Never Used Second Hand Smoke Exposure: Yes service: No Current occupational status: retired Cognitive needs: No Hearing needs: No Vision needs: Yes Questionnaire Thrive Questionnaire Date Thrive assessed: 05/30/21 MARY JO-7 AMB Questionnaire MARY JO-7 Date MARY JO - 7 assessed: 07/27/23 Source: Developed by Drs. Tera Uribe, Merlyn Romero, Damian Hanna and colleagues, with an educational kalpesh from [employer]. Review of Systems Const Reports no additional complaints Eyes Details: Sees Dr. Arriola yearly Denies no additional complaints ENT Denies no additional complaints Card Denies chest pain, Denies leg edema, Denies lightheadedness and Denies dyspnea Resp Denies dyspnea GI Denies no additional complaints Reports as per HPI Musc Reports as per HPI Neuro Reports no additional complaints Psych Reports no additional complaints Endo Reports no additional complaints Roberto/Lymph Reports no additional complaints Aller/Immun Reports no additional complaints Physical exam (Primary Care) Vital Signs: Last Vital Signs Pulse 82 08/24/23 11:46 BP 120/66 08/24/23 11:46 Pulse Ox 96 08/24/23 11:46 Oxygen Delivery Method Room Air 08/24/23 11:46 BMI result Body Mass Index 26.9 Tobacco/Smoking Status: Tobacco use Status Tobacco use date assessed 08/24/23 08/24/23 11:51 Patient Tobacco Use Status Never used Tobacco 08/24/23 11:47 e-Cigarette/Vaping Use Never Used 08/24/23 11:47 Thrive Assessment: Date of Thrive Assessment Date Thrive assessed 05/30/21 08/24/23 11:47 Const General: comfortable, no acute distress, alert and other (Walks with a cane) Orientation/consciousness: patient oriented x3 [facility] General nose exam: Normal external nose present and No nasal discharge present Face and sinus: Yes face symmetric Mouth: Normal oral and palatal mucosa present Eyes General: appearance normal, both eyes and all related structures Neck Neck: Yes full ROM, Yes no lymphadenopathy and Yes supple Resp Auscultation: clear to auscultation bilaterally Cardio Other: S1-S2 present regular rate and rhythm GI Palpation (GI): Soft to palpation, nontender, no guarding and no masses Auscultation: normal bowel sounds General: Yes no CVA tenderness Back/Spine/Pelvis Back: no CVA tenderness and No back tenderness Neuro General: patient oriented x3 Extrem General: Yes full ROM, Yes no joint enlargement, Yes no pedal edema and Yes no calf tenderness Results AMB Hemoglobin A1c AMB Hemoglobin A1c 7.3 % Last Edit by Janeen Castillo CMA on 08/24/23 12:04 Results Reviewed Results Reviewed: Laboratory Last Values Hgb A1c (Clinic) 7.3 % (4.0-6.0) H 08/24/23 12:02 Assessment and Plan Assessment & Plan (1) Dyslipidemia: Code(s): E78.5 - Hyperlipidemia, unspecified Plan: Currently on atorvastatin 80 mg at bedtime, will check total CK level (2) Muscle pain: Code(s): M79.10 - Myalgia, unspecified site Plan: Will check CK level (3) Type 2 diabetes mellitus without complication, without long-term current use of insulin: Code(s): E11.9 - Type 2 diabetes mellitus without complications Plan: Hemoglobin A1c today is 7.3%. Reinforced importance of following diabetic diet, and staying active gets at least 15 minutes exercise on a daily basis. Continue with metformin 500 mg 1 tablet twice a day with meals history of amputation of 1 toe, referred to podiatry for her diabetes foot exam (4) COVID-19 vaccination refused: Code(s): Z28.21 - Immunization not carried out because of patient refusal Orders: Orders AMB Hemoglobin A1c 08/24/23 E11.9 - Type 2 diabetes mellitus without complications Creatine Kinase Total 08/24/23 E78.5 - Hyperlipidemia, unspecified, M79.10 - Myalgia, unspecified site Referrals Podiatry Referral E11.9 - Type 2 diabetes mellitus without complications, Z89.429 - Acquired absence of other toe(s), unspecified side Coding Level of Care Code Est Pt Level 4 (42089) Complex EM visit Add On G2211 Diagnoses Dyslipidemia E78.5 Muscle pain M79.10 Type 2 diabetes mellitus without complication, without long-term current use of insulin E11.9 COVID-19 vaccination refused Z28.21
== END 2023-08-24 12:15 | disposition home or self-care (01) ==
LOC: HO.HMGC 11:42
PROVIDERS: PCP Internal Medicine; Visit Provider Internal Medicine
DX: E78.5 Hyperlipidemia, unspecified (principal); E11.69 Type 2 diabetes mellitus with other specified complication; M79.10 Myalgia, unspecified site; Z28.21 Immunization not carried out because of patient refusal
CPT/HCPCS: 83036; 99214; G2211

== ENCOUNTER 2023-10-01 08:57 | Outpatient (AMB) | payer MEDICARE, SELFPAY ==
--- NOTE | 2023-10-01 08:57 | MHC.OFFWIV ---
Intake Vital Signs 10/01/23 09:00 Height 5 ft Weight 138 lb BMI 26.9 BP 126/78 Blood Pressure Location Lt brachial Position Sitting Pulse 74 Pulse Source Pulse Oximeter Temp 99.2 F Temp Source Oral Pulse Oximetry (%) 98 Oxygen Delivery Method Room Air Intake Visit Reasons: EP- Throat hurts, ribs hurt, stuffy, vomiting Intake Note: Patient here for fever,chills, vomiting,nausea, headache and congestion that started about 1 day ago. Patient Tobacco Use Status: Never used Tobacco Allergies Esroywc-HPE-JcJ Reductase Inhibitor [Vkdojpg-Oua-Wmv Reductase Inhibitor] Allergy (Unknown, Verified 10/01/23 09:01) muscle cramps Do you need a note to return to daycare/school/sports/work: No HPI EP- Throat hurts, ribs hurt, stuffy, vomiting HPI Details This note is constructed using voice recognition software. While every effort has been made to ensure accuracy, ophthalmic surgeon errors may have been included. The patient is a 83 year old female who presents to the clinic today with 3 day history of cough, fever, dyspnea, pharyngitis, and left-sided rib pain. She notes that she has been taking acetaminophen for the fever and pain but they do not seem to be completely resolving her symptoms. She did not have a fall, reports that the cough is relatively strong and feels that the ribs hurt after the cough. She is getting up clear secretions, feels congested. She is concerned that she may have a pneumonia. She is requesting ear Irvemectrin for treatment of COVID. ON LICENSE OF [facility] Medical History (Updated 08/31/23 @ 03:32 by Yu Alcantar MD) Osteoporosis PAD (peripheral artery disease) Candidal intertrigo Asthma Pulmonary nodules Bronchiectasis with (acute) exacerbation Popliteal vein thrombosis Vitamin D deficiency Diabetes mellitus with peripheral angiopathy Refused influenza vaccine COVID-19 vaccination refused Other and unspecified hyperlipidemia Atherosclerotic cardiovascular disease Coronary artery disease Dyslipidemia Essential hypertension Type 2 diabetes mellitus without complication, without long-term current use of insulin Non-ST elevation [place] (NSTEMI) Bilateral carotid artery stenosis NSTEMI (non-ST elevated myocardial infarction) Surgical History History of amputation of lesser toe History of cardiac catheterization (~01/06/20) S/P CABG x 4 (~01/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 Brother No problems noted. Brother No problems noted. Brother No problems noted. Sister No problems noted. Sister No problems noted. Sister No problems noted. Sister No problems noted. Sister No problems noted. Son No problems noted. Son No problems noted. Son No problems noted. Son No problems noted. Daughter Cancer Other Breast cancer Substance use disorder Social History Household Members: None Housing: Assisted Living Facility Are you a primary behavioral health care manager to a significant other at home: No Alcohol intake: unknown Patient Tobacco Use Status: Never used Tobacco e-Cigarette/Vaping Use: Never Used Second Hand Smoke Exposure: Yes service: No Current occupational status: retired Cognitive needs: No Hearing needs: No Vision needs: Yes Review of Systems Const All systems reviewed & are unremarkable except as noted in HPI and below Physical Exam Vital Signs: Last Vital Signs Temp 99.2 F 10/01/23 09:00 Pulse 74 10/01/23 09:00 BP 126/78 10/01/23 09:00 Pulse Ox 98 10/01/23 09:00 Oxygen Delivery Method Room Air 10/01/23 09:00 BMI result Body Mass Index 26.9 Const General: cooperative, healthy appearing, comfortable and no acute distress Orientation/consciousness: patient oriented x3 Limitations: no limitations HEENT Head: Yes normal to inspection Ears: hearing grossly normal bilaterally, external ears normal and TM's normal bilaterally General nose exam: Normal external nose present, Normal nares present and No nasal discharge present Face and sinus: Yes normal facial exam and Yes sinuses nontender Mouth: Normal oral and palatal mucosa present and moist mucous membranes Throat: Yes tonsils normal, Yes uvula midline and Yes posterior oropharynx abnormal (Erythema) Eyes General: appearance normal, both eyes and all related structures Neck Neck: Yes normal visual inspection Resp Effort & Inspection: normal respiratory effort, able to speak in complete sentences, Actively coughing, no respiratory distress, not tachypneic, no tripod positioning and no use of accessory muscles Auscultation: clear to auscultation bilaterally Cardio Jugular venous distension: no JVD Rate: regular rate Rhythm: regular rhythm Heart sounds: S1 normal heart sound present, S2 normal heart sound present, no click, no gallops, no murmurs and no rubs GI Inspection: Yes normal to inspection Palpation (GI): Soft to palpation and nontender Percussion: Yes normal to percussion Auscultation: normal bowel sounds Skin General skin exam: no rashes or lesions noted, elasticity normal and turgor normal Neuro General: patient oriented x3 Extrem General: Yes normal to inspection and Yes no clubbing, cyanosis or edema Assessment & Plan Assessment & Plan (1) Upper respiratory tract infection: Code(s): J06.9 - Acute upper respiratory infection, unspecified Qualifiers: URI type: unspecified URI Qualified Code(s): J06.9 - Acute upper respiratory infection, unspecified Plan: Viral swab obtained today, discussed treatment with antiviral therapy such as Paxlovid, which patient would like to proceed with should she have coronavirus. Discussed how Irvemectin is not an approved treatment for coronavirus. Advised mask where at all times when in public, until symptoms resolve, whether she has positive or not for coronavirus, and per CDC guidelines if she is positive for coronavirus. Chest x-ray obtained today to rule out additional contributing factors given sensation of dyspnea despite reassuring respiratory exam. Discussed [id number] treatment methods including hydration, humidification, mucus thinning medication, cough suppressants. Advised follow up with worsening symptoms which would require emergent treatment or failure to resolve with primary care team. (2) Costochondritis: Code(s): M94.0 - Chondrocostal junction syndrome [Tietze] Plan: Advised heat, ice, topical muscle rubs, NSAIDs for management of pain. Plan See above for full details and plan. Orders: Orders SARS-CoV2/FLU/RSV Today J06.9 - Acute upper respiratory infection, unspecified XR chest 2V Today J06.9 - Acute upper respiratory infection, unspecified Coding Level of Care Code Est Pt Level 4 (15163) Diagnoses Upper respiratory tract infection, unspecified type J06.9 URI type: unspecified URI Costochondritis M94.0 Time Spent (min) 25
[2023-10-01 09:00] VITALS: BP 126/78; PULSE 74; TEMP 37.3; O2SAT 98; BMI 26.9
== END 2023-10-01 09:44 | disposition home or self-care (01) ==
PROVIDERS: PCP Internal Medicine; Visit Provider Registered Nurse
DX: J06.9 Acute upper respiratory infection, unspecified (principal); M94.0 Chondrocostal junction syndrome [Tietze]
CPT/HCPCS: 99214

== ENCOUNTER 2023-10-01 09:21 | Outpatient (REF) | payer MEDICARE, SELFPAY | END 2023-10-01 09:22 | disposition home or self-care (01) | LOC: HO.LNP 09:21 | PROVIDERS: Visit Provider Registered Nurse | DX: Z13.89 Encounter for screening for other disorder (principal) ==

== ENCOUNTER 2023-10-01 09:29 | Outpatient (REF) | payer MEDICARE, SELFPAY ==
--- NOTE | ~2023-10-01 | XR_ITS ---
EXAMINATION: XR CHEST CLINICAL INFORMATION: Acute upper respiratory infection. COMPARISON: Chest CT 06/22/2023 TECHNIQUE: 2 views of the chest were obtained. FINDINGS: The lungs are well expanded. No focal consolidation. No pleural effusion. Cardiac silhouette is unchanged. Prior median sternotomy. XR/XR chest 2V IMPRESSION: No acute abnormality.
[2023-10-01 11:05] LABS: Influenza A PCR NEGATIVE (Negative); Influenza B PCR NEGATIVE (Negative); Resp Syncy Virus RNA Qual PCR NEGATIVE (Negative); SARS COV2 PCR INHOUSE POSITIVE (Negative)
== END 2023-10-01 09:30 | disposition home or self-care (01) ==
LOC: HO.HMGCX 09:29
PROVIDERS: PCP Internal Medicine; Visit Provider Registered Nurse
DX: J06.9 Acute upper respiratory infection, unspecified (principal)
CPT/HCPCS: 0241U; 71046

== ENCOUNTER 2023-12-07 14:41 | Outpatient (REF) | payer MEDICARE, SELFPAY ==
[2023-12-07 17:00] LABS: Creatinine Urine 165.33 mg/dL; Microalbum/Creatinine Ratio Ur 43.5 ug/mg cr (<30)
[2023-12-07 17:14] LABS: Alanine Aminotransferase 13 U/L (0-31); Anion Gap 12 (12-20); Aspartate Amino Transferase 22 U/L (5-31); Blood Urea Nitrogen 16 mg/dL (9-16); Calcium 9.4 mg/dL (8.4-10.2); Carbon Dioxide 29 mmol/L (22-29); Chloride 104 mmol/L (96-108); Cholesterol 226 mg/dL (<200); Estimated Glomerular Filt Rate > 60; Glucose Fasting 132 mg/dL (60-99); HDL Cholesterol 46 mg/dL (>40); LDL Cholesterol Calculated 128 mg/dL (<100); Potassium 4.2 mmol/L (3.3-5.1); Sodium 141 mmol/L (135-145); Triglycerides 263 mg/dL (<150)
[2023-12-07 17:15] LABS: Estimated Average Glucose 163 mg/dL; Hemoglobin A1C 174.8143 umol/L; Hemoglobin A1c % 7.3 % (<6.0); Total Hemoglobin (HGBA1C) 3120.7884 umol/L
[2023-12-07 17:19] LABS: Vitamin D 25-OH Total 28.3 ng/mL (>30)
== END 2023-12-07 14:42 | disposition home or self-care (01) ==
LOC: HO.HMGCLDS 14:41
PROVIDERS: PCP Internal Medicine; Visit Provider Internal Medicine
DX: I73.9 Peripheral vascular disease, unspecified (principal); M81.0 Age-related osteoporosis without current pathological fracture; E11.9 Type 2 diabetes mellitus without complications; Z78.0 Asymptomatic menopausal state; E78.5 Hyperlipidemia, unspecified; I10 Essential (primary) hypertension
CPT/HCPCS: 36415; 80048; 80061; 82043; 82306; 82550; 82570; 83036; 84450; 84460

== ENCOUNTER 2023-12-09 11:35 | Outpatient (AMB) | payer MEDICARE, SELFPAY ==
[2023-12-09 11:38] VITALS: BP 122/60; PULSE 91; O2SAT 99; BMI 26.2
--- NOTE | 2023-12-09 11:38 | A.OFFPC_ITS ---
Vital Signs 12/09/23 11:38 Height 5 ft Weight 134 lb BMI 26.2 BP 122/60 Blood Pressure Location Lt brachial Position Sitting Pulse 91 Pulse Source Pulse Oximeter Pulse Oximetry (%) 99 Oxygen Delivery Method Room Air Intake Visit Reasons: 3 months f/u labs DM, HTN Allergies Padukje-WSV-FmY Reductase Inhibitor [Oainkhn-Hzp-Thf Reductase Inhibitor] Allergy (Unknown, Verified 12/09/23 11:50) muscle cramps Medication List - Last Reconciled 12/09/23 by Yu Alcantar MD acetaminophen ER (Arthritis Pain Reliever) 650 mg PO BID albuterol sulfate 90 mcg/actuation 2 puffs inhalation Q4-6H PRN aspirin 81 mg PO DAILY atorvastatin 80 mg PO BEDTIME betamethasone dipropionate 0.05% 1 appl topical BID PRN blood sugar diagnostic (FreeStyle Lite Strips) Test blood sugar once daily blood-glucose meter (FreeStyle Lite Meter kit) As directed for testing blood sugar blood-glucose meter,continuous (FreeStyle Sai 3 Burnet) Check fasting blood sugar twice a day before meals blood-glucose sensor (FreeStyle Sai 3 Sensor device) Check fasting blood sugar twice a day before meals cholecalciferol (vitamin D3) (Vitamin D3) 25 mcg PO DAILY cyanocobalamin (vitamin B-12) (Vitamin B-12) 500 mcg PO DAILY gabapentin 600 mg (2 x 300 mg) PO BEDTIME lancets (FreeStyle Lancets) Test blood sugar once a day metformin 500 mg PO BIDWMEAL 3 months metoprolol tartrate 12.5 mg (1/2 x 25 mg) PO BID 90 days nebulizer and compressor As directed ondansetron HCl 4 mg PO Q6H PRN rivaroxaban (Xarelto) 2.5 mg PO sitagliptin phosphate (Januvia) 50 mg PO DAILY Tobacco use date assessed: 12/09/23 Fall risk assessment: No Falls in past year Last assessed Fall Risk: 12/09/23 Dental Screening Dental Screen Date: 12/09/23 Did you have a dental visit in the last 12 months?: No Did you have a dental problem in the last 6 months where you did not have access to dental care?: No Was dental information given to patient?: Patient declined HPI 3 months f/u labs DM, HTN HPI Details 83-year-old lady with history of CAD wi th remote coronary stenting to circumflex in the 90s, hx non ST-elevation myocardial infarction s/p bypass surgery, has type 2 diabetes mellitus without currently use of insulin, peripheral arterial disease with history of amputation of lesser toe, history of bronchiectasis, hyperlipidemia, hypertension, here today for follow-up. Latest hemoglobin A1c is at 7.3%, and latest fasting lipids showed elevated LDL cholesterol at 128 mg/dL. Blood pressure however has been stable controlled on present treatment. Patient also has been having some painful swelling around the skin her left great toe. States that is warm and tender to touch, no discharge noted. Has been having more frequent anxiety attacks lately, would like to see if she can get something to help calm her nerves down. [facility] Medical History (Updated 12/09/23 @ 12:13 by Yu Alcantar MD) Generalized anxiety disorder Osteoporosis PAD (peripheral artery disease) Candidal intertrigo Asthma Pulmonary nodules Bronchiectasis with (acute) exacerbation Popliteal vein thrombosis Vitamin D deficiency Diabetes mellitus with peripheral angiopathy Refused influenza vaccine COVID-19 vaccination refused Other and unspecified hyperlipidemia Atherosclerotic cardiovascular disease Coronary artery disease Dyslipidemia Essential hypertension Type 2 diabetes mellitus without complication, without long-term current use of insulin Non-ST elevation VA (NSTEMI) Bilateral carotid artery stenosis NSTEMI (non-ST elevated myocardial infarction) Surgical History History of amputation of lesser toe History of cardiac catheterization (~01/06/20) S/P CABG x 4 (~01/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 Brother No problems noted. Brother No problems noted. Brother No problems noted. Sister No problems noted. Sister No problems noted. Sister No problems noted. Sister No problems noted. Sister No problems noted. Son No problems noted. Son No problems noted. Son No problems noted. Son No problems noted. Daughter Cancer Other Breast cancer Substance use disorder Social History Household Members: None Housing: Assisted Living Facility Are you a primary rn managed care to a significant other at home: No Alcohol intake: unknown Patient Tobacco Use Status: Never used Tobacco e-Cigarette/Vaping Use: Never Used Second Hand Smoke Exposure: Yes service: No Current occupational status: retired Cognitive needs: No Hearing needs: No Vision needs: Yes Questionnaire Thrive Questionnaire Date Thrive assessed: 12/09/23 I am a: Patient What is your living situation today?: I choose not to answer this question Within the past 12 months, did the food you bought not last and you didn't have the money to get more?: I choose not to answer this question Within the past 12 months, did you worry whether your food would run out before you got money to buy more?: I choose not to answer this question Do you have trouble paying for medicines?: I choose not to answer this question Do you have trouble getting transportation to medical appointments?: I choose not to answer this question Do you have trouble paying your heating and electricity bill?: I choose not to answer this question Do you have trouble taking care of your child, family member or friend?: I choose not to answer this question Do you have trouble with day-to-day activities such as bathing, preparing meals, shopping, managing finances, etc.?: I choose not to answer this question Are you currently unemployed and looking for a job?: I choose not to answer this question Are you interested in more education?: I choose not to answer this question Please select the resources that you would like help with: None Currently or been in a relationship where the following occur: I choose not to answer THRIVE Score: 0 AUDIT C Alcohol Use Questionnaire (AUDIT-C) 1. How often do you have a drink containing alcohol?: Never Total Score: 0 MARY JO-7 AMB Questionnaire MARY JO-7 Date MARY JO - 7 assessed: 12/09/23 Feeling nervous, anxious, or on edge: 1 = Several days Not being able to stop or control worryin = Several days Worrying too much about different things: 1 = Several days Trouble relaxin = Not at all Being so restless that it is hard to sit still: 0 = Not at all Becoming easily annoyed or irritable: 0 = Not at all Feeling afraid as if something awful might happen: 0 = Not at all Total MARY JO-7 score (0-4 normal; 5-9 mild; 10-14 moderate; 15-21 severe): 3 Source: Developed by Drs. Tera Uribe, Merlyn Romero, Damian schroeder nd colleagues, with an educational kalpesh from [employer] MARY JO-7 Assessment Billing MARY JO-7 Assessment Tool: MARY JO-7 Assessment 15779 Review of Systems Const Reports no additional complaints Eyes Details: Sees Dr. Arriola yearly Denies no additional complaints ENT Denies no additional complaints Card Denies chest pain, Denies leg edema, Denies lightheadedness and Denies dyspnea Resp Denies dyspnea GI Denies no additional complaints Reports as per HPI Musc Reports as per HPI Skin/Breast Denies breast pain, Denies breast mass, Denies lesions and Denies rash Neuro Reports no additional complaints Psych Reports as per HPI Endo Reports no additional complaints Roberto/Lymph Reports no additional complaints Aller/Immun Reports no additional complaints Physical exam (Primary Care) Vital Signs: Last Vital Signs Pulse 91 12/09/23 11:38 BP 122/60 12/09/23 11:38 Pulse Ox 99 12/09/23 11:38 Oxygen Delivery Method Room Air 12/09/23 11:38 BMI result Body Mass Index 26.2 Tobacco/Smoking Status: Tobacco use Status Tobacco use date assessed 12/09/23 12/09/23 11:47 Patient Tobacco Use Status Never used Tobacco 12/09/23 11:47 e-Cigarette/Vaping Use Never Used 12/09/23 11:47 Thrive Assessment: Date of Thrive Assessment Date Thrive assessed 12/09/23 12/09/23 11:47 Currently or been in a relationship where the following occur: I choose not to answer Const General: comfortable, no acute distress and alert Orientation/consciousness: patient oriented x3 HENMT General nose exam: Normal external nose present and No nasal discharge present Face and sinus: Yes face symmetric Mouth: Normal oral and palatal mucosa present Eyes General: appearance normal, both eyes and all related structures Neck Neck: Yes full ROM, Yes no lymphadenopathy and Yes supple Resp Auscultation: clear to auscultation bilaterally Cardio Other: S1-S2 present regular rate and rhythm GI Palpation (GI): Soft to palpation, nontender, no guarding and no masses Auscultation: normal bowel sounds General: Yes no CVA tenderness Back/Spine/Pelvis Back: no CVA tenderness and No back tenderness Skin Other: Diffuse swelling and erythema around left big toe, tender to palpation Neuro General: patient oriented x3 Extrem General: Yes full ROM, Yes no joint enlargement, Yes no pedal edema and Yes no calf tenderness Psych Appearance: grossly normal and well kempt Mental Status: mental status grossly normal Speech and movement: Normal speech and movement present Affect: normal affect Attitude: cooperative Thought process: Normal thought process present Results Reviewed Results Reviewed: Laboratory Tests 12/11/22 12/07/23 12/07/23 13:21 14:48 14:55 Estimat Average Glucose 146 163 Hemoglobin A1c % 6.7 H 7.3 H Urine Creatinine 165.33 Urine Microalbumin 72.0 Microalb/Creat Ratio 43.5 H Name: Ashley Kent Age/Sex: 83/F : 1940 Unit#: [id number] Attend Dr: Yu Alcantar MD Re12/07/23 Status: DEP REF Location: [facility] Disch: SPEC : [id number] ELOY: 12/07/23 STATUS: COMP REQ : [id number] RECD: 12/07/[address]: Yu Alcantar MD COMP: 12/07/23 ENTERED: 12/07/[address]: ORDERED: Met Prof Fast, AST, ALT, CK Total, Lipid Panel, Vitamin D 25-OH Test Result Flag Reference Sodium 141 135-145 mmol/L Potassium 4.2 3.3-5.1 mmol/L CL 104 96-108 mmol/L CO2 29 22-29 mmol/L Gap 12 12-20 BUN 16 9-16 mg/dL Creat 0.81 0.5-1.4 mg/dL EGFR > 60 NOTE: For -[place] individuals, multiply the result by 1.210. Chronic Kidney Disease: Estimated GFR < 60 mL/ min/1.73m2 Severe Kidney Disease: Estimated GFR < 15 mL/min/1.73m2 FBS 132 H 60-99 mg/dL A fasting glucose of 126 mg/dl or greater on more than one occasion is considered diagnostic of diabetes. CA 9.4 8.4-10.2 mg/dL AST (GOT) 22 5-31 U/L ALT (GPT) 13 0-31 U/L CK Total 88 26-140 U/L Triglyceride 263 H <150 mg/dL Desirable Triglyceride: less than 150 mg/dL Borderline High Triglyceride 150-199 mg/dL High Triglyceride: 200-499 mg/dL Very High Triglyceride: greater than or equal to 5OO mg/dL Cholesterol 226 H <200 mg/dL Desirable Cholesterol: less than 200 mg/dL Borderline High Cholesterol: 200-239 mg/dL High Cholesterol: greater than 239 mg/dL LDL Calculated 128 H <100 mg/dL Desirable LDL: less than 100 mg/dL Near Optimal/Above Optimal LDL: 110-129 mg/dL Borderline High LDL: 130-159 mg/dL High LDL: 160-189 mg/dL Very High LDL: greater than or equal to 190 mg/dL HDL 46 >40 mg/dL Desirable HDL: greater than 40 mg/dL Note: This HDL assay may give artificially low results in patients with liver disease. Vit D 25-OH Tot 28.3 L >30 ng/mL Health Based Reference Values* < 20 ng/mL Deficient 20-30 ng/mL Insufficient > 30 ng/mL Sufficient Coding Level of Care Code Est Pt Level 4 (96210) Diagnoses Type 2 diabetes mellitus without complication, without long-term current use of insulin E11.9 Dyslipidemia E78.5 Generalized anxiety disorder F41.1 Paronychia of great toe, left L03.032 Additional Codes MARY JO-7 Assessment Billing - MARY JO-7 Assessment Tool: MARY JO-7 Assessment [id number] ([id number]) Assessment & Plan Assessment & Plan (1) Type 2 diabetes mellitus without complication, without long-term current use of insulin: Code(s): E11.9 - Type 2 diabetes mellitus without complications Category: Medical Plan: Her hemoglobin A1c is at 7.3% with presence of microalbuminuria seen on recent urine check continue with blood sugar monitor, continue metformin reviewed mg 1 tablet twice a day with meals in addition to Januvia 50 mg once a day. Repeat another hemoglobin A1c in six-month (2) Dyslipidemia: Code(s): E78.5 - Hyperlipidemia, unspecified Category: Medical Plan: Latest fasting labs showed elevated LDL cholesterol and triglycerides. Stressed importance of adhering to recommended diet, continue with atorvastatin 80 mg daily (3) Generalized anxiety disorder: Code(s): F41.1 - Generalized anxiety disorder Category: Medical Plan: Prescription sent for hydroxyzine pamoate 25 mg per tablet, take 1 tablet once or twice a day as needed for acute anxiety attacks., (4) Paronychia of great toe, left: Code(s): L03.032 - Cellulitis of left toe Plan: Prescription sent for cephalexin 500 mg to take 1 tablet every 12 hours for 10 days Medications: New hydroxyzine pamoate 25 mg PO BID PRN 10 caps 0RF Acute anxiety cephalexin 500 mg PO Q12H 20 caps 0RF Refilled atorvastatin 80 mg PO BEDTIME 90 tabs 1RF
== END 2023-12-09 12:48 | disposition home or self-care (01) ==
PROVIDERS: PCP Internal Medicine; Visit Provider Internal Medicine
DX: E11.9 Type 2 diabetes mellitus without complications (principal); E78.5 Hyperlipidemia, unspecified; F41.1 Generalized anxiety disorder; L03.032 Cellulitis of left toe

== ENCOUNTER → 2023-12-09 11:35 | Outpatient (BNVA) | payer MEDICARE, SELFPAY | PROVIDERS: PCP Internal Medicine; Visit Provider Internal Medicine | DX: E11.9 Type 2 diabetes mellitus without complications (principal); E78.5 Hyperlipidemia, unspecified; F41.1 Generalized anxiety disorder; L03.032 Cellulitis of left toe; I25.2 Old myocardial infarction; Z79.899 Other long term (current) drug therapy | CPT/HCPCS: 96127; 99212 ==

== ENCOUNTER 2024-03-07 14:15 | Outpatient (REF) | payer MEDICARE, SELFPAY ==
[2024-03-07 15:45] VITALS: BP 169/76; PULSE 77; RESP 18; O2SAT 99; BMI 20.8
== END 2024-03-07 14:16 | disposition home or self-care (01) ==
LOC: HO.MS 14:15
PROVIDERS: PCP Internal Medicine; Visit Provider Ophthalmology
PROC: (CPT 11106; principal; 2024-03-07 14:30)
DX: L98.9 Disorder of the skin and subcutaneous tissue, unspecified (principal); R23.8 Other skin changes
CPT/HCPCS: 11106; 88304; 88305; J2004

== ENCOUNTER 2024-07-12 13:31 | Outpatient (REF) | payer MEDICARE, SELFPAY ==
--- OUTSIDE RECORDS SUMMARY | 2024-07-12 13:38 | XMS_ITS ---
[facility] Address [address] [place] [address] Care Team Providers Care Event Sales Representative Name Role Phone Katharine CHRISTIANSON, Yu Ramires Primary Care Provider Un available BradYinka schroederen Unavailable [phone] Allergies No Known Allergies REASON FOR VISIT At Risk Footcare, Ingrown Nail, Toe Irritation Medications Medication SIG (Take, Route, Frequency, Duration) Notes Start Date End Date Status Xarelto 2.5 MG Oral for 30 Days Active Gabapentin 300 MG Oral for 90 Days as needed Active Januvia Active Extra Depth Orthopedic Shoes (1 Pair) with Customized Heat Molded Multidensity Innersoles (3 Pair) as directed Dx: NIDDM/Polyneuropathy (E11.42), Hammertoe Foot Deformity (M20.41,M20.42), Preulcerative Skin Lesion(s) (L85.1 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 No Tobacco Control (Standard) Question Answer Notes Tobacco use: Nonsmoker Additional Findings: Tobacco non-user Current no nsmoker Vital Signs Height 5ft 4in in 04/26/2024 Weight 130 lbs 04/26/2024 BMI 22.31 kg/m2 04/26/2024 Blood pressure systolic 120 mm Hg 04/27/19 25 Blood pressure diastolic 80 mm Hg 025 Encounters Encounter Location Date Provider Diagnosis [facility] [address] [place] [address] 04/26/2024 Richelle Bartholomew Type 2 diabetes mellitus with diabetic polyneuropathy E11.42 ; Other hammer toe(s) (acquired), left foot M20.42 ; Tinea unguium B35.1 ; Ingrown nail L60.0 and Other hammer toe(s) (acquired), right foot M20.41 Assessments Encounter Date Diagnosis (ICD Code) Assessment Notes Treatment Notes Treatment Clinical Notes Section Notes 04/26/2024 Type 2 diabetes mellitus with diabetic polyneuropathy (ICD-10 - E11.42) 04/26/2024 Other hammer toe(s) (acquired), left foot (ICD-10 - M20.42) 04/26/2024 Tinea unguium (ICD-10 - B35.1) 04/26/2024 Ingrown nail (ICD-10 - L60.0) 04/26/2024 Other hammer toe(s) (acquired), right foot (ICD-10 - M20.41) Patient Educated with: DIABETIC FOOT CARE INSTRUCTIONS. pdf (DIABETIC FOOT CARE INSTRUCTIONS. 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 Treatment Notes Assessment Notes Other hammer toe(s) (acquired), right fo ot Patient Educated with: DIABETIC FOOT CARE INSTRUCTIONS.pdf (DIABETIC FOOT CARE INSTRUCTIONS.pdf) Next Appt Details Follow Up: 3 Months, Reason: Provider Name:Richelle schroeder, 07/26/2024 01:30:00 PM, [address] [place] [address], [place], [address], Procedure Notes * Category Sub-Category Detail Notes Debride Nail 6-10 Nail debridement Due to the cl inical pathology outlined in the exam findings, performance of this nail treatment is medically necessary as its management by an unskilled/untrained nonprofessional would put this patients foot and overall health at risk. Therefore, debridement to affected nail(s), as described in exam ( TA, T1, T3, T4, T5, T6, T7, T8, T9, ), was performed exclusively by the physician of record to reduce/remove overall nail length, girth, thickness, subungual debris, and necrotic tissue, by manual and/or electrical means through the use of a nail nipper and/or dremel-type rubber roller grinder, to a more viable healthy nail plate or bed tissue 6-10 nails in total. Silver nitrate was used for any petechial bleeding as necessary. Definitive antifungal treatment options, both pharmaceutical and surgical, have been reviewed and discussed with the patient. The patient solely prefers the use of intermittent/as needed professional debridement services for their nail condition and understands the need for additional periodic treatments to maintain effectiveness in symptomatic relief - 15615 Keratoma Treatment Parring or Cutting o f Benign Hyperkeratotic Lesion(s) (-57) More than 4 Lesions - Due to the at risk nature of the patients medical condition as documented in the exam findings, performance of this keratoderma treatment is medically necessary as its management by an unskilled/untrained nonprofessional would put this patients foot and overall health at risk. Therefore, the benign hyperkeratotic lesions, ( 10 ) in total, locations as stated and described in the exam ( Medial plantar, TA, T1, T4, T5, T6, T9; Sub met 1 B/L, heels B/L), were pared, and/or cut utilizing a sterile 15 blade, tissue nippers, and/or power dremel instrumentation by the physician of record - 80409 Progress Notes * Ashley KENT LDOB:1940 (84 yo F)Acc No.[id number]:04/26/2024 Progress Note Patient:?Ashley KENT Provider:?Richelle Bartholomew DPM :1940???Age:84 Y???Sex:Female D ate:04/26/2024 Address:[address] [place], [place] [id number] Pcp:Yoandy Hoover Subjective: * Chief Complaints: * ???At Risk FootcareIngrown N ailToe Irritation * HPI: ???At Risk footcare:?Pt States Last PCP Visit:?Date?02/24/2024 ???Toe pain:?Location:?B/L feet.?Duration:?several years.?Course:?worse.?Aggravated by:?shoes, any pressure.?Treatments:?change in shoes.?Ingrown toenail:?Nature:?tenderness.?Location:?Great toe, Left foot.?Duration:?several weeks.?Aggravated by:?shoes.? * ROS:?General/Constitutional:?Nausea?denies.?Vomiting?denies.?Hunger Thirst?denies.?Loss appetite?denies.?Chills?denies.?Fatigue?denies.?Fever?denies.?Night Sweats?denies.?Unexplained weight loss?denies.?Unexplained weight gain?denies.?HEENTM:?Dentures?denies.?Dizziness?denies.?Glasses/contacts?admits.?Retinopathy?den ies.?Blurred/double vision?denies.?TMJ?denies.?Discharge/drainage?denies.?Implants?denies.?Sore throat?denies.?Dental implants?denies.?Hard of hearing ?denies.?Difficulty chewing/swallowing/speaking?denies.?Nose bleeds?denies.?Sore mouth?denies.?Respiratory:?On O xygen?denies.?Pneumonia/pleurisy?denies.?Bronchitis?denies.?Emphysema?denies.?Co ughing?denies.?Cough blood?denies.?Shortness of breath?denies.?Wheezing?denies.?Cardiovascular:?Pacemaker?denies.?MVP?denies.?WPW?denies.?CHF?denies.?Heart attack?denies.?Septal defect?denies.?Rapid beat?denies.?Chest pain ?denies.?Atrial Fib.?denies.?Murmur/Palpitations?denies.?Gastrointestinal:?Hemorrhoids?denies.?Stomach/Abdominal pain?denies.?Dark blood stool?denies.?Irritable bowel ?denies.?Constipation?denies.?Diarrhea?denies.?Hematology:?Swelling?denies.?Clots?denies.?Varicose Veins?denies.?Bruising?denies.?Bleeding problem?denies.?Genitourinary:?Blood urine?denies.?Frequent/Painfu/urination/bladder control?denies.?Kidney stones?denies.?Infection (UTI)?denies.?Nephropathy?denies.?sex trans dis (STD)?denies.?Prostate?denies.?Musculoskeletal:?Hammertoes?denies.?Bunions?denies.?Back Pain?denies.?Muscle Cramps/ Resting?admits.?Muscle cramps / walking?denies.?Generalized aches and pains?denies.?Weakness?denies.?Integ.:?Rodriguez?denies.?Scars?admits.?Corns/calluses?denies.?Ingrown nails?denies.?Painful nails?denies.?Open Sores?denies.?Rashes?denies.?Neurologic:?Difficulty sleeping?denies.?Brain disorder?denies.?Numbness?denies.?Balance t rouble?denies.?Confusion?denies.?Fainting/blackouts?denies.?Tingling?denies.?Crow mors?denies.? * Medical History:? * Surgical History:?leg surger y 2020bypass surgery 2020 * Hospitalization/Major Diagno stic Procedure:?Denies Past Hospitalization * Family History:?Mother: dece ased.?Father: , diagnosed with Other malignant neoplasm of unspecified site.?Maternal aunt: diagnosed with Diabetic - NIDDM.? * Social History:?Tobacco Use:?Tobacco use other than smoking?Are you an other tobacco user??No ?Tobacco Control (Standard)?Tobacco use:?Nonsmoker ?Additional Findings: Tobacco non-user?Current nonsmoker ???Miscellaneous:?Caffeine: yes, frequency:1 cup per day. ?Children: yes, 5. ?Exercise: no. ?Marital status: . 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, add lift to left insert due to LLD Medication List reviewed and reconciled with the patientTaking metFORMIN HCl Taking Tylenol Taking Januvia Taking Xarelto 2.5 MG Tablet Oral Taking Gabapentin 300 MG Capsule Oral , Notes to Pharmacist: as neededTaking Doxycycline Hyclate 100 MG Capsule 1 capsule Orally Once a day Taking Extra Depth Orthopedic Shoes (1 Pair) with Customized Heat Molded Multidensity Innersoles (3 Pair) as directed Dx: NIDDM/Polyneuropathy (E11.42), Hammertoe Foot Deformity (M20.41,M20.42), Preulcerative Skin Lesion(s) (L85.1 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 * Examination: ???Ophthalmology Referral: ?DIABETES EYE EXAM?Procedure Performed:?Yes ?Date of Exam Performed?02/16/2023 ?Findings of Diabetic Eye Exam:?no retinopathy?Neurological: ?SENSORY:? Neurological exam demonstrates, reduced light touch sensation, reduced sharp/dull pin prick discrimination , B/L, 5.07 monofilament test performed at plantar aspects of 5 varied sites per foot shows sensation, reduced , B/L.?Nails: ?NAILS are:?Elongated, overgrown, dystrophic, lytic, greater than 3mm thick, discolored and friable with crumbly malodorous subungual debris, , TA, T1, T3, T4, T5, T6, T7, T8, T9.?Dermatologic: ?SKIN FINDINGS:?Skin exam reveals Keratotic lesion(s) located at, Medial plantar, TA, T1, T4,?T5, T6, T9; Sub met 1 B/L, heels B/L?, Skin shows sign(s) of mild inflammation distal TA, no overt signs of infection, no drainage, no open wounds, POP.?Vascular: ?DP PULSES (B):?1/4, B/L.?PT PULSES (B):?1/4, B/L.?CAPILLARY FILL TIME:?immediate, all digits, B/L.?TROPHIC CONDITION-TEXTURE/ELASTICITY/TURGOR/HAIR GROWTH (B):?fragile, thin, shiny skin, with sparse to absent hair growth.?TEMPERTURE GRADIENT (C):?normal, warm to cool, proximal to distal, B/L.?Orthopedic: ?MUSCLE STRENGTH:?5/5 all groups in a symmetrical fashion, B/L.?DIGITAL DEFORMITIES:?Digital contracture, PIPJ, 2-5 Right, 2, 4, 5 Left, incompl-reducible to push-up test, no over, nor underlapping, there is evidence of shoe producing skin irritation. , Amputation T2.?FOOTWEAR:?worn, non-supportive, shoe gear properties exacerbate patient's foot/toe deformity.?General Examination: ?GENERAL APPEARANCE:?Reveals a pleasant, alert, well nourished, well- developed, well hydrated individual, who demonstrates proper attention to hygiene/body habitus, and is in no acute distress, Pt serves as own historian for office visit today.?ORIENTED:?person, place, and time.?FOOT EXAM:?Lower Extremity Neurological Exam performed:?Yes ?Visual exam of foot performed:?Yes ?Date?04/26/2024 ?Footwear Evaluation?Footwear Evaluation performed:?Yes?Ingrown Nail: ?INSPECTION:?Reveals nail incurvation, pain on palpation, groove hypertrophy, Medial nail border, TA, There is evidence of surrounding periungual tissue erythema.? Assessment: * Assessment: 1.?Type 2 diabetes mellitus with diabetic polyneuropathy - E11.42???2.?Other hammer toe(s) (acquired), left foot - M20.42 (Primary)???Specify :Chronic problem, Worse (4),Rx Management (4)???3.?Tinea unguium - B35.1???4.?Ingrown nail - L60.0? ?5.?Other hammer toe(s) (acquired), right foot - M20.41???Specify :Chronic problem, Worse (4),Rx Management (4)??? Plan: * Treatment: * Procedures:?Debride Nail 6-10:?Nail debridement?Due to the clinical pathology outlined in the exam findings, performance of this nail treatment is medically necessary as its management by an unskilled/untrained nonprofessional would put this patients foot and overall health at risk. Therefore, debridement to affected nail(s), as described in exam ( TA, T1, T3, T4, T5, T6, T7, T8, T9, ), was performed exclusively by the physician of record to reduce/remove overall nail length, girth, thickness, subungual debris, and necrotic tissue, by manual and/or electrical means through the use of a nail nipper and/or dremel-type rubber roller grinder, to a more viable healthy nail plate or bed tissue 6- 10 nails in total. Silver nitrate was used for any petechial bleeding as necessary. Definitive antifungal treatment options, both pharmaceutical and surgical, have been reviewed and discussed with the patient. The patient solely prefers the use of intermittent/as needed professional debridement services for their nail condition and understands the need for additional periodic treatments to maintain effectiveness in symptomatic relief - [id number].?Keratoma Treatment:?Parring or Cutting of Benign Hyperkeratotic Lesion(s)?(-57) More than 4 Lesions - Due to the at risk nature of the patients medical condition as documented in the exam findings, performance of this keratoderma treatment is medically necessary as its management by an unskilled/untrained nonprofessional would put this patients foot and overall health at risk. Therefore, the benign hyperkeratotic lesions, ( 10 ) in total, locations as stated and described in the exam (??Medial plantar,?TA,?T1, T4,?T5,?T6,?T9; Sub met 1 B/L, heels B/L), were pared, and/or cut utilizing a sterile 15 blade, tissue nippers, and/or power dremel instrumentation by the physician of record - [id number].? * Procedure Codes:?12746 DEBRI DE NAIL, 6 OR MORE, Modifiers: XS 48777 TRIM SKIN LESIONS, OVER 4, Modifiers: XS * Preventive Medicine:? ??Counseling:?Discussion:?-14: Office or other outpatient visit for the evaluation and management of an established patient, which required a medically appropriate history and/or examination and MODERATE level of DECISION MAKING for: 1 OR MORE CHRONIC PROBLEM(S) THATS WORSENING, 2 STABLE CHRONIC PROBLEMS, A NEWLY DIAGNOSED PROBLEM WITH UNCERTAIN PROGNOSIS, AN ACUTE COMPLICATED INJURY WITH MULTIPLE TREATMENT OPTIONS, OR AN ACUTE PROBLEM WITH ACCOMPANYING SYSTEMIC SYMPTOMS, THAT POSE(S) A MODERATE RISK OF MORBIDITY. THIS CONDITION MAY ALSO INCLUDE RX DRUG MANAGEMENT, OR A DECISON FOR MINOR SURGERY. The visit on the day of the encounter encompassed interpreting the data and educating the patient as to the nature of their condition, treatment options available according to their individual PMH, meds, allergies, and overall health/living conditions, as well as any potential risks or complications that may occur from a failure to adhere to, and participate in, the recommended course of therapy. The discussion included a complete verbal, and/or written explanation of the examination results, any x-rays taken, the proposed diagnosis, and outline of the treatment plan. A schedule for future care needs was also explained. The patient verbalized an understanding of the instructions at this time and agreed to be an active participant in their treatment. If the patient should think of any questions or concerns after the visit, I have encouraged the patient to call the office.?Abscess/Paraonychia/Ingrown Nails:?We discussed the possible etiologies (genetic, improper nail care, shoe gear, nail trauma) which may lead to ingrown nails and/or paronychial infections. We discussed and reviewed palliative/nonsurgical/deferring definitive treatment (vs) undergoing the treatment procedures of nail avulsion(s) or PNA, which may prevent recurrence and give more lasting results. The possible risks/complications such as worsened condition/delayed healing/nonhealing/failure/recurrence/infection, the potential benefits/advantages of decreased pain/deformity, as well as alterative treatment options including applying nail softening agents/nail groove packing were discussed. No guarantees were given regarding any outcome for any procedure. The patient was educated in the length of time for the affected nail to regrow once completely healed from a nail avulsion procedure. Once the condition has completely healed, the patient was consulted on proper nail care. Patient questions such as details of each procedure, varying time to heal, activity post procedure, and shoe gear were discussed and the answers were verbally confirmed fully understood, slant back performed with good relief of pain, pt to monitor for any signs of infection, pt should soak in warm water and epsom salts and apply antibotic ointment, call with any issues.?Digital Surgery:?Digital surgery was discussed with the patient, We elected to try conservative treatment at the present time, due to the patients medical history and increased asssociated post-operative risks.?Digital Treatment:?HT- I explained to the patient the possible etiologies of Hammertoes, including genetics/foot type/shoegear/activity level/exercise routine and the risks/benefits of all the different treatment options for their pain including: No treatment at all, Rest, Ice, New/supportive/wider/deeper Shoegear, Digital Padding/Strapping/Taping/Bracing/Gel protective sleeves, Foot/Ankle AFO Bracing, Stretching exercises, Deep Tissue Massage, Arch support/shoe inserts with splay metatarsal padding, and Custom orthoses. I insisted that any digital devices be removed daily and not worn overnight for safety. The patient is to carefully examine the toes daily for any skin irritation while using any splinting or padding device. The advantages and disadvantages of each option were discussed and the patients questions re: shoegear, padding, custom vs prefabricated inserts, activity level, and consistency in home treatment regimens for optimal success were answered to their verbally confirmed satisfaction.?Shoe Gear Counseling:?SHOE Rx - The patient was counseled in great detail on their muscoloskeletal foot and toe deformities which coincided with the dermatological presentations visualized on exam. We discussed how their deformities put the integrity of their feet at risk for potential pedal complications which makes the accomidative diabetic shoes and cutomizable inserts medically necessary. We discussed the different shoe and insert treatment types and options, as well as the important advantages for adhering to regularly wearing these accomidative devices daily. The patient was made aware of the fact that a failure to abide by these recommedations may be deleterious to their foot health as they are able to prevent many pedal complications such as skin irritation, skin ulceration, infection, and even loss of toe/foot/leg/or life. Time was also spent with the patient dispensing and discussing proper diabetic footcare techniques including daily skin moisturization, daily foot inspection for any interruption in skin integrity including open lesions, or sign of infection such as redness/malodor/drainage/swelling. Also discussed and recommended were procedures regarding daily shoe inspection for the presence of internal foreign bodies as well as any visualized irregular shoe or insert wear. Patient questions re: shoes, inserts, and self foot inspections were answered to their satisfaction as the patient verbally confirmed a full understanding of the above information. A Rx for Extra Depth Orthopedic Shoes with 3 pair of custom heat-molded inserts was dispensed.? * Follow Up:?3 Months * Images: * Sign off status: Completed true * Provider:?Richelle Bartholomew, GISELLE Date:?12/2024 Generated for Ulysses colvin/Azam/Nica on:?07/12/2024 01:37 PM EDT History and Physical Notes * HPI (History of Present Illness) Category Sub-Category Detail Notes Category Not es Toe pain Location: B/L feet Duration: several years Course: worse Aggravated by: shoes, any pressure Treatments: change in shoes Ingrown toenail Duration: several weeks Nature: tenderness Location: Great toe, Left foot Aggravated by: shoes At Risk footcare Pt States Last PCP Visit: Date: 5 Examination Category Sub-Category Detail Notes Category Not es Ingrown Nail INSPECTION: Reveals nail inc urvation, pain on palpation, groove hypertrophy, Medial nail border, TA, There is evidence of surrounding periungual tissue erythema Neurological SENSORY: Neurological exa m demonstrates, reduced light touch sensation, reduced sharp/dull pin prick discrimination , B/L, 5.07 monofilament test performed at plantar aspects of 5 varied sites per foot shows sensation, reduced , B/L Dermatologic SKIN FINDINGS: Skin exam reveal s Keratotic lesion(s) located at, Medial plantar, TA, T1, T4, T5, T6, T9; Sub met 1 B/L, heels B/L , Skin shows sign(s) of mild inflammation distal TA, no overt signs of infection, no drainage, no open wounds, POP Orthopedic FOOTWEAR EVALUATION: worn, non-s upportive, shoe gear properties exacerbate patient's foot/toe deformity DIGITAL DEFORMITIES: Digital contracture , PIPJ, 2-5 Right, 2, 4, 5 Left, incompl-reducible to push-up test, no over, nor underlapping, there is evidence of shoe producing skin irritation. , Amputation T2 MUSCLE STRENGTH: 5/5 all groups in a symmetrical fashion, B/L General Examination GENERAL APPEARANCE: Reveals a pleasant, alert, well nourished, well-developed, well hydrated individual, who demonstrates proper attention to hygiene/body habitus, and is in no acute distress, Pt serves as own historian for office visit today FOOT EXAM: Lower Extremity Neurological Exa m performed:: Yes Visual exam of foot performed:: Yes Date: 04/26/2024 ORIENTED: person, place, and t lanny Footwear Evaluation Footwear Evaluation performe d:: Yes Ophthalmology Referral DIABETES EYE EXAM Procedure Perform ed:: Yes ?Date of Exam Performed: 02/16/2023 Findings of Diabetic Eye Exam:: no retin opathy Vascular DP PULSES (B): 1/4, B/L PT PULSES (B): 1/4, B/L CAPILLARY FILL TIME: immediate, all digi ts, B/L TEMPERTURE GRADIENT (C): normal, warm to cool, proximal to distal, B/L TROPHIC CONDITION-TEXTURE/ELASTICITY/TURGOR/HAIR GROWTH (B): fragile, thin, shiny skin, with sparse t o absent hair growth Nails NAILS are: Elongated, overg rown, dystrophic, lytic, greater than 3mm thick, discolored and friable with crumbly malodorous subungual debris, , TA, T1, T3, T4, T5, T6, T7, T8, T9
[2024-07-12 16:13] LABS: Estimated Average Glucose 169 mg/dL; Hemoglobin A1C 204.9301 umol/L; Hemoglobin A1c % 7.5 % (<6.0); Total Hemoglobin (HGBA1C) 3483.1948 umol/L
[2024-07-12 16:24] LABS: Creatinine Urine 181.85 mg/dL; Microalbum/Creatinine Ratio Ur 16.4 ug/mg cr (<30)
[2024-07-12 16:33] LABS: Alanine Aminotransferase 14 U/L (0-31); Anion Gap 14 (12-20); Aspartate Amino Transferase 22 U/L (5-31); Blood Urea Nitrogen 16 mg/dL (9-16); Calcium 9.5 mg/dL (8.4-10.2); Carbon Dioxide 27 mmol/L (22-29); Chloride 104 mmol/L (96-108); Cholesterol 268 mg/dL (<200); Estimated Glomerular Filt Rate > 60; Glucose Fasting 140 mg/dL (60-99); HDL Cholesterol 47 mg/dL (>40); LDL Cholesterol Calculated 162 mg/dL (<100); Potassium 3.8 mmol/L (3.3-5.1); Sodium 141 mmol/L (135-145); Triglycerides 298 mg/dL (<150)
[2024-07-12 16:36] LABS: Vitamin D 25-OH Total 28.4 ng/mL (>30)
== END 2024-07-12 13:32 | disposition home or self-care (01) ==
LOC: HO.HMGCLDS 13:31
PROVIDERS: PCP Internal Medicine; Visit Provider Internal Medicine
DX: M81.0 Age-related osteoporosis without current pathological fracture (principal); I73.9 Peripheral vascular disease, unspecified; I25.10 Atherosclerotic heart disease of native coronary artery without angina pectoris; E78.5 Hyperlipidemia, unspecified; I10 Essential (primary) hypertension; E11.9 Type 2 diabetes mellitus without complications
CPT/HCPCS: 36415; 80048; 80061; 82043; 82306; 82570; 83036; 84450; 84460

== ENCOUNTER 2024-07-13 13:10 | Outpatient (AMB) | payer MEDICARE, SELFPAY ==
[2024-07-13 13:17] VITALS: BP 130/58; PULSE 74; RESP 20; TEMP 37.1; O2SAT 94; BMI 22.8
--- NOTE | 2024-07-13 13:17 | MHC.PC.OV ---
Vital Signs 07/13/24 13:17 Height 5 ft 5 in Weight 137 lb BMI 22.8 BP 130/58 L Blood Pressure Location Rt brachial Position Sitting Respiration 20 Pulse 74 Pulse Source Pulse Oximeter Temp 98.7 F Temp Source Oral Pulse Oximetry (%) 94 Oxygen Delivery Method Room Air Intake Visit Reasons: 5m follow up fasting labs Intake Note: Pt is here today for her 5mo. f/u lab Allergies Xuzwaqe-ZIM-FdC Reductase Inhibitor [Qcbklde-Lcz-Nto Reductase Inhibitor] Allergy (Unknown, Verified 07/13/24 14:00) muscle cramps Medication List - Last Reconciled 07/13/24 by Yu Alcantar MD acetaminophen ER (Arthritis Pain Reliever) 650 mg PO BID atorvastatin 80 mg PO BEDTIME betamethasone dipropionate 0.05% 1 appl topical BID PRN blood sugar diagnostic (FreeStyle Lite Strips) Test blood sugar once daily blood-glucose meter (SpeakermixStyle Lite Meter kit) As directed for testing blood sugar blood-glucose sensor (SpeakermixStyle Sai 3 Sensor device) Check fasting blood sugar twice a day before meals blood-glucose,aligner barrel and receiver,cont (FreeStyle Sai 3 [place]) Check fasting blood sugar twice a day before meals cholecalciferol (vitamin D3) (Vitamin D3) 25 mcg PO DAILY cyanocobalamin (vitamin B-12) (Vitamin B-12) 500 mcg PO DAILY gabapentin 600 mg PO BEDTIME PRN hydroxyzine pamoate 25 mg PO BID PRN lancets (FreeStyle Lancets) Test blood sugar once a day metformin 500 mg PO BIDWMEAL 3 months metoprolol tartrate 12.5 mg (1/2 x 25 mg) PO BID 90 days nebulizer and compressor As directed ondansetron HCl 4 mg PO Q6H PRN rivaroxaban (Xarelto) 2.5 mg PO BID sitagliptin phosphate (Januvia) 50 mg PO DAILY Tobacco use date assessed: 07/13/24 Fall risk assessment: No Falls in past year Last assessed Fall Risk: 07/13/24 Dental Screening Dental Screen Date: 07/13/24 Did you have a dental visit in the last 12 months?: No Did you have a dental problem in the last 6 months where you did not have access to dental care?: No Was dental information given to patient?: Patient has dentist HPI 5m follow up fasting labs HPI Details 84-year-old lady here today for follow-up on her diabetes mellitus, hypertension lipids. She states that she has sometimes been forgetting to take her medications, and has not been following diet completely. Latest fasting labs showed higher hemoglobin A1c and LDL cholesterol as compared to last check. Blood pressure hours within normal limits [facility] Medical History (Updated 07/13/24 @ 14:16 by Yu Alcantar MD) Diabetes mellitus with hyperglycemia, without long-term current use of insulin Generalized anxiety disorder Osteoporosis PAD (peripheral artery disease) Candidal intertrigo Asthma Pulmonary nodules Bronchiectasis with (acute) exacerbation Popliteal vein thrombosis Vitamin D deficiency Diabetes mellitus with peripheral angiopathy Refused influenza vaccine COVID-19 vaccination refused Other and unspecified hyperlipidemia Atherosclerotic cardiovascular disease Coronary artery disease Dyslipidemia Essential hypertension Type 2 diabetes mellitus without complication, without long-term current use of insulin Non-ST elevation MN (NSTEMI) Bilateral carotid artery stenosis NSTEMI (non-ST elevated myocardial infarction) Surgical History History of amputation of lesser toe History of cardiac catheterization (~01/06/20) S/P CABG x 4 (~01/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 Brother No problems noted. Brother No problems noted. Brother No problems noted. Sister No problems noted. Sister No problems noted. Sister No problems noted. Sister No problems noted. Sister No problems noted. Son No problems noted. Son No problems noted. Son No problems noted. Son No problems noted. Daughter Cancer Other Breast cancer Substance use disorder Social History Household Members: None Housing: Assisted Living Facility Are you a primary primary health care nurse to a significant other at home: No Alcohol intake: unknown Patient Tobacco Use Status: Never used Tobacco e-Cigarette/Vaping Use: Never Used Second Hand Smoke Exposure: Yes service: No Current occupational status: retired Cognitive needs: No Hearing needs: No Vision needs: Yes Questionnaire Thrive Questionnaire Date Thrive assessed: 07/13/24 I am a: Patient What is your living situation today?: I choose not to answer this question Within the past 12 months, did the food you bought not last and you didn't have the money to get more?: I choose not to answer this question Within the past 12 months, did you worry whether your food would run out before you got money to buy more?: I choose not to answer this question Do you have trouble paying for medicines?: I choose not to answer this question Do you have trouble getting transportation to medical appointments?: I choose not to answer this question Do you have trouble paying your heating and electricity bill?: I choose not to answer this question Do you have trouble taking care of your child, family member or friend?: I choose not to answer this question Do you have trouble with day-to-day activities such as bathing, preparing meals, shopping, managing finances, etc.?: I choose not to answer this question Are you currently unemployed and looking for a job?: I choose not to answer this question Are you interested in more education?: I choose not to answer this question Please select the resources that you would like help with: None Currently or been in a relationship where the following occur: I choose not to answer THRIVE Score: 0 MARY JO-7 AMB Questionnaire MARY JO-7 Date MARY JO - 7 assessed: 12/09/23 Source: Developed by Drs. Tera Uribe, Merlyn Romero, Damian Hanna and colleagues, with an educational kalpesh from [employer]. Review of Systems Const Reports no additional complaints Eyes Details: Sees Dr. Arriola yearly Denies no additional complaints ENT Denies no additional complaints Card Denies chest pain, Denies leg edema, Denies lightheadedness and Denies dyspnea Resp Denies dyspnea GI Denies no additional complaints Reports as per HPI Musc Reports as per HPI Skin/Breast Denies breast pain, Denies breast mass, Denies lesions and Denies rash Neuro Reports no additional complaints Psych Reports as per HPI Endo Reports no additional complaints Roberto/Lymph Reports no additional complaints Aller/Immun Reports no additional complaints Physical exam (Primary Care) Vital Signs: Last Vital Signs Temp 98.7 F 07/13/24 13:17 Pulse 74 07/13/24 13:17 Resp 20 07/13/24 13:17 BP 130/58 L 07/13/24 13:17 Pulse Ox 94 07/13/24 13:17 Oxygen Delivery Method Room Air 07/13/24 13:17 BMI result Body Mass Index 22.8 Tobacco/Smoking Status: Tobacco use Status Tobacco use date assessed 07/13/24 07/13/24 13:32 Patient Tobacco Use Status Never used Tobacco 07/13/24 13:20 e-Cigarette/Vaping Use Never Used 07/13/24 13:20 Thrive Assessment: Date of Thrive Assessment Date Thrive assessed 07/13/24 07/13/24 13:20 Currently or been in a relationship where the following occur: I choose not to answer Const General: comfortable, no acute distress and alert Orientation/consciousness: patient oriented x3 HENMT General nose exam: Normal external nose present and No nasal discharge present Face and sinus: Yes face symmetric Mouth: Normal oral and palatal mucosa present Eyes General: appearance normal, both eyes and all related structures Neck Neck: Yes full ROM, Yes no lymphadenopathy and Yes supple Resp Auscultation: clear to auscultation bilaterally Cardio Other: S1-S2 present regular rate and rhythm GI Palpation (GI): Soft to palpation, nontender, no guarding and no masses Auscultation: normal bowel sounds General: Yes no CVA tenderness Back/Spine/Pelvis Back: no CVA tenderness and No back tenderness Neuro General: patient oriented x3 Extrem General: Yes full ROM, Yes no joint enlargement, Yes no pedal edema and Yes no calf tenderness Psych Appearance: grossly normal and well kempt Mental Status: mental status grossly normal Speech and movement: Normal speech and movement present Affect: normal affect Attitude: cooperative Thought process: Normal thought process present Results Reviewed Results Reviewed: Name: Ashley Kent Age/Sex: 84/F : 1940 [facility]#: [id number] Unit#: [id number] Attend Dr: Yu Alcantar MD Re07/12/24 Status: DEP REF Location: [facility] Disch: SPEC : [id number] ELOY: 07/12/24 STATUS: COMP REQ : [id number] RECD: 07/12/[address]: Yu Alcantar MD COMP: 07/12/24 ENTERED: 07/12/[address]: ORDERED: Met Prof Fast, AST, ALT, Lipid Panel, Vitamin D 25-OH Test Result Flag Reference Sodium 141 135-145 mmol/L Potassium 3.8 3.3-5.1 mmol/L CL 104 96-108 mmol/L CO2 27 22-29 mmol/L Gap 14 12-20 BUN 16 9-16 mg/dL Creat 0.86 0.5-1.4 mg/dL eGFR > 60 Chronic Kidney Disease: Estimated GFR < 60 mL/min/1.73m2 Severe Kidney Disease: Estimated GFR < 15 mL/min/1.73m2 FBS 140 H 60-99 mg/dL A fasting glucose of 126 mg/dl or greater on more than one occasion is considered diagnostic of diabetes. CA 9.5 8.4-10.2 mg/dL AST (GOT) 22 5-31 U/L ALT (GPT) 14 0-31 U/L Triglyceride 298 H <150 mg/dL Desirable Triglyceride: less than 150 mg/dL Borderline High Triglyceride 150-199 mg/dL High Triglyceride: 200-499 mg/dL Very High Triglyceride: greater than or equal to 5OO mg/dL Cholesterol 268 H <200 mg/dL Desirable Cholesterol: less than 200 mg/dL Borderline High Cholesterol: 200-239 mg/dL High Cholesterol: greater than 239 mg/dL LDL Calculated 162 H <100 mg/dL Desirable LDL: less than 100 mg/dL Near Optimal/Above Optimal LDL: 110-129 mg/dL Borderline High LDL: 130-159 mg/dL High LDL: 160-189 mg/dL Very High LDL: greater than or equal to 190 mg/dL HDL 47 >40 mg/dL Desirable HDL: greater than 40 mg/dL Note: This HDL assay may give artificially low results in patients with liver disease. Vitamin D 25-OH 28.4 L >30 ng/mL Health Based Reference Values* < 20 ng/mL Deficient 20-30 ng/mL Insufficient > 30 ng/mL Sufficient Laboratory Tests 07/12/24 13:34 Estimat Average Glucose 169 Hemoglobin A1c % 7.5 H Urine Creatinine 181.85 Urine Microalbumin 30.0 Microalb/Creat Ratio 16.4 Coding Level of Care Code Est Pt Level 4 (55588) Complex EM visit Add On G2211 Diagnoses Essential hypertension I10 Dyslipidemia E78.5 Diabetes mellitus with hyperglycemia, without long-term current use of insulin E11.65 Assessment & Plan Assessment & Plan (1) Essential hypertension: Code(s): I10 - Essential (primary) hypertension Category: Medical Plan: Blood pressure at goal of less than 130/80. Continue with current medication. Reinforced importance of following a low sodium diet, getting regular exercise, and lowering stress levels. (2) Dyslipidemia: Code(s): E78.5 - Hyperlipidemia, unspecified Category: Medical Plan: Reviewed recent fasting lipid profile with patient with levels not at goal . Stressed compliance with taking medication. Continued on atorvastatin 80 mg daily, in addition to adherence to low-cholesterol diet and regular exercise, at least 30 minutes 3 to 4 times a week. Advised patient to make healthy food choices, eat more fruits, vegetables, whole grains, wild caught fish and low-fat dairy. Limit amount of meat and fried or fatty food products, as well as processed foods and fast foods. Follow-up scheduled with repeat fasting lipid panel in 3 months. (3) Diabetes mellitus with hyperglycemia, without long-term current use of insulin: Code(s): E11.65 - Type 2 diabetes mellitus with hyperglycemia Category: Medical Plan: Recent lab results reviewed with patient, with sugar and hemoglobin A1c not at goal at 7.5%. Will continue on metformin 500 mg per tablet taken 1 tablet twice a day with meals and increased dose of Januvia to 100 mg daily. continue to check fasting blood sugar at home, maintain log and bring to next appointment for review. Reinforced diabetic diet and regular exercise with patient. Counseled regarding importance of yearly diabetes retinopathy screening. Patient advised to inspect feet daily, for any signs of injury, callus or infection. Compliance with diet and regular exercise again stressed. Blood pressure goal is less than 130/80, goal LDL is less than 100 and goal hemoglobin A1c is less than 7% follow-up appointment made in--3-months, after fasting labs done. Orders: Orders Lipid Panel 07/12/24 E11.9 - Type 2 diabetes mellitus without complications, E78.5 - Hyperlipidemia, unspecified, I10 - Essential (primary) hypertension, I25.10 - Atherosclerotic heart disease of [place] coronary artery without angina pectoris, I73.9 - Peripheral vascular disease, unspecified, M81.0 - Age-related osteoporosis without current pathological fracture Aspartate Amino Transferase 07/12/24 E11.9 - Type 2 diabetes mellitus without complications, E78.5 - Hyperlipidemia, unspecified, I10 - Essential (primary) hypertension, I25.10 - Atherosclerotic heart disease of [place] coronary artery without angina pectoris, I73.9 - Peripheral vascular disease, unspecified, M81.0 - Age-related osteoporosis without current pathological fracture Alanine Aminotransferase 07/12/24 E11.9 - Type 2 diabetes mellitus without complications, E78.5 - Hyperlipidemia, unspecified, I10 - Essential (primary) hypertension, I25.10 - Atherosclerotic heart disease of [place] coronary artery without angina pectoris, I73.9 - Peripheral vascular disease, unspecified, M81.0 - Age-related osteoporosis without current pathological fracture Hemoglobin A1c 10/22/24 E11.65 - Type 2 diabetes mellitus with hyperglycemia, E78.5 - Hyperlipidemia, unspecified, I10 - Essential (primary) hypertension Alanine Aminotransferase 10/22/24 E11.65 - Type 2 diabetes mellitus with hyperglycemia, E78.5 - Hyperlipidemia, unspecified, I10 - Essential (primary) hypertension Basic Metabolic Panel Fasting 10/22/24 E11.65 - Type 2 diabetes mellitus with hyperglycemia, E78.5 - Hyperlipidemia, unspecified, I10 - Essential (primary) hypertension Hemoglobin A1c 07/12/24 E11.9 - Type 2 diabetes mellitus without complications, E78.5 - Hyperlipidemia, unspecified, I10 - Essential (primary) hypertension, I25.10 - Atherosclerotic heart disease of [place] coronary artery without angina pectoris, I73.9 - Peripheral vascular disease, unspecified, M81.0 - Age-related osteoporosis without current pathological fracture Basic Metabolic Panel Fasting 07/12/24 E11.9 - Type 2 diabetes mellitus without complications, E78.5 - Hyperlipidemia, unspecified, I10 - Essential (primary) hypertension, I25.10 - Atherosclerotic heart disease of [place] coronary artery without angina pectoris, I73.9 - Peripheral vascular disease, unspecified, M81.0 - Age-related osteoporosis without current pathological fracture Microalbumin, Random (w Creat) 07/12/24 E11.9 - Type 2 diabetes mellitus without complications, E78.5 - Hyperlipidemia, unspecified, I10 - Essential (primary) hypertension, I25.10 - Atherosclerotic heart disease of [place] coronary artery without angina pectoris, I73.9 - Peripheral vascular disease, unspecified, M81.0 - Age-related osteoporosis without current pathological fracture Vitamin D 25-OH Total 07/12/24 E11.9 - Type 2 diabetes mellitus without complications, E78.5 - Hyperlipidemia, unspecified, I10 - Essential (primary) hypertension, I25.10 - Atherosclerotic heart disease of [place] coronary artery without angina pectoris, I73.9 - Peripheral vascular disease, unspecified, M81.0 - Age-related osteoporosis without current pathological fracture Lipid Panel 10/22/24 E11.65 - Type 2 diabetes mellitus with hyperglycemia, E78.5 - Hyperlipidemia, unspecified, I10 - Essential (primary) hypertension Aspartate Amino Transferase 10/22/24 E11.65 - Type 2 diabetes mellitus with hyperglycemia, E78.5 - Hyperlipidemia, unspecified, I10 - Essential (primary) hypertension Vitamin D 25-OH Total 10/22/24 E11.65 - Type 2 diabetes mellitus with hyperglycemia, E78.5 - Hyperlipidemia, unspecified, I10 - Essential (primary) hypertension Medications: New Januvia (sitagliptin phosphate) 100 mg PO DAILY 30 tabs 5RF NS cholecalciferol (vitamin D3) 1,250 mcg PO QWEEK 13 caps 0RF 3 months Changed From gabapentin 600 mg (2 x 300 mg) PO BEDTIME 180 caps 1RF To gabapentin 600 mg PO BEDTIME PRN Discontinued sitagliptin phosphate (Januvia) Discontinued Reason: Doctor's Order 50 mg PO DAILY 90 tabs 1RF
--- OUTSIDE RECORDS SUMMARY | 2024-07-13 13:58 | XMS_ITS | Encounter Summary ---
Author Organization Formerly [facility] Address [address] [place] [address] Care Team Providers Care Food Cart Attendant Name Role Phone Yu Alcantar MD Primary Care Provider [phone] Reason for Visit * Reason Comments Other Encounter Details Date Type Department Care Team (Late st Contact Info) Description 01/27/2022 Telephone [facility] Heart & Vascular [place] [facility] [address] [phone] Wolfgang Helton MD [address] [place] [id number] Other Social History Tobacco Use Types Packs/Day Years Used Date Smoking Tobacco: Never Smokeless Tobacco: Never Alcohol Use Standard Drinks/Week Comments Not Currently 0 (1 standard drink = 0.6 oz pur e alcohol) Comments Unknown Sex and Gender Information Value Date Recorded Sex Assigned at Female 08/18/2022 2:07 PM EDT Legal Sex Female 2:33 AM EST Gender Identity Female 08/18/2022 2:07 PM EDT Sexual Orientation Heterosexual (straight) 08/18 2:07 PM EDT documented as of this encounter Miscellaneous Notes * Telephone Encounter - Natalie Valencia MA - 01/27/2022 3:39 PM EST Patients daughter due to not receiving notes that are needed and to be faxed to her email. She willneed before Thursday . documented in this encounter Plan of Treatment Upcoming Encounters Date Type Department Care Team (Late st Contact Info) Description 09/22/2024 1:15 PM EDT Ancillary Procedure [facility] Vascular & Endovascular Surgery [address] [phone] Ruth Whitaker PA [address] [place] [phone] 09/22/2024 1:30 PM EDT Ancillary Procedure [facility] Vascular & Endovascular Surgery [address] [phone] Ruth Whitaker PA [address] [place] [phone] 09/22/2024 2:00 PM EDT Office Visit [facility] Vascular & Endovascular Surgery [address] [phone] Wolfgang Helton MD [address] [place] [phone] documented as of this encounter Visit Diagnoses Not on filedocumented in this encounter Care Teams Food Cart Attendant Relationship Specialty Start Date End Date Yu Alcantar MD [address] [place] [address] PCP - General Internal Medicine 02/07/21 documented as of this encounter
== END 2024-07-13 14:18 | disposition home or self-care (01) ==
LOC: HO.HMCC 13:11
PROVIDERS: PCP Internal Medicine; Visit Provider Internal Medicine
DX: I10 Essential (primary) hypertension (principal); E78.5 Hyperlipidemia, unspecified; E11.65 Type 2 diabetes mellitus with hyperglycemia

== ENCOUNTER → 2024-07-13 13:10 | Outpatient (BNVA) | payer MEDICARE, SELFPAY | PROVIDERS: PCP Internal Medicine; Visit Provider Internal Medicine | DX: M81.0 Age-related osteoporosis without current pathological fracture (principal); I73.9 Peripheral vascular disease, unspecified; I25.10 Atherosclerotic heart disease of native coronary artery without angina pectoris; E78.5 Hyperlipidemia, unspecified; I10 Essential (primary) hypertension; E11.65 Type 2 diabetes mellitus with hyperglycemia | CPT/HCPCS: 99212 ==

== ENCOUNTER 2024-10-11 14:00 | Outpatient (REF) | payer MEDICARE, SELFPAY ==
--- OUTSIDE RECORDS SUMMARY | 2024-10-12 10:56 | XMS_ITS | Encounter Summary ---
Author Organization [facility] Address [address] [place] [address] Care Team Providers Care Manager Transmission Name Role Phone Yu Alcantar MD Primary Care Provider Reason for Visit * Reason Comments Other Encounter Details Date Type Department Care Team (Late st Contact Info) Description 01/23/2022 Telephone [facility] Heart & Vascular [place] [facility] [address] [address] Wolfgang Helton MD [address] [place] [address] Other Social History Tobacco Use Types Packs/Day [...] Description 09/04/2025 1:45 PM EDT Ancillary Procedure [facility] Vascular & Endovascular Surgery [address] [phone] Wolfgang Helton MD [address] [place] [address] 09/04/2025 2:00 PM EDT Ancillary Procedure [facility] Vascular & Endovascular Surgery [address] [address] Wolfgang Helton MD [address] [place] [address] 09/04/2025 2:30 PM EDT Office Visit [facility] Vascular & Endovascular Surgery [address] [address] Wolfgang Helton MD [address] [place] [address] documented as of this encounter Visit Diagnoses Not on filedocumented in this encounter Care Teams Manager Transmission Relationship Specialty Start Date End Date Yu Alcantar MD [address] [place] [address] PCP - General Internal Medicine 02/07/21 documented as of this encounter
--- OUTSIDE RECORDS SUMMARY | 2024-10-12 10:56 | XMS_ITS | Encounter Summary ---
Author Organization [facility] Address [address] [place] [address] Care Team Providers Care Social Sciences Lecturer Name Role Phone Yu Alcantar MD Primary Care Provider [phone] Reason for Visit * Reason Comments Other Encounter Details Date Type Department Care Team (Late st Contact Info) Description 01/27/[address] [facility] Heart & Vascular [place] - V[facility] Laboratory [address] [address] Wolfgang Helton MD [address] [place] [phone] Other Social History Tobacco Use Types Packs/Day [...] Description 09/04/2025 1:45 PM EDT Ancillary Procedure [facility] Vascular & Endovascular Surgery [address] [address] Wolfgang Helton MD [address] [place] [address] 09/04/2025 2:00 PM EDT Ancillary Procedure [facility] Vascular & Endovascular Surgery [address] [address] Wolfgang Helton MD [address] [place] [address] 09/04/2025 2:30 PM EDT Office Visit [facility] Vascular & Endovascular Surgery [address] [address] Wolfgang Helton MD [address] [place] [address] documented as of this encounter Visit Diagnoses Not on filedocumented in this encounter Care Teams Social Sciences Lecturer Relationship Specialty Start Date End Date Yu Alcantar MD [address] [place] [address] PCP - General Internal Medicine 02/07/21 documented as of this encounter
--- OUTSIDE RECORDS SUMMARY | 2024-10-12 10:56 | XMS_ITS | Encounter Summary ---
Author Organization [facility] Address [address] [place] [address] Care Team Providers Care Chief Cloth Finishing Range Operator Name Role Phone Yu Alcantar MD Primary Care Provider Reason for Referral * Vascular (Routine) - Authorized Specialty Diagnoses / Procedures Referred By Contac t Referred To Contact Diagnoses PAD (peripheral artery disease) Procedures Vas Arterial Duplex Leg - Bilateral Limited Wolfgang Helton MD [address] [place] [address] Phone: tel: fax: Referral ID Status Reason Start Date Expiration Date V isits Requested Visits Authorized [id number] Authorized 10/07/2024 10/08/2025 1 1 * Vascular (Routine) - Authorized Specialty Diagnoses / Procedures Referred By Contac t Referred To Contact Diagnoses PAD (peripheral artery disease) Procedures Vas Arterial Leg - Single Level Pressures Wolfgang Helton MD [address] [place] [address] Phone: tel: fax: Referral ID Status Reason Start Date Expiration Date V isits Requested Visits Authorized [id number] Authorized 10/07/2024 10/08/2025 1 1 Encounter Details Date Type Department Care Team (Late st Contact Info) Description 10/07/2024 Orders Only [facility] Vascular & Endovascular Surgery [address] [phone] Amy Dale MA [address] [address] PAD (peripheral artery disease) (Primary Dx) Social [...] EDT Ancillary Procedure [facility] Vascular & Endovascular Surgery [address] [phone] Wolfgang Helton MD [address] [place] [address] 09/04/2025 2:00 PM EDT Ancillary Procedure [facility] Vascular & Endovascular Surgery [address] [address] Wolfgang Helton MD [address] [place] [address] 09/04/2025 2:30 PM EDT Office Visit [facility] Vascular & Endovascular Surgery [address] [phone] Wolfgang Helton MD [address] [place] [address] Scheduled Orders Name Type Priority Associated Diagnoses [...] disease documented in this encounter Care Teams Chief Cloth Finishing Range Operator Relationship Specialty Start Date End Date Yu Alcantar MD [address] [place] [address] PCP - General Internal Medicine 02/07/21 documented as of this encounter
--- OUTSIDE RECORDS SUMMARY | 2024-10-12 10:56 | XMS_ITS | Clinical Summary ---
Author Organization [facility] Address [address] [place] [address] Care Team Providers Care Safety Trainer Name Role Phone Yu Alcantar MD Primary [...] (12/28/2020): Added automatically from request for surgery [id number] Encounters Date Type Department Care Team Description 10/07/2024 Orders Only [facility] Vascular & Endovascular Surgery [address] [address] Amy Dale MA PAD (peripheral artery disease) (Primary Dx) 09/22/2024 2:00 PM EDT Office Visit [facility] Vascular & Endovascular Surgery [address] [address] Wolfgang Helton MD H/O arterial bypass of lower limb (Primary Dx); PAD (peripheral artery disease) 09/22/2024 1:30 PM EDT Ancillary Procedure [facility] Vascular & Endovascular Surgery [address] [address] Ruth Whitaker PA 09/22/2024 1:15 PM EDT Ancillary Procedure [facility] Vascular & Endovascular Surgery [address] [address] Ruth Whitaker PA 09/22/2024 Travel from Last [...] [facility] Vascular & Endovascular Surgery [address] [phone] Wolfgang Helton MD [address] [place] [address] 09/04/2025 2:00 PM EDT Ancillary Procedure [facility] Vascular & Endovascular Surgery [address] [address] Wolfgang Helton MD [address] [place] [address] 09/04/2025 2:30 PM EDT Office Visit [facility] Vascular & Endovascular Surgery [address] [phone] Wolfgang Helton MD [address] [place] [address] Health Maintenance Due Date Last Done Comments [...] the original result was not included. Department: [facility] Vascular Lab ([place]) Patient: [id number] (GOVIND KENT) Patient Location: [facility] CPT Code: 24330 ICD-9: Referring Physician: Ruth Whitaker Impression RIGHT [...] sites or throughout the graft itself. The [place] outflow vessel displays biphasic flow. 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 Clinical Examination Hx of Left fem-plantar bpg, dm, pt c/o left hip pasin, LLE claudication after a short distance Findings: Segment Right Left PSV PSV HEADER MACHINE OPERATOR 167 88 PFA Prox 108 102 SFA [...] Note Rocael Rosenthal MD - 09/22/2024 Department: [facility] Vascular Lab ([place]) Patient: [id number] (GOVIND KENT) Patient Location: [facility] CPT Code: 52242 ICD-9: Referring Physician: Ruth Whitaker Impression RIGHT [...] attachmentsites or throughout the graft itself. The [place] outflow vessel displaysbiphasic flow. 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 Clinical Examination Hx of Left fem-plantar bpg, dm, pt c/o left hip pasin, LLE claudicationafter a short distance Findings: Segment Right Left PSV PSV HEADER MACHINE OPERATOR 167 88 PFA Prox 108 102 SFA [...] the original result was not included. Department: [facility] Vascular Lab ([place]) Patient: [id number] (GOVIND KENT) Patient Location: [facility] CPT Code: 13231 ICD-9: Referring Physician: Ruth Whitaker Impression RIGHT [...] Note Rocael Rosenthal MD - 09/22/2024 Department: [facility] Vascular Lab ([place]) Patient: [id number] (GOVIND KENT) Patient Location: [facility] CPT Code: 89019 ICD-9: Referring Physician: Ruth Monahan RIGHT : [...] & B BLUE CROSS CT PPO BLUE [facility] - PPO Advance Directives Documents on File Type Date Recorded Patient Geoscience Professor Expl anation Advance Directive-Scan 03/04/2021 HEALT HCRE [...] Healthcare Agent Relationship Communication Shy Josue Healthcare customer development representative 1. Health Care Geoscience Professor [email or web address] Norma Saldana Healthcare customer development representative 1. Health Care Geoscience Professor Care Teams Safety Trainer Relationship Specialty Start Date End Date Yu Alcantar MD [address] [place] [address] PCP - General Internal Medicine 02/07/21
--- OUTSIDE RECORDS SUMMARY | 2024-10-12 10:56 | XMS_ITS | Patient Health Record ---
Author Organization [facility] Address [address] [employer] [place] [address] Care Team Providers Care Drapery Inspector Name Role Phone Katharine CHRISTIANSON, Yu Ramires Primary Care Provider Un available Richelle Bartholomew Unavailable [phone] Allergies No Known Allergies Results Component Value Reference Range Notes HEMOGLOBIN A1C (GLYCOHEMOGLO BIN) Reviewed date:04/28/2024 09:01:01 AM Interpretation: Performing Lab: Notes/Report: HEMOGLOBIN A1C % (HH) 7.3 Reason For Referral No Information Medications Medication SIG (Take, Route, Frequency, Duration) Notes Start Date End Date Status Extra Depth Orthopedic Shoes (1 Pair) with Customized Heat Molded Multidensity Innersoles (3 Pair) as directed Dx: NIDDM/Polyneuropathy (E11.42), Hammertoe Foot Deformity (M20.41,M20.42), Preulcerative Skin Lesion(s) (L85.1 Amputation left 3rd toe. Add lift to left foot due to unequal limb length left shorter Active Tylenol Active metFORMIN HCl Active Januvia Active Gabapentin 300 MG Oral; Duration: 90 Days as needed Active Xarelto 2.5 MG Oral; Duration: 30 Days Active Doxycycline Hyclate 100 MG 1 capsule Orally Once a day; Duration: 5 days 01/26/2024 Active Immunizations Vaccine Route Administration Date Status Comme nts Influenza Unknown 07/26/2024 Refused Social History Tobacco Use: Social History Observation Description Date Details (start date - stop date) Never Smoker NA - NA Tobacco use other than smoking: Question Answer Notes Are you an other tobacco user? No Tobacco Control (Standard) Question Answer Notes Tobacco use: Nonsmoker Additional Findings: Tobacco non-user Current no nsmoker AUDIT-C (Standard) Question Answer Notes Did you have a drink contain ing alcohol in the past year? Yes How often did you have six o r more drinks on one occasion in the past year? Declined to specify (0 point) How many drinks did you have on a typical day when you were drinking in the past year? Declined to specify (0 point) How often did you have a dri nk containing alcohol in the past year? Declined to specify (0 point) Points 0 Interpretation Negative Problems Problem Type SNOMED Code ICD Code Onset Dates Problem Status W/U Status Risk Notes Problem Acquired hammer toe of right foot (6899403714190377 ) Other hammer toe(s) (acquired), right foot (M20.41) Active confirmed Problem Acquired hammer toe of left foot (9579997976503162 ) Other hammer toe(s) (acquired), left foot (M20.42) Active confirmed Problem Polyneuropathy due to type 2 diabetes mellitus (597350073) Type 2 diabetes mellitus with diabetic polyneuropathy (E11.42) Active confirmed Problem Acquired unequal limb length (882376778755270) 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) Active confirmed Vital Signs Blood pressure diastolic 80 mm Hg 07/26/2024 Height 5ft 4in in 07/26/2024 Blood pressure systolic 120 mm Hg 07/26/2024 Weight 130 lbs 07/26/2024 BMI 22.31 kg/m2 07/26/2024 Encounters Encounter Location Date Provider Diagnosis [address] [address] 01/26/2024 Richelle Bartholomew Type 2 diabetes mellitus with diabetic polyneuropathy E11.42 ; Other hammer toe(s) (acquired), left foot M20.42 ; Tinea unguium B35.1 ; Ingrown nail L60.0 and Other hammer toe(s) (acquired), [facility]20.41 [facility] [address] 04/26/2024 Richelle Bartholomew Type 2 diabetes mellitus with diabetic polyneuropathy E11.42 ; Other hammer toe(s) (acquired), left foot M20.42 ; Tinea unguium B35.1 ; Ingrown nail L60.0 and Other hammer toe(s) (acquired), right foot M20.[address] [address] 07/26/2024 Richelle Bartholomew Type 2 diabetes mellitus with diabetic polyneuropathy E11.42 ; Other hammer toe(s) (acquired), left foot M20.42 ; Tinea unguium B35.1 ; Ingrown nail L60.0 ; Other hammer toe(s) (acquired), right foot M20.41 and Acquired unequal limb length M21.[address] [address] 01/27/2024 Richelle Bartholomew Other hammer toe(s) (acquired), right foot M20.[address] [address] 04/26/2024 Richelle Bartholomew Assessments Encounter Date Diagnosis (ICD Code) Assessment Notes Treatment Notes Treatment Clinical Notes Section Notes 01/26/2024 Other hammer toe(s) (acquired), left foot (ICD-10 - M20.42) 01/26/2024 Type 2 diabetes mellitus with diabetic polyneuropathy (ICD-10 - E11.42) 01/27/2024 Other hammer toe(s) (acquired), right foot (ICD-10 - M20.41) 04/26/2024 Type 2 diabetes mellitus with diabetic polyneuropathy (ICD-10 - E11.42) 07/26/2024 Type 2 diabetes mellitus with diabetic polyneuropathy (ICD-10 - E11.42) 07/26/2024 Tinea unguium (ICD-10 - B35.1) 04/26/2024 Other hammer toe(s) (acquired), left foot (ICD-10 - M20.42) 01/26/2024 Tinea unguium (ICD-10 - B35.1) 07/26/2024 Other hammer toe(s) (acquired), left foot (ICD-10 - M20.42) 01/26/2024 Ingrown nail (ICD-10 - L60.0) 07/26/2024 Ingrown nail (ICD-10 - L60.0) 04/26/2024 Tinea unguium (ICD-10 - B35.1) 04/26/2024 Ingrown nail (ICD-10 - L60.0) 07/26/2024 Other hammer toe(s) (acquired), right foot (ICD-10 - M20.41) Patient Educated with: DIABETIC FOOT CARE INSTRUCTIONS. pdf (DIABETIC FOOT CARE INSTRUCTIONS. pdf) 01/26/2024 Other hammer toe(s) (acquired), right foot (ICD-10 - M20.41) Patient Educated with: DIABETIC FOOT CARE INSTRUCTIONS. pdf (DIABETIC FOOT CARE INSTRUCTIONS. pdf) 04/26/2024 Other hammer toe(s) (acquired), right foot (ICD-10 - M20.41) Patient Educated with: DIABETIC FOOT CARE INSTRUCTIONS. pdf (DIABETIC FOOT CARE INSTRUCTIONS. pdf) 07/26/2024 Acquired unequal limb length (ICD-10 - M21.70) Plan Of Treatment Next Appt Details Provider Name:Richelle schroeder, 10/25/2024 03:00:00 PM, [address] [place] [address], [phone], Insurance Providers Payer Name Payer Address Payer Phone Subscriber Number Group Number Insured Name Patient Relationship to Insured Coverage Start Date Coverage End Date Medicare National Govt Sv[employer]View [facility] [address] [place] [address] [id number] Ashley Kent Self - patient is the insured 6 [employer] Blue Shield [address] [place] [address] [id number] DonteAshley Self - patient is the insured Medical (General) History Medical History History ICD Code Diabetic Heart disease Vascular grafts Broken hip Surgical History Surgery Date(Month/Year) leg surgery 2020 bypass surgery 2020
--- OUTSIDE RECORDS SUMMARY | 2024-10-12 10:56 | XMS_ITS | Encounter Summary ---
Author Organization [facility] Address [address] [place] [address] Care Team Providers Care Part Maker Name Role Phone Yu Alcantar MD Primary Care Provider Encounter Details Date Type Department Care Team (Late Contact Info) Description 03/08/2021 Scanned Document GENERIC EXTERNAL DATA DEPARTMENT Provider, Maria L, [address] [place] [address] Social History Tobacco Use Types Packs/Day Years [...] Description 09/04/2025 1:45 PM EDT Ancillary Procedure [facility] Vascular & Endovascular Surgery [address] [phone] Wolfgang Helton MD [address] [place] [address] 09/04/2025 2:00 PM EDT Ancillary Procedure [facility] Vascular & Endovascular Surgery [address] [address] Wolfgang Helton MD [address] [place] [address] 09/04/2025 2:30 PM EDT Office Visit [facility] Vascular & Endovascular Surgery [address] [address] Wolfgang Helton MD [address] [place] [address] documented as of this encounter Visit Diagnoses Not on filedocumented in this encounter Care Teams Part Maker Relationship Specialty Start Date End Date Yu Alcantar MD [address] [place] [address] PCP - General Internal Medicine 02/07/21 documented as of this encounter
--- OUTSIDE RECORDS SUMMARY | 2024-10-12 10:56 | XMS_ITS | Encounter Summary ---
Author Organization [facility] Address [address] [place] [address] Care Team Providers Care Gin Feeder Name Role Phone Yu Alcantar MD Primary Care Provider [phone] Encounter Details Date Type Department Care Team (Late st Contact Info) Description 05/14/2021 Scanned Document [facility] Vascular & Endovascular Surgery [place] [address] [facility] [address] [place] [address] Wolfgang Helton MD [address] [place] [address] Social History Tobacco Use Types Packs/Day Years [...] Description 09/04/2025 1:45 PM EDT Ancillary Procedure [facility] Vascular & Endovascular Surgery [address] [place] [phone] Wolfgang Helton MD [address] [address] 09/04/2025 2:00 PM EDT Ancillary Procedure [facility] Vascular & Endovascular Surgery [address] [place] [address] Wolfgang Helton MD [address] [address] 09/04/2025 2:30 PM EDT Office Visit [facility] Vascular & Endovascular Surgery [address] [place] [address] Wolfgang Helton MD [address] [place] [address] documented as of this encounter Visit Diagnoses Not on filedocumented in this encounter Care Teams Gin Feeder Relationship Specialty Start Date End Date Yu Alcantar MD [address] [place] [address] PCP - General Internal Medicine 02/07/21 documented as of this encounter
== END 2024-10-11 14:01 | disposition home or self-care (01) ==
LOC: HO.LNP 14:00
PROVIDERS: PCP Internal Medicine; Visit Provider Physician Assistant
DX: R35.0 Frequency of micturition (principal); Z13.89 Encounter for screening for other disorder; Z87.448 Personal history of other diseases of urinary system
CPT/HCPCS: 81003; 87086; 87088; 87186; 99212

== ENCOUNTER 2024-10-11 14:00 | Outpatient (AMB) | payer MEDICARE, SELFPAY ==
--- OUTSIDE RECORDS SUMMARY | 2024-10-11 14:57 | XMS_ITS | Encounter Summary ---
Author Organization [facility] Address [address] [place] [address] Care Team Providers Care Material Checker Name Role Phone Yu Alcantar MD Primary Care Provider Reason for Referral * Vascular (Routine) - Authorized Specialty Diagnoses / Procedures Referred By Contac t Referred To Contact Diagnoses PAD (peripheral artery disease) Procedures Vas Arterial Duplex Leg - Bilateral Limited Wolfgang Helton MD [address] [place] [address] Phone: tel: fax: Referral ID Status Reason Start Date Expiration Date V isits Requested Visits Authorized [id number] Authorized 10/07/2024 10/08/2025 1 1 * Vascular (Routine) - Authorized Specialty Diagnoses / Procedures Referred By Contac t Referred To Contact Diagnoses PAD (peripheral artery disease) Procedures Vas Arterial Leg - Single Level Pressures Wolfgang Helton MD [address] [place] [address] Phone: tel: fax: Referral ID Status Reason Start Date Expiration Date V isits Requested Visits Authorized [id number] Authorized 10/07/2024 10/08/2025 1 1 Encounter Details Date Type Department Care Team (Late st Contact Info) Description 10/07/2024 Orders Only [facility] Vascular & Endovascular Surgery [address] [phone] Amy Dale MA [address] [address] PAD (peripheral artery disease) (Primary Dx) Social History Tobacco Use Types Packs/Day Years [...] PM EDT documented as of this encounter Plan of Treatment Upcoming Encounters Date Type Department Care Team (Late st Contact Info) Description 09/04/2025 1:45 PM EDT Ancillary Procedure [facility] Vascular & Endovascular Surgery [address] [phone] Wolfgang Helton MD [address] [place] [phone] 09/04/2025 2:00 PM EDT Ancillary Procedure [facility] Vascular & Endovascular Surgery [address] [phone] Wolfgang Helton MD [address] [place] [phone] 09/04/2025 2:30 PM EDT Office Visit [facility] Vascular [facility] Endovascular Surgery [address] [phone] Wolfgang Helton MD [address] [place] [phone] Scheduled Orders Name Type Priority Associated Diagnoses Orde r Schedule Vas Arterial Leg - Single Level Pressures Vascular Ultrasound Routine PAD (peripheral artery disease) Expected: 03/20/2025, Expires: 10/12/2026 Vas Arterial Duplex Leg - Bilateral Limited Vascular Ultrasound Routine PAD (peripheral artery disease) Expected: 03/20/2025, Expires: 10/12/2026 documented as of this encounter Visit Diagnoses Diagnosis PAD (peripheral artery disease)- Primary Unspecified peripheral vascular disease documented in this encounter Care Teams Material Checker Relationship Specialty Start Date End Date Yu Alcantar MD [address] [place] [address] PCP - General Internal Medicine 02/07/21 documented as of this encounter
--- OUTSIDE RECORDS SUMMARY | 2024-10-11 14:57 | XMS_ITS | Encounter Summary ---
Author Organization Formerly [facility] Address [address] [place] [address] Care Team Providers Care Ships Or Barges Loader Name Role Phone Yu Alcantar MD Primary Care Provider [phone] Encounter Details Date Type Department Care Team (Late Contact Info) Description 03/08/2021 Scanned Document GENERIC EXTERNAL DATA DEPARTMENT Provider, Maria L, [address] [place] [address] Social History Tobacco Use Types Packs/Day Years [...] Orientation Heterosexual (straight) 08/18 2:07 PM EDT COVID-19 Exposure Response Date Recorded In the last month, have you been in contact with someone who was confirmed or suspected to have Coronavirus / COVID-19? No / Unsure 03/08/2021 10:46 AM EST documented as of this encounter Plan of Treatment Upcoming Encounters Date Type Department Care Team (Late Contact Info) Description 09/04/2025 1:45 PM EDT Ancillary Procedure [facility] Vascular & Endovascular Surgery [address] [phone] Wolfgang Helton MD [address] [place] [phone] 09/04/2025 2:00 PM EDT Ancillary Procedure [facility] Vascular & Endovascular Surgery [address] [phone] Wolfgang Helton MD [address] [place] [phone] 09/04/2025 2:30 PM EDT Office Visit [facility] Vascular & Endovascular Surgery [address] [phone] Wolfgang Helton MD [address] [place] [phone] documented as of this encounter Visit Diagnoses Not on filedocumented in this encounter Care Teams Ships Or Barges Loader Relationship Specialty Start Date End Date Yu Alcantar MD [address] [place] [phone] PCP - General Internal Medicine 02/07/21 documented as of this encounter
--- OUTSIDE RECORDS SUMMARY | 2024-10-11 14:57 | XMS_ITS | Encounter Summary ---
Author Organization [facility] Address [address] [place] [address] Care Team Providers Care Copyright Expert Name Role Phone Yu Alcantar MD Primary Care Provider Reason for Visit * Reason Comments Other Encounter Details Date Type Department Care Team (Late st Contact Info) Description 01/27/2022 Telephone [facility] Heart & Vascular [place] [facility] [address] [address] Wolfgang Helton MD [address] [place] [phone] Other Social History Tobacco Use Types Packs/Day [...] Description 09/04/2025 1:45 PM EDT Ancillary Procedure [facility] Vascular & Endovascular Surgery [address] [address] Wolfgang Helton MD [address] [place] [address] 09/04/2025 2:00 PM EDT Ancillary Procedure [facility] Vascular & Endovascular Surgery [address] [address] Wolfgang Helton MD [address] [place] [address] 09/04/2025 2:30 PM EDT Office Visit [facility] Vascular & Endovascular Surgery [address] [address] Wolfgang Helton MD [address] [place] [address] documented as of this encounter Visit Diagnoses Not on filedocumented in this encounter Care Teams Copyright Expert Relationship Specialty Start Date End Date Yu Alcantar MD [address] [place] [address] PCP - General Internal Medicine 02/07/21 documented as of this encounter
--- OUTSIDE RECORDS SUMMARY | 2024-10-11 14:57 | XMS_ITS | Clinical Summary ---
Author Organization [facility] Address [address] [place] [address] Care Team Providers Care Pigment Pumper Name Role Phone Yu Alcantar MD Primary Care Provider Allergies Active Allergy Reactions Criticality Noted Date Comments Statins Myalgia/Myositis/Arthralgia/Arthritis Low 12/27/2020 Medications metFORMIN (GLUCOPHAGE) 500 MG tablet Take 1 tablet (500 mg total) by mouth every morning with breakfast. Active atorvastatin (LIPITOR) 80 MG tablet Take 1 tablet (80 mg total) by mouth daily. Active metoPROLOL TARTRATE (LOPRESSOR) 50 MG tablet Take 1 tablet (50 mg total) by mouth 2 (two) times a day. Active gabapentin (NEURONTIN) 300 MG capsule Take 2 capsules (600 mg total) by mouth nightly. Active hydrocortisone (WESTCORT) 0.2 % cream Apply topically 2 (two) times a day as needed. Active sitaGLIPtin (JANUVIA) 50 MG tablet Take 1 tablet (50 mg total) by mouth daily. Active triamcinolone (KENALOG) 0.5 % cream APPLY TOPICALLY 2 TIMES DAILY X10 DAYS 2 Active aspirin enteric coated (ECOTRIN LOW STRENGTH) 81 MG EC tabletIndicatio ns:H/O arterial bypass of lower limb,Popliteal artery occlusion, left Take 1 tablet (81 mg total) by mouth daily. 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 Overview (12/28/2020): Added automatically from request for surgery [id number] Encounters Date Type Department Care Team Description 10/07/2024 Orders Only [facility] Vascular & Endovascular Surgery [address] [address] Amy Dale MA PAD (peripheral artery disease) (Primary Dx) 09/22/2024 2:00 PM EDT Office Visit [facility] Vascular & Endovascular Surgery [address] [address] Wolfgang Helton MD H/O arterial bypass of lower limb (Primary Dx); PAD (peripheral artery disease) 09/22/2024 1:30 PM EDT Ancillary Procedure [facility] Vascular & Endovascular Surgery [address] [address] Ruth Whitaker PA 09/22/2024 1:15 PM EDT Ancillary Procedure [facility] Vascular & Endovascular Surgery [address] [address] Ruth Whitaker PA 09/22/2024 Travel from Last 3 Months Immunizations Immunization Administration Dates Next Due Influenza Inactivated/Split Preservative Free IM 01/14/2021() Social History Tobacco Use Types Packs/Day Years Used Date Smoking Tobacco: Never Smokeless Tobacco: Never Tobacco Cessation:Counseling Given: Not Answered Alcohol Use Standard Drinks/Week Comments Not Currently 0 (1 standard drink = 0.6 oz pur e alcohol) Comments Unknown Sex and Gender Information Value Date Recorded Sex Assigned at Female 08/18/2022 2:07 PM EDT Legal Sex Female 2:33 AM EST Gender Identity Female 08/18/2022 2:07 PM EDT Sexual Orientation Heterosexual (straight) 08/18 2:07 PM EDT Last Filed Vital Signs Vital Sign Reading Time Taken Comments Blood Pressure 130/76 09/22/2024 1:43 PM EDT 132 /64 R Pulse 58 09/22/2024 1:43 PM EDT Temperature 35.7 C (96.2 F) 01/14/2021 11:33 AM EST Respiratory Rate 18 01/14/2021 11:33 AM EST Oxygen Saturation 100% 09/22/2024 1:43 PM EDT Inhaled Oxygen Concentration - - Weight 67.1 kg (148 lb) 08/18/2022 10:48 AM EDT Height 162.6 cm (5' 4 ) 09/24/2023 3:06 PM EDT Body Mass Index 25.4 08/18/2022 10:48 AM EDT Plan of Treatment Upcoming Encounters Date Type Department Care Team (Late st Contact Info) Description 09/04/2025 1:45 PM EDT Ancillary Procedure [facility] Vascular & Endovascular Surgery [address] [phone] Wolfgang Helton MD [address] [place] [address] 09/04/2025 2:00 PM EDT Ancillary Procedure [facility] Vascular & Endovascular Surgery [address] [address] Wolfgang Helton MD [address] [place] [address] 09/04/2025 2:30 PM EDT Office Visit [facility] Vascular & Endovascular Surgery [address] [address] Wolfgang Helton MD [address] [place] [address] Health Maintenance Due Date Last Done Comments DTaP/Tdap/Td Vaccines (1 - Tdap) 1959 Pneumococcal Vaccines 50+ (1 of 1 - PCV) 1990 Zoster (Shingles) Vaccine (1 of 2) 1990 DXA Bone Density (Females,Ag es 65 and older) 2005 RSV Vaccine 60 years and old er and Patients (1 - 1-dose 75+ series) 2015 COVID-19 Vaccine ( - 2023-2 5 season) 2023 Influenza Vaccine 09/16/2024 Hepatitis B Vaccines Aged Out No long er eligible based on patient's age to complete this topic Procedures Procedure Name Priority Date/Time Associated Diagnosis Comments VAS ARTERIAL DUPLEX LEG GRAFT-LEFT Routine 09/22/2024 1:52 PM EDT PAD (peripheral artery disease) VAS ARTERIAL LEG SINGLE LEVEL PRESSURES-BILATERAL Routine 09/22/2024 1:52 PM EDT PAD (peripheral artery disease) from Last 3 Months Results * VAS ARTERIAL DUPLEX LEG GRAFT-LEFT (09/22/2024 1:52 PM EDT) Anatomical Region Laterality Modality Ultrasound 09/22/2024 1:30 PM EDT Narrative 09/22/2024 1:57 PM EDT Table formatting from the original result was not included. Department: [facility] Vascular Lab ([place]) Patient: [id number] (GOVIND KENT) Patient Location: [facility] CPT Code: 62347 ICD-9: Referring Physician: Ruth Whitaker Impression RIGHT : Duplex scan demonstrates a patent common femoral, proximal profunda femoris, proximal superficial femoral and popliteal artery. The common femoral artery displays triphasic flow not suggestive of inflow vessel disease. The proximal profunda femoris and proximal superficial femoral artery display biphasic flow. The popliteal artery displays biphasic flow not suggestive of femoral-popliteal arterial occlusive disease. LEFT : Duplex scan demonstrates a patent common femoral, proximal profunda femoris, proximal superficial femoral and a bypass graft. The common femoral artery displays biphasic flow not suggestive of inflow vessel disease. The proximal profunda femoris and proximal superficial femoral artery display biphasic flow. There is a widely patent superficial femoral to plantar bypass graft in place. There is normal velocity multiphasic flow throughout. There is no evidence of any hemodynamically significant stenosis within either the proximal or distal anastomosis graft attachment sites or throughout the graft itself. The tonto apache outflow vessel displays biphasic flow. 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 Clinical Examination Hx of Left fem-plantar bpg, dm, pt c/o left hip pasin, LLE claudication after a short distance Findings: Segment Right Left PSV PSV PROJECT INSPECTOR 167 88 PFA Prox 108 102 SFA Prox 164 96 Popliteal Artery Prox 29 Left extremity graft PSV Inflow Artery (LL Left) 68 Proximal Anastomosis (LL Left) 25 Proximal Graft (LL Left) 28 Middle Graft (LL Left) 67 Distal Graft (LL Left) 63 Distal Anastomosis (LL Left) 69 Outflow Artery (LL Left) 78 Electronically Signed by: Rocael Rosenthal on 2024-09-22 01:57:31 PM End of Report Procedure Note Rocael Rosenthal MD - 09/22/2024 Department: [facility] Vascular Lab ([place]) Patient: [id number] (GOVIND KENT) Patient Location: [facility] CPT Code: 81217 ICD-9: Referring Physician: Ruth Whitaker Impression RIGHT : Duplex scan demonstrates a patent common femoral, proximalprofunda femoris, proximal superficial femoral and popliteal artery. Thecommon femoral artery displays triphasic flow not suggestive of inflowvessel disease. The proximal profunda femoris and proximal superficialfemoral artery display biphasic flow. The popliteal artery displaysbiphasic flow not suggestive of femoral-popliteal arterial occlusivedisease. LEFT : Duplex scan demonstrates a patent common femoral, proximal profundafemoris, proximal superficial femoral and a bypass graft. The commonfemoral artery displays biphasic flow not suggestive of inflow vesseldisease. The proximal profunda femoris and proximal superficial femoralartery display biphasic flow. There is a widely patent superficial femoralto plantar bypass graft in place. There is normal velocity multiphasicflow throughout. There is no evidence of any hemodynamically significantstenosis within either the proximal or distal anastomosis graft attachmentsites or throughout the graft itself. The tonto apache outflow vessel displaysbiphasic flow. 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 Clinical Examination Hx of Left fem-plantar bpg, dm, pt c/o left hip pasin, LLE claudicationafter a short distance Findings: Segment Right Left PSV PSV PROJECT INSPECTOR 167 88 PFA Prox 108 102 SFA Prox 164 96 Popliteal Artery Prox 29 Left extremity graft PSV Inflow Artery (LL Left) 68 Proximal Anastomosis (LL Left) 25 Proximal Graft (LL Left) 28 Middle Graft (LL Left) 67 Distal Graft (LL Left) 63 Distal Anastomosis (LL Left) 69 Outflow Artery (LL Left) 78 Electronically Signed by: Rocael Rosenthal on 2024-09-22 01:57:31 PM End of Report us Ruth [facility]HANG [facility] LAB ORDERABLES Fin al Result * VAS ARTERIAL LEG SINGLE LEVEL PRESSURES-BILATERAL (09/22/2024 1:52 PM EDT) Anatomical Region Laterality Modality Ultrasound 09/22/2024 1:15 PM EDT Narrative 09/22/2024 1:57 PM EDT Table formatting from the original result was not included. Department: [facility] Vascular Lab ([place]) Patient: [id number] (GOVIND KENT) Patient Location: [facility] CPT Code: 44188 ICD-9: Referring Physician: Ruth Whitaker Impression RIGHT : The RADHA is 0.57. Right ankle pulse volume recording and ankle brachial index are abnormal. 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 LEFT : Unable to calculate the RADHA due to anatomical location of the lower extremity bypass graft. The PVR waveforms are abnormal suggestive of arterial occlusive disease. In comparison to the previous exam dated 09-24-23, the study is stable See same day arterial duplex. Indications Left Atherosclerosis with Claudication [I70.219]. Clinical Examination Hx of Left fem-plantar bpg, dm, pt c/o left hip pasin, LLE claudication after a short distance Brachial Pressure:Right 151/Left 157/ Findings: Segment Right Left Pressure RADHA Pressure Brachial Artery 151 157 Dorsalis Pedis Artery 90 0.57 BPG Posterior Tibial Artery 88 0.56 BPG Electronically Signed by: Rocael Rosenthal on 2024-09-22 01:57:21 PM End of Report Procedure Note Rocael Rosenthal MD - 09/22/2024 Department: [facility] Vascular Lab ([place]) Patient: [id number] (GOVIND KENT) Patient Location: [facility] CPT Code: 31517 ICD-9: Referring Physician: Ruth Monahan RIGHT : The RADHA is 0.57. Right ankle pulse volume recording and anklebrachial index are abnormal. Findings are consistent with moderatearterial occlusive disease of this extremity. LEFT : Unable to calculate the RADHA due to anatomical location of the lowerextremity bypass graft. The PVR waveforms are abnormal suggestive ofarterial occlusive disease. In comparison to the previous exam dated 09-24-23, the study is stable See same day arterial duplex. Indications Left Atherosclerosis with Claudication [I70.219]. Clinical Examination Hx of Left fem-plantar bpg, dm, pt c/o left hip pasin, LLE claudicationafter a short distance Brachial Pressure:Right 151/Left 157/ Findings: Segment Right Left Pressure RADHA Pressure Brachial Artery 151 157 Dorsalis Pedis Artery 90 0.57 BPG Posterior Tibial Artery 88 0.56 BPG Electronically Signed by: Rocael Rosenthal on 2024-09-22 01:57:21 PM End of Report us Ruth [facility] LAB ORDERABLES Fin al Result from Last 3 Months Insurance MEDICARE PART A & B BLUE [employer] [facility] PPO BLUE [facility] Advance Directives Documents on File Type Date Recorded Patient Outsole Handler Expl anation Advance Directive-Scan 03/04/2021 HEALT HCRE PRESENTATIVE 01/13/21 HH * Full Code (Latest Code Status on File) Date Activated Date Inactivated Comments 01/12/2021 11:52 AM * Full Code Date Activated Date Inactivated Comments 01/09/2021 8:16 PM 01/12/2021 11:52 AM * Full Code Date Activated Date Inactivated Comments 12/27/2020 10:30 AM 01/09/2021 8:16 PM Healthcare Agents on File Name Relationship Healthcare Agent Relationship Communication Shy Josue Healthcare advertising sales representative 1. Health Care Outsole Handler [email or web address] Norma Saldana Healthcare advertising sales representative 1. Health Care Outsole Handler Care Teams Pigment Pumper Relationship Specialty Start Date End Date Yu Alcantar MD [address] [place] [phone] PCP - General Internal Medicine 02/07/21
--- OUTSIDE RECORDS SUMMARY | 2024-10-11 14:57 | XMS_ITS ---
Author Name [facility] Organization Unknown History of Medication Use Medication Directions Dispensed Refills Start Date End Date Stat us rivaroxaban (XARELTO) 2.5 MG tablet TAKE 1 TABLET BY MOUTH TWICE A DAY 06/02/2024 06/03/2024 active aspirin enteric coated (ECOTRIN LOW STRENGTH) 81 MG EC tablet Take 1 tablet (81 mg total) by mouth daily. 08/18/2022 active triamcinolone (KENALOG) 0.5 % cream APPLY TOPICALLY 2 TIMES DAILY X10 DAYS 07/16/2021 active metFORMIN (GLUCOPHAGE) 500 MG tablet Take 500 mg by mouth every morning with breakfast. active metoPROLOL TARTRATE (LOPRESSOR) 50 MG tablet Take 50 mg by mouth 2 (two) times a day. active sitaGLIPtin (JANUVIA) 50 MG tablet Take 1 tablet (50 mg total) by mouth daily. active Allergies Allergen Reaction Severity Comment Documented Date Source Statu s STATINS MYALGIA/MYOSITIS/ART HRALGIA/A RTHRITIS 12/27/2020 [facility] active Problems Problem Status Onset Date Problem Type Date of Resoluti on Source H/O arterial bypass of lower limb active 2022-01-28 ProblemAct [facility] PAD (peripheral artery disease) active 2020-12-27 ProblemAct [facility] Popliteal artery occlusion, left active 2020-12-27 ProblemAct [facility] Immunizations Vaccine Date Source Lot Number Status Influenza Inactivated/Split Preservative Free IM 01/14/2021 [facility] completed Encounters Encounter Type Encounter Reason Primary Diagnosis Location Date Ambulatory Presence of other vascular implants and grafts Presence of other vascular implants and grafts [facility] 09/22/2024 Ambulatory [facility] 09/22/2024 Ambulatory [facility] 09/22/2024 Ambulatory Peripheral vascular disease, unspecified Peripheral vascular disease, unspecified [facility] 09/24/2023 Ambulatory Peripheral vascular disease, unspecified Peripheral vascular disease, unspecified [facility] 09/24/2023 Ambulatory Peripheral vascular disease, unspecified Peripheral vascular disease, unspecified [facility] 09/24/2023 Ambulatory Peripheral vascu lar disease, unspecified [facility] 08/18/2022 Ambulatory Peripheral vascu lar disease, unspecified [facility] 08/18/2022 Ambulatory Presence of othe r vascular implants and grafts [facility] 08/18/2022 Ambulatory Peripheral vascu lar disease, unspecified [facility] 08/18/2022 Ambulatory [facility] 10/07/2021 Ambulatory [facility] 10/07/2021 Ambulatory Peripheral vascu lar disease, unspecified [facility] 10/07/2021 Ambulatory Peripheral vascu lar disease, unspecified [facility] 03/08/2021 Ambulatory [facility] 02/07/2021 Ambulatory [facility] 02/07/2021 Ambulatory Peripheral vascu lar disease, unspecified [facility] 02/07/2021 Ambulatory [facility] 01/28/2021 Ambulatory Post-op [facility] 01/28/2021 Inpatient Unspecified atherosclerosis of bad [place] band arteries of extremities, left leg [facility] 12/27/2020 Care Team Organization Name Specialty Phone Email Start Date End Da te [facility] Primary [facility] 09/25/2024 [facility] KOFI MONTENEGRO Primary Care 10/07/2021 [facility] KOFI MONTENEGRO Primary Care 12/27/20202021 [facility] PROVIDER SYSTEM Primary Care 12/27/20202021
--- OUTSIDE RECORDS SUMMARY | 2024-10-11 14:57 | XMS_ITS | Encounter Summary ---
Author Organization [facility] Address [address] [place] [address] Care Team Providers Care Production Planner Scheduler Name Role Phone Yu Alcantar MD Primary Care Provider [phone] Encounter Details Date Type Department Care Team (Late st Contact Info) Description 05/14/2021 Scanned Document [facility] Vascular & Endovascular Surgery [place] [address] [place] [address] Wolfgang Helton MD [address] [place] [address] Social History Tobacco Use Types Packs/Day Years [...] 09/04/2025 1:45 PM EDT Ancillary Procedure [facility] Vascular & Endovascular Surgery [address] [place] [phone] Wolfgang Helton MD [address] [address] 09/04/2025 2:00 PM EDT Ancillary Procedure [facility] Vascular & Endovascular Surgery [address] [place] [address] Wolfgang Helton MD [address] [address] 09/04/2025 2:30 PM EDT Office Visit [facility] Vascular & Endovascular Surgery [address] [place] [address] Wolfgang Helton MD [address] [place] [address] documented as of this encounter Visit Diagnoses Not on filedocumented in this encounter Care Teams Production Planner Scheduler Relationship Specialty Start Date End Date Yu Alcantar MD [address] [place] [address] PCP - General Internal Medicine 02/07/21 documented as of this encounter
--- OUTSIDE RECORDS SUMMARY | 2024-10-11 14:57 | XMS_ITS | Encounter Summary ---
Author Organization [facility] Address [address] [place] [address] Care Team Providers Care Partition Making Machine Operator Name Role Phone Yu Alcantar MD Primary Care Provider Reason for Visit * Reason Comments Other Encounter Details Date Type Department Care Team (Late st Contact Info) Description 01/23/2022 Telephone [facility] Heart & Vascular [place] - Vascular Laboratory [address] [address] Wolfgang Helton MD [address] [place] [phone] Other Social History Tobacco Use Types Packs/Day [...] Telephone Encounter - Natalie Valencia MA - 01/23/2022 11:43 AM EST Shy calling and in need of her last note with Dr. Helton on 10/07/21. Please call today if possible. documented in this encounter Plan of Treatment Upcoming Encounters Date Type Department Care Team (Late st Contact Info) Description 09/04/2025 1:45 PM EDT Ancillary Procedure [facility] Vascular & Endovascular Surgery [address] [phone] Wolfgang Helton MD [address] [place] [address] 09/04/2025 2:00 PM EDT Ancillary Procedure [facility] Vascular & Endovascular Surgery [address] [phone] Wolfgang Helton MD [address] [place] [address] 09/04/2025 2:30 PM EDT Office Visit [facility] Vascular & Endovascular Surgery [address] [address] Wolfgang Helton MD [address] [place] [phone] documented as of this encounter Visit Diagnoses Not on filedocumented in this encounter Care Teams Partition Making Machine Operator Relationship Specialty Start Date End Date Yu Alcantar MD [address] [place] [address] PCP - General Internal Medicine 02/07/21 documented as of this encounter
[2024-10-11 15:02] VITALS: BP 122/60; PULSE 86; TEMP 36.7; O2SAT 97; BMI 22.5
--- NOTE | 2024-10-11 15:02 | AM.OFFWIN_ITS ---
Intake Vital Signs 10/11/24 15:02 Height 5 ft 5 in Weight 135 lb BMI 22.5 BP 122/60 Blood Pressure Location Lt brachial Position Sitting Pulse 86 Pulse Source Pulse Oximeter Temp 98.1 F Temp Source Oral Pulse Oximetry (%) 97 Oxygen Delivery Method Room Air Intake Visit Reasons: EP-urine infection Intake Note: pt presents with urine frequency with pressure, little urine output Patient Tobacco Use Status: Never used Tobacco Allergies Aqdmzqk-CLL-TiJ Reductase Inhibitor (Hrfvklm-Qzn-Xmd Reductase Inhibitor) Allergy (Unknown, Verified 10/11/24 15:13) muscle cramps Do you need a note to return to daycare/school/sports/work: No HPI HPI Comments History of Present Illness Details This is a 84 year old female with a past medical history of bladder prolapse presenting for evaluation of urinary frequency and urinary pressure that she has had for the past 2 weeks. Patient denies having any fevers or chills but does endorse generalized fatigue. Patient has not taken any medication for treatment of her discomfort. [facility] Medical History (Updated 10/11/24 @ 16:17 by Veronica Vidales PA-C) Diabetes mellitus with hyperglycemia, without long-term current use of insulin Generalized anxiety disorder Osteoporosis PAD (peripheral artery disease) Candidal intertrigo Asthma Pulmonary nodules Bronchiectasis with (acute) exacerbation Popliteal vein thrombosis Vitamin D deficiency Diabetes mellitus with peripheral angiopathy Refused influenza vaccine COVID-19 vaccination refused Other and unspecified hyperlipidemia Atherosclerotic cardiovascular disease Coronary artery disease Dyslipidemia Essential hypertension Type 2 diabetes mellitus without complication, without long-term current use of insulin Non-ST elevation SC (NSTEMI) Bilateral carotid artery stenosis NSTEMI (non-ST elevated myocardial infarction) Surgical History History of amputation of lesser toe History of cardiac catheterization (~01/06/20) S/P CABG x 4 (~01/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 Brother No problems noted. Brother No problems noted. Brother No problems noted. Sister No problems noted. Sister No problems noted. Sister No problems noted. Sister No problems noted. Sister No problems noted. Son No problems noted. Son No problems noted. Son No problems noted. Son No problems noted. Daughter Cancer Other Breast cancer Substance use disorder Social History Household Members: None Housing: Assisted Living Facility Are you a primary palliative care coordinator to a significant other at home: No Alcohol intake: unknown Patient Tobacco Use Status: Never used Tobacco e-Cigarette/Vaping Use: Never Used Second Hand Smoke Exposure: Yes service: No Current occupational status: retired Cognitive needs: No Hearing needs: No Vision needs: Yes Review of Systems Const All systems reviewed & are unremarkable except as noted in HPI and below Denies chills, Reports fatigue and Denies fever(s) GI Reports no additional complaints, Denies GI cramping, Denies diarrhea, Denies nausea and Denies vomiting Denies dysuria, Reports urinary urgency and Reports other (Urinary frequency) Skin/Breast Reports system reviewed and no additional complaints, except as documented Neuro Reports no additional complaints Psych Reports no additional complaints Endo Reports no additional complaints and Reports fatigue Roberto/Lymph Reports no additional complaints Physical Exam Vital Signs: Last Vital Signs Temp 98.1 F 10/11/24 15:02 Pulse 86 10/11/24 15:02 BP 122/60 10/11/24 15:02 Pulse Ox 97 10/11/24 15:02 Oxygen Delivery Method Room Air 10/11/24 15:02 BMI result Body Mass Index 22.5 Patient is afebrile. Const General: cooperative, healthy appearing, comfortable, no acute distress, well developed, alert, awake and Physically active; No acute distress or ill appearing Nutritional Appearance: average body habitus Orientation/consciousness: patient oriented x3 Limitations: no limitations Cardio Rate: regular rate Rhythm: regular rhythm GI Inspection: Yes normal to inspection Palpation (GI): Soft to palpation and nontender Auscultation: normal bowel sounds General: Yes Bimanual renal exam normal bilaterally, Yes bladder normal to palpation and Yes no CVA tenderness Bimanual exam- vagina & uterus: bladder normal to palpation Back/Spine/Pelvis Back: no CVA tenderness Skin General skin exam: no rashes or lesions noted Neuro General: patient oriented x3 Psych Appearance: grossly normal Mental Status: mental status grossly normal Insight: Good insight present (Psych) Judgement: Good judgement present (Psych) Results AMB Urinalysis, Automated UA Leukoctes 70 Yovani/uL Last Edit by Janeen Castillo CMA on 10/11/24 15:50 UA Nitrite Negative Last Edit by Janeen Castillo CMA on 10/11/24 15:50 UA Urobilinogen 0.2 mg/dL Last Edit by Janeen Castillo CMA on 10/11/24 15:50 UA Protein 0 mg/dL Last Edit by Janeen Castillo CMA on 10/11/24 15:50 UA pH 6.0 Last Edit by Janeen Castillo, SHAKIR on 10/11/24 15:50 UA Blood 10 Olegario/uL Last Edit by Janeen Castillo CMA on 10/11/24 15:50 UA Specific Louisa 1.020 Last Edit by Janeen Castillo CMA on 10/11/24 15:50 UA Ketone Negative Last Edit by Janeen Castillo CMA on 10/11/24 15:50 UA Bilirubin 0 mg/dL Last Edit by Janeen Castillo CMA on 10/11/24 15:50 UA Glucose 0 mg/dL Last Edit by Janeen Castillo CMA on 10/11/24 15:50 Results Reviewed Results Reviewed: Urinalysis is reviewed. Positive for leukocytes and blood, urine culture will be ordered. Assessment & Plan Assessment & Plan (1) Urinary frequency: Comment: Patient's urinalysis is reviewed. Given this patient's bladder prolapse coupled with negative urine cultures previously, urine culture will be obtained and patient will be discharged home with Pyridium. Antibiotic therapy will be deferred at this time. Code(s): R35.0 - Frequency of micturition Plan: Pyridium 100 mg TID PRN urinary frequency, increase clear fluids daily, urine culture pending. Orders: Orders AMB Urinalysis Automated Today Z13.9 - Encounter for screening, unspecified Urine Culture Today R35.0 - Frequency of micturition Medications: New phenazopyridine (Pyridium) 100 mg PO TID 12 tabs 0RF Coding Level of Care Code Est Pt Level 3 (16776) Diagnoses Urinary frequency R35.0 Time Spent (min) 20
== END 2024-10-11 16:30 | disposition home or self-care (01) ==
PROVIDERS: PCP Internal Medicine; Visit Provider Physician Assistant
DX: Z13.9 Encounter for screening, unspecified (principal); R35.0 Frequency of micturition

== ENCOUNTER 2024-11-10 11:58 | Outpatient (REF) | payer MEDICARE, SELFPAY ==
[2024-11-10 13:35] LABS: Hemoglobin A1C 191.7296 umol/L; Total Hemoglobin (HGBA1C) 3191.6555 umol/L
[2024-11-10 14:21] LABS: Alanine Aminotransferase 14 U/L (0-31); Anion Gap 13 (12-20); Aspartate Amino Transferase 25 U/L (5-31); Blood Urea Nitrogen 18 mg/dL (9-16); Calcium 8.9 mg/dL (8.4-10.2); Carbon Dioxide 26 mmol/L (22-29); Chloride 107 mmol/L (96-108); Cholesterol 200 mg/dL (<200); Estimated Glomerular Filt Rate > 60; HDL Cholesterol 41 mg/dL (>40); Potassium 4.4 mmol/L (3.3-5.1); Sodium 142 mmol/L (135-145); Triglycerides 184 mg/dL (<150)
--- OUTSIDE RECORDS SUMMARY | 2024-11-10 16:55 | XMS_ITS | Encounter Summary ---
Author Organization [facility] Address [address] [place] [address] Care Team Providers Care Campaign Specialist Name Role Phone Yu Alcantar MD Primary Care Provider Reason for Visit * Reason Comments Other Encounter Details Date Type Department Care Team (Late st Contact Info) Description 01/23/2022 Telephone [facility] Heart & Vascular [place] - V[facility] Laboratory [address] [address] Wolfgang Helton MD [address] [place] [address] Other Social History Tobacco Use Types Packs/Day [...] 1:45 PM EDT Ancillary Procedure [facility] Vascular & Endovascular Surgery [address] [address] Wolfgang Helton MD [address] [place] [address] 09/04/2025 2:00 PM EDT Ancillary Procedure [facility] Vascular & Endovascular Surgery [address] [address] Wolfgang Helton MD [address] [place] [address] 09/04/2025 2:30 PM EDT Office Visit [facility] Vascular & Endovascular Surgery [address] [address] Wolfgang Helton MD [address] [place] [address] documented as of this encounter Visit Diagnoses Not on filedocumented in this encounter Care Teams Campaign Specialist Relationship Specialty Start Date End Date Yu Alcantar MD [address] [place] [address] PCP - General Internal Medicine 02/07/21 documented as of this encounter
--- OUTSIDE RECORDS SUMMARY | 2024-11-10 16:55 | XMS_ITS | Encounter Summary ---
Author Organization [facility] Address [address] [place] [address] Care Team Providers Care Building Insulation Supervisor Name Role Phone Yu Alcantar MD Primary Care Provider [phone] Reason for Visit * Reason Comments Other Encounter Details Date Type Department Care Team (Late st Contact Info) Description 01/27/2022 Telephone [facility] Heart & Vascular [place] - Vascular Laboratory [address] [address] Wolfgang Helton MD [address] [place] [address] Other Social History Tobacco Use Types Packs/Day [...] PM EDT Ancillary Procedure [facility] Vascular & Endovascular Surgery [address] [address] Wolfgang Helton MD [address] [place] [address] 09/04/2025 2:00 PM EDT Ancillary Procedure [facility] [place] [facility] Vascular & Endovascular Surgery [address] [address] Wolfgang Helton MD [address] [place] [address] 09/04/2025 2:30 PM EDT Office Visit [facility] [place] [facility] Vascular & Endovascular Surgery [address] [address] Wolfgang Helton MD [address] [place] [address] documented as of this encounter Visit Diagnoses Not on filedocumented in this encounter Care Teams Building Insulation Supervisor Relationship Specialty Start Date End Date Yu Alcantar MD [address] [place] [address] PCP - General Internal Medicine 02/07/21 documented as of this encounter
--- OUTSIDE RECORDS SUMMARY | 2024-11-10 16:56 | XMS_ITS | Encounter Summary ---
Author Organization [facility] Address [address] [place] [address] Care Team Providers Care Jail Officer Name Role Phone Yu Alcantar MD Primary Care Provider Encounter Details Date Type Department Care Team (Late Contact Info) Description 03/08/2021 Scanned Document GENER[facility] EXTERNAL DATA DEPARTMENT Provider, Maria L, [address] [place] [address] Social History Tobacco Use Types Packs/Day Years [...] Description 09/04/2025 1:45 PM EDT Ancillary Procedure [facility] Vascular & Endovascular Surgery [address] [address] Wolfgang Helton MD [address] [place] [address] 09/04/2025 2:00 PM EDT Ancillary Procedure [facility] Vascular & Endovascular Surgery [address] [address] Wolfgang Helton MD [address] [place] [address] 09/04/2025 2:30 PM EDT Office Visit [facility] Vascular & Endovascular Surgery [address] [address] Wolfgang Helton MD [address] [place] [address] documented as of this encounter Visit Diagnoses Not on filedocumented in this encounter Care Teams Jail Officer Relationship Specialty Start Date End Date Yu Alcantar MD [address] [place] [address] PCP - General Internal Medicine 02/07/21 documented as of this encounter
--- OUTSIDE RECORDS SUMMARY | 2024-11-10 16:56 | XMS_ITS | Clinical Summary ---
Author Organization [facility] Address [address] [place] [address] Care Team Providers Care Content Manager Name Role Phone Yu Alcantar MD Primary [...] (600 mg total) by mouth nightly. Active hydrocortison e (WESTCORT) 0.2 % cream Apply topically 2 (two) times a day as needed. Active sitaGLIPtin (JANUVIA) 50 MG tablet Take 1 tablet (50 mg total) by mouth daily. Active triamcinolone (KENALOG) 0.5 % cream APPLY TOPICALLY 2 TIMES DAILY X10 DAYS 07/17/19 22 Active aspirin enteric coated (ECOTRIN LOW STRENGTH) 81 MG EC tabletIndicat ions:H/O arterial bypass of lower limb,Poplitea l artery occlusion, left Take 1 tablet (81 mg total) by mouth daily. 90 tablet 4 08/19/19 23 Active Additional Information Patient not taking.Informant: Self, Reported on 09/22/2024 Xarelto 2.5 MG tabletIndicat ions:Peripher al Arterial Disease Take 1 tablet (2.5 mg total) by mouth 2 (two) times a day. 180 tablet 3 10/20/19 25 Active rivaroxaban (XARELTO) 2.5 MG tabletIndicat ions:H/O arterial bypass of lower limb,Poplitea l artery occlusion, left TAKE 1 TABLET BY MOUTH TWICE A DAY 60 tablet 5 06/04/19 25 025 Discontinued(Du plicate Prescription - No E-Cancel/No AVS) rivaroxaban (Xarelto) 2.5 MG tabletIndicat ions:H/O arterial bypass of lower limb Take 1 tablet (2.5 mg total) by mouth 2 (two) times a day. 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 Overview (12/28/2020): Added automatically from request for surgery [id number] Encounters Date Type Department Care Team Description 11/07/2024 Telephone [facility] Vascular & Endovascular Surgery [address] [address] Wolfgang Helton MD 10/13/2024 Orders Only [facility] Vascular & Endovascular Surgery [address] [address] Ruth Whitaker PA H/O arterial bypass of lower limb; Popliteal artery occlusion, left 10/13/2024 Refill [facility] Vascular & Endovascular Surgery [address] [address] Wolfgang Helton MD 10/12/2024 Telephone [facility] Vascular & Endovascular Surgery [address] [address] Wolfgang Helton MD 10/07/2024 Orders Only [facility] Vascular & Endovascular Surgery [place] [address] [facility] [address] [place] [address] Amy Dale MA PAD (peripheral artery disease) (Primary Dx) 09/22/2024 2:00 PM EDT Office Visit [facility] Vascular & Endovascular Surgery [address] [place] [address] Wolfgang Helton MD H/O arterial bypass of lower limb (Primary Dx); PAD (peripheral artery disease) 09/22/2024 1:30 PM EDT Ancillary Procedure [facility] Vascular [place] [address] Ruth Whitaker PA 09/22/2024 1:15 PM EDT Ancillary Procedure [facility] Vascular & Endovascular Surgery [address] [place] [phone] Ruth Whitaker PA 09/22/2024 Travel from Last [...] 1:45 PM EDT Ancillary Procedure [facility] Vascular & Endovascular Surgery [address] [address] Wolfgang Helton MD [address] [place] [phone] 09/04/2025 2:00 PM EDT Ancillary Procedure [facility] Vascular & Endovascular Surgery [address] [address] Wolfgang Helton MD [address] [place] [address] 09/04/2025 2:30 PM EDT Office Visit [facility] Vascular & Endovascular Surgery [address] [address] Wolfgang Helton MD [address] [place] [address] Health Maintenance Due Date Last Done Comments DTaP/Tdap/Td Vaccines (1 - Tdap) 1959 Pneumococcal Vaccines 50+ (1 of 1 - PCV) 1990 Zoster (Shingles) Vaccine (1 of 2) 1990 DXA Bone Density (Females,Ag es 65 and older) 2005 RSV Vaccine 60 years and old er and Patients (1 - 1-dose 75+ series) 2015 Influenza Vaccine 09/16/2024 COVID-19 Vaccine ( - 2023-2 5 season) 2024 Advance Care Planning Completed 03/04/2021 Hepatitis B Vaccines Aged Out No long [...] the original result was not included. Department: [facility] Vascular Lab ([place]) Patient: [id number] (GOVIND KENT) Patient Location: [facility] CPT Code: 81533 ICD-9: Referring Physician: Ruth Monahan RIGHT : Duplex scan demonstrates a patent [...] sites or throughout the graft itself. The seminole outflow vessel displays biphasic flow. 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 Clinical Examination Hx of Left fem-plantar bpg, dm, pt c/o left hip pasin, LLE claudication after a short distance Findings: Segment Right Left PSV PSV VINYL CUTTER 167 88 PFA Prox 108 102 SFA [...] Note Rocael Rosenthal MD - 09/22/2024 Department: [facility] Vascular [facility] ([place]) Patient: [id number] (GOVIND KENT) Patient Location: [facility] CPT Code: 01135 ICD-9: Referring Physician: Ruth Monahan RIGHT : Duplex scan demonstrates a patent [...] attachmentsites or throughout the graft itself. The seminole outflow vessel displaysbiphasic flow. 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 Clinical Examination Hx of Left fem-plantar bpg, dm, pt c/o left hip pasin, LLE claudicationafter a short distance Findings: Segment Right Left PSV PSV VINYL CUTTER 167 88 PFA Prox 108 102 SFA [...] the original result was not included. Department: [facility] Vascular Lab ([place]) Patient: [id number] (GOVIND KENT) Patient Location: [facility] CPT Code: 59148 ICD-9: Referring Physician: Ruth Whitaker Impression RIGHT [...] Note Rocael Rosenthal MD - 09/22/2024 Department: [facility] ([place]) Patient: [id number] (GOVIND KENT) Patient Location: [facility] CPT Code: 16714 ICD-9: Referring Physician: Ruth Monahan RIGHT : [...] Months Insurance MEDIC[facility] PART A [facility] [place] [employer] [place] - PPO Advance Directives Documents on File Type Date Recorded Patient Packing Line Worker Expl anation Advance Directive-Scan 03/04/2021 [facility] [...] Healthcare Agent Relationship Communication Shy Josue Healthcare disability representative 1. Health Care Packing Line Worker [email or web address] Norma Saldana Healthcare disability representative 1. Health Care Packing Line Worker Care Teams Content Manager Relationship Specialty Start Date End Date Yu Alcantar MD [address] [place] [address] PCP - General Internal Medicine 02/07/21
--- OUTSIDE RECORDS SUMMARY | 2024-11-10 16:56 | XMS_ITS | Encounter Summary ---
Author Organization [facility] Address [address] [place] [address] Care Team Providers Care Harness Builder Name Role Phone Yu Alcantar MD Primary Care Provider Encounter Details Date Type Department Care Team (Late st Contact Info) Description 11/07/2024 Telephone [facility] Vascular & Endovascular Surgery [place] [address] [facility] [address] [place] [address] Wolfgang Helton MD [address] [place] [address] Social History Tobacco Use Types Packs/Day Years [...] encounter Miscellaneous Notes * Telephone Encounter - Richelle [place] RN - 11/09/2024 10:37 AM EDT Return call to pt regarding question about blood work. Per Dr. Helton's note, we will request most recent blood work from pt's PCP and there is no blood work pt needs to obtain at this time. Pt advisedto call the office with any questions or concerns. documented in this encounter Plan of Treatment Upcoming Encounters Date Type Department Care Team (Late st Contact Info) Description 09/04/2025 1:45 PM EDT Ancillary Procedure [facility] Vascular & Endovascular Surgery [address] [address] Wolfgang Helton MD [address] [place] [address] 09/04/2025 2:00 PM EDT Ancillary Procedure [facility] Vascular & Endovascular Surgery [address] [address] Wolfgang Helton MD [address] [place] [address] 09/04/2025 2:30 PM EDT Office Visit [facility] Vascular & Endovascular Surgery [address] [address] Wolfgang Helton MD [address] [place] [address] documented as of this encounter Visit Diagnoses Not on filedocumented in this encounter Care Teams Harness Builder Relationship Specialty Start Date End Date Yu Alcantar MD [address] [place] [address] PCP - General Internal Medicine 02/07/21 documented as of this encounter
--- OUTSIDE RECORDS SUMMARY | 2024-11-10 16:56 | XMS_ITS | Encounter Summary ---
Author Organization [facility] Address [address] [place] [address] Care Team Providers Care Denial Resolution Specialist Name Role Phone Yu Alcantar MD Primary Care Provider Encounter Details Date Type Department Care Team (Late st Contact Info) Description 05/14/2021 Scanned Document [facility] Vascular & Endovascular Surgery [place] [address] [facility] [address] [place] [address] Wolfgang Helton MD [address] [place] [address] Social History Tobacco Use Types Packs/Day Years [...] Description 09/04/2025 1:45 PM EDT Ancillary Procedure [facility] Vascular & Endovascular Surgery [address] [place] [phone] Wolfgang Helton MD [address] [address] 09/04/2025 2:00 PM EDT Ancillary Procedure [facility] Vascular & Endovascular Surgery [address] [place] [address] Wolfgang Helton MD [address] [address] 09/04/2025 2:30 PM EDT Office Visit [facility] Vascular & Endovascular Surgery [address] [place] [address] Wolfgang Helton MD [address] [place] [address] documented as of this encounter Visit Diagnoses Not on filedocumented in this encounter Care Teams Denial Resolution Specialist Relationship Specialty Start Date End Date Yu Alcantar MD [address] [place] [address] PCP - General Internal Medicine 02/07/21 documented as of this encounter
== END 2024-11-10 11:59 | disposition home or self-care (01) ==
LOC: HO.HMGCLDS 11:58
PROVIDERS: PCP Internal Medicine; Visit Provider Internal Medicine
DX: E78.5 Hyperlipidemia, unspecified (principal); I10 Essential (primary) hypertension; E11.65 Type 2 diabetes mellitus with hyperglycemia
CPT/HCPCS: 36415; 80048; 80061; 82306; 83036; 84450; 84460

== ENCOUNTER 2024-11-14 12:55 | Outpatient (AMB) | payer MEDICARE, SELFPAY ==
[2024-11-14 13:01] VITALS: BP 144/80; PULSE 86; O2SAT 98; BMI 22.5
--- NOTE | 2024-11-14 13:01 | MHC.PC.OV ---
Vital Signs 11/14/24 13:01 Height 5 ft 5 in Weight 135 lb BMI 22.5 BP 144/80 H Blood Pressure Location Lt brachial Position Sitting Pulse 86 Pulse Source Pulse Oximeter Pulse Oximetry (%) 98 Oxygen Delivery Method Room Air Intake Visit Reasons: 4m follow up Allergies Jtjdttl-EIA-YwQ Reductase Inhibitor (Zkhypdo-Jrl-Mjg Reductase Inhibitor) Allergy (Unknown, Verified 11/14/24 13:34) muscle cramps Medication List - Last Reconciled 11/14/24 by Yu Alcantar MD acetaminophen ER (Arthritis Pain Reliever) 650 mg PO BID atorvastatin 80 mg PO BEDTIME blood sugar diagnostic (FreeStyle Lite Strips) Test blood sugar once daily blood-glucose meter (Vascular PharmaceuticalsStyle Lite Meter kit) As directed for testing blood sugar blood-glucose sensor (Vascular PharmaceuticalsStyle Sai 3 Sensor device) Check fasting blood sugar twice a day before meals blood-glucose,dredge operator,cont (FreeStyle Sai 3 Tichnor) Check fasting blood sugar twice a day before meals cholecalciferol (vitamin D3) 1,250 mcg PO QWEEK 3 months cyanocobalamin (vitamin B-12) (Vitamin B-12) 500 mcg PO DAILY gabapentin 600 mg (2 x 300 mg) PO BEDTIME PRN Januvia (sitagliptin phosphate) 100 mg PO DAILY NS lancets (FreeStyle Lancets) Test blood sugar once a day metformin 500 mg PO BIDWMEAL 3 months metoprolol tartrate 12.5 mg (1/2 x 25 mg) PO BID 90 days nebulizer and compressor As directed ondansetron HCl 4 mg PO Q6H PRN rivaroxaban (Xarelto) 2.5 mg PO BID Tobacco use date assessed: 07/13/24 Fall risk assessment: No Falls in past year Last assessed Fall Risk: 11/14/24 Dental Screening Dental Screen Date: 07/13/24 [facility] Medical History Diabetes mellitus with hyperglycemia, without long-term current use of insulin Generalized anxiety disorder Osteoporosis PAD (peripheral artery disease) Candidal intertrigo Asthma Pulmonary nodules Bronchiectasis with (acute) exacerbation Popliteal vein thrombosis Vitamin D deficiency Diabetes mellitus with peripheral angiopathy Refused influenza vaccine COVID-19 vaccination refused Other and unspecified hyperlipidemia Atherosclerotic cardiovascular disease Coronary artery disease Dyslipidemia Essential hypertension Type 2 diabetes mellitus without complication, without long-term current use of insulin Non-ST elevation LA (NSTEMI) Bilateral carotid artery stenosis NSTEMI (non-ST elevated myocardial infarction) Surgical History History of amputation of lesser toe History of cardiac catheterization (~01/06/20) S/P CABG x 4 (~01/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 Brother No problems noted. Brother No problems noted. Brother No problems noted. Sister No problems noted. Sister No problems noted. Sister No problems noted. Sister No problems noted. Sister No problems noted. Son No problems noted. Son No problems noted. Son No problems noted. Son No problems noted. Daughter Cancer Other Breast cancer Substance use disorder Social History Household Members: None Housing: Assisted Living Facility Are you a primary personal caregiver to a significant other at home: No Alcohol intake: unknown Patient Tobacco Use Status: Never used Tobacco e-Cigarette/Vaping Use: Never Used Second Hand Smoke Exposure: Yes service: No Current occupational status: retired Cognitive needs: No Hearing needs: No Vision needs: Yes Questionnaire PHQ-9 Over the last 2 weeks, how often have you been bothered by any of the following problems? 1. Little interest or pleasure in doing things: not at all 2. Feeling down, depressed, or hopeless: not at all 3. Trouble falling or staying asleep, or sleeping too much: not at all 4. Feeling tired or having little energy: not at all 5. Poor appetite or overeating: not at all 6. Feeling bad about yourself - or that you are a failure or have let yourself or your family down: not at all 7. Trouble concentrating on things, such as reading the newspaper or watching television: not at all 8. Moving or speaking so slowly that other people could have noticed. Or the opposite - being so fidgety or restless that you have been moving around a lot more than usual: not at all 9. Thoughts that you would be better off or of hurting yourself in some way: not at all Total score: 0 Depression Screening Interpretation: Negative Depression Screening Done: Yes 91365 - PHQ-9 Billing: Yes Source: Developed by Drs. Tera Uribe, Merlyn Romero, Damian Hanna and colleagues, with an educational kalpesh from [employer]. Thrive Questionnaire Date Thrive assessed: 11/14/24 I am a: Patient What is your living situation today?: I choose not to answer this question Within the past 12 months, did the food you bought not last and you didn't have the money to get more?: I choose not to answer this question Within the past 12 months, did you worry whether your food would run out before you got money to buy more?: I choose not to answer this question Do you have trouble paying for medicines?: I choose not to answer this question Do you have trouble getting transportation to medical appointments?: I choose not to answer this question Do you have trouble paying your heating and electricity bill?: I choose not to answer this question Do you have trouble taking care of your child, family member or friend?: I choose not to answer this question Do you have trouble with day-to-day activities such as bathing, preparing meals, shopping, managing finances, etc.?: I choose not to answer this question Are you currently unemployed and looking for a job?: I choose not to answer this question Are you interested in more education?: I choose not to answer this question Please select the resources that you would like help with: None Currently or been in a relationship where the following occur: I choose not to answer THRIVE Score: 0 AUDIT C Alcohol Use Questionnaire (AUDIT-C) 1. How often do you have a drink containing alcohol?: Never 3. How often do you have six or more drinks on one occasion?: Never Total Score: 0 Score Reviewed/Action Taken: Yes MARY JO-7 AMB Questionnaire MARY JO-7 Date MARY JO - 7 assessed: 11/14/24 Feeling nervous, anxious, or on edge: 1 = Several days Not being able to stop or control worryin = Several days Worrying too much about different things: 1 = Several days Trouble relaxin = Not at all Being so restless that it is hard to sit still: 0 = Not at all Becoming easily annoyed or irritable: 0 = Not at all Feeling afraid as if something awful might happen: 0 = Not at all Total MARY JO-7 score (0-4 normal; 5-9 mild; 10-14 moderate; 15-21 severe): 3 Source: Developed by Drs. Tera Uribe, Merlyn Romero, Damian Hanna and colleagues, with an educational kalpesh from [employer]. MARY JO-7 Assessment Billing MARY JO-7 Assessment Tool: MARY JO-7 Assessment 21999 Physical exam (Primary Care) Vital Signs: Last Vital Signs Pulse 86 11/14/24 13:01 BP 144/80 H 11/14/24 13:01 Pulse Ox 98 11/14/24 13:01 Oxygen Delivery Method Room Air 11/14/24 13:01 BMI result Body Mass Index 22.5 Tobacco/Smoking Status: Tobacco use Status Tobacco use date assessed 07/13/24 11/14/24 13:08 Patient Tobacco Use Status Never used Tobacco 11/14/24 13:08 e-Cigarette/Vaping Use Never Used 11/14/24 13:08 PHQ-9: PHQ-9 Score PHQ-9: Total score 0 11/14/24 13:37 Depression Screening Interpretation: Negative Thrive Assessment: Date of Thrive Assessment Date Thrive assessed 11/14/24 11/14/24 13:08 Currently or been in a relationship where the following occur: I choose not to answer Results AMB Urinalysis, Automated UA Leukoctes 125 Yovani/uL Last Edit by Hitesh Becker CMA on 11/14/24 13:50 UA Nitrite Negative Last Edit by Hitesh Becker CMA on 11/14/24 13:50 UA Urobilinogen 0.2 mg/dL Last Edit by Hitesh Becker CMA on 11/14/24 13:50 UA Protein 0 mg/dL Last Edit by Hitesh Becker CMA on 11/14/24 13:50 UA pH 5.5 Last Edit by Hitesh Becker CMA on 11/14/24 13:50 UA Blood 10 Olegario/uL Last Edit by Hitesh Becker CMA on 11/14/24 13:50 UA Specific Bylas 1.020 Last Edit by Hitesh Becker CMA on 11/14/24 13:50 UA Ketone Negative Last Edit by Hitesh Becker CMA on 11/14/24 13:50 UA Bilirubin 0 mg/dL Last Edit by Hitesh Becker CMA on 11/14/24 13:50 UA Glucose 0 mg/dL Last Edit by Hitesh Becker CMA on 11/14/24 13:50 Results Reviewed Results Reviewed: Laboratory Last Values Urine pH (Auto) 5.5 11/14/24 13:47 Specific Bylas (Auto) 1.020 11/14/24 13:47 Urine Protein (Auto) 0 mg/dL 11/14/24 13:47 Glucose (UA)(Auto) 0 mg/dL 11/14/24 13:47 Urine Ketones (Auto) Negative 11/14/24 13:47 Urine Blood (Auto) 10 Olegario/uL 11/14/24 13:47 Urine Nitrite (Auto) Negative 11/14/24 13:47 Urine Bilirubin (Auto) 0 mg/dL 11/14/24 13:47 Urine Urobilinogen (Auto) 0.2 mg/dL 11/14/24 13:47 Leukocyte Esterase (Auto) 125 Yovani/uL 11/14/24 13:47 Laboratory Tests 07/12/24 11/10/24 13:34 12:04 Estimat Average Glucose 171 Hemoglobin A1c % 7.6 H Urine Creatinine 181.85 Urine Microalbumin 30.0 Microalb/Creat Ratio 16.4 Name: Ashley Kent Age/Sex: 84/F : 1940 Unit#: [id number] Attend Dr: Yu Alcantar MD Re11/10/24 Status: DEP REF Location: [facility] Disch: SPEC : [id number] ELOY: 11/10/24 STATUS: COMP REQ : [id number] RECD: 11/10/24-[address]: Yu Alcantar MD COMP: 11/10/24-1420 ENTERED: 11/10/24-[address]: ORDERED: Met Prof Fast, AST, ALT, Lipid Panel, Vitamin D 25-OH Test Result Flag Reference Sodium 142 135-145 mmol/L Potassium 4.4 3.3-5.1 mmol/L CL 107 96-108 mmol/L CO2 26 22-29 mmol/L Gap 13 12-20 BUN 18 H 9-16 mg/dL Creat 0.89 0.5-1.4 mg/dL eGFR > 60 Chronic Kidney Disease: Estimated GFR < 60 mL/min/1.73m2 Severe Kidney Disease: Estimated GFR < 15 mL/min/1.73m2 FBS 137 H 60-99 mg/dL A fasting glucose of 126 mg/dl or greater on more than one occasion is considered diagnostic of diabetes. CA 8.9 # 8.4-10.2 mg/dL AST (GOT) 25 5-31 U/L ALT (GPT) 14 0-31 U/L Triglyceride 184 H <150 mg/dL Desirable Triglyceride: less than 150 mg/dL Borderline High Triglyceride 150-199 mg/dL High Triglyceride: 200-499 mg/dL Very High Triglyceride: greater than or equal to 5OO mg/dL Cholesterol 200 H <200 mg/dL Desirable Cholesterol: less than 200 mg/dL Borderline High Cholesterol: 200-239 mg/dL High Cholesterol: greater than 239 mg/dL LDL Calculated 123 H <100 mg/dL Desirable LDL: less than 100 mg/dL Near Optimal/Above Optimal LDL: 110-129 mg/dL Borderline High LDL: 130-159 mg/dL High LDL: 160-189 mg/dL Very High LDL: greater than or equal to 190 mg/dL HDL 41 >40 mg/dL Desirable HDL: greater than 40 mg/dL Note: This HDL assay may give artificially low results in patients with liver disease. Vitamin D 25-OH 72.6 >30 ng/mL Health Based Reference Values* < 20 ng/mL Deficient 20-30 ng/mL Insufficient > 30 ng/mL Sufficient *Daniel STEINBERG. N Engl J Med. 2007;357:266-280 There is no well-established upper level of normal vitamin D levels. Some laboratories use 50 ng/mL as an upper limit of normal. However, toxicity is patient-dependent and may occur at any level. Careful correlation with the patient's presentation is necessary and, if there is concern for vitamin D toxicity, treatment should be considered irrespective of the serum level. Care must be taken in interpreting Vitamin D results from different laboratories and methodologies. Published data demonstrated that results from patients undergoing hemodialysis may show a negative bias when tested with various automated 25-OH vitamin D assays when compared to LC-MS/MS. When testing samples from patients whose predominant form of Vitamin D is Vitamin D2, such as patients receiving Vitamin D2 supplementation, results that are subtherapeutic should be confirmed with another method such as LC-MS/MS. Coding Diagnoses Essential hypertension I10 Dyslipidemia E78.5 Coronary artery disease I25.10 COVID-19 vaccination refused Z28.21 Refused influenza vaccine Z28.21 PAD (peripheral artery disease) I73.9 Generalized anxiety disorder F41.1 Diabetes mellitus with hyperglycemia, without long-term current use of insulin E11.65 Urinary tract infection N39.0 Additional Codes MARY JO-7 Assessment Billing - MARY JO-7 Assessment Tool: MARY JO-7 Assessment 89333 ([id number]) PHQ-9 - 65569 - PHQ-9 Billing: Yes ([id number]) Assessment & Plan Assessment & Plan (1) Essential hypertension: Code(s): I10 - Essential (primary) hypertension Category: Medical (2) Dyslipidemia: Code(s): E78.5 - Hyperlipidemia, unspecified Category: Medical (3) Coronary artery disease: Code(s): I25.10 - Atherosclerotic heart disease of [place] coronary artery without angina pectoris Category: Medical (4) COVID-19 vaccination refused: Code(s): Z28.21 - Immunization not carried out because of patient refusal Category: Medical (5) Refused influenza vaccine: Code(s): Z28.21 - Immunization not carried out because of patient refusal Category: Medical (6) PAD (peripheral artery disease): Comment: Followed by Dr. Wolfgang Helton at [facility] and started on Xarelto 2.5 mg 1 tablet BID for prevention of progression of disease and to maintain patency in left leg arterial system = August 2022 Code(s): I73.9 - Peripheral vascular disease, unspecified Category: Medical (7) Generalized anxiety disorder: Code(s): F41.1 - Generalized anxiety disorder Category: Medical (8) Diabetes mellitus with hyperglycemia, without long-term current use of insulin: Code(s): E11.65 - Type 2 diabetes mellitus with hyperglycemia Category: Medical (9) Urinary tract infection: Code(s): N39.0 - Urinary tract infection, site not specified Orders: Orders AMB Urinalysis Automated Today Z13.9 - Encounter for screening, unspecified Hemoglobin A1c 04/22/25 E11.65 - Type 2 diabetes mellitus with hyperglycemia, E78.5 - Hyperlipidemia, unspecified, F41.1 - Generalized anxiety disorder, I10 - Essential (primary) hypertension, I25.10 - Atherosclerotic heart disease of [place] coronary artery without angina pectoris, I73.9 - Peripheral vascular disease, unspecified, N39.0 - Urinary tract infection, site not specified, Z28.21 - Immunization not carried out because of patient refusal Aspartate Amino Transferase 04/22/25 E11.65 - Type 2 diabetes mellitus with hyperglycemia, E78.5 - Hyperlipidemia, unspecified, F41.1 - Generalized anxiety disorder, I10 - Essential (primary) hypertension, I25.10 - Atherosclerotic heart disease of [place] coronary artery without angina pectoris, I73.9 - Peripheral vascular disease, unspecified, N39.0 - Urinary tract infection, site not specified, Z28.21 - Immunization not carried out because of patient refusal Alanine Aminotransferase 04/22/25 E11.65 - Type 2 diabetes mellitus with hyperglycemia, E78.5 - Hyperlipidemia, unspecified, F41.1 - Generalized anxiety disorder, I10 - Essential (primary) hypertension, I25.10 - Atherosclerotic heart disease of [place] coronary artery without angina pectoris, I73.9 - Peripheral vascular disease, unspecified, N39.0 - Urinary tract infection, site not specified, Z28.21 - Immunization not carried out because of patient refusal Basic Metabolic Panel Fasting 04/22/25 E11.65 - Type 2 diabetes mellitus with hyperglycemia, E78.5 - Hyperlipidemia, unspecified, F41.1 - Generalized anxiety disorder, I10 - Essential (primary) hypertension, I25.10 - Atherosclerotic heart disease of [place] coronary artery without angina pectoris, I73.9 - Peripheral vascular disease, unspecified, N39.0 - Urinary tract infection, site not specified, Z28.21 - Immunization not carried out because of patient refusal Lipid Panel 04/22/25 E11.65 - Type 2 diabetes mellitus with hyperglycemia, E78.5 - Hyperlipidemia, unspecified, F41.1 - Generalized anxiety disorder, I10 - Essential (primary) hypertension, I25.10 - Atherosclerotic heart disease of [place] coronary artery without angina pectoris, I73.9 - Peripheral vascular disease, unspecified, N39.0 - Urinary tract infection, site not specified, Z28.21 - Immunization not carried out because of patient refusal Vitamin D 25-OH Total 04/22/25 E11.65 - Type 2 diabetes mellitus with hyperglycemia, E78.5 - Hyperlipidemia, unspecified, F41.1 - Generalized anxiety disorder, I10 - Essential (primary) hypertension, I25.10 - Atherosclerotic heart disease of [place] coronary artery without angina pectoris, I73.9 - Peripheral vascular disease, unspecified, N39.0 - Urinary tract infection, site not specified, Z28.21 - Immunization not carried out because of patient refusal Microalbumin, Random (w Creat) 04/22/25 E11.65 - Type 2 diabetes mellitus with hyperglycemia, E78.5 - Hyperlipidemia, unspecified, F41.1 - Generalized anxiety disorder, I10 - Essential (primary) hypertension, I25.10 - Atherosclerotic heart disease of [place] coronary artery without angina pectoris, I73.9 - Peripheral vascular disease, unspecified, N39.0 - Urinary tract infection, site not specified, Z28.21 - Immunization not carried out because of patient refusal Medications: New nitrofurantoin monohyd/m-cryst 100 mg (Macrobid) must administer with a meal/food 100 mg PO Q12H 20 caps 0RF 10 days Refilled Januvia (sitagliptin phosphate) 100 mg PO DAILY 30 tabs 5RF NS
--- OUTSIDE RECORDS SUMMARY | 2024-11-14 14:04 | XMS_ITS | Patient Health Record ---
Author Organization [facility] Shimon calin [address] Address [address] [place] [address] Care Team Providers Care Thread Singer Name Role Phone Katharine CHRISTIANSON, Yu Ramires Primary Care Provider Un available BradRichelle schroeder Unavailable [phone] Allergies No Known Allergies Results Component Value Reference Range Notes HEMOGLOBIN A1C (GLYCOHEMOGLO BIN) Reviewed date:04/28/2024 09:01:01 AM Interpretation: Performing Lab: Notes/Report: HEMOGLOBIN A1C % (HH) 7.3 Reason For Referral No Information Medications Medication SIG (Take, Route, Frequency, Duration) Notes Start Date End Date Status Tylenol Active metFORMIN HCl Active Doxycycline Hyclate 100 MG 1 capsule Orally Once a day; Duration: 5 days 01/26/2024 Not-Taking Gabapentin 300 MG Oral; Duration: 90 Days as needed Active Extra Depth Orthopedic Shoes (1 Pair) with Customized Heat Molded Multidensity Innersoles (3 Pair) as directed Dx: NIDDM/Polyneuropathy (E11.42), Hammertoe Foot Deformity (M20.41,M20.42), Preulcerative Skin Lesion(s) (L85.1 Amputation left 3rd toe. Add lift to left foot due to unequal limb length left shorter Active Xarelto 2.5 MG Oral; Duration: 30 Days Active Januvia Active Immunizations Vaccine Route Administration Date Status [...] Problem Acquired hammer toe of right foot ([id number] ) Other hammer toe(s) (acquired), right foot (M20.41) Active confirmed Problem Acquired hammer toe of left foot ([id number] ) Other hammer toe(s) (acquired), left foot (M20.42) Active confirmed Problem Polyneuropathy due to type 2 diabetes mellitus (133573209) Type 2 diabetes mellitus with diabetic polyneuropathy (E11.42) Active confirmed Problem Acquired unequal limb length (444704327374412) 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) Active confirmed Vital Signs Blood pressure diastolic 80 mm Hg 10/25/2024 Height 5ft 4in in 10/25/2024 Blood pressure systolic 122 mm Hg 10/25/2024 Weight 127 lbs 10/25/2024 BMI 21.8 kg/m2 10/25/2024 Encounters Encounter Location Date Provider Diagnosis [address] [address] 01/26/2024 Richelle Bartholomew Type 2 diabetes mellitus with diabetic polyneuropathy E11.42 ; Other hammer toe(s) (acquired), left foot M20.42 ; Tinea unguium B35.1 ; Ingrown nail L60.0 and Other hammer toe(s) (acquired), [facility] [address] 04/26/2024 Richelle Puma Type 2 diabetes mellitus with diabetic polyneuropathy E11.42 ; Other hammer toe(s) (acquired), left foot M20.42 ; Tinea unguium B35.1 ; Ingrown nail L60.0 and Other hammer toe(s) (acquired), right foot M20.[address] [address] 07/26/2024 Richelle Bartholomew Type 2 diabetes mellitus with diabetic polyneuropathy E11.42 ; Other hammer toe(s) (acquired), left foot M20.42 ; Tinea unguium B35.1 ; Ingrown nail L60.0 ; Other hammer toe(s) (acquired), right foot M20.41 and Acquired unequal limb length M21.[address] [address] 10/25/2024 Richelle Bartholomew Type 2 diabetes mellitus with diabetic polyneuropathy E11.42 ; Other hammer toe(s) (acquired), left foot M20.42 ; Tinea unguium B35.1 ; Other hammer toe(s) (acquired), right foot M20.41 and Acquired unequal limb length M21.[address] [address] 01/27/2024 Richelle Bartholomew Other hammer toe(s) (acquired), right foot M20.[address] [address] 04/26/2024 Richelle Bartholomew [address] [address] 10/25/2024 Richelle Bartholomew Assessments Encounter Date Diagnosis (ICD [...] mellitus with diabetic polyneuropathy (ICD-10 - E11.42) 10/25/2024 Type 2 diabetes mellitus with diabetic polyneuropathy (ICD-10 - E11.42) 10/25/2024 Tinea unguium (ICD-10 - B35.1) 07/26/2024 Other hammer toe(s) (acquired), left foot (ICD-10 - M20.42) 10/25/2024 Other hammer toe(s) (acquired), left foot (ICD-10 - M20.42) 07/26/2024 Tinea unguium (ICD-10 - B35.1) 04/26/2024 Other hammer toe(s) (acquired), left foot (ICD-10 - M20.42) 01/26/2024 Tinea unguium (ICD-10 - B35.1) 01/26/2024 Ingrown nail (ICD-10 - L60.0) 07/26/2024 Ingrown nail (ICD-10 - L60.0) 04/26/2024 Tinea unguium (ICD-10 - B35.1) 10/25/2024 Other hammer toe(s) (acquired), right foot (ICD-10 - M20.41) Patient Educated with: DIABETIC FOOT CARE INSTRUCTIONS. pdf (DIABETIC FOOT CARE INSTRUCTIONS. pdf) 10/25/2024 Acquired unequal limb length (ICD-10 - M21.70) 04/26/2024 Ingrown nail (ICD-10 - L60.0) 07/26/2024 [...] Treatment Next Appt Details Provider Name:Richelle schroeder, 02/21/2025 01:30:00 PM, [address] [place] [address], [phone], Insurance Providers Payer Name Payer Address Payer Phone Subscriber Number Group Number Insured Name Patient Relationship to Insured Coverage Start Date Coverage End Date Medicare National [employer] S[employer] [address] [place] [address] [id number] Ashley Kent Self - patient is the insured 6 [employer] Blue [employer] [address] [place] [address] [id number] Ashley Kent Self - patient is the insured Medical (General) History Medical History History ICD Code Diabetic Heart disease Vascular grafts Broken hip Surgical History Surgery Date(Month/Year) leg surgery 2019 bypass surgery 2019
== END 2024-11-14 13:56 | disposition home or self-care (01) ==
LOC: HO.HMCC 12:56
PROVIDERS: PCP Internal Medicine; Visit Provider Internal Medicine
DX: Z13.9 Encounter for screening, unspecified (principal)

== ENCOUNTER 2024-11-14 12:55 | Outpatient (REF) | payer MEDICARE, SELFPAY ==
--- OUTSIDE RECORDS SUMMARY | 2024-11-14 17:36 | XMS_ITS | Encounter Summary ---
Author Organization [facility] Address [address] [place] [address] Care Team Providers Care Property Disposal Officer Name Role Phone Yu Alcantar MD Primary Care Provider Reason for Visit * Reason Comments Other Encounter Details Date Type Department Care Team (Late st Contact Info) Description 01/27/2022 Telephone [facility] [place] [facility] [address] [address] Wolfgang Helton MD [address] [place] [id number] Other Social History Tobacco Use Types Packs/Day [...] Description 09/04/2025 1:45 PM EDT Ancillary Procedure [facility] [address] [address] Wolfgang Helton MD [address] [place] [phone] 09/04/2025 2:00 PM EDT Ancillary Procedure [facility] [address] [address] Wolfgang Helton MD [address] [place] [phone] 09/04/2025 2:30 PM EDT Office Visit [facility] [address] [address] Wolfgang Helton MD [address] [place] [phone] documented as of this encounter Visit Diagnoses Not on filedocumented in this encounter Care Teams Property Disposal Officer Relationship Specialty Start Date End Date Yu Alcantar MD [address] [place] [address] PCP - General Internal Medicine 02/07/21 documented as of this encounter
--- OUTSIDE RECORDS SUMMARY | 2024-11-14 17:36 | XMS_ITS | Encounter Summary ---
Author Organization Formerly [facility] Address [address] [place] [address] Care Team Providers Care Hollow Core Door Frame Assembler Name Role Phone Yu Alcantar MD Primary Care Provider Encounter Details Date Type Department Care Team (Late st Contact Info) Description 11/07/2024 Telephone [facility] Vascular & Endovascular Surgery [place] [address] [facility] [address] [place] [address] Wolfgang Helton MD [address] [place] [address] Social History Tobacco Use Types Packs/Day Years [...] Description 09/04/2025 1:45 PM EDT Ancillary Procedure [facility] Vascular & Endovascular Surgery [address] [address] Wolfgang Helton MD [address] [place] [address] 09/04/2025 2:00 PM EDT Ancillary Procedure [facility] Vascular & Endovascular Surgery [address] [address] Wolfgang Helton MD [address] [place] [address] 09/04/2025 2:30 PM EDT Office Visit [facility] Vascular & Endovascular Surgery [address] [address] Wolfgang Helton MD [address] [place] [phone] documented as of this encounter Visit Diagnoses Not on filedocumented in this encounter Care Teams Hollow Core Door Frame Assembler Relationship Specialty Start Date End Date Yu Alcantar MD [address] [place] [address] PCP - General Internal Medicine 02/07/21 documented as of this encounter
--- OUTSIDE RECORDS SUMMARY | 2024-11-14 17:36 | XMS_ITS | Encounter Summary ---
Author Organization [facility] Address [address] [place] [address] Care Team Providers Care Stone Trimmer Name Role Phone Yu Alcantar MD Primary Care Provider [phone] Encounter Details Date Type Department Care Team (Late Contact Info) Description 03/08/2021 Scanned Document GENERIC EXTERNAL DATA DEPARTMENT Provider, Maria L, [address] [place] [address] Social History Tobacco Use Types Packs/Day Years [...] 1:45 PM EDT Ancillary Procedure [facility] Vascular & Endovascular Surgery [address] [address] Wolfgang Helton MD [address] [place] [address] 09/04/2025 2:00 PM EDT Ancillary Procedure [facility] Vascular & Endovascular Surgery [address] [address] Wolfgang Helton MD [address] [place] [address] 09/04/2025 2:30 PM EDT Office Visit [facility] Vascular & Endovascular Surgery [address] [address] Wolfgang Helton MD [address] [place] [address] documented as of this encounter Visit Diagnoses Not on filedocumented in this encounter Care Teams Stone Trimmer Relationship Specialty Start Date End Date Yu Alcantar MD [address] [place] [phone] PCP - General Internal Medicine 02/07/21 documented as of this encounter
--- OUTSIDE RECORDS SUMMARY | 2024-11-14 17:36 | XMS_ITS | Encounter Summary ---
Author Organization [facility] Address [address] [place] [address] Care Team Providers Care Manager Leadership Development Name Role Phone Yu Alcantar MD Primary Care Provider [phone] Reason for Visit * Reason Comments Other Encounter Details Date Type Department Care Team (Late st Contact Info) Description 01/23/2022 Telephone [facility] Heart & Vascular [place] [facility] [address] [address] Wolfgang Helton MD [address] [place] [phone] Other Social History Tobacco Use Types Packs/Day [...] Description 09/04/2025 1:45 PM EDT Ancillary Procedure [facility] Vascular & Endovascular Surgery [address] [address] Wolfgang Helton MD [address] [place] [phone] 09/04/2025 2:00 PM EDT Ancillary Procedure [facility] Vascular & Endovascular Surgery [address] [address] Wolfgang Helton MD [address] [place] [address] 09/04/2025 2:30 PM EDT Office Visit [facility] Vascular & Endovascular Surgery [address] [address] Wolfgang Helton MD [address] [place] [phone] documented as of this encounter Visit Diagnoses Not on filedocumented in this encounter Care Teams Manager Leadership Development Relationship Specialty Start Date End Date Yu Alcantar MD [address] [place] [address] PCP - General Internal Medicine 02/07/21 documented as of this encounter
--- OUTSIDE RECORDS SUMMARY | 2024-11-14 17:36 | XMS_ITS | Encounter Summary ---
Author Organization [facility] Address [address] [place] [address] Care Team Providers Care Counter Control Operator Name Role Phone Yu Alcantar MD Primary Care Provider Encounter Details Date Type Department Care Team (Late st Contact Info) Description 05/14/2021 Scanned Document [facility] Vascular & Endovascular Surgery [place] [address] [facility] [address] [place] [address] Wolfgang Helton MD [address] [place] [address] Social History Tobacco Use Types Packs/Day Years [...] Description 09/04/2025 1:45 PM EDT Ancillary Procedure [facility] Vascular & Endovascular Surgery [address] [place] [phone] Wolfgang Helton MD [address] [address] 09/04/2025 2:00 PM EDT Ancillary Procedure [facility] Vascular & Endovascular Surgery [address] [place] [address] Wolfgang Helton MD [address] [address] 09/04/2025 2:30 PM EDT Office Visit [facility] Vascular & Endovascular Surgery [address] [place] [address] Wolfgang Helton MD [address] [place] [phone] documented as of this encounter Visit Diagnoses Not on filedocumented in this encounter Care Teams Counter Control Operator Relationship Specialty Start Date End Date Yu Alcantar MD [address] [place] [address] PCP - General Internal Medicine 02/07/21 documented as of this encounter
--- OUTSIDE RECORDS SUMMARY | 2024-11-14 17:37 | XMS_ITS | Data Portability ---
Author Organization [facility], Main Office Address [address] [address], [address] [place] [address] Care Team Providers Care Assembler Erector Name Role Phone [facility] ([facility] OTHER Assessment No assessment recorded. Plan of Treatment Reminders Order Date Submit Date Provider Last Modified By Organization Details Last Modified Time Details Appointments None record ed. Lab None record ed. Referral None record ed. Procedures None record ed. Surgeries None record ed. Imaging None record ed. Medication Orders None record ed. Patient TargetsNo targets recorded. Patient Instructions Encounter Date Encounter Id Patient Instructions Last Modified By Organization Details Last Modified Time 01/18/2021 [id number] [email or web address] Not available 01/18/2021 15:24:54 01/25/2021 [id number] F/U Appointments : Podiatry: 01/28/21 Vascular: TBD PCP: TBD Total time spent on discharge: 40 minutes No scripts needed [email or web address] Not available 01/26/2021 13:27:54 Reason for Referral None Reported. 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 567831916 Active 2020 and with neuropath y AMALIASA HIGGINS PA-C [address], [address], [place], [address], [facility] 13:14:42 Coronary arteriosc lerosis 80072057 Active 2020 Hx 4-vessel CABG 12/2019; NSTEMI; PCI with stent VICENTE ARROYO-C [address], [address], [place], [address], [facility] 13:15:05 Sciatica 75070289 Active 2020 AMALIA HIGGINS PA-C [address], [address], [place], [address], [facility] 13:15:23 Anemia 488764167 Active 2020 VICENTE ARROYO-C [address], [address], [place], [address], [facility] 13:15:31 Chronic constipat ion 899232351 Active 2020 AMALIA HIGGINS PA-C [address], [address], [place], [address], [facility] 13:15:43 Dyslipide ab 083271792 Active 2020 AMALIA HIGGINS PA-C [address], [address], [place], [address], [facility] 13:15:56 Anxiety 89376340 Active 2020 AMALIA HIGGINS PA-C [address], [address], [place], [address], [facility] 13:16:14 Carotid artery stenosis 40477070 Active 2020 AMALIA HIGGINS PA-C [address], [address], [place], [address], [facility] 13:16:30 Pain of left hip joint 385389201155 100 Active 2020 AMALIA HIGGINS PA-C [address], [address], [place], [address], [facility] 13:17:18 Chronic anxiety 589275984 Active 2020 Dia Philip MD [address] [place] [address], [facility] [address], [place], [address], [facility] [employer] 18:11:22 Essential hypertens ion 13582995 Active 2020 Dia Philip MD [address] [facility], [facility] [address], [place], [address], [facility] 18:25:37 Problem Notes None recorded. Medical Equipment None Reported. Allergies No known drug allergies Medications Not known to be on any medication Vitals Date Recorded Body weight Oxygen saturation Oxygen saturation in Arterial blood by Pulse oximetry Body temperature Respiratory rate Heart rate Systolic And Diastolic Provider Name and Address Organization Details Last Updated DateTime 1 13471.6 7 g 96 % 96 % 96.1 [degF] 18 /min 64 /min 110/70 mm[Hg] AMALIA HIGGINS PA-C [address] [place] [address], [place], [address], [facility] 12:39:07 Date Recorded Body weight Body mass index (BMI) Body height Heart rate Respiratory rate Body temperature Oxygen saturation Oxygen saturation in Arterial blood by Pulse oximetry Systolic And Diastolic Provider Name and Address Organization Details Last Updated DateTime 1 82344.0 1 g 21.6 kg/m2 165.1 cm 69 /min 18 /min 97.3 [degF] 96 % 96 % 120/65 mm[Hg] Dia Philip MD [address] [place] [address], [facility] [address], [place], [address], [facility] 18:14:45 Date Recorded Body height Body mass index (BMI) Body weight Heart rate Respiratory rate Body temperature Oxygen saturation Oxygen saturation in Arterial blood by Pulse oximetry Systolic And Diastolic Provider Name and Address Organization Details Last Updated DateTime 1 165.1 cm 21.6 kg/m2 66836.0 1 g 64 /min 20 /min 97.3 [degF] 98 % 98 % 116/55 mm[Hg] AMALIA HIGGINS PA-C [address] [place] [address] [address], [place], [address], [facility] 22:44:52 Social History Question Answer Notes LastModified by [employer] Details LastModified Time Tobacco Smoking Status Never Smoker AMALIA CYNTHIA HIGGINS [address] [facility], [address], [place], [address], [facility] [employer] [employer] 01/18/2021 13:00:04 Do You Have An Advance Directive? Yes DNR/DNI; Ok For Non-invasive Ventilation; Ok For Transfer To Hospital; No Dialysis; No Artificial Nutrition; No Artificial Hydration Information not available 01/24/2021 What Is Your Code Status? DNR/DNI Information not available 01/24/2021 Where Do You Live? Apartment On [address]st Floor, One Step To Enter. Information not available 01/24/2021 Legal Guardian? No [email or web address] Informati on not available 01/18/2021 Do You Have A Medical Power Of Miner Helper? Yes Information not available 01/24/2021 What Was The Date Of Your Most Recent Tobacco Screening? 01/18/2021 [email or web address] Information not available 01/18/2021 Do You Have An Out Of Hospital DNR? Yes Information not available 01/24/2021 What Is Your Relationship Status? Information not available 01/24/2021 Has Tobacco Cessation Counseling Been Provided? No N/A As Pt Is Non-smoker Information not available 01/24/2021 Sex: Female Functional Status Question Answer Note LastModified by [employer] Details LastModified Time How many times per week do you consume alcohol? rarely Information not available 01/24/2021 Do you use any illicit or recreational drugs? No [email or web address] Information not available 01/18/2021 Do you or have you ever used any other forms of tobacco or nicotine? No [email or web address] Information not available 01/18/2021 What is your level of alcohol consumption? Occasional Information not available 01/24/2021 Mental Status None recorded. Family History Relationship Description Onset Age of this Age Resolved Age Notes LastModified by Organization Details LastModified Time Father Coronary arterioscler osis [email or web address] Not available 2020 15:08:20 Mother Coronary arterioscler osis [email or web address] Not available 2020 15:08:20 Medical History No medical history recorded. Gynecological HistoryNo gynecological history recorded. Obstetrics History GPAL:G 0 P 0 0 0 0 Past Encounters Encounter ID Performer Location Encounter Start Date Encounter Closed Date Diagnosis/Indication Diagnosis SNOMED-CT Code Diagnosis ICD10 Code Diagnosis IMO Codes Diagnosis Note [id number] AMALIA HIGGINS PA-C [facility] [address] [place] [address] 01/18/2021 12:23:01 01/22/2021 16:20:18 Amputated toe 446321094 Z89.429 Local wound careAdd Vit C and Zinc since comorbid DMDr. Marvel Grullon (podiatry) [address] [place] [address] -- needs f/u (d/c paperwork does not specify time frame)PT/O T Critical l ower limb ischemia 646755048 I99.8 s/p insertion of a L femoral-pe roneal vein graftASA, Plavix, StatinOk to shower but needs to cover footDo not remove steri strips - will be done at f/uDr. Wolfgang Helton (vascular) [address] [place] [address] [place] [address] - needs f/u 4 weeksPain management with Dilaudid-S cript for Dilaudid 2 mg #30 no refills given to nurse Type 2 lauren betes mellitus with peripheral angiopathy 501195942 E11.51 Fingerstic k blood sugars tidacMetfo rmin and JanuviaAdd correction al insulinNot on CATIE/ARB for renal protection - defer to PCPGabapen tin for neuropathy -was on morning and afternoon doses but now just at hs-may need to restart-mo nitor and f/u prn Coronary arteriosclerosis 12460103 I25.10 ASA, Plavix, Statin, B-marcos Carotid ar alonso stenosis 83360570 I65.29 outpatient f/u Anemia 232636969 D64.9 s/p 3 total units PRBCsFollo w CBC Chronic constipation 236 960867 K59.09 Scheduled and prn bowel medsf/u prn Dyslipidemia 859317681 E 78.5 Statin Pain of le ft hip joint 3672957687 41937 M25.552 APAPPT/OT Sciatica 93356125 M54.32 PT/OT Advance care planning 71 6627492 Z71.89 Met with pt, who is her own decision-susana [place], in her room. Reviewed each section of the MOL[facility] and answered questions to her satisfacti on. Form completed, signed, and orders entered to reflect the following: DNR/DNI; ok for non-invasi ve ventilatio n; ok to transfer to hospital; no dialysis; no artificial nutrition; ok for artificial hydration Total time spent 20 minutes, cristy because pt concerned that her daughter will not like pt's decisions Minimal co gnitive impairment 089102788 G31.84 INTERACTIVE DESIGNER consult for cognition [id number] Dia Philip MD [facility] [address] [place] [address] 01/24/2021 14:44:42 01/29/2021 09:30:51 Amputated toe 056765786 Z89.422 Continue local care.Jannie nue Vit C 500 mg qd and Zinc 220 mg qd for help with healing.F/ U with Dr. Marvel Grullon (podiatry) [address] [place] [address] [place], [place] [address]Very deconditio kian.Needs PT/OT for strengthen ing, balance, gait training, safety and function.C ontinue fall precaution s.Monitor for safety.Not eating well, needs more protein, will add glucerna 8 oz BID between meals. Critical l ower limb ischemia 380226153 I99.8 s/p L femoral-pe roneal vein graftConti nue ASA 325 mg qd, Plavix 75 mg qd and atorvastat in 80 mg qd.Continu e hydromorph one 2 mg q 6 hrs prn and APAP 650 mg TID and q 4 hrs prn (not to exceed 3000 mg qd).F/U with vascular surgeon (Dr. Wolfgang Helton [address] [facility] [address] [place] [address]) in 4 wks Type 2 lauren betes mellitus with peripheral angiopathy 526248703 E11.51 E11.42 Sugars all <200 since here.Jannie nue metformin 500 mg qd and SSI.Was on Januvia 50 mg qd at home, not restarted here, due to not having accurate d/c summary. Restart today.Cont inue gabapentin 600 mg qhs for neuropathy Monitor accuchecks QID and for sxs of neuropathy , titrate gabapentin and diabetic meds as needed. Coronary arteriosclerosis 10201192 I25.10 S/P CABG x 4 in 12/2019No current sxs.Contin ue meds as above and metoprolol 50 mg BID.Monito r for sxs.F/U with cardio as planned. Carotid ar alonso stenosis 73234659 I65.23 F/U as outpt with vascular.M onitor for sxs. Anemia 550395489 D64.89 s/p 3 total units PRBCs inpt.Follo w CBC Chronic constipation 236 342479 K59.09 Currently in good control on scheduled and prn bowel meds.Monit or bowel function. Dyslipidemia 045672033 E 78.49 Continue statin as above. Pain of le ft hip joint 4844504280 15989 M25.552 Continue APAP as above.PT/O T as above.Lydia tor sxs. Sciatica 41841522 M54.32 PT/OT as above. Minimal co gnitive impairment 498540582 G31.84 A&O x3 currentlyM ostly anxious. Chronic anxiety 97993467 9 F41.1 Anxious on and off tonight. Some pressured speech, but mostly nl. Occ. begins to be tearful.Co ntinue hydroxyzin e 25 mg q 6 hrs prn.Monito r mood and behaviors. Psych consult prn. Essential hypertension 26593480 I10 Good control on meds as above.Lydia tor BP and labs. [id number] AMALIA HIGGINS PA-C [facility] [address] [place] [address] 01/25/2021 18:31:08 01/29/2021 11:09:52 Critical lower limb ischemia 760861899 I99.8 s/p insertion of a L femoral-pe roneal vein graftASA, Plavix, StatinOk to shower but needs to cover footDo not remove steri strips - will be done at f/uDr. Wolfgang Helton (vascular) [address] [place] [address] - needs f/u 4 weeksPain management with Dilaudid and APAP Amputated toe 861481341 Z89.422 Local wound careAdd Vit C and Zinc since comorbid DMDr. Marvel Grullon (podiatry) [address] [place], [place] [address]TJ/OT Type 2 lauren betes mellitus with peripheral angiopathy 226410011 E11.51 E11.42 Fingerstic k blood sugars well-contr olledMetfo rmin and JanuviaCor rectional insulin not neededNot on CATIE/ARB for renal protection - defer to PCPGabapen tin for neuropathy Health Concerns Section Related Observation LastModified by Organization Detai ls LastModified Time None Recorded Concern Status LastModified by Organization Details LastModified Time None Recorded Advance Directives Directive Y: DNR/DNI; ok for non-invas víctor ventilation; ok for transfer to hospital; no dialysis; no artificial nutrition; no artificial hydration Payers Insurance Date Sequence Insurance Name Policy Number Policy Gonzalez Covered Member ID Gonzalez Member ID Guarantor Name 01/22/2021 1 [place] Advisor Client [employer] Ashley Kent [id number] Ashley Kent 01/29/2021 2 [place] [id number] Ashley Kent [id number] Ashley Kent 02/09/2021 2 [place] [id number] Ashley Kent [id number] Ashley Kent Notes Date Note Type Note Provider Name and Address Organization Details Recorded Time 01/18/2021 text/html Pt seen today for initial intake. 80-y/o F admitted from [facility] as a lateral transfer for ongoing subacute rehab and to be closer to her family. Had been hospitalized at [facility] 12/27-01/14/21 for L popliteal occlusion and PAD. Was transferred to [place] from another hospital where she was seen for progressive L foot pain and dx via aterial u/s with complete occlusion of the L popliteal artery. Transferred to [place] for tertiary care/vascular intervention. Dx [id number] LLE ischemia. Underwent insertion of a femoral-peroneal vein graft by Dr. Wolfgang Helton on 01/09/21 and L 3rd toe amp with Dr. Marvel Grullon on 01/12/21. Transfused 2 ux PRBCs then 1 ux PRBCs. Mag repleted; Occasional urinary incontinence PMHx: L 3rd toe amp 12/2020; L popliteal occlusion/PAD 12/2020 s/p insertion of a femoral-peroneal vein graft ; DM2 with PVD and neuropathy; HTN; Sciatica; CAD with cardiac cath 12/2020; Hx NSTEMI; Hx PCI with stent and 4-vessel CABG 01/11/2020; Chronic constipation; Anemia and post-hemorrhagic anemia; Mild cognitive impairment; Anxiety; L hip DDD; Bilateral carotid artery stenosis; Dyslipidemia; Hysterectomy Healthcare Maintenance: subacute rehab pt; given age, routine screening would not be recommended PPI use: not on a PPI Meds:Dilaudid 2 mg po q 6 h prn pain x 14 days (new)APAP 650 mg po tid x 14 days (new)MiraLax 17 g po daily x 2 days (new)Metformin 500 mg po dailyPlavix 75 mg po daily (new)Januvia 50 mg po dailyLopressor 50 mg po bidASA 325 mg po dailyLipitor 80 mg po qhsGabapentin 600 mg po qhs (?also 300 mg po bid - not any longer per pt)Senna-S 8.6-50 mg po qhs Treatments:DSD L 3rd toe amp site; change q 48 h and prn Diet: low Na, regular texture, thin liquids Mobility: front wheeled walker; stand and pivot with surgical shoe; ambulation only with rehabContinence: occasionally incontinent of urine; continent of stoolFeeding: independent ROS: severe L foot pain and moderate L leg pain. Worried about some mild bleeding under the L groin steri-strips. No CP/dyspnea. Overall feels better. Worried about transportation to her f/u appointments in [place]. AMALIA HIGGINS PA-C [address] [place] [address], [address], [place], [address], [facility] 01/18/2021 15:30:07 01/24/2021 text/html This is an 80 yo woman who is here for rehab transfer from a STR in [place], after an acute hospitalization for severe PVD with amp of left 3rd toe. She [facility] [place] [facility] because of left foot pain, no records available from there. Then transferred to [facility] on 12/27 due to finding of complete left popliteal occlusion. Vascular intervention was tried first with insertion of a femoral-peroneal vein graft on 01/09, then left 3rd toe amp on 01/12. Required a total of 3U PRBC during hospitalization and repletion of Mg+, otherwise uncomplicated stay. Transferred to [facility] in [place], [place] on 01/14. Family requested transfer to closer facility and was transferred here on 01/18.Since she has been here she has been attempting to get transferred to another facility. So would not sign consents to tx, as she thought it would slow down her transfer. However rehab has been working with her anyway. SW has been mediating transfer of info to other facilities, but many have denied her due to vaccination status (not vaccinated) or because they can't transport her to [place] f/u appts.Of note she is s/p urgent quadruple coronary artery bypass grafting on 01/11/[address] Maksim Fields for severe pauma multivessel coronary artery occlusive disease in a patient with moderate carotid artery occlusive disease, due to crescendo angina and a non-ST elevated myocardial infarction.Her PMH includes HTN, AODM with neuropathy and PVD, CAD-s/p CABGx4 in 12/2019 and PCI with stent in 1996, bilateral carotid artery stenosis, s/p left 3rd toe amp in 12/2020, s/p left femoral-peroneal vein graft in 12/2020, HLD, OA with chronic L hip and back pain, anemia-multifactorial , and anxiety. Dia Philip MD [address] [facility], [address], [place], [address], [facility] [employer] 01/24/2021 18:57:12 01/25/2021 text/html Pt seen today for discharge. Admit Date: 01/18/21 Discharge/Service Date: 01/25/21 for 01/28/21 discharge Principle Discharge Diagnosis: L 3rd toe amp 12/2020; L popliteal occlusion/PAD 12/2020 s/p insertion of a femoral-peroneal vein graft Secondary Discharge Diagnoses: DM2 with PVD and neuropathy; HTN; Sciatica; CAD with cardiac cath 12/2020; Hx NSTEMI; Hx PCI with stent and 4-vessel CABG 01/11/2020; Chronic constipation;Anemia and post-hemorrhagic anemia; Mild cognitive impairment; Anxiety; L hip DDD; Bilateral carotid artery stenosis; Dyslipidemia; Hysterectomy Hospital Patient Received From: [facility] via [facility] Attending MD: Dr. Russell James/Amalia Higgins PA-C Medications Started at [facility]: Vit C; Zinc; prn hydroxyzine; Correctional Humalog Medications Discontinued at [facility] & Why: Correctional Humalog (not needed) Dose Changes: none Med changes prior to admit at [place]:Dilaudid addedAPAP addedMiraLax added Discharge Medication List:ASA 325 mg po q amLipitor 80 mg po qhsGabapentin 600 mg po qhsJanuvia 50 mg po q amMetformin 500 mg po q amPlavix 75 mg po q amSenna-S 8.6-50 mg po qhsVit C 500 mg po daily through 02/19/21Zinc 220 mg po daily through 02/01/21Lopressor 50 mg po bidMiraLax 17 g po bidAPAP 1 g po tid until 02/01/21 then prnDilaudid 2 g po q 6 h prn severe pain through (occasional use) Treatments:DSD L 3rd toe amp site - change q 48 h and prn PCP Head s Up: none Post-Acute Summary: Admitted for subacute rehab and wound care. Participated and progressed in PT/OT/INTERACTIVE DESIGNER (see their discharge summaries for details.) Sugars monitored and very stable. Labs demonstrated improvement in anemia. Pain controlled with prn Dilaudid. Vit C and Zinc added to promote wound healing in a diabetic. Pt and daughter requested d/c home with [facility], which will occur early 01/28/21 prior to her f/u appointment with podiatry. Home Health Certification: Dx as above; Seen this evening by [facility]-registered Amalia Higgins PA-C NPI# [id number]; Last MD visit 01/24/21; [facility] for medication management and reconciliation and teaching, wound monitoring, and diabetes management; PT: home exercise program for gait training and increasing muscle strength and needs home environment assessment to determine need for assistive devices; OT for increased independence with ADLs; Home-bound due to needs assistance to navigate uneven sidewalks and curbs and needs two hands for front wheeled walker. Consultants Involved: none Tests/Labs Needing to be Ordered or Followed by PCP: per PCP discretion Services Ordered at Discharge: referred to [facility] Diet: no added salt; carb controlled; regular texture; thin liquids; Glucerna tid Activity: front wheeled walker as tolerated; should only ambulate without an assistive device when working with rehab Pt has no complaints. Looking forward to discharge. Staff report she has been more engaged over past day or so. AMALIA HIGGINS PA-C [address] [facility], [address], [place], [address], [facility] [employer] 01/26/2021 13:32:28 OBGyn Episode No OBEpisode recorded.
--- OUTSIDE RECORDS SUMMARY | 2024-11-14 17:37 | XMS_ITS | Clinical Summary ---
Author Organization [facility] Address [address] [place] [address] Care Team Providers Care Legal Technician Name Role Phone Yu Alcantar MD Primary Care Provider [phone] Allergies Active Allergy Reactions Criticality Noted Date [...] coated (ECOTRIN LOW STRENGTH) 81 MG EC tabletIndicati ons:H/O arterial bypass of lower limb,Popliteal artery occlusion, left Take 1 tablet (81 mg total) by mouth daily. 90 tablet 4 08/19/19 23 Active Additional Information Patient not taking.Informant: Self, Reported on 09/22/2024 Xarelto 2.5 MG tabletIndicati ons:Peripheral Arterial Disease Take 1 tablet (2.5 mg total) by mouth 2 (two) times a day. 180 tablet 3 10/20/19 25 Active rivaroxaban (Xarelto) 2.5 MG tabletIndicati ons:H/O arterial bypass of lower limb Take 1 tablet (2.5 mg total) by mouth 2 (two) times a day. 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 Overview (12/28/2020): Added automatically from request for surgery [id number] Encounters Date Type Department Care Team Description 11/07/2024 Telephone [facility] [address] [address] Wolfgang Helton MD 10/13/2024 Orders Only [facility] [place] [phone] Ruth Whitaker PA H/O arterial bypass of lower limb; Popliteal artery occlusion, left 10/13/2024 Refill [facility] [place] [phone] Wolfgang Helton MD 10/12/2024 Telephone [facility] [address] [address] Wolfgang Helton MD 10/07/2024 Orders Only [facility] [place] [phone] Amy Dale MA PAD (peripheral artery disease) (Primary Dx) 09/22/2024 2:00 PM EDT Office Visit [facility] [place] [address] [facility] [address] [place] [phone] Wolfgang Helton MD H/O arterial bypass of lower limb (Primary Dx); PAD (peripheral artery disease) 09/22/2024 1:30 PM EDT Ancillary Procedure [facility] [place] [address] [facility] [address] [place] [address] Ruth Whitaker PA 09/22/2024 1:15 PM EDT Ancillary Procedure [facility] [place] [address] [facility] [address] [place] [address] Ruth Whitaker PA 09/22/2024 Travel from Last [...] PM EDT Ancillary Procedure [facility] [address] [phone] Wolfgang Helton MD [address] [place] [phone] 09/04/2025 2:00 PM EDT Ancillary Procedure [facility] [address] [phone] Wolfgang Helton MD [address] [place] [address] [phone] 09/04/2025 2:30 PM EDT Office Visit [facility] [address] [phone] Wolfgang Helton MD [address] [place] [address] [phone] Health Maintenance Due Date Last Done Comments DTaP/Tdap/Td Vaccines (1 - Tdap) 1959 Pneumococcal Vaccines 50+ (1 of 1 - PCV) 1990 Zoster (Shingles) Vaccine (1 of 2) 1990 DXA Bone Density (Females,Ag es 65 and older) 2005 RSV Vaccine 60 years and old er and Patients (1 - 1-dose 75+ series) 2015 Influenza Vaccine 09/16/2024 COVID-19 Vaccine (2023-2 5 season) 2024 Advance Care Planning Completed [...] the original result was not included. Department: [facility] ([place]) Patient: [id number] (GOVIND KENT) Patient Location: [facility] CPT Code: 75389 ICD-9: Referring Physician: Ruth Monahan RIGHT : [...] sites or throughout the graft itself. The eklutna outflow vessel displays biphasic flow. 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 Clinical Examination Hx of Left fem-plantar bpg, dm, pt c/o left hip pasin, LLE claudication after a short distance Findings: Segment Right Left PSV PSV COREMAKER HELPER 167 88 PFA Prox 108 102 SFA [...] Note Rocael Rosenthal MD - 09/22/2024 Department: [facility] ([place]) Patient: [id number] (GOVIND KENT) Patient Location: [facility] CPT Code: 29640 ICD-9: Referring Physician: Ruth Monahan RIGHT : [...] attachmentsites or throughout the graft itself. The eklutna outflow vessel displaysbiphasic flow. 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 Clinical Examination Hx of Left fem-plantar bpg, dm, pt c/o left hip pasin, LLE claudicationafter a short distance Findings: Segment Right Left PSV PSV COREMAKER HELPER 167 88 PFA Prox 108 102 SFA [...] the original result was not included. Department: [facility]) Patient: [id number] (GOVIND KENT) Patient Location: [facility] CPT Code: 38563 ICD-9: Referring Physician: Ruth Monahan RIGHT : [...] Note Rocael Rosenthal MD - 09/22/2024 Department: [facility] ([place]) Patient: [id number] (GOVIND KENT) Patient Location: [facility] CPT Code: 29605 ICD-9: Referring Physician: Ruth Monahan RIGHT : [...] on 2024-09-22 01:57:21 PM End of Report Ruth ZHANG [facility] ORDERABLES Fin al Result from Last 3 Months Insurance MEDICARE PART A & B [facility] PPO BLUE [facility] - PPO Advance Directives Documents on File Type Date Recorded Patient Mop Machine Operator Expl anation Advance Directive-Scan 03/04/2021 HEALT HCRE [...] Healthcare Agent Relationship Communication Shy Josue Healthcare sales representative raw fibers 1. Health Care Mop Machine Operator [email or web address] Norma Saldana Healthcare sales representative raw fibers 1. Health Care Mop Machine Operator Care Teams Legal Technician Relationship Specialty Start Date End Date Yu Alcantar MD [address] [place] [id number] PCP - General Internal Medicine 02/07/21
[2024-11-15 11:01] LABS: Appearance Urine Cloudy; Glucose Urine UA 250 mg/dL (Negative); PH 5.0 (5.0-9.0); Specific Gravity - Urine 1.020 (1.005-1.025); UMIC TRIGGER UACC YES
[2024-11-15 11:11] LABS: UACC Culture Trigger YES
== END 2024-11-14 12:56 | disposition home or self-care (01) ==
LOC: HO.LNP 12:55
PROVIDERS: PCP Internal Medicine; Visit Provider Internal Medicine
DX: I10 Essential (primary) hypertension (principal); E78.5 Hyperlipidemia, unspecified; I25.10 Atherosclerotic heart disease of native coronary artery without angina pectoris; I73.9 Peripheral vascular disease, unspecified; E11.65 Type 2 diabetes mellitus with hyperglycemia; N39.0 Urinary tract infection, site not specified; Z28.21 Immunization not carried out because of patient refusal
CPT/HCPCS: 81001; 81003; 87086; 87088; 87186; 96127; 99212

== ENCOUNTER 2024-12-27 09:17 | Outpatient (AMB) | payer MEDICARE, SELFPAY ==
--- NOTE | 2024-12-27 09:27 | MHC.OFFVIS ---
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 Salt Required: No Accompanied by: Self / Same As Patient Allergies Xsiqewq-SVX-ArM Reductase Inhibitor (Cfhwnai-Ucy-Hbd Reductase Inhibitor) Allergy (Unknown, Verified 12/27/24 09:33) muscle cramps Medication List - Last Reconciled 12/27/24 by Ramses Palmer MD acetaminophen ER (Arthritis Pain Reliever) 650 mg PO BID atorvastatin 80 mg PO BEDTIME blood sugar diagnostic (FreeStyle Lite Strips) Test blood sugar once daily blood-glucose meter (FreeStyle Lite Meter kit) As directed for testing blood sugar blood-glucose sensor ([employer] GroupStyle Sai 3 Sensor device) Check fasting blood sugar twice a day before meals blood-glucose,want ad receiver,cont (FreeStyle Sai 3 Steen) Check fasting blood sugar twice a day before meals cholecalciferol (vitamin D3) 1,250 mcg PO QWEEK 3 months cyanocobalamin (vitamin B-12) (Vitamin B-12) 500 mcg PO DAILY gabapentin 600 mg (2 x 300 mg) PO BEDTIME PRN Januvia (sitagliptin phosphate) 100 mg PO DAILY NS lancets (FreeStyle Lancets) Test blood sugar once a day metformin 500 mg PO BIDWMEAL 3 months metoprolol tartrate 12.5 mg (1/2 x 25 mg) PO BID 90 days nebulizer and compressor As directed ondansetron HCl 4 mg PO Q6H PRN rivaroxaban (Xarelto) 2.5 mg PO BID HPI Comments Details: Ashley returns for follow-up regarding coronary artery disease. Has a history of coronary disease and also has had coronary artery bypass surgery. Remote coronary stenting to circumflex and 90s. Few years ago, she was not taking any medications at all due to depression. That led to non ST-elevation myocardial infarction and then bypass surgery. After that, supposedly back on meds but unclear compliance. Per recent records, it seems she had critical left lower limb ischemia which required a vascular procedure at [facility]. Per their notes, put on Xarelto. From the cardiac standpoint, it seems generally getting along okay without any new concerns. No exertional angina. PFSH Medical History (Updated 11/14/24 @ 13:56 by Yu Alcantar MD) Diabetes mellitus with hyperglycemia, without long-term current use of insulin Generalized anxiety disorder Osteoporosis PAD (peripheral artery disease) Candidal intertrigo Asthma Pulmonary nodules Bronchiectasis with (acute) exacerbation Popliteal vein thrombosis Vitamin D deficiency Diabetes mellitus with peripheral angiopathy Refused influenza vaccine COVID-19 vaccination refused Other and unspecified hyperlipidemia Atherosclerotic cardiovascular disease Coronary artery disease Dyslipidemia Essential hypertension Non-ST elevation [place] (NSTEMI) Bilateral carotid artery stenosis NSTEMI (non-ST elevated myocardial infarction) Surgical History History of amputation of lesser toe History of cardiac catheterization (~01/06/20) S/P CABG x 4 (~01/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 Brother No problems noted. Brother No problems noted. Brother No problems noted. Sister No problems noted. Sister No problems noted. Sister No problems noted. Sister No problems noted. Sister No problems noted. Son No problems noted. Son No problems noted. Son No problems noted. Son No problems noted. Daughter Cancer Other Breast cancer Substance use disorder Social History Household Members: None Housing: Assisted Living Facility Are you a primary director of managed care to a significant other at home: No Alcohol intake: unknown Patient Tobacco Use Status: Never used Tobacco e-Cigarette/Vaping Use: Never Used Second Hand Smoke Exposure: Yes service: No Current occupational status: retired Cognitive needs: No Hearing needs: No Vision needs: Yes Review of Systems Const Denies daytime sleepiness, Denies difficulty sleeping, Denies snoring, Denies stops breathing during sleep and Denies weakness Card Denies chest pain, Reports rapid heart rate, Denies irregular heart rhythm, Denies claudication, Denies leg edema, Denies lightheadedness, Reports palpitations, Reports dyspnea, Denies dyspnea on exertion, Denies orthopnea, Denies paroxysmal nocturnal dyspnea and Denies slow heart rate Resp Denies cough, Reports dyspnea, Denies dyspnea on exertion and Denies snoring GI Reports no additional complaints, Denies hematochezia, Denies change in stool character and Denies dyspepsia Musc Denies abnormal gait, Denies muscle weakness and Denies numbness Neuro Denies abnormal gait, Denies numbness and Denies weakness Endo Reports palpitations Physical Exam Vital Signs: Last Vital Signs Pulse 73 12/27/24 09:29 BP 130/64 12/27/24 09:29 BMI result Body Mass Index 22.7 Const General: comfortable and no acute distress Orientation/consciousness: patient oriented x3 HEENT Other: Unremarkable Head: Yes normal to inspection Neck Neck: Yes normal visual inspection Chest Chest palpation & inspection: normal inspection of the chest Resp Auscultation: clear to auscultation bilaterally Cardio Palpation: normal PMI Heart sounds: S1 normal heart sound present, S2 normal heart sound present, no gallops, no murmurs and no rubs GI Palpation (GI): Soft to palpation Back/Spine/Pelvis Other: unremarkable Skin General skin exam: no rashes or lesions noted Neuro General: patient oriented x3 Extrem General: Yes normal to inspection Psych Mental Status: mental status grossly normal Office Procedures EKG Details: EKG with sinus rhythm at 73/Min; nonspecific ST-T changes; [place] [address]-[id number], Complete Assessment & Plan Assessment & Plan (1) Atherosclerotic cardiovascular disease: Code(s): I25.10 - Atherosclerotic heart disease of [place] coronary artery without angina pectoris Category: Medical Plan: Stable without any angina. Remains on beta-blockers and statins. Lipids not well controlled but she also has very poor dietary compliance as well as medication compliance. (2) Status post aorto-coronary artery bypass graft: Code(s): Z95.1 - Presence of aortocoronary bypass graft Category: Surgical Plan: No recent issues. (3) Bilateral carotid artery stenosis: Code(s): I65.23 - Occlusion and stenosis of bilateral carotid arteries Category: Medical Plan: In the carotid ultrasound from last year, moderate stenosis bilaterally, 50-79%. Recheck. (4) Type 2 diabetes mellitus without complication, without long-term current use of insulin: Code(s): E11.9 - Type 2 diabetes mellitus without complications Category: Medical Plan: She is on metformin and Januvia. Last available hemoglobin A1c is 7.6%. (5) Essential hypertension: Code(s): I10 - Essential (primary) hypertension Category: Medical Plan: Stable. No changes. Plan Discussion Notes During the visit, we discussed the importance of medication adherence, particularly for diabetes management, and the need for regular monitoring of blood glucose levels. We also reviewed the patient's cardiovascular history, including her previous myocardial infarction and coronary artery bypass grafting, emphasizing the need for ongoing follow-up with her spanish professor. A follow-up carotid ultrasound was recommended to assess the progression of her partial carotid artery blockage. Patient was informed and verbally consented to the use of an ambient scribe for clinic note documentation during this visit. Orders: Orders US carotid duplex BI Today I65.23 - Occlusion and stenosis of bilateral carotid arteries Coding Level of Care Code Est Pt Level 4 (34948) Complex EM visit Add On G2211 Diagnoses Atherosclerotic cardiovascular disease I25.10 Status post aorto-coronary artery bypass graft Z95.1 Bilateral carotid artery stenosis I65.23 Type 2 diabetes mellitus without complication, without long-term current use of insulin E11.9 Essential hypertension I10 CPT Codes EKG - CPT: 46685-Ghktmfmjhceknjufb, Complete ([id number])
[2024-12-27 09:29] VITALS: BP 130/64; PULSE 73; BMI 22.7
--- OUTSIDE RECORDS SUMMARY | 2024-12-27 10:06 | XMS_ITS | Patient Health Record ---
Author Organization [facility] [place] Address [address] [facility] [place] [address] Care Team Providers Care Baster Hand Name Role Phone Katharine CHRISTIANSON, Yu Ramires Primary Care Provider Un available BradRichelle schroeder Unavailable [phone] Allergies No Known Allergies Results Component Value [...] Problem Acquired hammer toe of right foot (2291328300947290 ) Other hammer toe(s) (acquired), right foot (M20.41) Active confirmed Problem Acquired hammer toe of left foot (4367218664931708 ) Other hammer toe(s) (acquired), left foot (M20.42) Active confirmed Problem Polyneuropathy due to type 2 diabetes mellitus (025965655) Type 2 diabetes mellitus with diabetic polyneuropathy (E11.42) Active confirmed Problem Acquired unequal limb length (159613699937679) 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) Active confirmed Vital Signs Blood pressure diastolic 80 mm Hg 10/25/2024 Height 5ft 4in in 10/25/2024 Blood pressure systolic 122 mm Hg 10/25/2024 Weight 127 lbs 10/25/2024 BMI 21.8 kg/m2 10/25/2024 Encounters Encounter Location Date Provider Diagnosis [address] [address] 01/26/2024 Richelle Bartholomew Type 2 diabetes mellitus with diabetic polyneuropathy E11.42 ; Other hammer toe(s) (acquired), left foot M20.42 ; Tinea unguium B35.1 ; Ingrown nail L60.0 and Other hammer toe(s) (acquired), right foot M20.[address] [facility] [address] 04/26/2024 Richelle Puma Type 2 diabetes mellitus with diabetic polyneuropathy E11.42 ; Other hammer toe(s) (acquired), left foot M20.42 ; Tinea unguium B35.1 ; Ingrown nail L60.0 and Other hammer toe(s) (acquired), right foot M20.[address] [address] 07/26/2024 Richelle Bartholomew Type 2 diabetes mellitus with diabetic polyneuropathy E11.42 ; Other hammer toe(s) (acquired), left foot M20.42 ; Tinea unguium B35.1 ; Ingrown nail L60.0 ; Other hammer toe(s) (acquired), right foot M20.41 and Acquired unequal limb length M21.[address] [address] 10/25/2024 Richelle Bartholomew Type 2 diabetes mellitus with diabetic polyneuropathy E11.42 ; Other hammer toe(s) (acquired), left foot M20.42 ; Tinea unguium B35.1 ; Other hammer toe(s) (acquired), right foot M20.41 and Acquired unequal limb length M21.[address] [address] 01/27/2024 Richelle Bartholomew Other hammer toe(s) (acquired), right foot M20.[address] [address] 04/26/2024 Richelle Bartholomew [address] [address] 10/25/2024 Richelle Bartholomew Assessments Encounter Date Diagnosis [...] Details Provider Name:Richelle schroeder, 02/21/2025 01:30:00 PM, [address] [place] [address], [phone], Insurance Providers Payer Name Payer Address Payer Phone Subscriber Number Group Number Insured Name Patient Relationship to Insured Coverage Start Date Coverage End Date Medicare National Govt Svcs Inc [address] [place] [address] [id number] Ashley Kent Self - patient is the insured 6 [employer] Blue Shield [address] [place] [address] [id number] Ashley Kent Self - patient is the insured Medical (General) History Medical History History ICD Code Diabetic Heart disease Vascular grafts Broken hip Surgical History Surgery Date(Month/Year) leg surgery 2019 bypass surgery 2019
--- OUTSIDE RECORDS SUMMARY | 2024-12-27 10:07 | XMS_ITS | Clinical Summary ---
Author Organization [facility] Address [address] [place] [address] Care Team Providers Care Log Chain Worker Name Role Phone Yu Alcantar MD Primary [...] Self, Reported on 09/22/2024 Xarelto 2.5 MG tabletIndicatio ns:Peripheral Arterial Disease Take 1 tablet (2.5 mg total) by mouth 2 (two) times a day. 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 Overview (12/28/2020): Added automatically from request for surgery [id number] Immunizations Immunization Administration Dates Next Due Influenza [...] 08/18/2022 10:48 AM EDT Plan of Treatment Health Maintenance Due Date Last Done Comments DTaP/Tdap/Td Vaccines (1 - Tdap) 1959 Pneumococcal Vaccines 50+ (1 of 1 - PCV) 1990 Zoster (Shingles) Vaccine (1 of 2) 1990 DXA Bone Density (Females,Ag es 65 and older) 2005 RSV Vaccine 50 years and old er and Patients (1 - 1-dose 75+ series) 2015 Influenza Vaccine 09/16/2024 COVID-19 Vaccine ( - 2023-2 5 season) 2024 Advance Care Planning Completed 03/04/2021 Hepatitis B Vaccines Aged Out No long er eligible based on patient's age to complete this topic Insurance MEDICARE PART A & B [facility] PPO [facility] - PPO Advance Directives Documents on File Type Date Recorded Patient Data Integration Analyst Expl anation Advance Directive-Scan 03/04/2021 HEALT HCRE [...] Healthcare Agent Relationship Communication Shy Josue Healthcare national sales representative 1. Health Care Data Integration Analyst [email or web address] Norma Saldana Healthcare national sales representative 1. Health Care Data Integration Analyst Care Teams Log Chain Worker Relationship Specialty Start Date End Date Yu Alcantar MD [address] [place] [id number] PCP - General Internal Medicine 02/07/21
--- OUTSIDE RECORDS SUMMARY | 2024-12-27 10:07 | XMS_ITS | Data Portability ---
Author Organization [facility] [employer] [facility], Main Office Address [address], [address] [place] [address] Care Team Providers Care Chef De Froid Name Role Phone [facility] ([facility]) OTHER Assessment No assessment recorded. Plan of [...] By Organization Details Last Modified Time 01/18/2021 [id number] Not available 01/18/2021 15:24:54 01/25/2021 [id number] F/U Appointments : Podiatry: 01/28/21 Vascular: TBD PCP: TBD Total time spent on discharge: 40 minutes No scripts needed [email or web address] Not available 01/26/2021 13:27:54 Reason for Referral None Reported. 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 096894933 Active 2020 and with neuropath y AMALIASA HIGGINS PA-C [address], [address], [place], [address], [employer] [facility] 13:14:42 Coronary arteriosc lerosis 22289398 Active 2020 Hx 4-vessel CABG 12/2019; NSTEMI; PCI with stent VICENTE ARROYO-C [address], [address], [place], [address], [facility] 13:15:05 Sciatica 84716954 Active 2020 AMALIA HIGGINS PA-C [address], [address], [place], [address], [employer] [facility] 13:15:23 Anemia 971792837 Active 2020 VICENTE ARROYO-C [address], [address], [place], [address], [facility] 13:15:31 Chronic constipat ion 596603508 Active 2020 AMALIA HIGGINS PA-C [address], [address], [place], [address], [facility] 13:15:43 Dyslipide ab 364654622 Active 2020 AMALIA HIGGINS PA-C [address], [address], [place], [address], [facility] 13:15:56 Anxiety 81439203 Active 2020 AMALIA HIGGINS PA-C [address], [address], [place], [address], [facility] 13:16:14 Carotid artery stenosis 78664551 Active 2020 AMALIA HIGGINS PA-C [address], [address], [place], [address], [employer] [facility] 13:16:30 Pain of left hip joint 314456105578 100 Active 2020 AMALIA HIGGINS PA-C [address], [place], [address], [employer] 13:17:18 Chronic anxiety 860915665 Active 2020 Dia Philip MD [address] [place] [address], [facility] [address], [place], [address], [facility] [employer] 18:11:22 Essential hypertens ion 03458517 Active 2020 Dia Philip MD [address] [facility], [facility] [address], [place], [address], [employer] 18:25:37 Problem Notes None recorded. Medical Equipment None Reported. Allergies No known drug allergies Medications Not known to be on any medication Vitals Date Recorded Body weight Oxygen saturation Oxygen saturation in Arterial blood by Pulse oximetry Body temperature Respiratory rate Heart rate Systolic And Diastolic Provider Name and Address Organization Details Last Updated DateTime 1 56794.6 7 g 96 % 96 % 96.1 [degF] 18 /min 64 /min 110/70 mm[Hg] AMALIA HIGGINS PA-C [address] [place] [address] [address], [place], [address], [employer] 12:39:07 Date Recorded Body weight Body mass index (BMI) Body height Heart rate Respiratory rate Body temperature Oxygen saturation Oxygen saturation in Arterial blood by Pulse oximetry Systolic And Diastolic Provider Name and Address Organization Details Last Updated DateTime 1 88076.0 1 g 21.6 kg/m2 165.1 cm 69 /min 18 /min 97.3 [degF] 96 % 96 % 120/65 mm[Hg] Dia Philip MD [address] [place] [address], [facility] [address], [place], [address], [employer] 18:14:45 Date Recorded Body height Body mass index (BMI) Body weight Heart rate Respiratory rate Body temperature Oxygen saturation Oxygen saturation in Arterial blood by Pulse oximetry Systolic And Diastolic Provider Name and Address Organization Details Last Updated DateTime 1 165.1 cm 21.6 kg/m2 58537.0 1 g 64 /min 20 /min 97.3 [degF] 98 % 98 % 116/55 mm[Hg] AMALIA HIGGINS PA-C [address] [place] [address] [address], [place], [address], [facility] [facility] [employer] [facility] 22:44:52 Social History Question Answer Notes LastModified by Knotch Details LastModified Time Tobacco Smoking Status Never Smoker AMALIA CYNTHIA HIGGINS [address] [facility], [address], [place], [address], [facility] [employer] [facility] 01/18/2021 13:00:04 Do You Have An Advance Directive? Yes DNR/DNI; Ok For Non-invasive Ventilation; Ok For Transfer To Hospital; No Dialysis; No Artificial Nutrition; No Artificial Hydration Information not available 01/24/2021 What Is Your Code Status? DNR/DNI Information not available 01/24/2021 Where Do You Live? Apartment On [address]st Floor, One Step To Enter. Information not available 01/24/2021 Legal Guardian? No [email or web address] In[employer] on not available 01/18/2021 Do You Have A Medical Power Of Liner Roll Changer? Yes Information not available 01/24/2021 What Was The Date Of Your Most Recent Tobacco Screening? 01/18/2021 [email or web address] Information not available 01/18/2021 Do You Have An Out Of Hospital DNR? Yes Information not available 01/24/2021 What Is Your Relationship Status? Information not available 01/24/2021 Has Tobacco Cessation Counseling Been Provided? No N/A As Pt Is Non-smoker Information not available 01/24/2021 Sex: Female Functional Status Question Answer Note LastModified by Knotch Details LastModified Time How many times per week do you consume alcohol? rarely Information not available 01/24/2021 Do you use any illicit or recreational drugs? No Information not available 01/18/2021 Do you or have you ever used any other forms of tobacco or nicotine? No [email or web address] Information not available 01/18/2021 What is your level of alcohol consumption? Occasional Information not available 01/24/2021 Mental Status None recorded. Family History Relationship Description Onset Age of this Age Resolved Age Notes LastModified by Organization Details LastModified Time Father Coronary arterioscler osis Not available 2020 15:08:20 Mother Coronary arterioscler osis Not available 2020 15:08:20 Medical History No medical history recorded. Gynecological HistoryNo gynecological history recorded. Obstetrics History GPAL:G 0 P 0 0 0 0 Past Encounters Encounter ID Performer Location Encounter Start Date Encounter Closed Date Diagnosis/Indication Diagnosis SNOMED-CT Code Diagnosis ICD10 Code Diagnosis IMO Codes Diagnosis Note [id number] AMALIA HIGGINS PA-C [facility] [address] [place] [address] 01/18/2021 12:23:01 01/22/2021 16:20:18 Amputated toe 981037953 Z89.429 Local wound careAdd Vit C and Zinc since comorbid DMDr. Marvel Grullon (podiatry) [address] [place] [address] -- needs f/u (d/c paperwork does not specify time frame)PT/O T Critical l ower limb ischemia 719398595 I99.8 s/p insertion of a L femoral-pe roneal vein graftASA, Plavix, StatinOk to shower but needs to cover footDo not remove steri strips - will be done at f/uDr. Wolfgang Helton (vascular) [address] [place] [address] [place] [address] - needs f/u 4 weeksPain management with Dilaudid-S cript for Dilaudid 2 mg #30 no refills given to nurse Type 2 lauren betes mellitus with peripheral angiopathy 216361306 E11.51 Fingerstic k blood sugars tidacMetfo rmin and JanuviaAdd correction al insulinNot on CATIE/ARB for renal protection - defer to PCPGabapen tin for neuropathy -was on morning and afternoon doses but now just at hs-may need to restart-mo nitor and f/u prn Coronary arteriosclerosis 69508545 I25.10 ASA, Plavix, Statin, B-marcos Carotid ar alonso stenosis 36676851 I65.29 outpatient f/u Anemia 175292829 D64.9 s/p 3 total units PRBCsFollo w CBC Chronic constipation 236 138708 K59.09 Scheduled and prn bowel medsf/u prn Dyslipidemia 659260870 E 78.5 Statin Pain of le ft hip joint 9530951761 13935 M25.552 APAPPT/OT Sciatica 25407387 M54.32 PT/OT Advance care planning 71 9540654 Z71.89 Met with pt, who is her [...] like pt's decisions Minimal co gnitive impairment 913454152 G31.84 BETTING AGENCY COUNTER CLERK consult for cognition [id number] Dia Philip MD [facility] [address] [place] [address] 01/24/2021 14:44:42 01/29/2021 09:30:51 Amputated toe 290071035 Z89.422 Continue local care.Jannie nue Vit C 500 mg qd and Zinc 220 mg qd for help with healing.F/ U with Dr. Marvel Grullon (podiatry) [address] [place] [address] [place], [place] [address]Very deconditio kian.Needs PT/OT for strengthen ing, balance, gait training, safety and function.C ontinue fall precaution s.Monitor for safety.Not eating well, needs more protein, will add glucerna 8 oz BID between meals. Critical l ower limb ischemia 614267132 I99.8 s/p L femoral-pe roneal vein graftConti nue ASA 325 mg qd, Plavix 75 mg qd and atorvastat in 80 mg qd.Continu e hydromorph one 2 mg q 6 hrs prn and APAP 650 mg TID and q 4 hrs prn (not to exceed 3000 mg qd).F/U with vascular surgeon (Dr. Wolfgang Helton [address] [facility] [address] [place] [address]) in 4 wks Type 2 lauren betes mellitus with peripheral angiopathy 284244244 E11.51 E11.42 Sugars all <200 since here.Jannie nue metformin 500 mg qd and SSI.Was on Januvia 50 mg qd at home, not restarted here, due to not having accurate d/c summary. Restart today.Cont inue gabapentin 600 mg qhs for neuropathy Monitor accuchecks QID and for sxs of neuropathy , titrate gabapentin and diabetic meds as needed. Coronary arteriosclerosis 22117770 I25.10 S/P CABG x 4 in 12/2019No current sxs.Contin ue meds as above and metoprolol 50 mg BID.Monito r for sxs.F/U with cardio as planned. Carotid ar alonso stenosis 91478697 I65.23 F/U as outpt with vascular.M onitor for sxs. Anemia 683182153 D64.89 s/p 3 total units PRBCs inpt.Follo w CBC Chronic constipation 236 072310 K59.09 Currently in good control on scheduled and prn bowel meds.Monit or bowel function. Dyslipidemia 296513094 E 78.49 Continue statin as above. Pain of le ft hip joint 1353251629 76933 M25.552 Continue APAP as above.PT/O T as above.Lydia tor sxs. Sciatica 49001911 M54.32 PT/OT as above. Minimal co gnitive impairment 782600307 G31.84 A&O x3 currentlyM ostly anxious. Chronic anxiety 58979251 9 F41.1 Anxious on and off tonight. Some pressured speech, but mostly nl. Occ. begins to be tearful.Co ntinue hydroxyzin e 25 mg q 6 hrs prn.Monito r mood and behaviors. Psych consult prn. Essential hypertension 60439680 I10 Good control on meds as above.Lydia tor BP and labs. [id number] AMALIA HIGGINS PA-C [facility] [address] [place] [address] 01/25/2021 18:31:08 01/29/2021 11:09:52 Critical lower limb ischemia 533867930 I99.8 s/p insertion of a L femoral-pe roneal vein graftASA, Plavix, StatinOk to shower but needs to cover footDo not remove steri strips - will be done at f/uDr. Wolfgang Helton (vascular) [address] [facility] [address] [place] [address] - needs f/u 4 weeksPain management with Dilaudid and APAP Amputated toe 666712927 Z89.422 Local wound careAdd Vit C and Zinc since comorbid DMDr. Marvel Grullon (podiatry) [address] [place], [place] [address]RB/OT Type 2 lauren betes mellitus with peripheral angiopathy 248708090 E11.51 E11.42 Fingerstic k blood sugars well-contr [...] ID Guarantor Name 01/22/2021 1 [place] [id number] Ashley Kent [id number] Ashley Kent 01/29/2021 2 [place] [id number] Ashley Kent [id number] Ashley Kent 02/09/2021 2 [place] [id number] Ashley Kent [id number] Ashley Kent Notes Date Note Type Note Provider Name and Address Organization Details Recorded Time 01/18/2021 text/html Pt seen today for initial intake. 80-y/o F admitted from [facility] as a lateral transfer for ongoing subacute rehab and to be closer to her family. Had been hospitalized at [facility] 12/27-01/14/21 for L popliteal occlusion and PAD. Was transferred [facility] from [facility] hospital where she was seen for progressive L foot pain and dx via aterial u/s with complete occlusion of the L popliteal artery. Transferred to [facility] for tertiary care/vascular intervention. Dx [id number] LLE ischemia. Underwent insertion of a femoral-peroneal [...] f/u appointments in [place]. AMALIA HIGGINS PA-C [address] [place] [address], [address], [place], [address], [facility] 01/18/2021 15:30:07 01/24/2021 text/html This is an 80 yo woman who is here for rehab transfer from a [facility] in [place], after an acute hospitalization for severe PVD with amp of left 3rd toe. She originally presented to [facility] because of left foot pain, no [...] of Mg+, otherwise uncomplicated stay. Transferred to [facility] in [place], [place] on 01/14. Family requested transfer to [...] or because they can't transport her to [place] f/u appts.Of note she is s/p urgent quadruple coronary artery bypass grafting on 01/11/[address] Maksim Fields for severe [place] multivessel coronary artery occlusive disease in a [...] , and anxiety. Dia Philip MD [address] [facility], [address], [place], [address], [facility] [employer] 01/24/2021 18:57:12 01/25/2021 text/html Pt seen today [...] Received From: [facility] via [facility] Attending MD: Dr. Russell James/Amalia Higgins PA-C Medications Started at [facility]: Vit C; Zinc; prn hydroxyzine; Correctional Humalog Medications Discontinued at [facility] & Why: Correctional Humalog (not needed) Dose Changes: none Med changes prior to admit at [facility]:Dilaudid addedAPAP addedMiraLax added Discharge Medication List:ASA 325 [...] and wound care. Participated and progressed in PT/OT/BETTING AGENCY COUNTER CLERK (see their discharge summaries for details.) Sugars [...] above; Seen this evening by [employer]registered Amalia Higgisn PA-C NPI# [id number]; Last MD visit 01/24/21; USP for medication management and reconciliation and teaching, [...] day or so. AMALIA HIGGINS PA-C [address] [facility], [address], [place], [address], [facility] [employer] 01/26/2021 13:32:28 OBGyn Episode No OBEpisode recorded.
--- OUTSIDE RECORDS SUMMARY | 2024-12-27 10:07 | XMS_ITS | Encounter Summary ---
Author Organization [facility] Address [address] [place] [address] Care Team Providers Care Rivet Spinner Name Role Phone Yu Alcantar MD Primary Care Provider Encounter Details Date Type Department Care Team (Late st Contact Info) Description 03/08/2021 Scanned Document GENERIC EXTERNAL DATA DEPARTMENT Provider, Maria L, [address] [place] [address] Social History Tobacco Use Types Packs/Day Years [...] as of this encounter Plan of Treatment Not on file documented as of this encounter Visit Diagnoses Not on filedocumented in this encounter Care Teams Rivet Spinner Relationship Specialty Start Date End Date Yu Alcantar MD [address] [place] [address] PCP - General Internal Medicine 02/07/21 documented as of this encounter
--- OUTSIDE RECORDS SUMMARY | 2024-12-27 10:07 | XMS_ITS | Encounter Summary ---
Author Organization [facility] Address [address] [place] [address] Care Team Providers Care Neon Sign Worker Name Role Phone Yu Alcantar MD Primary Care Provider Encounter Details Date Type Department Care Team (Late st Contact Info) Description 05/14/2021 Scanned Document [facility] & Endovascular [facility] [place] [address] [facility] [address] [place] [address] Wolfgang Helton MD [address] [place] [address] Social History Tobacco Use Types Packs/Day Years [...] on filedocumented in this encounter Care Teams Neon Sign Worker Relationship Specialty Start Date End Date Yu Alcantar MD [address] [place] [address] PCP - General Internal Medicine 02/07/21 documented as of this encounter
== END 2024-12-27 09:56 | disposition home or self-care (01) ==
LOC: HO.HCS 09:18
PROVIDERS: PCP Internal Medicine; Visit Provider Internal Medicine
DX: I25.10 Atherosclerotic heart disease of native coronary artery without angina pectoris (principal); Z95.1 Presence of aortocoronary bypass graft; I65.23 Occlusion and stenosis of bilateral carotid arteries; E11.9 Type 2 diabetes mellitus without complications; I10 Essential (primary) hypertension
CPT/HCPCS: 93010; 99214; G2211

== ENCOUNTER → 2024-12-27 09:17 | Outpatient (BNVA) | payer MEDICARE, SELFPAY | PROVIDERS: PCP Internal Medicine; Visit Provider Internal Medicine | DX: I25.10 Atherosclerotic heart disease of native coronary artery without angina pectoris (principal); E11.9 Type 2 diabetes mellitus without complications; I65.23 Occlusion and stenosis of bilateral carotid arteries; I10 Essential (primary) hypertension; Z95.1 Presence of aortocoronary bypass graft | CPT/HCPCS: 93005; 99212 ==

== ENCOUNTER 2025-01-30 11:33 | Outpatient (REF) | payer MEDICARE, SELFPAY ==
--- NOTE | ~2025-01-30 | US_ITS ---
EXAMINATION: US EXTRACRANIAL CAROTID DUPLEX, BILATERAL CLINICAL INFORMATION: I65.23. COMPARISON: April 13, 2023 TECHNIQUE: Real-time ultrasound and Doppler techniques (integrating B-mode 2-D vascular images, Doppler spectral analysis and color-flow Doppler imaging) were utilized to interrogate the extracranial carotid arteries, the vertebral arteries and proximal subclavian arteries bilaterally. The degree of stenosis is determined by criteria similar to NASCET. FINDINGS: Right Side: 1. There is a small mixed atherosclerotic plaque seen in the bifurcation/proximal ICA region. 2. The common carotid artery PSV proximally is 127 cm/s and distally 102 cm/s. 3. The proximal internal carotid artery velocities are 131 cm/s systolic and 28 cm/s diastolic. 4. The proximal external carotid artery PSV is 162 cm/s. 5. The vertebral artery shows antegrade flow. 6. The subclavian artery waveforms are biphasic with spectral broadening. Peak systolic velocity 316 cm/s.. ICA/CCA ratio: 1.0 Left Side: 1. There is a small calcified atherosclerotic plaque seen in the bifurcation/proximal ICA region. 2. The common carotid artery PSV proximally is 136 cm/s and distally 144 cm/s. 3. The proximal internal carotid artery velocities are 145 cm/s systolic and 30 cm/s diastolic. 4. The proximal external carotid artery PSV is 162 cm/s. 5. The vertebral artery shows antegrade flow. 6. The subclavian artery waveforms are normal. ICA/CCA ratio: 1.0. US/US carotid duplex BI IMPRESSION: 1. RIGHT: 50-79% hemodynamically stenosis by ultrasound criteria 2. LEFT: 50-79% hemodynamically significant stenosis by ultrasound criteria. . Overall similar since prior exam. Electronically signed by: Hasmukh Finch MD 01/30/2025 12:46 PM EST
== END 2025-01-30 11:34 | disposition home or self-care (01) ==
LOC: HO.US 11:33
PROVIDERS: PCP Internal Medicine; Visit Provider Internal Medicine
DX: I65.23 Occlusion and stenosis of bilateral carotid arteries (principal); I25.10 Atherosclerotic heart disease of native coronary artery without angina pectoris; Z95.1 Presence of aortocoronary bypass graft
CPT/HCPCS: 93880

== ENCOUNTER → 2025-01-30 11:36 | Outpatient (BNV) | payer MEDICARE, SELFPAY | PROVIDERS: PCP Internal Medicine; Visit Provider Radiology Diagnostic Radiology | DX: I65.23 Occlusion and stenosis of bilateral carotid arteries (principal) | CPT/HCPCS: 93880 ==

== ENCOUNTER 2025-02-07 12:50 | Outpatient (REF) | payer MEDICARE, SELFPAY ==
--- OUTSIDE RECORDS SUMMARY | 2025-02-07 14:41 | XMS_ITS | Data Portability ---
Author Organization [facility], Main Office Address [address], [address] [place] [address] Care Team Providers Care Overhead Crane Inspector Name Role Phone [facility] OTHER Assessment No assessment recorded. Plan [...] By Organization Details Last Modified Time 01/18/2021 [id number] [email or web address] Not available 01/18/2021 15:24:54 01/25/2021 [id number] F/U Appointments : Podiatry: 01/28/21 Vascular: TBD PCP: TBD Total time spent on discharge: 40 minutes No scripts needed [email or web address] Not available 01/26/2021 13:27:54 Reason for Referral None Reported. 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 611701767 Active 2020 and with neuropath y AMALIASA HIGGINS PA-C [address], [address], [place], [address], [facility] 13:14:42 Coronary arteriosc lerosis 28855401 Active 2020 Hx 4-vessel CABG 12/2019; NSTEMI; PCI with stent VICENTE ARROYO-C [address], [address], [place], [address], [facility] 13:15:05 Sciatica 49087970 Active 2020 AMALIA HIGGINS PA-C [address], [address], [place], [address], [facility] 13:15:23 Anemia 615882190 Active 2020 VICENTE ARROYO-C [address], [address], [place], [address], [facility] 13:15:31 Chronic constipat ion 943933030 Active 2020 AMALIA HIGGINS PA-C [address], [address], [place], [address], [facility] 13:15:43 Dyslipide ab 432848332 Active 2020 AMALIA HIGGINS PA-C [address], [address], [place], [address], [facility] 13:15:56 Anxiety 69368544 Active 2020 AMALIA HIGGINS PA-C [address], [address], [place], [address], [facility] 13:16:14 Carotid artery stenosis 16799486 Active 2020 AMALIA HIGGINS PA-C [address], [address], [place], [address], [facility] 13:16:30 Pain of left hip joint 008053144235 100 Active 2020 AMALIA HIGGINS PA-C [address], [address], [place], [address], [facility] 13:17:18 Chronic anxiety 041452404 Active 2020 Dia Philip MD [address] [facility], [facility] [address], [place], [address], [employer] 18:11:22 Essential hypertens ion 46799078 Active 2020 Dia Philip MD [address] [facility], [facility] [address], [place], [address], [facility] 18:25:37 Problem Notes None recorded. Medical Equipment None Reported. Allergies No known drug allergies Medications Not known to be on any medication Vitals Date Recorded Body weight Oxygen saturation Body temperature Respiratory rate Heart rate Systolic And Diastolic Provider Name and Address Organization Details Last Updated DateTime 1 96769.6 7 g 96 % 96.1 [degF] 18 /min 64 /min 110/70 mm[Hg] AMALIA HIGGINS PA-C [address] [place] [address], [place], [address], [facility] 12:39:07 Date Recorded Body weight Body mass index (BMI) Body height Heart rate Respiratory rate Body temperature Oxygen saturation Systolic And Diastolic Provider Name and Address Organization Details Last Updated DateTime 1 64177.0 1 g 21.6 kg/m2 165.1 cm 69 /min 18 /min 97.3 [degF] 96 % 120/65 mm[Hg] Dia Philip MD [address] [facility], [facility] 204, [place], [address], [facility] 18:14:45 Date Recorded Body height Body mass index (BMI) Body weight Heart rate Respiratory rate Body temperature Oxygen saturation Systolic And Diastolic Provider Name and Address Organization Details Last Updated DateTime 1 165.1 cm 21.6 kg/m2 88047.0 1 g 64 /min 20 /min 97.3 [degF] 98 % 116/55 mm[Hg] AMALIA HIGGINS PA-C [address] [place] [address], [facility] 204, [place], [address], [facility] 1 22:44:52 Social History Question Answer Notes LastModified by Organizat ion Details LastModified Time Tobacco Smoking Status Never Smoker AMALIA HIGGINS PA-C [address] [place] [address], [address], [place], [address], [facility] 01/18/2021 13:00:04 Do You Have An Advance Directive? Yes DNR/DNI; Ok For Non-invasive Ventilation; Ok For Transfer To Hospital; No Dialysis; No Artificial Nutrition; No Artificial Hydration Information not available 01/24/2021 What Is Your Code Status? DNR/DNI Information not available 01/24/2021 Where Do You Live? Apartment On 1st Floor, One Step To Enter. Information not available 01/24/2021 Legal Guardian? No [email or web address] Informati on not available 01/18/2021 Do You Have A Medical Power Of Inspector Assemblies And Installations? Yes Information not available 01/24/2021 What Was The Date Of Your Most Recent Tobacco Screening? 01/18/2021 [email or web address] Information not available 01/18/2021 Do You Have An Out Of Hospital DNR? Yes Information not available 01/24/2021 What Is Your Relationship Status? Information not available 01/24/2021 Has Tobacco Cessation Counseling Been Provided? No N/A As Pt Is Non-smoker Information not available 01/24/2021 Sex: Female Functional Status Question Answer Note LastModified by Organizat ion Details LastModified Time How many times per week do you consume alcohol? rarely Information not available 01/24/2021 Do you use any illicit or recreational drugs? No [email or web address] Information not available 01/18/2021 Do you or have you ever used any other forms of tobacco or nicotine? No [email or web address] Information not available 01/18/2021 What is your level of alcohol consumption? Occasional Information not available 01/24/2021 Mental Status None recorded. Family History Relationship Description Onset Age of this Age Resolved Age Notes LastModified by Organization Details LastModified Time Father Coronary arterioscler [email or web address] Not available 2020 15:08:20 Mother Coronary arterioscler osis [email or web address] Not available 2020 15:08:20 Medical History No medical history recorded. Gynecological HistoryNo gynecological history recorded. Obstetrics History GPAL:G 0 P 0 0 0 0 Past Encounters Encounter ID Performer Location Encounter Start Date Encounter Closed Date Diagnosis/Indication Diagnosis SNOMED-CT Code Diagnosis ICD10 Code Diagnosis IMO Codes Diagnosis Note [id number] AMALIA HIGGINS PA-C [facility] on [address] [place] [address] 01/18/2021 12:23:01 01/22/2021 16:20:18 Amputated toe 771160563 Z89.429 Local wound careAdd Vit C and Zinc since comorbid DMDr. Marvel Grullon (podiatry) 86 [address] [facility] [address] [place] [address] -- needs f/u (d/c paperwork does not specify time frame)PT/O T Critical l ower limb ischemia 066061945 I99.8 s/p insertion of a L femoral-pe roneal vein graftASA, Plavix, StatinOk to shower but needs to cover footDo not remove steri strips - will be done at f/uDr. Wolfgang Helton (vascular) 201 [facility] [address] [place], [place] [id number] - needs f/u 4 weeksPain management with Dilaudid-S cript for Dilaudid 2 mg #30 no refills given to nurse Type 2 lauren betes mellitus with peripheral angiopathy 414251378 E11.51 Fingerstic k blood sugars tidacMetfo rmin and JanuviaAdd correction al insulinNot on CATIE/ARB for renal protection - defer to PCPGabapen tin for neuropathy -was on morning and afternoon doses but now just at hs-may need to restart-mo nitor and f/u prn Coronary arteriosclerosis 67320575 I25.10 ASA, Plavix, Statin, B-marcos Carotid ar alonso stenosis 92200485 I65.29 outpatient f/u Anemia 227636898 D64.9 s/p 3 total units PRBCsFollo w CBC Chronic constipation 236 924651 K59.09 Scheduled and prn bowel medsf/u prn Dyslipidemia 658643861 E 78.5 Statin Pain of le ft hip joint 9479664381 59533 M25.552 APAPPT/OT Sciatica 49214536 M54.32 PT/OT Advance care planning 71 1337110 Z71.89 Met with pt, who is her own decision-susana benavideser, in her room. Reviewed each section of [...] like pt's decisions Minimal co gnitive impairment 559366106 G31.84 TECHNICAL INFORMATION SPECIALIST consult for cognition [id number] Dia Philip MD [facility] on [address] [place] [address] 01/24/2021 14:44:42 01/29/2021 09:30:51 Amputated toe 542258728 Z89.422 Continue local care.Jannie nue Vit C 500 mg qd and Zinc 220 mg qd for help with healing.F/ U with Dr. Marvel Grullon (podiatry) [address] [facility] [address] [place], [place] [address]Very deconditio kian.Needs PT/OT for strengthen ing, balance, gait training, safety and function.C ontinue fall precaution s.Monitor for safety.Not eating well, needs more protein, will add glucerna 8 oz BID between meals. Critical l ower limb ischemia 639521080 I99.8 s/p L femoral-pe roneal vein graftConti nue ASA 325 mg qd, Plavix 75 mg qd and atorvastat in 80 mg qd.Continu e hydromorph one 2 mg q 6 hrs prn and APAP 650 mg TID and q 4 hrs prn (not to exceed 3000 mg qd).F/U with vascular surgeon (Dr. Wolfgang Helton [address] [facility] [address] [place] [address]) in 4 wks Type 2 lauren betes mellitus with peripheral angiopathy 648573090 E11.51 E11.42 Sugars all <200 since here.Jannie nue metformin 500 mg qd and SSI.Was on Januvia 50 mg qd at home, not restarted here, due to not having accurate d/c summary. Restart today.Cont inue gabapentin 600 mg qhs for neuropathy Monitor accuchecks QID and for sxs of neuropathy , titrate gabapentin and diabetic meds as needed. Coronary arteriosclerosis 39098536 I25.10 S/P CABG x 4 in 12/2019No current sxs.Contin ue meds as above and metoprolol 50 mg BID.Monito r for sxs.F/U with cardio as planned. Carotid ar alonso stenosis 75533949 I65.23 F/U as outpt with vascular.M onitor for sxs. Anemia 389593429 D64.89 s/p 3 total units PRBCs inpt.Follo w CBC Chronic constipation 236 922806 K59.09 Currently in good control on scheduled and prn bowel meds.Monit or bowel function. Dyslipidemia 282631263 E 78.49 Continue statin as above. Pain of le ft hip joint 2509612827 70860 M25.552 Continue APAP as above.PT/O T as above.Lydia tor sxs. Sciatica 86149032 M54.32 PT/OT as above. Minimal co gnitive impairment 761246370 G31.84 A&O x3 currentlyM ostly anxious. Chronic anxiety 58568273 9 F41.1 Anxious on and off tonight. Some pressured speech, but mostly nl. Occ. begins to be tearful.Co ntinue hydroxyzin e 25 mg q 6 hrs prn.Monito r mood and behaviors. Psych consult prn. Essential hypertension 53974382 I10 Good control on meds as above.Lydia tor BP and labs. [id number] AMALIA HIGGINS PA-C [facility] on [address] [place] [address] 01/25/2021 18:31:08 01/29/2021 11:09:52 Critical lower limb ischemia 334286663 I99.8 s/p insertion of a L femoral-pe roneal vein graftASA, Plavix, StatinOk to shower but needs to cover footDo not remove steri strips - will be done at f/uDr. Wolfgang Helton (vascular) [address] [facility] [address] [place] [address] - needs f/u 4 weeksPain management with Dilaudid and APAP Amputated toe 262045942 Z89.422 Local wound careAdd Vit C and Zinc since comorbid DMDr. Marvel Grullon (podiatry) [phone] [facility] [address] [place], [place] [address]WN/OT Type 2 lauren betes mellitus with peripheral angiopathy 362421657 E11.51 E11.42 Fingerstic k blood sugars well-contr [...] ID Guarantor Name 01/22/2021 1 [place]IC[place] B[place]: [employer] SERVICES Ashley Kent [id number] Ashley Kent 01/29/2021 2 [place]) [id number] Ashley Kent [id number] Ashley Kent 02/09/2021 2 [place] 2 (MEDIC[place] SUPPLE[place]) [id number] Ashley Kent [id number] Ashley Kent Notes Date Note Type Note Provider Name and Address Organization Details Recorded Time 01/18/2021 text/html Pt seen today for initial intake. 80-y/o F admitted from [facility] as a lateral transfer for ongoing subacute rehab and to be closer to her family. Had been hospitalized at [facility] 12/27-01/14/21 for L popliteal occlusion and PAD. Was transferred to [place] from another hospital where she was seen for progressive L foot pain and dx via aterial u/s with complete occlusion of the L popliteal artery. Transferred to [place] for tertiary care/vascular intervention. Dx [id number] LLE ischemia. Underwent insertion of a femoral-peroneal [...] about transportation to her f/u appointments in [place]. AMALIA HIGGINS PA-C [address] [place] [address], [address], [place], [address], [facility] Asker 01/18/2021 15:30:07 01/24/2021 text/html This is an 80 yo woman who is here for rehab transfer from a [facility] in [place], after an acute hospitalization for severe PVD with amp of left 3rd toe. She originally presented to [facility] because of left foot pain, no records available from there. Then transferred to [facility] on 12/27 due to finding of complete left popliteal occlusion. Vascular intervention was tried first with insertion of a femoral-peroneal vein graft on 01/09, then left 3rd toe amp on 01/12. Required a total of 3U PRBC during hospitalization and repletion of Mg+, otherwise uncomplicated stay. Transferred to [facility] in [place], [place] on 01/14. Family requested transfer to [...] or because they can't transport her to [place] f/u appts.Of note she is s/p urgent quadruple coronary artery bypass grafting on 01/11/[address] 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 Dia Philip MD [address] [place] [address], [address], [place], [address], [facility] Asker 01/24/2021 18:57:12 01/25/2021 text/html Pt seen today [...] stenosis; Dyslipidemia; Hysterectomy Hospital Patient Received From: [facility] via [facility] Attending MD: Dr. Russell James/Amalia Higgins PA-C Medications Started at : Vit C; Zinc; prn hydroxyzine; Correctional Humalog Medications Discontinued at & Why: Correctional Humalog (not needed) Dose Changes: none Med changes prior to admit at [facility]:Dilaudid addedAPAP addedMiraLax added Discharge Medication List:ASA 325 [...] and wound care. Participated and progressed in PT/OT/TECHNICAL INFORMATION SPECIALIST (see their discharge summaries for details.) Sugars [...] evening by [employer]-registered Amalia Higgins PA-C NPI# [id number]; Last MD visit 01/24/21; longterm for medication management and reconciliation and teaching, [...] past day or so. AMALIA HIGGINS PA-C [address] [place] [address], [address], [place], [address], [facility] Asker 01/26/2021 13:32:28 OBGyn Episode No OBEpisode recorded.
--- OUTSIDE RECORDS SUMMARY | 2025-02-07 14:41 | XMS_ITS | Continuity of Care Document ---
Author Organization [place] - [facility], [facility] Address [address] [place] [address] Care Team Providers Care Urban Sociologist Name Role Phone LAN KOFI Primary Care Provider [phone] Assessment No assessment recorded. Plan of Treatment [...] Mixed conductive AND sensorineur al hearing loss 37846478 Active 2024 JOSE EDUARDO LR [address] [place] [address], [place], [address], [facility] 5 10:52:09 Bilateral hearing loss 05447366 Active 2024 JOSE EDUARDO LR 100 [address] [place], [address], [facility] 5 10:52:17 Impacted cerumen of bilateral ears 2124958192044 108 Active 2024 JO SANDS PA-C [address] [place] [address], [place], [address], [place] - [facility] 5 12:04:40 Problem Notes None recorded. Procedures Surgical History Date Name Laterality Status Provider Name and Address Organization Details Recorded Time 5 Cerumen removal without microscope bilat completed JO SANDS PA-C 100 [facility],[address] [address], [place], [address], [facility] - [facility] 02/06/2025 10:04:13 5 Comp Audio with Tymps - 38725 & 76958 completed JOSE EDUARDO LR 100 [facility] [place] [address], [place], [address], [facility] - [facility] 02/06/2025 10:51:52 arterial bypass of lower limb artery completed Yen Blue [place] - [facility] 02/06/2025 09:44:20 Imaging Results None recorded. [...] Updated DateTime 02/06/2025 165.1 cm 21.6 kg/m2 79229.01 g Yen Blue [place] - [facility] 02/06/2025 09:43:31 Social History None recorded. [...] Disorder N Anesthesia Complications N Heart Attack ([place]) Y Other Skin Condition N Diabetes Y [...] ICD10 Code Diagnosis IMO Codes Diagnosis Note [id number] JO SANDS PA-C [facility] of [address] [address] 02/06/2025 09:19:50 02/06/2025 11:51:33 Mixed conductive AND sensorineural hearing loss 92899241 H90.A31 09609580 Audiologic al evaluation results:Ri ght ear:Modera tely-sever e sloping to profound mixed hearing loss with fair/poor word recognitio n.Left ear:Modera te sloping to profound sensorineu ral hearing loss with good word recognitio n.Tympanom etry:Right Ear: Type ALeft Ear: Type A Bilateral hearing loss 21559619 H90.A22 02021065 Impacted c erumen of bilateral ears 4895085435 323686 H61.23 124366 [id number] JOSE EDUAROD LR [facility] of [facility] [address] [place] [address] 02/06/2025 09:19:35 02/06/2025 10:04:06 Mixed conductive AND sensorineural hearing loss 60629406 H90.A31 81103777 Bilateral hearing loss 38069522 H90.A22 48707956 Audiologic al evaluation results: Right ear: Moderately [...] Name 02/06/2025 2 [place] [id number] Teresita Tarah Donte [id number] 01 Teresita Kent 02/06/2025 1 [place] [employer] SERVICES Ashley Rascon Donte [id number] 5 Teresita Kent Notes Date Note Type [...] anxiety, myocardial infarction JO SANDS PA-C [address] [address], [place], [address], [facility] - [facility] 02/06/2025 12:05:18 OBGyn Episode No OBEpisode recorded.
--- OUTSIDE RECORDS SUMMARY | 2025-02-07 14:41 | XMS_ITS | Continuity of Care Document ---
Author Organization [place] - [facility], [facility] Address [address] [place] [address] Care Team Providers Care Interior Systems Carpenter Name Role Phone KOFI MONTENEGRO Primary Care [...] Mixed conductive AND sensorineur al hearing loss [id number] Active 2024 JOSE EDUARDO LR 100 [facility],[address] [address], [place], [address], [facility] [place] 5 10:52:09 Bilateral hearing loss 02396213 Active 2024 RAMÍREZ BOSTON AUD 100 [facility],[place] [address], [place], [address], [place] - [facility] [place] 10:52:17 Impacted cerumen of bilateral ears [id number] 108 Active 2024 JO SANDS PA-C 100 [facility],[place] [address], [place], [address], [place] - [facility] [place] 12:04:40 Problem Notes None recorded. Procedures Surgical History Date Name Laterality Status Provider Name and Address Organization Details Recorded Time Cerumen removal without microscope bilat completed JO SANDS PA-C [address], [address], [place] - [facility] 02/06/2025 10:04:13 Comp Audio with Tymps - 52913 & 24549 completed RAMÍREZ BOSTON [facility] 100 [facility],[address], [address], [place] - [facility] 02/06/2025 10:51:52 arterial bypass of lower limb artery completed Yen Blue [place] - [facility] [place] 02/06/2025 09:44:20 Imaging Results None recorded. Procedure [...] Updated DateTime 02/06/2025 165.1 cm 21.6 kg/m2 32062.01 g Yen Blue [place] - [facility] 02/06/2025 09:43:31 Social History None recorded. Functional [...] Disorder N Anesthesia Complications N Heart Attack ([place]) Y Other Skin Condition N Diabetes Y [...] ICD10 Code Diagnosis IMO Codes Diagnosis Note [id number] JO SANDS PA-C [facility] of [address] [address] 02/06/2025 09:19:50 02/06/2025 11:51:33 Mixed conductive AND sensorineural hearing loss [id number] H90.A31 [id number] Audiologic al evaluation results:Ri ght ear:Modera tely-sever e sloping to profound mixed hearing loss with fair/poor word recognitio n.Left ear:Modera te sloping to profound sensorineu ral hearing loss with good word recognitio n.Tympanom etry:Right Ear: Type ALeft Ear: Type A Bilateral hearing loss [id number] H90.A22 [id number] Impacted c erumen of bilateral ears [id number] 233850 H61.23 212559 [id number] JOSE EDUARDO LR [facility] of [address] [address] 02/06/2025 09:19:35 02/06/2025 10:04:06 Mixed conductive AND sensorineural hearing loss 79340832 H90.A31 [id number] Bilateral hearing loss 54446565 H90.A22 [id number] Audiologic al evaluation results: Right ear: Moderately [...] Name 02/06/2025 2 [place] [id number] Teresita Kent [id number] Teresita Kent 02/06/2025 1 MEDIC[place] B-[place]: [facility] [employer] Ashley Kent [id number] Teresita Kent Notes Date Note Type [...] diabetes, anxiety, myocardial infarction JO SANDS PA-C [address] [place] [address], [address], [facility] - [facility] 02/06/2025 12:05:18 OBGyn Episode No OBEpisode recorded.
--- OUTSIDE RECORDS SUMMARY | 2025-02-07 14:41 | XMS_ITS | Data Portability ---
Author Organization [place] - [facility], [facility] Address [address] [address] Care Team Providers Care Bevel Face Stoner And Polisher Name Role Phone KOFI MONTENEGRO Primary Care Provider [phone] Assessment Encounter Date Assessment Date Assessment LastModified [...] Mixed conductive AND sensorineur al hearing loss 92344128 Active 2024 JOSE EDUARDO LR [address], [address], [facility] - [facility] [place] 5 10:52:09 Bilateral hearing loss 59248661 Active 2024 RAMÍREZ BOSTON JOSE EDUARDO [address], [address], [facility] - [facility] [place] 5 10:52:17 Impacted cerumen of bilateral ears [id number] 108 Active 2024 JO SANDS PA-C 100 [facility],[place] [address], [place], [address], [facility] - [facility] 12:04:40 Problem Notes None recorded. Procedures Surgical History Date Name Laterality Status Provider Name and Address Organization Details Recorded Time Cerumen removal without microscope bilat completed JO SANDS PA-C [address], [address], [facility] - [facility] 02/06/2025 10:04:13 Comp Audio with Tymps - 38308 & 30061 completed JOSE EDUARDO LR [address] [place] [address], [address], [facility] - [facility] 02/06/2025 10:51:52 arterial bypass of lower limb artery completed Yen Blue [place] - [facility] 02/06/2025 09:44:20 Imaging Results None recorded. Procedure [...] Updated DateTime 02/06/2025 165.1 cm 21.6 kg/m2 90869.01 g Yen Blue [place] - [facility] 02/06/2025 09:43:31 Social History None recorded. Functional [...] Disorder N Anesthesia Complications N Heart Attack ([place]) Y Other Skin Condition N Diabetes Y [...] ICD10 Code Diagnosis IMO Codes Diagnosis Note [id number] JO SANDS PA-C [facility] [address] [address] 02/06/2025 09:19:50 02/06/2025 11:51:33 Mixed conductive AND sensorineural hearing loss [id number] H90.A31 [id number] Audiologic al evaluation results:Ri ght ear:Modera tely-sever e sloping to profound mixed hearing loss with fair/poor word recognitio n.Left ear:Modera te sloping to profound sensorineu ral hearing loss with good word recognitio n.Tympanom etry:Right Ear: Type ALeft Ear: Type A Bilateral hearing loss 88115589 H90.A22 [id number] Impacted c erumen of bilateral ears 9681957126 526065 H61.23 715528 [id number] JOSE EDUARDO LR [facility] [address] [address] 02/06/2025 09:19:35 02/06/2025 10:04:06 Mixed conductive AND sensorineural hearing loss 93862667 H90.A31 [id number] Bilateral hearing loss 56057620 H90.A22 [id number] Audiologic al evaluation results: Right ear: Moderately [...] Name 02/06/2025 2 [place] [id number] Teresita Kent [id number] Teresita Kent 02/06/2025 [address]-[place]: [facility] [employer] Ashley Kent [id number] Teresita Kent Notes Date Note Type [...] diabetes, anxiety, myocardial infarction JO SANDS PA-C [address] [place] [address], [address], [facility] - [facility] 02/06/2025 12:05:18 OBGyn Episode No OBEpisode recorded.
== END 2025-02-07 12:51 | disposition home or self-care (01) ==
LOC: HO.LAB 12:50
PROVIDERS: PCP Internal Medicine
DX: R30.0 Dysuria (principal)
CPT/HCPCS: 81003; 87086; 87088; 87186; 99212

== ENCOUNTER 2025-02-07 12:50 | Outpatient (AMB) | payer MEDICARE, SELFPAY ==
[2025-02-07 12:57] VITALS: BP 120/80; PULSE 69; O2SAT 99; BMI 22.6
--- NOTE | 2025-02-07 12:57 | AM.OFFWIN_ITS ---
Intake Vital Signs 02/07/25 12:57 Height 5 ft 5 in Weight 136 lb BMI 22.6 BP 120/80 Blood Pressure Location Lt brachial Position Sitting Pulse 69 Pulse Source Pulse Oximeter Pulse Oximetry (%) 99 Oxygen Delivery Method Room Air Intake Visit Reasons: EP UTI?? Intake Note: Patient presents c/o urinary pain, frequency, urgency for a while now. Patient Tobacco Use Status: Never used Tobacco Allergies Viiazag-ZLB-HrW Reductase Inhibitor (Lpkkhbg-Cfz-Fzj Reductase Inhibitor) Allergy (Unknown, Verified 02/07/25 13:03) muscle cramps HPI HPI Comments History of Present Illness Details History - The patient is an 84-year-old female p resenting with a suspected urinary tract infection. - She reports having symptoms for a whil e but has delayed seeking care. - Her symptoms include nausea, urinary f requency, and right-sided back pain. - Additionally, she reports a slight bur adeola sensation with urination, as well as cloudy and malodorous urine. - She denies any fever, blood in the uri ne, or vomiting. - She has no known medication allergies. Physical Exam General: Cooperative, healthy appearing, comfortable, no acute distress and well developed Cardiac: Normal S1 and S2. RRR, no M/R/G noted. Respiratory: Normal respiratory effort and able to speak in complete sentences. Clear to auscultation bilaterally. No w/r/r noted. Skin: No rashes or lesions noted. GI: Normal inspection. Normal BS noted. Soft, non-tender, non-distended. No TTP of all 4 quadrants. No guarding or rebound tenderness noted. Back: Negative CVA tenderness bilaterally Patient was informed and verbally consented to the use of an ambient scribe for clinic note documentation during this visit. [facility] Medical History (Updated 11/14/24 @ 13:56 by Yu Alcantar MD) Diabetes mellitus with hyperglycemia, without long-term current use of insulin Generalized anxiety disorder Osteoporosis PAD (peripheral artery disease) Candidal intertrigo Asthma Pulmonary nodules Bronchiectasis with (acute) exacerbation Popliteal vein thrombosis Vitamin D deficiency Diabetes mellitus with peripheral angiopathy Refused influenza vaccine COVID-19 vaccination refused Other and unspecified hyperlipidemia Atherosclerotic cardiovascular disease Coronary artery disease Dyslipidemia Essential hypertension Non-ST elevation [place] (NSTEMI) Bilateral carotid artery stenosis NSTEMI (non-ST elevated myocardial infarction) Surgical History History of amputation of lesser toe History of cardiac catheterization (~01/06/20) S/P CABG x 4 (~01/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 Brother No problems noted. Brother No problems noted. Brother No problems noted. Sister No problems noted. Sister No problems noted. Sister No problems noted. Sister No problems noted. Sister No problems noted. Son No problems noted. Son No problems noted. Son No problems noted. Son No problems noted. Daughter Cancer Other Breast cancer Substance use disorder Social History Household Members: None Housing: Assisted Living Facility Are you a primary child care attendant school to a significant other at home: No Alcohol intake: unknown Patient Tobacco Use Status: Never used Tobacco e-Cigarette/Vaping Use: Never Used Second Hand Smoke Exposure: Yes service: No Current occupational status: retired Cognitive needs: No Hearing needs: No Vision needs: Yes Review of Systems Const All systems reviewed & are unremarkable except as noted in HPI and below Physical Exam Vital Signs: Last Vital Signs Pulse 69 02/07/25 12:57 BP 120/80 02/07/25 12:57 Pulse Ox 99 02/07/25 12:57 Oxygen Delivery Method Room Air 02/07/25 12:57 BMI result Body Mass Index 22.6 Assessment & Plan Assessment & Plan (1) Dysuria: Code(s): R30.0 - Dysuria Plan Most likely UTI UA +leuko, nit Plan - An antibiotic will be prescribed for the treatment of a urinary tract infection. - will order urine culture - can call her with the results and we can change her antibiotics if needed - drink lots of fluids - follow up with PCP Orders: Orders Urine Culture Today N39.0 - Urinary tract infection, site not specified Medications: New cefuroxime axetil 500 mg PO Q12H 10 tabs 0RF Coding Level of Care Code Est Pt Level 3 (82203) Diagnoses Dysuria R30.0
--- OUTSIDE RECORDS SUMMARY | 2025-02-07 13:54 | XMS_ITS | Clinical Summary ---
Author Organization [facility] Address [address] [place] [address] Care Team Providers Care [employer] Game [employer] Manager Name Role Phone Yu Alcantar MD [...] (12/28/2020): Added automatically from request for surgery [id number] Immunizations Immunization Administration Dates Next Due Influenza [...] Description 09/04/2025 1:45 PM EDT Ancillary Procedure [facility] Vascular & Endovascular Surgery [address] [place] [address] Wolfgang Helton MD [address] [place] [address] 09/04/2025 2:00 PM EDT Ancillary Procedure [facility] & Endovascular Surgery [address] [address] Wolfgang Helton MD [address] [place] [address] 09/04/2025 2:30 PM EDT Office Visit [facility] & Endovascular Surgery [address] [address] Wolfgang Helton MD [address] [place] [address] Health Maintenance Due Date Last Done Comments DTaP/Tdap/Td Vaccines (1 - Tdap) 1959 Pneumococcal Vaccines 50+ (1 of 1 - PCV) 1990 Zoster (Shingles) Vaccine (1 of 2) 1990 DXA Bone Density (Females,Ag es 65 and older) 2005 RSV Vaccine 50 years and old er and Patients (1 - 1-dose 75+ series) 2015 Influenza Vaccine 09/16/2024 COVID-19 Vaccine ( - 2024-2 6 season) 2024 Advance Care Planning Completed 03/04/2021 Hepatitis B Vaccines Aged Out No long er eligible based on patient's age to complete this topic Insurance MEDICARE PART A & B BLUE CROSS CT PPO BLUE CROSS OUT [facility] - PPO Advance Directives Documents on File Type Date Recorded Patient Property Claims Adjuster Expl anation Advance Directive-Scan 03/04/2021 HEALT HCRE [...] Healthcare Agent Relationship Communication Shy Josue Healthcare employee's representative 1. Health Care Property Claims Adjuster [email or web address] Healthcare employee's representative 1. Health Care Property Claims Adjuster Care Teams [employer] And Game Club Manager Relationship Specialty Start Date End Date uY Alcantar MD [address] [place] [address] PCP - General Internal Medicine 02/07/21
--- OUTSIDE RECORDS SUMMARY | 2025-02-07 13:54 | XMS_ITS | Continuity of Care Document ---
Author Organization [place] - [facility], [facility] Address [address] [place] [address] Care Team Providers Care Cell Operator Name Role Phone LAN KOFI Primary Care Provider Assessment No assessment recorded. Plan of Treatment Reminders Order Date Submit Date Provider Last Modified By Organization Details Last Modified Time Details Appointments None record ed. Lab None record ed. Referral None record ed. Procedures None record ed. Surgeries None record ed. Imaging None record ed. Medication Orders None record ed. Patient TargetsNo targets recorded. Patient InstructionsNo instructions recorded. Reason for Referral None Reported. Results Created Date Observation Date Name Description Value Unit Range Abnormal Flag Note LastModifiedBy Organization Detail LastModifiedTime 02/07/20 25 audio gram No observ ation record ed. BARCODE Not Available 2024 13:10:38 Result Notes None recorded. Problems Name Problem SNOMED Code Status Onset Date Resolution Date Notes Provider Name and Address Organization Details Recorded Time Mixed conductive AND sensorineur al hearing loss 66076286 Active 2024 JOSE EDUARDO LR [address] [place] [address], [place], [address], [facility] 5 10:52:09 Bilateral hearing loss 33129183 Active 2024 JOSE EDUARDO LR [address] [place], [address], [facility] 5 10:52:17 Impacted cerumen of bilateral ears 1335825724066 108 Active 2024 JO SANDS PA-C [address] [address], [place], [address], [place] - [facility] 5 12:04:40 Problem Notes None recorded. Procedures Surgical History Date Name Laterality Status Provider Name and Address Organization Details Recorded Time 5 Cerumen removal without microscope bilat completed JO SANDS PA-C [address] [facility] [address], [place], [address], [facility] - [facility] 02/06/2025 10:04:13 5 Comp Audio with Tymps - 80042 & 98097 completed JOSE EDUARDO LR [address] [facility] [address], [place], [address], [facility] - [facility] 02/06/2025 10:51:52 arterial bypass of lower limb artery completed Yen Blue [place] - [facility] 02/06/2025 09:44:20 Imaging Results None recorded. Procedure Notes None recorded. Medical Equipment None Reported. Allergies No known drug allergies Medications Name Sig Start Date Stop Date Status Note LastModified by Organization Details LastModified Time metformin 500 mg tablet TAKE 1 TABLET BY MOUTH 2 TIMES A DAY WITH MEALS. active Not Available Not Available No t Available atorvastati n 80 mg tablet TAKE 1 TABLET BY MOUTH AT BEDTIME active Not Available Not Available No t Available doxycycline hyclate 100 mg capsule TAKE 1 CAPSULE ORALLY ONCE A DAY 5 DAYS 08/25 completed Not Available Not Available Not Available ondansetron HCl 4 mg tablet TAKE 1 TABLET ORALLY EVERY 6 HOURS NEEDED FOR NAUSEA AND VOMITING active Not Available Not Available No t Available Vitamin B-12 500 mcg tablet TAKE 1 TABLET BY MOUTH EVERY DAY active Not Available Not Available No t Available aspirin 81 mg tablet,dom yed release TAKE 1 TABLET BY MOUTH EVERY DAY active Not Available Not Available No t Available TobraDex 0.3 %-0.1 % eye ointment APPLY 1/4 INCH STRIP TO BOTH EYES THREE TIMES A DAY FOR 5-7 DAYS 08/25 completed Not Available Not Available Not Available phenazopyri dine 100 mg tablet TAKE 1 TABLET BY MOUTH 3 TIMES A DAY active Not Available Not Available No t Available benzonatate 100 mg capsule TAKE 1 CAPSULE BY MOUTH TWICE A DAY NEEDED FOR COUGH FOR 7 DAYS active Not Available Not Available No t Available cephalexin 500 mg capsule TAKE 1 CAPSULE BY MOUTH EVERY 12 HOURS 08/25 completed Not Available Not Available Not Available erythromyci n 5 mg/gram (0.5 %) eye ointment APPLY 1/4 INCH TO SURGICAL AREA 3 TIMES DAILY FOR 7 DAYS. BRING *UNOPENED * MEDICATIO N TO SURGERY. 08/25 completed Not Available Not Available Not Available prednisone 50 mg tablet TAKE 1 TABLET BY MOUTH EVERY DAY FOR 5 DAYS active Not Available Not Available No t Available gabapentin 300 mg capsule TAKE 2 CAPSULES ORALLY BEDTIME NEEDED FOR NEUROPATH Y active Not Available Not Available No t Available cefuroxime axetil 500 mg tablet TAKE 1 TABLET BY MOUTH EVERY 12 HOURS 02/03 completed Not Available Not Available Not Available albuterol sulfate HFA 90 mcg/actuati on aerosol inhaler INHALE 2 PUFFS EVERY 4 TO 6 HOURS NEEDED FOR SHORTNESS OF BREATH OR FOR WHEEZE active Not Available Not Available No t Available hydroxyzine pamoate 25 mg capsule TAKE 1 CAPSULE BY MOUTH 2 TIMES A DAY NEEDED FOR ACUTE ANXIETY active Not Available Not Available No t Available neomycin 3.5 mg/g-polymy sundeep B 10,000 unit/g-dexa meth 0.1 % eye oint APPLY 1/4 STRIP TO SURGICAL SITE(LEFT UPPER EYELID) THREE TIMES A DAY. 08/25 completed Not Available Not Available Not Available metoprolol tartrate 25 mg tablet TAKE 1/2 TABLET BY MOUTH 2 TIMES A DAY FOR 90 DAYS active Not Available Not Available No t Available nitrofurant oin monohydrate /macrocryst als 100 mg capsule TAKE 1 CAPSULE BY MOUTH EVERY 12 HOURS FOR 10 DAYS, ADMINISTE R WITH FOOD/MEAL 02/03 completed Not Available Not Available Not Available cholecalcif carlos (vitamin D3) 25 mcg (1,000 unit) tablet TAKE 1 TABLET BY MOUTH EVERY DAY active Not Available Not Available No t Available Januvia 50 mg tablet TAKE 1 TABLET BY MOUTH EVERY DAY active Not Available Not Available No t Available Januvia 100 mg tablet TAKE 1 TABLET BY MOUTH EVERY DAY active Not Available Not Available No t Available cholecalcif carlos (vitamin D3) 1,250 mcg (50,000 unit) capsule TAKE 1 CAPSULE BY MOUTH EVERY WEEK FOR 3 MONTHS active Not Available Not Available No t Available Xarelto 2.5 mg tablet TAKE 1 TABLET BY MOUTH TWICE A DAY active Not Available Not Available No t Available Vitals Date Recorded Body height Body mass index (BMI) Body weight Provider Name and Address Organization Details Last Updated DateTime 02/06/2025 165.1 cm 21.6 kg/m2 06878.01 g Yen Blue [place] - [facility] 02/06/2025 09:43:31 Social History None recorded. Functional Status Question Answer Note LastModified by Organization D etails LastModified Time What is your level of alcohol consumption? None [email or web address] Information not available 02/06/2025 Mental Status None recorded. Family History Nothing Reported. Medical History Condition Response Allergies/Hayfever N Heart Problems N Anxiety Y Tonsil Infections N Emphysema N Migraines N Thyroid Problems N COPD N Depression N Developmental Delay N Glaucoma N Nasal or Sinus Problems N Anemia N Immune System Disorder N Anesthesia Complications N Heart Attack ([place]) Y Other Skin Condition N Diabetes Y Rhinitis N Bleeding Disorder N Food Allergy N Hearing Loss N Arthritis N Hyperlipidemia N Cancer N Stroke N Dementia N Nasal polyps N Asthma N Sleep Disorder N High Cholesterol N GERD/Reflux N Liver Disease N Headaches N Fibromyalgia N Hypertension N Speech Delay N Kidney Disease N Gynecological HistoryNo gynecological history recorded. Obstetrics History GPAL:G 0 P 0 0 0 0 Past Encounters Encounter ID Performer Location Encounter Start Date Encounter Closed Date Diagnosis/Indication Diagnosis SNOMED-CT Code Diagnosis ICD10 Code Diagnosis IMO Codes Diagnosis Note [id number] JO SANDS PA-C [facility] of [address] [address] 02/06/2025 09:19:50 02/06/2025 11:51:33 Mixed conductive AND sensorineural hearing loss 67399820 H90.A31 [id number] Audiologic al evaluation results:Ri ght ear:Modera tely-sever e sloping to profound mixed hearing loss with fair/poor word recognitio n.Left ear:Modera te sloping to profound sensorineu ral hearing loss with good word recognitio n.Tympanom etry:Right Ear: Type ALeft Ear: Type A Bilateral hearing loss 27626113 H90.A22 08948547 Impacted c erumen of bilateral ears 3538879689 766563 H61.23 [id number] JOSE EDUARDO LR [facility] of [facility] [address] [place] [address] 02/06/2025 09:19:35 02/06/2025 10:04:06 Mixed conductive AND sensorineural hearing loss 68357899 H90.A31 54518690 Bilateral hearing loss 83290660 H90.A22 [id number] Audiologic al evaluation results: Right ear: Moderately -severe sloping to profound mixed hearing loss with fair/poor word recognitio n. Left ear: Moderate sloping to profound sensorineu ral hearing loss with good word recognitio n. Tympanomet ry: Right Ear:Type A Left Ear:Type A Health Concerns Section Related Observation LastModified by Organization Detai ls LastModified Time None Recorded Concern Status LastModified by Organization Details LastModified Time None Recorded Payers Encounter Date Sequence Insurance Name Policy Number Policy Gonzalez Covered Member ID Gonzalez Member ID Guarantor Name 02/06/2025 2 [place] [id number] Teresita Tarah Donte [id number] Teresita Kent 02/06/2025 1 [place] [employer] Ashley Rascon Donte [id number] Tereista Kent Notes Date Note Type Note Provider Name and Address Organization Details Recorded Time 02/06/2025 text/html ROS as noted in the HPI 84yo female presents for evaluation of hearing loss. She had two right-sided mastoidectomy surgeries in the 1940s. Poor hearing in the right ear since. She is noticing gradual hearing loss in the left ear over the last year. She can't understand people talking around her or over the phone. She wore hearing aids years ago, but since lost them. Currently does not wear any hearing aids. Denies ear drainage. PMH diabetes, anxiety, myocardial infarction JO SANDS PA-C [address] [address], [place], [address], [facility] - [facility] 02/06/2025 12:05:18 OBGyn Episode No OBEpisode recorded.
--- OUTSIDE RECORDS SUMMARY | 2025-02-07 13:54 | XMS_ITS | Encounter Summary ---
Author Organization [facility] Address [address] [place] [address] Care Team Providers Care Account Liaison Name Role Phone Yu Alcantar MD Primary Care Provider [phone] Encounter Details Date Type Department Care Team (Late st Contact Info) Description 05/14/2021 Scanned Document [facility] Vascular & Endovascular Surgery [place] [address] [facility] [address] [place] [address] Wolfgang Helton MD [address] [place] [address] Social History Tobacco Use Types Packs/Day Years [...] Description 09/04/2025 1:45 PM EDT Ancillary Procedure [facility] Endovascular Surgery [address] [place] [phone] Wolfgang Helton MD [address] [address] 09/04/2025 2:00 PM EDT Ancillary Procedure [facility] Endovascular Surgery [address] [place] [address] Wolfgang Helton MD [address] [address] 09/04/2025 2:30 PM EDT Office Visit [facility] Surgery [address] [place] [address] Wolfgang Helton MD [address] [place] [address] documented as of this encounter Visit Diagnoses Not on filedocumented in this encounter Care Teams Account Liaison Relationship Specialty Start Date End Date Yu Alcantar MD [address] [place] [address] PCP - General Internal Medicine 02/07/21 documented as of this encounter
--- OUTSIDE RECORDS SUMMARY | 2025-02-07 13:54 | XMS_ITS | Patient Health Record ---
Author Organization [facility] [place] Address [address] [facility] [place] [address] Care Team Providers Care Security Escort Name Role Phone Katharine CHRISTIANSON, Yu Ramires Primary Care Provider Un available BradRichelle schroeder Unavailable [phone] Allergies No Known Allergies Results Component Value [...] Problem Acquired hammer toe of right foot (0616405699621278 ) Other hammer toe(s) (acquired), right foot (M20.41) Active confirmed Problem Acquired hammer toe of left foot (2657670189441447 ) Other hammer toe(s) (acquired), left foot (M20.42) Active confirmed Problem Polyneuropathy due to type 2 diabetes mellitus (481036213) Type 2 diabetes mellitus with diabetic polyneuropathy (E11.42) Active confirmed Problem Acquired unequal limb length (438854696694844) 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) Active confirmed Vital Signs Blood pressure diastolic 80 mm Hg 10/25/2024 Height 5ft 4in in 10/25/2024 Blood pressure systolic 122 mm Hg 10/25/2024 Weight 127 lbs 10/25/2024 BMI 21.8 kg/m2 10/25/2024 Encounters Encounter Location Date Provider Diagnosis [address] [address] 04/26/2024 Richelle Bartholomew Type 2 diabetes mellitus with diabetic polyneuropathy E11.42 ; Other hammer toe(s) (acquired), left foot M20.42 ; Tinea unguium B35.1 ; Ingrown nail L60.0 and Other hammer toe(s) (acquired), [facility] M20.[facility] [address] 07/26/2024 Richelle Bartholomew Type 2 diabetes mellitus with diabetic polyneuropathy E11.42 ; Other hammer toe(s) (acquired), left foot M20.42 ; Tinea unguium B35.1 ; Ingrown nail L60.0 ; Other hammer toe(s) (acquired), right foot M20.41 and Acquired unequal limb length M21.[address] [address] 10/25/2024 Richelle Bartholomew Type 2 diabetes mellitus with diabetic polyneuropathy E11.42 ; Other hammer toe(s) (acquired), left foot M20.42 ; Tinea unguium B35.1 ; Other hammer toe(s) (acquired), right foot M20.41 and Acquired unequal limb length M21.[address] [address] 04/26/2024 Richelle Bartholomew [address] [address] 10/25/2024 Richelle Bartholomew Assessments Encounter Date Diagnosis [...] (acquired), left foot (ICD-10 - M20.42) 07/26/2024 Ingrown nail (ICD-10 - L60.0) 04/26/2024 [...] Details Provider Name:Richelle schroeder, 02/21/2025 01:30:00 PM, [address] [place] [address], [phone], Insurance Providers Payer Name Payer Address Payer Phone Subscriber Number Group Number Insured Name Patient Relationship to Insured Coverage Start Date Coverage End Date Medicare National Govt [employer] [address] [facility] [place] [address] [id number] Ashley Kent Self - patient is the insured 6 [employer] [facility] [address] [place] [address] [id number] Ashley Kent Self - patient is the insured Medical (General) History Medical History History ICD Code Diabetic Heart disease Vascular grafts Broken hip Surgical History Surgery Date(Month/Year) leg surgery 2019 bypass surgery 2019
--- OUTSIDE RECORDS SUMMARY | 2025-02-07 13:54 | XMS_ITS | Data Portability ---
Author Organization [place] - [facility], Allergy Address [address] [address] Care Team Providers Care Spinning Room Worker Name Role Phone KOFI MONTENEGRO Primary Care Provider Assessment Encounter Date Assessment Date Assessment LastModified by Organization Details LastModified Time 02/06/2025 02/06/2025 84-year-old female with history of right-sided mastoidectomy x2 in the presents for evaluation of hearing loss. She has benefited from hearing aids in the past, but since lost them. 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 Bilateral cerumen impactions removed. TMs and EACs are normal to inspection. Audiogram shows right moderately-sever e to profound mixed hearing loss and left moderate to profound SNHL. Patient is medically cleared for amplification. Discussed amplification vs surgery consult. Patient would like to pursue hearing aid consult. Given age, comorbidities, and likelihood of incidental findings, an MRI to rule out retrocochlear pathology would be of low utility. Recommend follow up in 1-2 years with repeat audiometric testing, or sooner with any concerns. [email or web address] Not available 02/06/2025 12:04:35 Plan of Treatment Reminders Order Date Submit [...] Mixed conductive AND sensorineur al hearing loss 30275585 Active 2024 JOSE EDUARDO LR [address], [address], [facility] 5 10:52:09 Bilateral hearing loss 58591918 Active 2024 RAMÍREZ BOSTON JOSE EDUARDO [address], [address], [facility] 5 10:52:17 Impacted cerumen of bilateral ears 2748793659811 108 Active 2024 JO SANDS PA-C [address] [facility],[address] [address], [place], [address], [facility] - [facility] 12:04:40 Problem Notes None recorded. Procedures Surgical History Date Name Laterality Status Provider Name and Address Organization Details Recorded Time Cerumen removal without microscope bilat completed JO SANDS PA-C [address], [address], [facility] - [facility] 02/06/2025 10:04:13 Comp Audio with Tymps - 80934 & 33674 completed JOSE EDUARDO LR [address] [place] [address], [address], [facility] - [facility] 02/06/2025 10:51:52 arterial bypass of lower limb artery completed Yen Blue [place] - [facility] 02/06/2025 09:44:20 Imaging Results None recorded. Procedure [...] Updated DateTime 02/06/2025 165.1 cm 21.6 kg/m2 82139.01 g Yen Blue [place] - [facility] 02/06/2025 09:43:31 Social History None recorded. Functional [...] Disorder N Anesthesia Complications N Heart Attack ([place]) Y Other Skin Condition N Diabetes Y [...] ICD10 Code Diagnosis IMO Codes Diagnosis Note [id number] JO SANDS PA-C [facility] of [address] [address] 02/06/2025 09:19:50 02/06/2025 11:51:33 Mixed conductive AND sensorineural hearing loss 77340274 H90.A31 [id number] Audiologic al evaluation results:Ri ght ear:Modera tely-sever e sloping to profound mixed hearing loss with fair/poor word recognitio n.Left ear:Modera te sloping to profound sensorineu ral hearing loss with good word recognitio n.Tympanom etry:Right Ear: Type ALeft Ear: Type A Bilateral hearing loss 06697331 H90.A22 [id number] Impacted c erumen of bilateral ears 1535998829 743302 H61.23 [id number] JOSE EDUARDO LR [facility] of [address] [address] 02/06/2025 09:19:35 02/06/2025 10:04:06 Mixed conductive AND sensorineural hearing loss 11148903 H90.A31 [id number] Bilateral hearing loss 75062134 H90.A22 [id number] Audiologic al evaluation results: Right ear: Moderately [...] LastModified Time None Recorded Advance Directives Directive None Recorded Payers Insurance Date Sequence Insurance Name Policy Number Policy Gonzalez Covered Member ID Gonzalez Member ID Guarantor Name 02/06/2025 2 [place] [id number] Teresita Kent [id number] Teresita Kent 02/06/2025 1 [place] [employer] [employer] SERVICES Ashley Kent [id number] Teresita Ketn Notes Date Note Type Note Provider Name [...] diabetes, anxiety, myocardial infarction JO SANDS PA-C [address] [place] [address], [address], [facility] - [facility] 02/06/2025 12:05:18 OBGyn Episode No OBEpisode recorded.
--- OUTSIDE RECORDS SUMMARY | 2025-02-07 13:54 | XMS_ITS | Continuity of Care Document ---
Author Organization [place] [facility], [facility] Address [address] [place] [address] Care Team Providers Care Film Or Videotape Editor Name Role Phone KOFI MONTENEGRO Primary Care [...] Mixed conductive AND sensorineur al hearing loss 46709426 Active 2024 JOSE EDUARDO LR 100 [facility],[address] [address], [place], [address], [facility] - [facility] [place] 5 10:52:09 Bilateral hearing loss 49410828 Active 2024 RAMÍREZ BOSTON AUD 100 [facility],[address] [address], [place], [address], [place] [facility] [place] 10:52:17 Impacted cerumen of bilateral ears 1692971075491 108 Active 2024 JO SANDS PA-C 100 [facility],[address] [address], [place], [address], [place] [facility] [place] 12:04:40 Problem Notes None recorded. Procedures Surgical History Date Name Laterality Status Provider Name and Address Organization Details Recorded Time Cerumen removal without microscope bilat completed JO SANDS PA-C [address], [address], [place] - [facility] 02/06/2025 10:04:13 Comp Audio with Tymps - 49422 & 52718 completed RAMÍREZ BOSTON [facility] 100 [facility],[address], [address], [place] - [facility] 02/06/2025 10:51:52 arterial bypass of lower limb artery completed Yen Blue [place] [facility] [place] 02/06/2025 09:44:20 Imaging Results None recorded. Procedure [...] Updated DateTime 02/06/2025 165.1 cm 21.6 kg/m2 35618.01 g Yen Blue [place] [facility] 02/06/2025 09:43:31 Social History None recorded. Functional Status Question Answer Note LastModified by Organization D etails LastModified Time What is your level of alcohol consumption? None [email or web address] Information not available 02/06/2025 Mental Status None recorded. Family History Nothing Reported. Medical History Condition Response Allergies/Hayfever N Heart Problems N Anxiety Y Tonsil Infections N Emphysema N Migraines N Thyroid Problems N Glaucoma N Developmental Delay N Depression N COPD N Nasal or Sinus Problems N Anemia N Immune System Disorder N Anesthesia Complications N Heart Attack ([place]) Y Other Skin Condition N Diabetes Y [...] ICD10 Code Diagnosis IMO Codes Diagnosis Note [id number] JO SANDS PA-C [facility] of [address] [address] 02/06/2025 09:19:50 02/06/2025 11:51:33 Mixed conductive AND sensorineural hearing loss 55378911 H90.A31 [id number] Audiologic al evaluation results:Ri ght ear:Modera tely-sever e sloping to profound mixed hearing loss with fair/poor word recognitio n.Left ear:Modera te sloping to profound sensorineu ral hearing loss with good word recognitio n.Tympanom etry:Right Ear: Type ALeft Ear: Type A Bilateral hearing loss 98206497 H90.A22 [id number] Impacted c erumen of bilateral ears 2398186223 501902 H61.23 [id number] JOSE EDUARDO LR [facility] of [address] [address] 02/06/2025 09:19:35 02/06/2025 10:04:06 Mixed conductive AND sensorineural hearing loss 59868385 H90.A31 [id number] Bilateral hearing loss 00835021 H90.A22 [id number] Audiologic al evaluation results: Right ear: Moderately [...] Name 02/06/2025 2 [place]) [id number] Teresita Kent [id number] 01 Teresita Kent 02/06/2025 1 MEDICARE B-[place]: [facility] 5app SERVICES Ashley Kent [id number] 5 Teresita Kent Notes Date Note Type Note Provider [...] diabetes, anxiety, myocardial infarction JO SANDS PA-C [address] [place] [address], [address], [facility] - [facility] 02/06/2025 12:05:18 OBGyn Episode No OBEpisode recorded.
--- OUTSIDE RECORDS SUMMARY | 2025-02-07 13:54 | XMS_ITS | Encounter Summary ---
Author Organization [facility] Address [address] [place] [address] Care Team Providers Care Fisher Diver Net Name Role Phone Yu Alcantar MD Primary Care Provider Encounter Details Date Type Department Care Team (Late Contact Info) Description 03/08/2021 Scanned Document GENERIC EXTERNAL DATA DEPARTMENT Provider, Maria L, [address] [place] [address] Social History Tobacco Use Types Packs/Day Years [...] Description 09/04/2025 1:45 PM EDT Ancillary Procedure [facility] [address] [address] Wolfgang Helton MD [address] [place] [address] 09/04/2025 2:00 PM EDT Ancillary Procedure [facility] [address] [address] Wolfgang Helton MD [address] [place] [address] 09/04/2025 2:30 PM EDT Office Visit [facility] [address] [address] Wolfgang Helton MD [address] [place] [address] documented as of this encounter Visit Diagnoses Not on filedocumented in this encounter Care Teams Fisher Diver Net Relationship Specialty Start Date End Date Yu Alcantar MD [address] [place] [address] PCP - General Internal Medicine 02/07/21 documented as of this encounter
== END 2025-02-07 14:52 | disposition home or self-care (01) ==
PROVIDERS: PCP Internal Medicine; Visit Provider Physician Assistant Medical
DX: R30.0 Dysuria (principal); Z13.9 Encounter for screening, unspecified